=== PATIENT | female | born 1935 | race Caucasian/White ===

== ENCOUNTER 2023-12-19 14:29 | Inpatient (IN) | payer MEDICARE, OTHER, SELFPAY ==
[2023-12-19] VITALS (11 sets, daily range): BP systolic 126–191; BP diastolic 52–98; BMI 38.0
[2023-12-19 12:09] LABS: % Basophils 0.2 % (0-2); % Eosinophils 1.6 % (0-6); % Immature Granulocytes 0.9 % (0-0.5); % Lymphocytes 4.3 % (20.5-51.1); % Monocytes 9.1 % (1.7-9.3); % Neutrophils 83.9 % (42.2-75.2); Absolute Eosinophils 0.2 10^3/uL (0-0.7); Absolute Immature Granulocytes 0.1 10^3/uL (0-0.05); Absolute Lymphocytes 0.7 10^3/uL (1.2-3.4); Absolute Monocytes 1.4 10^3/uL (0.1-0.6); Absolute Neutrophils 12.6 10^3/uL (1.4-6.5); Hematocrit 36.9 % (37.0-47.0); Hemoglobin 10.9 g/dL (12.0-16.0); Mean Corp Hgb Conc. 29.5 g/dL (33.0-37.0); Mean Corpuscular Hgb 27.3 pg (27.0-31.0); Mean Corpuscular Volume 92.3 fL (81.0-99.0); Mean Platelet Volume 9.5 fL (7.4-10.4); Nucleated Red Blood Cells % 0 %; Platelet Count 166 10^3/uL (130-400); Red Cell Dist. Width 15.1 % (11.5-14.5)
[2023-12-19 12:24] LABS: ALT (SGPT) 10 U/L (0-35); AST (SGOT) 15 U/L (14-36); Albumin 3.1 g/dl (3.5-5.0); Alkaline Phosphatase 96 U/L (38-126); Blood Urea Nitrogen 20 mg/dl (7-17); Calcium 9.3 mg/dl (8.4-10.2); Carbon Dioxide 34 mmol/L (22-30); Chloride 102 mmol/L (98-107); Glucose 121 mg/dl (70-99); Potassium 4.1 mmol/L (3.5-5.1); Sodium 136 mmol/L (135-145); Total Bilirubin 0.5 mg/dl (0.2-1.3); Total Protein 5.9 g/dl (6.3-8.2); eGFR 36.41
[2023-12-19] MEDS: ANCEF 10 IV (12:48)
--- NOTE | 2023-12-19 13:16 | CON.ORTHO ---
Consultation
-
Date/Time Consultation Requested: December 30/1317
Date/Time Consultation Performed: December 30/1245
Requesting Provider: QUINTON Byers
Performing Provider: Boni Hanson
Reason for Consultation: Right open ankle fracture
Consultation - Orthopedics
History
Dictation#[id number]
Asked to see this very pleasant 88-year-old white female, in the presence of her son, Sheng, with a PMH of COPD, NIDDM, hyperlipids, 2L O2 chronically, venous stasis, who unfortunately tripped and fell this morning around 0645. She was unable to
get to her feet and ambulate therefore SNF at [facility] transported here to ER where plain radiographs confirmed essentially nondisplaced bimalleolar right ankle fracture. There is an open wound medially. She does not report any previous
injuries or issues with the right foot or ankle. We have been requested in consultation for the consideration of surgical intervention. she has received 2 g of IV Ancef
Allergies / Home Medications
Allergy/AdvReac Type Severity Reaction Status Date / Time
amlodipine besylate Allergy COUGH Verified 06/21/22 12:32
[From [facility]]
influenza virus vaccine, Allergy GOT VERY Verified 06/21/22 12:33
specific ILL (pt
[influenza virus denies)
vacc,specific]
morphine Allergy Nausea Verified 06/21/22 12:32
Penicillins Allergy Unknown Verified 06/21/22 12:32
pioglitazone HCl [From Actos] Allergy COUGH Verified 06/21/22 12:32
quinapril HCl [From Accupril] Allergy COUGH Verified 06/21/22 12:32
�Medication �Instructions �Recorded
ezetimibe 10 mg tablet 10 mg PO QPM 10/19/14
acetaminophen 500 mg tablet 500 mg PO Q6HPRN PRN mild pain 12/19/23
(Tylenol Extra Strength)
aspirin 81 mg tablet,delayed 81 mg PO DAILY 12/19/23
release
carboxymethylcellulose sodium 1 % 1 drp BOTH EYES TIDPRN PRN dryness 12/19/23
eye drops
carvedilol 25 mg tablet (Coreg) 25 mg PO BID 12/19/23
cholecalciferol (vitamin D3) 125 125 mcg PO DAILY 12/19/23
mcg (5,000 unit) tablet (Vitamin
D3)
cyclobenzaprine 5 mg tablet 5 mg PO DAILY 12/19/23
d-mannose 500 mg capsule 1,000 mg PO BID 12/19/23
fluticasone fur. 100 mcg-umeclid 1 inh inhalation R DAILY 12/19/23
62.5 mcg-vilant 25 mcg
inhalat.powder (Trelegy Ellipta)
fluticasone propionate 50 1 spray intranasal BID 12/19/23
mcg/actuation nasal
spray,suspension
furosemide 20 mg tablet 20 mg PO DAILY 12/19/23
gabapentin 100 mg capsule 100 mg PO BID 12/19/23
gabapentin 100 mg capsule 200 mg PO HS 12/19/23
ipratropium 0.5 mg-albuterol 3 mg 3 ml inhalation R Q6HPRN PRN sob 12/19/23
(2.5 mg base)/3 mL nebulization
soln
lidocaine HCl 4 % topical cream 1 applic topical TIDPRN PRN b/l 12/19/23
(Aspercreme (lidocaine HCl)) feet, b/l ankles
loperamide 2 mg capsule 2 mg PO Q6HPRN PRN diarrhea 12/19/23
loratadine 10 mg tablet (Claritin) 10 mg PO DAILY 12/19/23
lorazepam 0.5 mg tablet 0.5 mg PO DAILYPRN PRN anxiety 12/19/23
losartan 100 mg tablet 100 mg PO DAILY 12/19/23
magnesium hydroxide 400 mg/5 mL 30 ml PO [id number] PRN at bedtime on 12/19/23
oral suspension 3rd day if no bm
melatonin 5 mg tablet 10 mg PO HS 12/19/23
ondansetron HCl 8 mg tablet 8 mg PO Q8HPRN PRN nausea 12/19/23
oxycodone 5 mg tablet 5 mg PO [id number] PRN 12/19/23
moderate/severe pain
polyethylene glycol 3350 17 gram 17 g PO DAILYPRN PRN cosntipation 12/19/23
oral powder packet (Miralax)
sennosides 8.6 mg tablet (senna) 1 tab PO HS 12/19/23
sodium chloride 0.65 % nasal spray 1 spray intranasal Q4HPRN PRN 12/19/23
aerosol dryness
trazodone 50 mg tablet 25 mg PO HS 12/19/23
Vital Signs / Lab Results
Temp Pulse Resp BP Pulse Ox
98.7 F 87 16 145/52 91
12/19/23 09:06 12/19/23 13:00 12/19/23 13:00 12/19/23 11:46 12/19/23 12:54
12/19/23 11:59
12/19/23 11:59
Assessment / Plan
PE: ED7. Bedrest. AAOx3. stasis changes noted in both lower extremities. Scabbed over abrasion pretibial region middle third. There is an open laceration medially on the ankle. No bony structures visible. Expected edema is noted. Wound is
dressed. She is currently not splinted. 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
Xrays: minimally displaced bimalleolar ankle fracture. mortise is maintained. open wound medially
Impression: RAFAEL
Plan: I discussed at length with both the patient and her son, Sheng. her last meal was before 0700 this morning. we will have the hospitalist see her to determine if she is optimal for the OR. At the very least an I&D of the right ankle is
necessary. Dr. Hanson, our foot and ankle specialist, will determine if hardware is necessary or if we will try I&D with postop splinting and close outpatient follow-up to assess for healing. She has tentatively been posted to the OR schedule
for [address] Hanson's direction. RBAs of nonoperative and operative management were discussed. Briefly discussed the postop course as well. Plan will likely be returning to SNF at [facility] with outpatient follow-up. we
will appreciate the assistance of case management. She is NPO. T&S has been requested. BS 121, but will request an A1c. surgical and blood consents have been signed. Operative site has been marked as the right ankle. Again, the tentative plan
for surgery is this afternoon if cleared medically. Will follow. Appreciate the courtesy of the consult
--- NOTE | 2023-12-19 13:19 | ED.MUSCINJ ---
HPI-Injury
General
Chief Complaint: Fall
Source: patient
Exam Limitations: none
Time Seen by Provider: 12/19/23 09:47
Travel History
Have you had any contact with someone who has COVID-19?: No
Do you have any symptoms of coronavirus? Fever > 100 degrees, chills, cough, shortness of breath, sore throat, loss of taste or smell, muscle aches, or headache?: No
History of Present Illness-Injury
Initial Injury comments:
88-year-old female history of COPD [id number] diabetes presents from [facility] with complaints of right ankle pain after slip and fall. She also complains of left lower leg pain. She did not hit her head. There is
reports of low oxygen readings at the facility. She denies chest pain or shortness of breath. No other complaints at this time
Past History
Past History
ED Past Medical History: COPD, HTN, Hypercholesterolemia and NIDDM
ED Past Surgical History: Bowel resection, Gynecological and Orthopedic
Social History
Tobacco: Former smoker
Alcohol: Occasional
Drug: None
Personal:
Living: with family
Employment: Retired
Family History
Family History: Other (Pending)
Phy Exam
Physical Exam
Physical Exam:
General: Well-appearing female no acute respiratory distress
HEENT: Normocephalic atraumatic
Heart: Regular rate no murmurs
Lungs: Clear without obvious wheeze
Abdomen soft nontender nondistended no guarding rebound
Extremities: No cyanosis pitting edema noted bilateral lower extremities
Skin: Approximate 4 and half centimeter laceration of the medial aspect of the right ankle
Musculoskeletal exam: The right ankle is tender to the touch laterally and medially. No significant deformity left leg is tender posteriorly over the calf and over the big toe.
Neurologic: Alert and oriented facial asymmetry
Injury Course
Orders/Labs/Results
Orders:
Orders
12/19/23 09:55
CR Foot - Left Min 3 Views Urgent
Comment:
Reason For Exam: fall
CR Foot - Right Min 3 Views Urgent
Comment:
Reason For Exam: fall
CR Leg Tibia/fibula Left 2 Vw Urgent
Comment:
Reason For Exam: fall
CR Leg Tibia/fibula Right 2 Vw Urgent
Comment:
Reason For Exam: fall
12/19/23 10:59
CR Ankle - Right Min 3 Views * Urgent
Comment:
Reason For Exam: pain
12/19/23 11:05
CR Chest - 2 Views Urgent
Comment:
Reason For Exam: cough, hypoxia
12/19/23 11:06
Electrocardiogram (*1) Urgent
Reason for Study: Shortness of Breath
CT Head W/o Iv Contrast Urgent
Comment:
Reason For Exam: fall
EKG- Treatment ONCE
12/19/23 11:59
Complete Blood Count/With Diff Urgent
Comprehensive Metabolic Panel Urgent
Glycohemoglobin (HgbA1c) Urgent
12/19/23 12:24
CeFAZolin 2 GRAM [Ancef] 2 grams in 10 ml IV NOW
12/19/23 12:57
Type+Screen Urgent
12/19/23 13:03
Add On- LAB Urgent
Tests Added?: hgb A1C
12/19/23 13:17
ORTHOPEDIC CONSULT Urgent
Consulting Provider: Osbaldo Hanson
Was physician already notified: Yes
Abnormal Lab Results
12/19/23
11:59
WBC 15.0 H 10^3/uL
(4.8-10.8)
RBC 4.00 L 10^6/uL
(4.20-5.40)
Hgb 10.9 L g/dL
(12.0-16.0)
Hct 36.9 L %
(37.0-47.0)
MCHC 29.5 L g/dL
(33.0-37.0)
RDW 15.1 H %
(11.5-14.5)
Abs Immat Gran (auto) 0.1 H 10^3/uL
(0-0.05)
Absolute Neuts (auto) 12.6 H 10^3/uL
(1.4-6.5)
Absolute Lymphs (auto) 0.7 L 10^3/uL
(1.2-3.4)
Absolute Monos (auto) 1.4 H 10^3/uL
(0.1-0.6)
Immature Gran % 0.9 H %
(0-0.5)
Neutrophils % 83.9 H %
(42.2-75.2)
Lymphocytes % 4.3 L %
(20.5-51.1)
Carbon Dioxide 34 H mmol/L
(22-30)
BUN 20 H mg/dl
(7-17)
Creatinine 1.4 H mg/dL
(0.6-1.0)
Glucose 121 H mg/dl
(70-99)
Total Protein 5.9 L g/dl
(6.3-8.2)
Albumin 3.1 L g/dl
(3.5-5.0)
12/19/23 11:59
12/19/23 11:59
MDM/Problems Addressed
Differential Diagnosis Includes:
Fall with right ankle pain. Consider fracture versus dislocation. There is a laceration. Consider possibility of open fracture.
This was a mechanical fall on wet floor. Son now on room said she has been confused lately. CT of the head was ordered on top of x-rays of the lower extremities
I have personally visualized all imaging studies including CT of head x-rays of the lower leg and spine specifically the right ankle. There is a bimalleolar fracture of the right ankle that is minimally displaced. Laceration on the medial aspect
of the right ankle is overlying the fracture site of the medial malleolus. Suspect open fracture. Discussed findings with orthopedics who has seen the patient. They plan on taking the patient to the OR today. Ancef 2 g ordered. Hospitalist made
aware of admission
*Critical Care Note
Total Time (30-74mins, 75-104mins- exclusive of procedures): Not Applicable
ED Attending Note
-
Portions of this chart may have been created with voice recognition software.� Occasional wrong word or��sound alike� substitutions may have occurred due to the inherent limitations of voice recognition software.
Discharge Plan
Departure
Patient Disposition: Admit
Date of Disposition: 12/19/23
Time of Disposition: 13:22
Presentation/result/management discussed w/ accepting MD/DO: Hospitalist
Discharge Problem:
Open bimalleolar fracture of right ankle
Prescriptions:
No Action
ezetimibe 10 MG tablet
10 mg PO QPM
carvedilol [Coreg] 25 mg Tablet
25 mg PO BID
ipratropium-albuterol [DuoNeb] 0.5 mg-3 mg(2.5 mg base)/3 mL Solution For Nebulization
3 ml INHALATION R Q6HPRN PRN (Reason: sob)
loperamide 2 mg Capsule
2 mg PO Q6HPRN PRN (Reason: diarrhea)
trazodone 50 mg Tablet
25 mg PO HS
polyethylene glycol 3350 [Miralax] 17 gram Powder In Packet
17 g PO DAILYPRN PRN (Reason: cosntipation)
ondansetron HCl [Zofran] 8 mg Tablet
8 mg PO Q8HPRN PRN (Reason: nausea)
aspirin 81 mg Tablet,Delayed Release (Dr/Ec)
81 mg PO DAILY
acetaminophen [Tylenol Extra Strength] 500 mg Tablet
500 mg PO Q6HPRN PRN (Reason: mild pain)
lorazepam 0.5 mg Tablet
0.5 mg PO DAILYPRN PRN (Reason: anxiety)
gabapentin 100 mg Capsule
200 mg PO HS
losartan 100 mg Tablet
100 mg PO DAILY
fluticasone propionate [Flonase] 50 mcg/actuation [place],Suspension
1 spray INTRANASAL BID
loratadine [Claritin] 10 mg Tablet
10 mg PO DAILY
cyclobenzaprine 5 mg Tablet
5 mg PO DAILY
[place] Nasal Mist 0.65 % Aerosol,[place]
1 spray INTRANASAL Q4HPRN PRN (Reason: dryness)
melatonin 5 mg Tablet
10 mg PO HS
cholecalciferol (vitamin D3) [Vitamin D3] 125 mcg (5,000 unit) Tablet
125 mcg PO DAILY
lidocaine HCl [Aspercreme (lidocaine HCl)] 4 % Cream
1 applic TOPICAL TIDPRN PRN (Reason: b/l feet, b/l ankles)
Trelegy Ellipta 100-62.5-25 mcg Blister With Device
1 inh INHALATION R DAILY
carboxymethylcellulose sodium 1 % Drops
1 drp BOTH EYES TIDPRN PRN (Reason: dryness)
d-mannose 500 mg Capsule
1,000 mg PO BID
sennosides [senna] 1 TABLET tablet
1 tab PO HS
magnesium hydroxide 30 ML suspension
30 ml PO [id number] PRN (Reason: at bedtime on 3rd day if no bm )
furosemide 20 MG tablet
20 mg PO DAILY
oxycodone 5 MG tablet
5 mg PO [id number] PRN (Reason: moderate/severe pain)
gabapentin 100 mg Capsule
100 mg PO BID
Referrals:
Devan Hammer MD [Family Provider] -
Interventions
Interventions:
*Risk Screen - Suicide Last Done: 12/19/23 12:13
*Neglect/Abuse Screening Last Done: 12/19/23 12:13
ED- Fall Risk Assessment Last Done: 12/19/23 12:13
*ED COVID-19 Vaccine History Last Done: 12/19/23 12:13
ED-Musculoskeletal Assessment Last Done: 12/19/23 12:17
ED-Skin Assessment Last Done: 12/19/23 12:13
Discharge Date and Time
Print Language: NAURUAN
--- NOTE | 2023-12-19 13:30 | HPS.HSE ---
Family Physician
-
Family Physician: Devan Hammer
Chief Complaint
-
fall
History of Present Illness
88-year-old with past medical history for TIA, COPD, obesity, type 2 diabetes, hypertension, hyperlipidemia, chronic respiratory failure O2 dependent presented to us with presented to us status post fall at [facility]. Patient slipped and fell
in the bathroom. Patient denied hitting head on the floor. Since then, she is complaining of bilateral ankle pain. Patient cannot move her right ankle. Patient denied any headache, dizziness, syncopal episode. Patient has runny nose, nasal
congestion and cough for past few days. She is taking Robitussin as needed for cough. Patient denied any fever, chills. Patient stated chronic short of breath. Patient denied chest pain. Patient denied abdominal pain, nausea, vomiting,
diarrhea. Patient denied dysuria hematuria.
Ankle x-ray with impression of Minimally displaced, acute fractures through the distal RIGHT fibula and medial malleolus.
Patient evaluated by orthopedics in the ER. Possibly going for surgical intervention today.
Medical History
Past Medical History
Past Medical History: Reports Other
Additional Past Medical History:
TIA, COPD, obesity, type 2 diabetes, hypertension, hyperlipidemia, chronic respiratory failure O2 dependent
Past Surgical History: Reports Other
Additional Past Surgical History:
Colon polyp resection
Left breast surgery for breast cancer
Partial hip replacement
Cataract surgery
Shoulder repair
Total abdominal hysterectomy
Social History
Tobacco: Former Smoker
Alcohol: None
Drug: None
Personal: Single
Living: Assisted Living
Family History
Family History: Not pertinent
Allergies / Home Medications
Allergies reflects when Allergies were last updated in [employer].
Home Medications with original date entered in [employer]
Allergy/Medication List:
Allergies
Allergy/AdvReac Type Severity Reaction Status Date / Time
amlodipine besylate Allergy COUGH Verified 06/21/22 12:32
[From [facility]]
influenza virus vaccine, Allergy GOT VERY Verified 06/21/22 12:33
specific ILL (pt
[influenza virus denies)
vacc,specific]
morphine Allergy Nausea Verified 06/21/22 12:32
Penicillins Allergy Unknown Verified 06/21/22 12:32
pioglitazone HCl [From Actos] Allergy COUGH Verified 06/21/22 12:32
quinapril HCl [From Accupril] Allergy COUGH Verified 06/21/22 12:32
Home Medications
ezetimibe 10 mg tablet 10 mg PO QPM 10/19/14
acetaminophen 500 mg tablet (Tylenol Extra Strength) 500 mg PO Q6HPRN PRN mild pain 12/19/23
aspirin 81 mg tablet,delayed release 81 mg PO DAILY 12/19/23
carboxymethylcellulose sodium 1 % eye drops 1 drp BOTH EYES TIDPRN PRN dryness 12/19/23
carvedilol 25 mg tablet (Coreg) 25 mg PO BID 12/19/23
cholecalciferol (vitamin D3) 125 mcg (5,000 unit) tablet (Vitamin D3) 125 mcg PO DAILY 12/19/23
cyclobenzaprine 5 mg tablet 5 mg PO DAILY 12/19/23
d-mannose 500 mg capsule 1,000 mg PO BID 12/19/23
fluticasone fur. 100 mcg-umeclid 62.5 mcg-vilant 25 mcg inhalat.powder (Trelegy Ellipta) 1 inh inhalation R DAILY 12/19/23
fluticasone propionate 50 mcg/actuation nasal spray,suspension 1 spray intranasal BID 12/19/23
furosemide 20 mg tablet 20 mg PO DAILY 12/19/23
gabapentin 100 mg capsule 100 mg PO BID 12/19/23
gabapentin 100 mg capsule 200 mg PO HS 12/19/23
ipratropium 0.5 mg-albuterol 3 mg (2.5 mg base)/3 mL nebulization soln 3 ml inhalation R Q6HPRN PRN sob 12/19/23
lidocaine HCl 4 % topical cream (Aspercreme (lidocaine HCl)) 1 applic topical TIDPRN PRN b/l feet, b/l ankles 12/19/23
loperamide 2 mg capsule 2 mg PO Q6HPRN PRN diarrhea 12/19/23
loratadine 10 mg tablet (Claritin) 10 mg PO DAILY 12/19/23
lorazepam 0.5 mg tablet 0.5 mg PO DAILYPRN PRN anxiety 12/19/23
losartan 100 mg tablet 100 mg PO DAILY 12/19/23
magnesium hydroxide 400 mg/5 mL oral suspension 30 ml PO [id number] PRN at bedtime on 3rd day if no bm 12/19/23
melatonin 5 mg tablet 10 mg PO HS 12/19/23
ondansetron HCl 8 mg tablet 8 mg PO Q8HPRN PRN nausea 12/19/23
oxycodone 5 mg tablet 5 mg PO [id number] PRN moderate/severe pain 12/19/23
polyethylene glycol 3350 17 gram oral powder packet (Miralax) 17 g PO DAILYPRN PRN cosntipation 12/19/23
sennosides 8.6 mg tablet (senna) 1 tab PO HS 12/19/23
sodium chloride 0.65 % nasal spray aerosol 1 spray intranasal Q4HPRN PRN dryness 12/19/23
trazodone 50 mg tablet 25 mg PO HS 12/19/23
Review of Systems
-
Constitutional: Reports No Symptoms
EENT: Reports No Symptoms
Respiratory: Reports No Symptoms
Cardiac: Reports No Symptoms
Abdomen/GI: Reports No Symptoms
: Reports No Symptoms
Musculoskeletal: Reports Other (Right ankle pain)
Skin: Reports No Symptoms
Neurological: Reports No Symptoms
Endocrine: Reports No Symptoms
Hematologic/Lymphatic: Reports No Symptoms
Psych: Reports No Symptoms
Physical Exam
Vital Signs
Vital Signs
Temp Pulse Resp BP Pulse Ox
98.7 F 87 16 145/52 91
12/19/23 09:06 12/19/23 13:00 12/19/23 13:00 12/19/23 11:46 12/19/23 12:54
Physical Exam
General: Well Developed, Well Nourished and No Apparent Distress
HEENT: NormoCephalic, Moist mucous membranes and Atraumatic
Respiratory: Clear
Cardiac: S1/S2 and Regular Rhythm; No Murmur or Rub
GI: Soft, Non Tender, Non Distended and Normal Bowel Sounds; No Organomegaly
Rectal: Deferred by Provider
Musculoskeletal: No Clubbing, No Cyanosis and No Edema
Skin: No Rash
Neuro: AO x 3 and Nonfocal/grossly intact
Psych: Calm
Laboratory Results
-
12/19/23 11:59
12/19/23 11:59
Laboratory Results
Total Bilirubin 0.5 mg/dl (0.2-1.3) 12/19/23 11:59
AST 15 U/L (14-36) 12/19/23 11:59
ALT 10 U/L (0-35) 12/19/23 11:59
Alkaline Phosphatase 96 U/L (38-126) 12/19/23 11:59
Data Reviewed
-
Diagnostic Radiology: Report Reviewed by me
Lab Data: Labs Reviewed by me
Impression/Plan
-
# Open right ankle fracture status post fall
-Ankle,foot, type fib x-ray with impression of Minimally displaced, acute fractures through the distal RIGHT fibula and medial malleolus.
-Head CT with no acute intracranial normality, Mild paranasal sinus disease within the right maxillary sinus and ethmoid air cells.
-Ortho will take 2 OR today
-IV ancef in ER
-orthopedic consult
-Physical therapy and Occupational Therapy consulted after surgery
# Leukocytosis likely stress reaction
-WBC 15.0
-Afebrile
-Continue to monitor
-Chest x-ray with no acute disease
-obtain UA
# Runny nose, nasal congestion/cough likely viral
-Will obtain influenza, COVID
-Continue to monitor
# Anemia of chronic disease
-Hemoglobin 10.9
-No active bleeding
-Continue to monitor
# Chronic kidney disease stage IIIb
-Creatinine 1.4
-Continue to monitor
# Chronic respiratory failure/history of COPD
-O2 dependent at home
-Patient uses 2 L of oxygen at home
-Patient not in acute exacerbation
-Nebulizers from home will be continued
# Essential hypertension
-Coreg continued with hold parameters
-Furosemide continued
-Losartan continued
# Hyperlipidemia
-Zetia continued
# Anxiety
-Lorazepam continued
# Chronic generalized pain
-oxy held, as patient will be on iv pain meds after surgery
# DVT prophylaxis
-SCD
# CODE STATUS
-Full code
[2023-12-19 14:46] LABS: Glycohemoglobin (HgbA1c) 6.4 % (4.0-5.6)
[2023-12-19 15:10] LABS: COVID-19 Antigen Negative (Negative)
--- NOTE | 2023-12-19 15:19 | W.PN.UPDATE ---
Update Note
Progress Note Update
This note serves in conjunction with note dated with Francisco Javier Garcia on 12/18
I saw and examined the patient.
The COMPUTER FORENSICS TECHNICIAN or PA's note was reviewed and I agree with the note.
Comment:
88-year-old with past medical history for TIA, COPD, obesity, type 2 diabetes, hypertension, hyperlipidemia, chronic respiratory failure O2 dependent, now presents status post fall. Patient has been recently having URI symptoms without any other
further associated symptoms. Patient had fell, no head strike. Complaining of bilateral ankle pain, and unable to move her right ankle. Patient members fall, no evidence of syncope. Hypertensive, respirate 17, pulse 85, 91% on room air. White
count 15.0, creatinine 1.4�has been stable. SARS-CoV-2, flu negative. No urinary symptoms. CT head unremarkable for acute pathology. X-ray with no obvious acute pathology. Noted to have minimally displaced, acute fracture throughout the distal
right fibula and medial malleolus. Ortho on board and plan to go to the OR today. Plan�continue home medications, pain regimen. Monitor white count, most likely reactive.
[2023-12-19 15:50] LABS: Glucose - Point of Care 131 mg/dl (70-99)
[2023-12-19 19:15] LABS: Glucose - Point of Care 196 mg/dl (70-99)
[2023-12-19] MEDS: NOVOLOG vial 100 UNITS SC (20:08)
[2023-12-19] MEDS: DILAUDID 0.25 MG IV (20:14)
[2023-12-19] MEDS: SYMBICORT 80/4.5 MCG INHALER INH (21:24)
--- NOTE | 2023-12-19 21:28 | PTCARENOTE ---
Received patient from PACU via bed approx 21:00. Pt AAOX3. Call marie within reach. Plan of care ongoing. Son at bedside.
[2023-12-19] MEDS: DESYREL 25 MG PO (21:34)
[2023-12-19] MEDS: COREG 25 MG PO (21:34)
[2023-12-19] MEDS: MELATONIN 10 MG PO (21:35)
[2023-12-19] MEDS: NEURONTIN 200 MG PO (21:35)
[2023-12-19] MEDS: ZETIA 10 MG PO (21:35)
[2023-12-19] MEDS: SENOKOT 8.59999999999999964 MG PO (21:35)
[2023-12-19] MEDS: TYLENOL 650 MG PO (21:42)
[2023-12-20] VITALS (10 sets, daily range): BP systolic 124–179; BP diastolic 53–82; PULSE 66–68; O2SAT 91–94
[2023-12-20 00:07] LABS: Glucose - Point of Care 211 mg/dl (70-99)
[2023-12-20] MEDS: ANCEF 5 IV ×2 (00:15→08:58)
[2023-12-20 03:59] LABS: Urine Albumin 1+ (Neg - Trace); Urine Bilirubin Negative (Negative); Urine Character Very Cloudy (Clear); Urine Color Yellow; Urine Glucose Negative (Negative); Urine Ketone 1+ (Negative); Urine Leukocyte 2+ (Negative); Urine Nitrite Positive (Negative); Urine Occult Blood 2+ (Negative); Urine Urobilinogen Negative (Neg - 1+)
[2023-12-20 04:23] LABS: Hematocrit 36.7 % (37.0-47.0); Hemoglobin 10.8 g/dL (12.0-16.0); Mean Corp Hgb Conc. 29.4 g/dL (33.0-37.0); Mean Corpuscular Volume 91.8 fL (81.0-99.0); Mean Platelet Volume 9.8 fL (7.4-10.4); Platelet Count 156 10^3/uL (130-400); Red Cell Dist. Width 14.7 % (11.5-14.5); White Blood Cell Count 16.5 10^3/uL (4.8-10.8)
[2023-12-20 04:27] LABS: Urine Bacteria Many (Negative); Urine White Cell >100 /HPF (0-5)
[2023-12-20 04:45] LABS: Blood Urea Nitrogen 23 mg/dl (7-17); Calcium 9.7 mg/dl (8.4-10.2); Carbon Dioxide 33 mmol/L (22-30); Chloride 99 mmol/L (98-107); Estimated Creatinine Clearance 36 ml/min; Glucose 164 mg/dl (70-99); Potassium 4.8 mmol/L (3.5-5.1); Sodium 138 mmol/L (135-145)
[2023-12-20 06:04] LABS: Glucose - Point of Care 175 mg/dl (70-99)
--- NOTE | 2023-12-20 07:26 | W.PN.ORTHO ---
Today's Communication / Plan
-
POD #1 s/p ORIF right trimalleolar fracture and I&D
-NWB RLE.
-PT/OT as able.
-IV antibiotics per open fracture protocol.
-Aspirin 325 mg po daily for dvt prophylaxis.
-Pain control.
-Will plan to change dressing prior to discharge to assess skin.
-Appreciate case management efforts in d/c planning.
-Will have her f/u in office in 1 week for skin check and plan to remove sutures 3-4 weeks post op.
-Will continue to follow.
Assessment
.
Distal Motor Intact: Yes
Dressing:
Clean, dry and intact.
Assessment:
POD #1 s/p ORIF right trimalleolar fracture and I&D
-NWB RLE.
-PT/OT as able.
-IV antibiotics per open fracture protocol.
-Aspirin 325 mg po daily for dvt prophylaxis.
-Pain control.
-Will plan to change dressing prior to discharge to assess skin.
-Appreciate case management efforts in d/c planning.
-Will have her f/u in office in 1 week for skin check and plan to remove sutures 3-4 weeks post op.
-Will continue to follow.
Plan
.
DVT Prophylaxis: Aspirin
Activity:
Out of bed.
PT/OT
Discharge Plan: SNF
Subjective
.
.:
Patient resting comfortably, somnolent on exam. Able to wake her to answer questions, but she remains groggy. States some soreness in her ankle.
Vital Signs and Labs
.
Vital Signs and Labs:
Lab Results
12/20/23 04:08
12/20/23 04:08
Temp Pulse Resp BP Pulse Ox
98.1 F 74 16 145/63 95
12/20/23 03:10 12/20/23 03:10 12/20/23 03:10 12/20/23 03:10 12/20/23 03:10
Physical Exam
-
Right leg: Splint on RLE c/d/i. No evidence of significant swelling. Able to wiggle toes. Good distal sensation to light touch.
[2023-12-20] MEDS: SYMBICORT 80/4.5 MCG INHALER 2 PUFF INH ×2 (07:46→21:08)
[2023-12-20] MEDS: SPIRIVA RESPIMAT 2.5 MCG 2 PUFF INH (07:46)
[2023-12-20] MEDS: COZAAR 100 MG PO (08:54)
[2023-12-20] MEDS: COREG 25 MG PO ×2 (08:57→19:34)
[2023-12-20] MEDS: FLEXERIL 5 MG PO (08:57)
[2023-12-20] MEDS: NEURONTIN 100 MG PO ×2 (08:58→17:20)
[2023-12-20] MEDS: LASIX 20 MG PO (08:58)
[2023-12-20] MEDS: ASPIR LOW (ENTERIC COATED) 81 MG PO (08:58)
[2023-12-20] MEDS: CLARITIN 10 MG PO (08:58)
[2023-12-20] MEDS: TYLENOL 650 MG PO ×2 (09:04→20:39)
[2023-12-20 11:53] LABS: Glucose - Point of Care 123 mg/dl (70-99)
--- NOTE | 2023-12-20 13:16 | W.PN.HOSP.TC ---
Today's Communication/Plan
-
switch to ceftriaxone
F/u urine cultures
pain control
pt/ot
ASA 325mg
dresing changes
Assessment / Plan
Assessment / Plan
Physical Exam
General: Well Developed, Well Nourished and No Apparent Distress
HEENT: NormoCephalic, Moist mucous membranes and Atraumatic
Respiratory: Clear
Cardiac: S1/S2 and Regular Rhythm; No Murmur or Rub
GI: Soft, Non Tender, Non Distended and Normal Bowel Sounds; No Organomegaly
Rectal: Deferred by Provider
Musculoskeletal: No Clubbing, No Cyanosis and No Edema
Skin: No Rash
Neuro: AO x 3 and Nonfocal/grossly intact
Psych: Calm
# Open right ankle fracture status post fall
-POD #1 s/p ORIF right trimalleolar fracture and I&D
-Aspirin 325 mg po daily for dvt prophylaxis.
-Pain Control
-Dressing change as per Ortho
-PT/OT
-F/u Ortho in 1 week for skin check and plan to remove sutures in 3 to 4 weeks.
# Leukocytosis likely stress reaction
-UA is positive although most likely stress reaction
� Continue to monitor
#UTI
May have been contributing factor and fall
� Treat, switch to ceftriaxone
-Follow-up cultures
# Runny nose, nasal congestion/cough likely viral
-Covid, Flu Neg
-Continue to monitor
# Anemia of chronic disease
-Hemoglobin 10.9
-No active bleeding
-Continue to monitor
# Chronic kidney disease stage IIIb
-Creatinine 1.4
-Continue to monitor
# Chronic respiratory failure/history of COPD
-O2 dependent at home
-Patient uses 2 L of oxygen at home
-Patient not in acute exacerbation
-Nebulizers from home will be continued
# Essential hypertension
-Coreg continued with hold parameters
-Furosemide continued
-Losartan continued
# Hyperlipidemia
-Zetia continued
# Anxiety
-Lorazepam continued
# Chronic generalized pain
-oxy held, as patient will be on iv pain meds after surgery
# DVT prophylaxis
-SCD
# CODE STATUS
-Full code
Anticipated Discharge: 24 - 48 hours
Subjective/Interval History
-
Date of Service: December 20, 2023
Tolerated procedure well; UA noted to be positive
Objective Data
-
Labs:
Laboratory Results
12/20/23
04:08
WBC 16.5 H
Hgb 10.8 L
Hct 36.7 L
Plt Count 156
Sodium 138
Potassium 4.8
Chloride 99
Carbon Dioxide 33 H
BUN 23 H
Creatinine 1.3 H
Glucose 164 H
Calcium 9.7
Vital Signs:
Vital Signs
Temp Pulse Resp BP Pulse Ox
98.0 F 67 18 150/56 94
12/20/23 11:55 12/20/23 11:55 12/20/23 11:55 12/20/23 11:55 12/20/23 11:55
I&O
12/19/23 12/20/23 12/21/23
06:59 06:59 06:59
Intake Total 100 / 100
Output Total 425 / 425
Balance -325 / -325
Review of Systems
-
History Source: Patient
All other systems: Not reviewed unless documented
Data Reviewed
-
Diagnostic Radiology: Image personally visualized and interpreted and Report Reviewed by me
CT Scan: Image personally visualized and interpreted and Report Reviewed by me
Labs: Labs Reviewed by me
[2023-12-20] MEDS: STERILE WATER FOR INJECTION 10 ML IV (13:49)
[2023-12-20] MEDS: ROCEPHIN 1000 MG IV (13:49)
--- NOTE | 2023-12-20 14:08 | CM ---
CM spoke with nursing/[facility]
Pt is a [place] resident- approx 4-5 years there and [place] bedhold
Pt is independent with ambulations with use a WW
She self propels a WC for longer distances
Staff provide personal care assistance
Pt is Ax O 4x and wears 2L O2 continuously
PCP- Devan Hammer
Rx- Pharmascript
Pt is POD#1 ORIF R ankle
Pt is NWB R.LE
Return SNF referral sent via [facility]
Discharge Disposition- return [facility]
[2023-12-20] MEDS: ZETIA 10 MG PO (17:20)
[2023-12-20 17:45] LABS: Glucose - Point of Care 182 mg/dl (70-99)
[2023-12-20] MEDS: NEURONTIN 200 MG PO (21:39)
[2023-12-20] MEDS: MELATONIN 10 MG PO (21:39)
[2023-12-20] MEDS: SENOKOT 8.59999999999999964 MG PO (21:40)
[2023-12-20] MEDS: DESYREL 25 MG PO (21:40)
[2023-12-20 23:11] LABS: Glucose - Point of Care 171 mg/dl (70-99)
[2023-12-21 05:41] LABS: Hematocrit 31.8 % (37.0-47.0); Hemoglobin 9.4 g/dL (12.0-16.0); Mean Corp Hgb Conc. 29.6 g/dL (33.0-37.0); Mean Corpuscular Hgb 27.2 pg (27.0-31.0); Mean Corpuscular Volume 92.2 fL (81.0-99.0); Mean Platelet Volume 10.2 fL (7.4-10.4); Platelet Count 166 10^3/uL (130-400); Red Blood Cell Count 3.45 10^6/uL (4.20-5.40); Red Cell Dist. Width 15.1 % (11.5-14.5)
[2023-12-21 06:06] LABS: Blood Urea Nitrogen 32 mg/dl (7-17); Calcium 9.5 mg/dl (8.4-10.2); Carbon Dioxide 34 mmol/L (22-30); Chloride 103 mmol/L (98-107); Estimated Creatinine Clearance 36 ml/min; Glucose 120 mg/dl (70-99); Potassium 4.4 mmol/L (3.5-5.1); Sodium 137 mmol/L (135-145)
[2023-12-21 07:00] VITALS: BP 148/62
[2023-12-21 07:43] LABS: Glucose - Point of Care 120 mg/dl (70-99)
[2023-12-21] MEDS: SYMBICORT 80/4.5 MCG INHALER 2 PUFF INH (07:47)
[2023-12-21] MEDS: SPIRIVA RESPIMAT 2.5 MCG 2 PUFF INH (07:47)
[2023-12-21] MEDS: FLEXERIL 5 MG PO (08:05)
[2023-12-21] MEDS: CLARITIN 10 MG PO (08:05)
[2023-12-21] MEDS: ASPIR LOW (ENTERIC COATED) 81 MG PO (08:06)
[2023-12-21] MEDS: LASIX 20 MG PO (08:06)
[2023-12-21] MEDS: NEURONTIN 100 MG PO ×2 (08:06→17:07)
[2023-12-21] MEDS: COZAAR 100 MG PO (08:07)
[2023-12-21] MEDS: COREG PO (08:07)
--- NOTE | 2023-12-21 08:09 | W.PN.ORTHO ---
Today's Communication / Plan
-
POD #2 s/p ORIF right trimalleolar fracture and I&D
-NWB RLE.
-PT/OT as able.
-Currently on IV antibiotics for UTI.
-Aspirin 325 mg po daily for dvt prophylaxis.
-Pain control.
-Will plan to change dressing prior to discharge to assess skin. Will determine need for oral antibiotics following this.
-Appreciate case management efforts in d/c planning. Plan to d/c back to [facility] when medically stable.
-Will have her f/u in office in 1 week for skin check and plan to remove sutures 3-4 weeks post op.
-Will continue to follow.
Assessment
.
Distal Motor Intact: Yes
Dressing:
Clean, dry and intact.
Assessment:
POD #2 s/p ORIF right trimalleolar fracture and I&D
-NWB RLE.
-PT/OT as able.
-Currently on IV antibiotics for UTI.
-Aspirin 325 mg po daily for dvt prophylaxis.
-Pain control.
-Will plan to change dressing prior to discharge to assess skin. Will determine need for oral antibiotics following this.
-Appreciate case management efforts in d/c planning. Plan to d/c back to [facility] when medically stable.
-Will have her f/u in office in 1 week for skin check and plan to remove sutures 3-4 weeks post op.
-Will continue to follow.
Plan
.
Surgery / Date: 12/19/2023 - right ankle I&D and ORIF
DVT Prophylaxis: Aspirin
Activity:
Out of bed.
PT/OT
Discharge Plan: SNF
Subjective
.
.:
Patient resting comfortably. More coherent this morning when answering questions. More pain and swelling today than yesterday.
Vital Signs and Labs
.
Vital Signs and Labs:
Lab Results
12/21/23 04:30
12/21/23 04:30
Temp Pulse Resp BP Pulse Ox
98.0 F 59 16 148/62 96
12/21/23 07:00 12/21/23 08:07 12/21/23 07:50 12/21/23 08:07 12/21/23 07:50
Physical Exam
-
Right lower extremity: splint c/d/i. Mild diffuse swelling of toes and proximal to splint. Able to wiggle toes without difficulty. Sensation intact to light touch.
--- NOTE | 2023-12-21 09:30 | PTCARENOTE ---
Patient refused to get OOB this AM. Patient educated on importance of getting OOB and shifting weight to prevent worsening of pressure ulcer on buttocks. Patient verbalized understanding and stated 'I do not want to get OOB'. RN will continue to
reinforce importance. Q2 hour turns.
--- NOTE | 2023-12-21 11:36 | W.PN.HOSP.TC ---
Addendum entered and electronically signed by Ziyad Soto MD 12/21/23 15:45:
[id number]
Addendum entered and electronically signed by Ziyad Soto MD 12/21/23 14:30:
Dressing change�no requirement/need from orthopedic standpoint for antibiotics
Follow-up with Dr. Hanson in office in 1 week
Aspirin 325 mg daily, can resume 81 mg daily once 325 mg is completed
cbc in 3-5 days
f/u pcp in 1 week
Original Note:
Today's Communication/Plan
-
dressing changes
Stop abx
DC ready, CM aware
Assessment / Plan
Assessment / Plan
Physical Exam
General: Well Developed, Well Nourished and No Apparent Distress
HEENT: NormoCephalic, Moist mucous membranes and Atraumatic
Respiratory: Clear
Cardiac: S1/S2 and Regular Rhythm; No Murmur or Rub
GI: Soft, Non Tender, Non Distended and Normal Bowel Sounds; No Organomegaly
Rectal: Deferred by Provider
Musculoskeletal: No Clubbing, No Cyanosis and No Edema
Skin: No Rash
Neuro: AO x 3 and Nonfocal/grossly intact
Psych: Calm
# Open right ankle fracture status post fall
-POD #2 s/p ORIF right trimalleolar fracture and I&D
-Aspirin 325 mg po daily for dvt prophylaxis.
-Pain Control
-Dressing change as per Ortho; will decide on oral abx following this
-PT/OT
-F/u Ortho in 1 week for skin check and plan to remove sutures in 3 to 4 weeks.
# Leukocytosis likely stress reaction
� Continue to monitor
#Asymptomatic bacteruria
-cultures negative
-stop abx
# Runny nose, nasal congestion/cough likely viral
-Covid, Flu Neg
-Continue to monitor
# Anemia of chronic disease
-Hemoglobin 10.9
-No active bleeding
-Continue to monitor
# Chronic kidney disease stage IIIb
-Creatinine 1.4
-Continue to monitor
# Chronic respiratory failure/history of COPD
-O2 dependent at home
-Patient uses 2 L of oxygen at home
-Patient not in acute exacerbation
-Nebulizers from home will be continued
# Essential hypertension
-Coreg continued with hold parameters
-Furosemide continued
-Losartan continued
# Hyperlipidemia
-Zetia continued
# Anxiety
-Lorazepam continued
# Chronic generalized pain
-oxy held, as patient will be on iv pain meds after surgery
# DVT prophylaxis
-SCD
# CODE STATUS
-Full code
DC ready, CM aware
Anticipated Discharge: Within 24 hours
Subjective/Interval History
-
Date of Service: December 21, 2023
Much more alert, awake today
Objective Data
-
Labs:
Laboratory Results
12/21/23
04:30
WBC 11.0 H
Hgb 9.4 L
Hct 31.8 L
Plt Count 166
Sodium 137
Potassium 4.4
Chloride 103
Carbon Dioxide 34 H
BUN 32 H
Creatinine 1.3 H
Glucose 120 H
Calcium 9.5
Vital Signs:
Vital Signs
Temp Pulse Resp BP Pulse Ox
98.0 F 59 16 148/62 96
12/21/23 07:00 12/21/23 08:07 12/21/23 07:50 12/21/23 08:07 12/21/23 07:50
I&O
12/20/23 12/21/23 12/22/23
06:59 06:59 06:59
Intake Total 100 / 100 560 / 560
Output Total 425 / 425 350 / 350
Balance -325 / -325 210 / 210
Review of Systems
-
History Source: Patient
All other systems: Not reviewed unless documented
Data Reviewed
-
Diagnostic Radiology: Image personally visualized and interpreted and Report Reviewed by me
CT Scan: Image personally visualized and interpreted and Report Reviewed by me
Labs: Labs Reviewed by me
--- NOTE | 2023-12-21 12:23 | CM ---
Addendum entered by Kym Goodwin 12/21/23 12:52:
BLS arranged for 1600 pickup/[place]
Bedside meeting with pt and son to provide update
Original Note:
CM reviewed pt with Dr Soto- ready for
Call with nursing sammy/Helen at [facility]
Pt accepted back for readmission today
Clinicals faxed per her request to [phone]
Bedside meeting with pt
She is in agreement with plan
IMM verbally reviewed- copy reader provided
Medical necessity and transport form on chart
apartment rental clerk to arrange for transport
Discharge Disposition- return to [facility] via ambulance
Phone- [phone] nursing sammy/Helen Fax- [phone]
[2023-12-21 12:40] LABS: Glucose - Point of Care 128 mg/dl (70-99)
[2023-12-21] MEDS: ASPIRIN 325 MG PO (12:42)
[2023-12-21] MEDS: STERILE WATER FOR INJECTION IV (13:00)
--- NOTE | 2023-12-21 14:14 | W.PN.UPDATE ---
Update Note
Progress Note Update
Patient being discharged back to [facility] today.
Post op dressing removed.
Incisions c/d/i. Medial ankle wound without surrounding erythema or clinical concerns for infection.
Clean, dry dressing placed. Posterior short leg splint applied and wrapped with sydnie wraps.
Recommend f/u in 1 week for skin check to r/o infection.
Do not think oral antibiotics are necessary at discharge.
[2023-12-21] MEDS: TYLENOL 650 MG PO (14:21)
--- NOTE | 2023-12-21 14:32 | W.DS.TRANS ---
DC Summary - County Supervisor
-
Discharge Instructions:
Discharge Diagnosis/Procedures Open right ankle fracture status post fall
Diet Low Cholesterol,Low Fat
Blood Work cbc in 3-5 days to monitor Hgb
Instructions:
Stand-Alone Forms:
Changes to Home Medications: Yes
Discharge Medications:
DC Medications w/original date entered in [facility]
ezetimibe 10 mg tablet 10 mg PO QPM High Cholesterol 10/19/14
acetaminophen 500 mg tablet (Tylenol Extra Strength) 500 mg PO Q6HPRN PRN mild pain 12/19/23
aspirin 81 mg tablet,delayed release 81 mg PO DAILY Blood Clot Prevention/Tx 12/19/23
carboxymethylcellulose sodium 1 % eye drops 1 drp BOTH EYES TIDPRN PRN dryness 12/19/23
carvedilol 25 mg tablet (Coreg) 25 mg PO BID Blood Pressure 12/19/23
cholecalciferol (vitamin D3) 125 mcg (5,000 unit) tablet (Vitamin D3) 125 mcg PO DAILY Supplement 12/19/23
cyclobenzaprine 5 mg tablet 5 mg PO DAILY Muscle Spasms 12/19/23
d-mannose 500 mg capsule 1,000 mg PO BID Supplement 12/19/23
fluticasone fur. 100 mcg-umeclid 62.5 mcg-vilant 25 mcg inhalat.powder (Trelegy Ellipta) 1 inh inhalation R DAILY Lung/Breathing Issues 12/19/23
fluticasone propionate 50 mcg/actuation nasal spray,suspension 1 spray intranasal BID Allergies 12/19/23
furosemide 20 mg tablet 20 mg PO DAILY Fluid Retention/Swelling 12/19/23
gabapentin 100 mg capsule 100 mg PO BID nerve pain 12/19/23
gabapentin 100 mg capsule 200 mg PO HS nerve pain 12/19/23
ipratropium 0.5 mg-albuterol 3 mg (2.5 mg base)/3 mL nebulization soln 3 ml inhalation R Q6HPRN PRN sob 12/19/23
lidocaine HCl 4 % topical cream (Aspercreme (lidocaine HCl)) 1 applic topical TIDPRN PRN b/l feet, b/l ankles 12/19/23
loperamide 2 mg capsule 2 mg PO Q6HPRN PRN diarrhea 12/19/23
loratadine 10 mg tablet (Claritin) 10 mg PO DAILY Allergies 12/19/23
lorazepam 0.5 mg tablet 0.5 mg PO DAILYPRN PRN anxiety 12/19/23
losartan 100 mg tablet 100 mg PO DAILY Blood Pressure 12/19/23
magnesium hydroxide 400 mg/5 mL oral suspension 30 ml PO [id number] PRN at bedtime on 3rd day if no bm 12/19/23
melatonin 5 mg tablet 10 mg PO HS Sleep 12/19/23
ondansetron HCl 8 mg tablet 8 mg PO Q8HPRN PRN nausea 12/19/23
oxycodone 5 mg tablet 5 mg PO [id number] PRN moderate/severe pain 12/19/23
polyethylene glycol 3350 17 gram oral powder packet (Miralax) 17 g PO DAILYPRN PRN cosntipation 12/19/23
sennosides 8.6 mg tablet (senna) 1 tab PO HS Constipation 12/19/23
sodium chloride 0.65 % nasal spray aerosol 1 spray intranasal Q4HPRN PRN dryness 12/19/23
trazodone 50 mg tablet 25 mg PO HS Sleep 12/19/23
aspirin 325 mg tablet 325 mg PO DAILY #0 tabs 12/21/23
sennosides 8.6 mg-docusate sodium 50 mg tablet (Stool Softener-Stimulant Laxative) 1 tab PO BIDPRN PRN constipation #0 tabs 12/21/23
Home Medication Changes
aspirin 325 mg tablet 325 mg PO DAILY #0 tabs 12/21/23
sennosides 8.6 mg-docusate sodium 50 mg tablet (Stool Softener-Stimulant Laxative) 1 tab PO BIDPRN PRN constipation #0 tabs 12/21/23
Pending Results: No
[2023-12-21 15:00] VITALS: BP 145/53
[2023-12-21] MEDS: ZETIA 10 MG PO (17:07)
[2023-12-21 17:42] LABS: Glucose - Point of Care 132 mg/dl (70-99)
[2023-12-21 18:11] VITALS: BP 157/63
--- NOTE | 2023-12-21 19:30 | PTCARENOTE ---
At 19:30 [facility] arrived for patient miner pick & report given to Fatuma; patient left by stretcher on 02; Terrence RN had completed discharge documentation, VS and removed IV sites, along with telephone report to Dana at [facility] prior to
discharge; Crusher Setter Jackie called Dana at [facility] to inform her of patient miner pick at this time.
== END 2023-12-21 19:33 | DRG 493 ==
LOC: 2 SOUTH 14:29
PROVIDERS: Physician Assistant; Registered Nurse; ADMITTING PHYSICIAN Internal Medicine; CONSULT PHYSICIAN Student in an Organized Health Care Education/Training Program; EMERGENCY PHYSICIAN Emergency Medicine; FAMILY PHYSICIAN Internal Medicine
PROC: 0QSJ04Z Reposition Right Fibula with Internal Fixation Device, Open Approach (ICD-10-PCS; 2023-12-19)
PROC: 0QSG04Z Reposition Right Tibia with Internal Fixation Device, Open Approach (ICD-10-PCS; 2023-12-19)
DX: S82.84 Bimalleolar fracture of lower leg (principal); J96.11 Chronic respiratory failure with hypoxia; Z79.82 Long term (current) use of aspirin; Z87.891 Personal history of nicotine dependence; D63.8 Anemia in other chronic diseases classified elsewhere; N18.32 Chronic kidney disease, stage 3b; E11.22 Type 2 diabetes mellitus with diabetic chronic kidney disease; I12.9 Hypertensive chronic kidney disease with stage 1 through stage 4 chronic kidney disease, or unspecified chronic kidney disease; F41.9 Anxiety disorder, unspecified; E78.00 Pure hypercholesterolemia, unspecified; G89.29 Other chronic pain; J06.9 Acute upper respiratory infection, unspecified; J44.9 Chronic obstructive pulmonary disease, unspecified; W01.0XXA Fall on same level from slipping, tripping and stumbling without subsequent striking against object, initial encounter; Y92.009 Unspecified place in unspecified non-institutional (private) residence as the place of occurrence of the external cause; Z11.52 Encounter for screening for COVID-19
CPT/HCPCS: 70450; 71046; 73590; 73610; 73630; 76000; 80048; 80053; 81003; 81015; 82962; 83036; 85025; 85027; 86850; 86900; 86901; 87070; 87086; 87502; 87811; 93005; 94640; 96374; 97162; 97166; 97530; 99285; 99406; C1713

== ENCOUNTER 2024-01-08 19:59 | Inpatient (IN) | payer MEDICARE, OTHER, SELFPAY ==
[2024-01-08] VITALS (23 sets, daily range): BP systolic 136–197; BP diastolic 53–151; BMI 37.1
[2024-01-08 13:12] LABS: Glucose - Point of Care 166 mg/dl (70-99)
[2024-01-08 13:47] LABS: % Basophils 0.5 % (0-2); % Eosinophils 3.1 % (0-6); % Immature Granulocytes 0.5 % (0-0.5); % Lymphocytes 9.3 % (20.5-51.1); % Monocytes 8.6 % (1.7-9.3); Absolute Basophils 0.1 10^3/uL (0-0.2); Absolute Eosinophils 0.3 10^3/uL (0-0.7); Absolute Immature Granulocytes 0.1 10^3/uL (0-0.05); Absolute Lymphocytes 0.9 10^3/uL (1.2-3.4); Absolute Monocytes 0.8 10^3/uL (0.1-0.6); Absolute Neutrophils 7.6 10^3/uL (1.4-6.5); Hematocrit 39.5 % (37.0-47.0); Hemoglobin 12.2 g/dL (12.0-16.0); Mean Corp Hgb Conc. 30.9 g/dL (33.0-37.0); Mean Corpuscular Hgb 27.6 pg (27.0-31.0); Mean Corpuscular Volume 89.4 fL (81.0-99.0); Nucleated Red Blood Cells % 0.2 %; Platelet Count 213 10^3/uL (130-400); Red Blood Cell Count 4.42 10^6/uL (4.20-5.40); Red Cell Dist. Width 14.9 % (11.5-14.5); White Blood Cell Count 9.7 10^3/uL (4.8-10.8)
[2024-01-08 13:48] LABS: ALT (SGPT) < 10 U/L (0-35); AST (SGOT) 18 U/L (14-36); Albumin 3.5 g/dl (3.5-5.0); Alkaline Phosphatase 138 U/L (38-126); Blood Urea Nitrogen 30 mg/dl (7-17); Calcium 10.2 mg/dl (8.4-10.2); Carbon Dioxide 38 mmol/L (22-30); Chloride 98 mmol/L (98-107); Glucose 134 mg/dl (70-99); Potassium 4.4 mmol/L (3.5-5.1); Sodium 135 mmol/L (135-145); Total Bilirubin 0.6 mg/dl (0.2-1.3); Total Protein 6.5 g/dl (6.3-8.2)
--- NOTE | 2024-01-08 14:39 | ED.GENMED ---
History of Present Illness
General
Chief Complaint: Change in Mental Status
Source: patient, records and family
Time Seen by Provider: 01/08/24 14:01
Travel History
Have you had any contact with someone who has COVID-19?: No
Do you have any symptoms of coronavirus? Fever > 100 degrees, chills, cough, shortness of breath, sore throat, loss of taste or smell, muscle aches, or headache?: No
History of Present Illness
History of Present Illness:
88-year-old female presents emergency department with reported bradycardia and hypotension as noted by correction staff earlier today. She is also noted to have a 'change in mental status'. Son is at bedside and he states that in general since
her lower extremity surgery about 3 weeks ago she has been having waxing and waning episodes of what seems like slurred speech and change in mental status/confusion, but not persistent. Patient notes that she feels 'tired' and that recently she was
constipated and now she is having frequent bowel movements. She is unclear if they are black in color or with blood. She states that as she passes the stool she has a small amount of pain but otherwise no pain. She denies abdominal pain, chest
pain, back pain, nausea, vomiting, fever, chills, headache, dizziness, urinary symptoms. It is noted that patient takes medications that may contribute to bradycardia/hypotension.
Past History
Past History
ED Past Medical History: COPD, HTN, Hypercholesterolemia and NIDDM
ED Past Surgical History: Bowel resection, Gynecological and Orthopedic
Social History
Tobacco: Former smoker
Alcohol: Occasional
Drug: None
Personal:
Living: with family
Employment: Retired
Family History
Family History: Other (Pending)
Phy Exam
Physical Exam
Physical Exam:
GENERAL: Awake but drowsy , in no apparent distress
EYE: pupils equal and reactive
NECK: Supple, no significant adenopathy.
ENT: o/p clr, mm dry
CARDIAC: Regular rate and rhythm .
LUNGS: Clear breath sounds bilaterally, no acute respiratory distress, no wheezes/rales/rhonchi
ABDOMEN: Soft, without focal tenderness, no r/g
NEUROLOGICAL: Awake and oriented, no focal neuro deficits, sensory intact, [id number] normal
SKIN: Warm and dry, skin intact.
MUSCULOSKELETAL: No edema, well perfused. Right lower extremity in splint and [place]per
PSYCH: Normal and appropriate interaction.
Course
Orders/Labs/Results
Orders:
Orders
01/08/24 13:14
Electrocardiogram (*1) Urgent
Reason for Study: Bradycardia / Tachycardia
EKG- Treatment ONCE
01/08/24 13:25
CMP [Comprehensive Metabolic Panel] Urgent
Complete Blood Count/With Diff Urgent
01/08/24 14:37
CT Head W/o Iv Contrast Urgent
Comment:
Reason For Exam: ms change
01/08/24 Dinner
Regular
At Your Request: Full Participation
01/08/24 15:45
Urinalysis Reflex To Culture Urgent
Date Specimen was Collected: 01/08/24
Time Specimen was Collected: 15:44
Urine Microscopic Reflex Cult Urgent
Urine Culture Urgent
THERESE Source: U
Specimen Description:
Date Specimen was Collected: 01/08/24
Time Specimen was Collected: 15:44
01/08/24 16:02
Electrocardiogram (*1) Urgent
Reason for Study: Bradycardia / Tachycardia
01/08/24 16:03
EKG- Treatment ONCE
01/08/24 18:23
Code Status As Directed
Resuscitation Status: Full Code
VTE Contraindication Routine
VTE Mechanical Device Contraindication: Medical Contraindication
Pharmocologic Contraindication: Medical Contraindication
Comment: pt on asa vt proph
Bisacodyl [Dulcolax] 10 mg RECTAL [id number] PRN
CefTRIAXone [Rocephin] 1,000 mg IV NOW STA
Docusate W/Senna [Senokot-S] 1 tablet PO BIDPRN PRN
Polyethylene Glycol Powder [Miralax] 17 grams PO DAILYPRN PRN
Intake/ Output As Directed
Frequency: Per unit guidelines
Neurological Checks As Directed
Frequency: q4h
Precautions As Directed
Type of Precautions: Other
Comment: fall
Ot Eval And Treat Routine
Pt Eval And Treat Routine
Treatment: non weight bear 6 weeks due to recent orif ankle
Activity Level: Bedrest
01/08/24 18:24
Activity As Directed
Activity Level: Bedrest
Comment: non weight bear 6 weeks right leg post surgery
Vital Signs As Directed
Frequency: Per unit guidelines
01/08/24 18:29
CARDIOLOGY CONSULT Routine
Consulting Provider: Josh White
Was physician already notified: Yes
Reason for consult: Asymptomatic bradycardia
Acetaminophen [Tylenol] 500 mg PO Q6HPRN PRN
Ipratropium/Albuterol Sulfate [Duoneb] 3 ml INH R Q6HPRN PRN
Magnesium Hydroxide [Milk of Magnesia] 30 ml PO HSPRN PRN
01/08/24 18:30
0.9% Sodium Chloride 1000 ml [Nss] 1,000 ml IV 80 mls/hr
01/08/24 18:34
HydrALAZINE [Apresoline] 25 mg PO BIDPRN PRN
01/08/24 18:39
Sterile Water [Sterile Water For Injection] 10 ml IV NOW STA
01/08/24 19:24
Admit/Transfer Patient As Directed
Co-Sign Provider:
Level of Care: Inpatient admission
Assign to:: Telemetry
Physician / Group: michael zaragoza
Diagnosis: bradycardia , change in mental status uti
Reason for Telemetry: Arrhythmia
Date to Stop Telemetry: 01/11/24
Time to Stop Telemetry: 11:00
Reason for Hospitalization: bradycardia , change in mental status uti
Expected length of stay greater than two midnights?: Yes
ELOS- Estimated Length of Stay in days: 3
I certify the patient meets the requirements for IP care: Yes
01/08/24 20:06
Ondansetron HCl [Zofran] 8 mg PO Q8HPRN PRN
01/08/24 20:07
Carboxymethylcellulose [Refresh Celluvisc Gel] 1 drops BOTH EYES TIDPRN PRN
01/08/24 20:15
Budesonide/Formoterol 80/4.5 [Symbicort 80/4.5 Mcg Inhaler] 2 puff INH R BID
01/08/24 20:33
Sodium Chloride [Sledge, Saline Mist] See Dose Instructions NASAL Q4HPRN PRN
01/08/24 21:32
Admit Patient As Directed
Co-Sign Provider:
Level of Care: Inpatient admission
Assign to:: Telemetry
Physician / Group: michael zaragoza
Diagnosis: asymptomatic bradycardia, increased confusion uti
Reason for Telemetry: Arrhythmia
Date to Stop Telemetry: 01/11/24
Time to Stop Telemetry: 11:00
Reason for Hospitalization: bradycaria
Expected length of stay greater than two midnights?: Yes
ELOS- Estimated Length of Stay in days: 3
I certify the patient meets the requirements for IP care: Yes
01/08/24 22:00
Gabapentin [Neurontin] 200 mg PO HS
01/09/24 07:10
Basic Metabolic Panel IN AM
Cardiovascular Evaluation IN AM
Complete Blood Count/With Diff IN AM
01/09/24 08:00
Aspirin 325 mg PO DAILY
Cholecalciferol (Vitamin D3) [VITAMIN D3 (cholecalciferol)] 125 mcg PO DAILY
Gabapentin [Neurontin] 100 mg PO BID AT 0800,1700
Loratadine [Claritin] 10 mg PO DAILY
Losartan [Cozaar] 100 mg PO DAILY
01/09/24 18:00
Ezetimibe [Zetia] 10 mg PO QPM
01/09/24 20:00
CefTRIAXone [Rocephin] 1,000 mg IV Q24H
01/10/24 05:34
Basic Metabolic Panel IN AM
Complete Blood Count/With Diff IN AM
01/11/24 05:54
Basic Metabolic Panel IN AM
Complete Blood Count/With Diff IN AM
01/11/24 11:00
DC Protocol for Telemetry ONCE
Abnormal Lab Results
01/08/24 01/08/24 01/08/24
13:11 13:25 15:45
MCHC 30.9 L g/dL
(33.0-37.0)
RDW 14.9 H %
(11.5-14.5)
Abs Immat Gran (auto) 0.1 H 10^3/uL
(0-0.05)
Absolute Neuts (auto) 7.6 H 10^3/uL
(1.4-6.5)
Absolute Lymphs (auto) 0.9 L 10^3/uL
(1.2-3.4)
Absolute Monos (auto) 0.8 H 10^3/uL
(0.1-0.6)
Neutrophils % 78.0 H %
(42.2-75.2)
Lymphocytes % 9.3 L %
(20.5-51.1)
Carbon Dioxide 38 H mmol/L
(22-30)
BUN 30 H mg/dl
(7-17)
Creatinine 1.3 H mg/dL
(0.6-1.0)
Glucose 134 H mg/dl
(70-99)
Alkaline Phosphatase 138 H U/L
(38-126)
Leukocyte Esterase Rfl 2+ A
(Negative)
Urine WBC (Reflex) 16-20 A /HPF
(0-5)
Urine Bacteria (Reflex) Many A
(Negative)
Urine Yeast Many A
(Negative)
POC Glucose 166 H mg/dl
(70-99)
01/08/24 13:25
01/08/24 13:25
Vital Signs
Initial and Last Documented VS:
Initial Vital Signs
Temp Pulse Resp BP Pulse Ox
98.5 F 48 20 159/74 88
01/08/24 13:05 01/08/24 13:05 01/08/24 13:05 01/08/24 13:05 01/08/24 13:05
Last Documented Vital Signs
Temp Pulse Resp BP Pulse Ox
98.5 F 50 18 134/62 95
01/12/24 11:00 01/12/24 11:00 01/12/24 11:00 01/12/24 11:00 01/12/24 11:00
*Critical Care Note
Total Time (30-74mins, 75-104mins- exclusive of procedures): Not Applicable
Update Note
Update Note:
Patient presents to the Emergency Department with __reported bradycardia and hypotension
Number and Complexity of Problems Addressed at the Encounter
� Chronic conditions affecting care:
� Acute Exacerbation and/or Progression of Chronic Illness:
� Differential Diagnosis includes: But not limited to heart block, medication effect, etc.
Amount and/or Complexity of Data to be Reviewed and Analyzed
� I performed an independent evaluation of and my interpretation is:
EKG: Sinus bradycardia, no acute ischemia
CT:head ct read by me nad
Xrays:
Laboratory Studies: Generally unremarkable
Other:
� Review of other/old records reveals: 12/22/2023 patient treated for an open by mall fracture of right ankle
� Clinical information was obtained by an independent historian: Son who is bedside
� Prescriptions/Medications Considered but not given:
� Further testing considered but not performed:
Risk of Complications and/or Morbidity or Mortality of Patient Management
� Social determinants of health affecting care:
� Discussion with other providers (PCP, Hospitalists, Consultants, etc):
� Escalation of care including admission/observation vs risk of discharge considered: Fall reportedly was mechanical recently leading up to her ankle fracture. Patient denies episodes of dizziness, lightheadedness, etc. 4:46
PM patient remains drowsy here with episodes of bradycardia as low as the 30s. Head CT pending. Recommend overnight observation, discontinue beta-arsen.
Urine eqiuvocal, hold abx and await cx results.
ED Attending Note
-
Portions of this chart may have been created with voice recognition software.� Occasional wrong word or��sound alike� substitutions may have occurred due to the inherent limitations of voice recognition software.
Discharge Plan
Departure
Patient Disposition: Admit
Date of Disposition: 01/08/24
Time of Disposition: 16:47
Admit to: Telemetry
Presentation/result/management discussed w/ accepting MD/DO: Hospitalist
Condition: Fair
Discharge Problem:
Bradycardia
Interventions
Interventions:
*Risk Screen - Suicide Last Done: 01/08/24 13:13
*General Assessment Last Done: 01/08/24 13:13
*Neglect/Abuse Screening Last Done: 01/08/24 13:13
ED- Fall Risk Assessment Last Done: 01/08/24 13:21
*ED COVID-19 Vaccine History Last Done: 01/08/24 13:15
*Nursing Disposition Last Done: 01/08/24 21:37
ED- Pulmonary Assessment Last Done: 01/08/24 13:21
ED-Psychological Assessment Last Done: 01/08/24 21:37
ED- Neurological Assessment Last Done: 01/08/24 13:21
ED- Cardiac Assessment Last Done: 01/08/24 13:21
ED Swallowing Screen Last Done: 01/08/24 14:56
Discharge Date and Time
Discharge Date/Time: 01/08/24 21:44
[2024-01-08 15:51] LABS: Urine Albumin Negative (Neg - Trace); Urine Bilirubin Negative (Negative); Urine Character Slightly Cloudy (Clear); Urine Color Yellow; Urine Glucose Negative (Negative); Urine Ketone Negative (Negative); Urine Leukocyte 2+ (Negative); Urine Nitrite Negative (Negative); Urine Occult Blood Negative (Negative); Urine Urobilinogen Negative (Neg - 1+)
[2024-01-08 16:01] LABS: Urine Bacteria Many (Negative); Urine Red Blood Cell 0-2 /HPF (0-2); Urine White Cell 16-20 /HPF (0-5)
[2024-01-08 16:02] LABS: Urine Yeast Many (Negative)
--- NOTE | 2024-01-08 17:41 | HPS.HSE ---
Family Physician
-
Family Physician: Devan Hammer
Chief Complaint
-
Reported hypotension, bradycardia, change in mental status, frequent bowel movements
History of Present Illness
88-year-old female who was noted to be hypotensive and bradycardic by [facility] at [facility] earlier today with change in mental status. No hypotension was appreciated on ER visit. Her son was at bedside in the ER stating since her
trimalleolar fracture 3 weeks ago she has been having increased episodes episodes of slurred speech/change in mental status with confusion .he states he started noticing short-term memory impairment in November where she forgets things has occasional
slurred words forgets how to use a phone or fork and has difficulty getting dressed. She normally is in a wheelchair due to frequent falls. She reports feeling tired with recent constipation but now states is going her son states she did get milk
of magnesia on Friday 2 days ago. She is oriented to name, son, [facility] medical history. The patient denies fever, chills, headache, abdominal pain, nausea, vomiting, chest pain, palpitations, shortness of breath, cough. She is past medical
history of UTI, E. 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
She had a recent admission December 18 - December 20 for ORIF right ankle secondary to trimalleolar fracture by Dr. Hanson and was placed on aspirin 325 mg daily mg DVT prophylaxis. She is nonweightbearing for additional 6 weeks per her son Pili at
bedside.
Medical History
Past Medical History
Past Medical History: Reports Other
Additional Past Medical History:
TIA 2014 no residual effects
COPD chronic 2 L dependent
Chronic ambulatory dysfunction with frequent falls usually is in wheelchair
obesity
type 2 diabetes
hypertension,
hyperlipidemia
Memory impairment since November 2023 short-term per son
Seasonal allergies
Anemia
Anxiety
Insomnia
Past Surgical History: Reports Other
Additional Past Surgical History:
Status post right ankle ORIF 12/19/2019 for trimalleolar fracture
Colon polyp resection
Left breast surgery for breast cancer
Partial hip replacement
Cataract surgery
Shoulder repair
Total abdominal hysterectomy
Social History
Tobacco: Former Smoker
Alcohol: None
Drug: None
Personal: Single
Living: Assisted Living ([facility])
Employment: Retired
Family History
Family History: Not pertinent
Allergies / Home Medications
Allergies reflects when Allergies were last updated in [employer].
Home Medications with original date entered in [employer]
Allergy/Medication List:
Allergies
Allergy/AdvReac Type Severity Reaction Status Date / Time
amlodipine besylate Allergy COUGH Verified 01/08/24 13:05
[From Norvasc]
influenza virus vaccine, Allergy GOT VERY Verified 01/08/24 13:05
specific ILL (pt
[influenza virus denies)
vacc,specific]
morphine Allergy Nausea Verified 01/08/24 13:05
Penicillins Allergy Unknown Verified 01/08/24 13:05
pioglitazone HCl [From Actos] Allergy COUGH Verified 01/08/24 13:05
quinapril HCl [From Accupril] Allergy COUGH Verified 01/08/24 13:05
Home Medications
ezetimibe 10 mg tablet 10 mg PO QPM High Cholesterol 10/19/14
acetaminophen 500 mg tablet (Tylenol Extra Strength) 500 mg PO Q6HPRN PRN mild pain 12/19/23
aspirin 81 mg tablet,delayed release 81 mg PO DAILY Blood Clot Prevention/Tx 12/19/23
carboxymethylcellulose sodium 1 % eye drops 1 drp BOTH EYES TIDPRN PRN dryness 12/19/23
carvedilol 25 mg tablet (Coreg) 25 mg PO BID Blood Pressure 12/19/23
cholecalciferol (vitamin D3) 125 mcg (5,000 unit) tablet (Vitamin D3) 125 mcg PO DAILY Supplement 12/19/23
cyclobenzaprine 5 mg tablet 5 mg PO DAILY Muscle Spasms 12/19/23
d-mannose 500 mg capsule 1,000 mg PO BID Supplement 12/19/23
fluticasone fur. 100 mcg-umeclid 62.5 mcg-vilant 25 mcg inhalat.powder (Trelegy Ellipta) 1 inh inhalation R DAILY Lung/Breathing Issues 12/19/23
fluticasone propionate 50 mcg/actuation nasal spray,suspension 1 spray intranasal BID Allergies 12/19/23
furosemide 20 mg tablet 20 mg PO DAILY Fluid Retention/Swelling 12/19/23
gabapentin 100 mg capsule 100 mg PO BID nerve pain 12/19/23
gabapentin 100 mg capsule 200 mg PO HS nerve pain 12/19/23
ipratropium 0.5 mg-albuterol 3 mg (2.5 mg base)/3 mL nebulization soln 3 ml inhalation R Q6HPRN PRN sob 12/19/23
lidocaine HCl 4 % topical cream (Aspercreme (lidocaine HCl)) 1 applic topical TIDPRN PRN b/l feet, b/l ankles 12/19/23
loperamide 2 mg capsule 2 mg PO Q6HPRN PRN diarrhea 12/19/23
loratadine 10 mg tablet (Claritin) 10 mg PO DAILY Allergies 12/19/23
lorazepam 0.5 mg tablet 0.5 mg PO DAILYPRN PRN anxiety 12/19/23
losartan 100 mg tablet 100 mg PO DAILY Blood Pressure 12/19/23
magnesium hydroxide 400 mg/5 mL oral suspension 30 ml PO HSPRN PRN if no bm in 3 days 12/19/23
melatonin 5 mg tablet 10 mg PO HS Sleep 12/19/23
ondansetron HCl 8 mg tablet 8 mg PO Q8HPRN PRN nausea 12/19/23
oxycodone 5 mg tablet 5 mg PO [id number] PRN moderate/severe pain 12/19/23
polyethylene glycol 3350 17 gram oral powder packet (Miralax) 17 g PO DAILYPRN PRN cosntipation 12/19/23
sennosides 8.6 mg tablet (senna) 1 tab PO HS Constipation 12/19/23
sodium chloride 0.65 % nasal spray aerosol 1 spray intranasal Q4HPRN PRN dryness 12/19/23
trazodone 50 mg tablet 25 mg PO HS Sleep 12/19/23
aspirin 325 mg tablet 325 mg PO DAILY #0 tabs 12/21/23
sennosides 8.6 mg tablet (senna) 8.6 mg PO [id number] PRN constipation 01/08/24
Review of Systems
-
History Source: Patient and Family (son pili )
A 12 point ROS was completed and negative except as noted: Yes
Constitutional: Reports Fatigue; Denies Fever or Chills
EENT: Denies Sore Throat or Runny Nose
Respiratory: Denies Cough or Trouble Breathing
Cardiac: Denies Chest Pain, Palpitations or Syncope
Abdomen/GI: Denies Abdominal Pain, Nausea, Vomiting, Diarrhea, Constipated, Bloody Stools or Black Stools
: Denies Dysuria, Frequency, Flank Pain, Incontinence or Difficulty Voiding
Musculoskeletal: Reports Other (Posterior OCL cast in place right leg, distal toe sensation intact toes pink and warm positive cap refill); Denies Joint Pain
Skin: Denies Itching or Rash
Neurological: Reports Weakness (Generalized); Denies Dizzy or Headache
Endocrine: Reports No Symptoms
Hematologic/Lymphatic: Reports No Symptoms
Psych: Reports Calm
Physical Exam
Vital Signs
Vital Signs
Temp Pulse Resp BP Pulse Ox
98.5 F 51 13 179/76 94
01/08/24 13:05 01/08/24 15:45 01/08/24 15:45 01/08/24 15:45 01/08/24 15:45
Physical Exam
General: Comfortable, Conversant and Other (Lethargic); No Pain or Fever
HEENT: NormoCephalic, Anicteric, PERRLA, [place] Conjunctivae, No Ptosis and Other (Dry oral mucosa)
Respiratory: Clear; No Wheezes, Rales or Rhonchi
Cardiac: S1/S2 and Bradycardia (Sinus bradycardia heart rate 40 to 50 bpm); No Murmur, Rub, Gallop or Peripheral Edema
GI: Soft, Non Tender, Non Distended, Normal Bowel Sounds and No Hepatosplenomegaly
Rectal: Deferred by Provider
Genito-urinary: Deferred by me
Musculoskeletal: No Clubbing, No Cyanosis, Edema, Left Upper Extremity (Chronic lymphedema from prior mastectomy), Edema, Left Lower Extremity (Scant with dry scaly skin) and Edema, Right Lower Extremity (Posterior OCL cast in place right leg,
distal toe sensation intact toes pink and warm positive cap refill); No Edema, Right Upper Extremity
Skin: Warm and Dry; No Rash
Neuro: Awake, Alert, Oriented (To name, son, some of history), No Sensory Deficits and Other (Patient currently nonweightbearing right leg 6 weeks); No Slurred Speech, Facial Droop or Tremors
Psych: Calm
Laboratory Results
-
01/08/24 13:25
01/08/24 13:25
Laboratory Results
Total Bilirubin 0.6 mg/dl (0.2-1.3) 01/08/24 13:25
AST 18 U/L (14-36) 01/08/24 13:25
ALT < 10 U/L (0-35) 01/08/24 13:25
Alkaline Phosphatase 138 U/L (38-126) H 01/08/24 13:25
Data Reviewed
-
CT Scan: Report Reviewed by me
Lab Data: Labs Reviewed by me
Impression/Plan
-
Impression/plan:
Admit to telemetry
# Asymptomatic bradycardia
HR 40�56
-Hold Coreg 25 mg p.o. twice daily
-Consult CBC cardio
EKG: Sinus bradycardia with PACs/bigeminy heart rate 41 bpm, QTc 4 9 MS
2D echo 01/08/2023: EF 60-65%, no wall abnormalities.
# Increased chronic memory impairment likely secondary to possible anesthesia recent surgery versus possible UTI given history of prolapsed bladder
#Status post anesthesia for right ORIF ankle 12/20/2023
# Hx Prolapsed bladder/Hx E. coli UTI 2017 pansensitive, Klebsiella UTI 2015 -resistant ampicillin only
-Per son has had short-term memory problems starting in November having slurred speech occasionally forgets how to use phone or forks or get dressed he feels it slightly worse since surgery
-Afebrile, normal WBC
-Pyuria on UA, we will follow urine culture
- iv Rocephin
-Iv NSS 80m cc/hr
#Hx TIA 2014-no residual deficits per son
Continue oral aspirin and Zetia
CT head: No acute intracranial normality. Minor chronic microvascular white matter ischemic disease. Mild to moderate atrophy
#Hypotension/essential HTN
BP 179/76
-Hold Coreg 25 mg twice daily due to bradycardia
-Hold furosemide
-Continue losartan
# Chronic respiratory failure/history of COPD chronic 2 L dependent-no acute exacerbation
-Patient uses 2 L of oxygen at home
-Continue inhalers, Trelegy Ellipta
#Recent constipation�now resolved
#Bowel resection 2008 secondary diverticulitis
Monitor for any diarrhea
If diarrhea present check stool studies and C. difficile given recent antibiotics preop 3 weeks ago
#CKD 3B
Creat 1.3 appears baseline
-Follow BMP
# S/P ORIF right ankle trimalleolar fracture by Dr. Hanson 12/20/2023
-Patient with right leg posterior OCL in place to wear for 6 weeks
-Patient is nonweightbearing on right leg for additional 6 weeks
-Continue PT/OT
-Continue aspirin 325 mg daily
-Hold Flexeril
# Anemia of chronic disease
-Hemoglobin 12.2
-No active bleeding
#GERD
-No PPI listed
# Hyperlipidemia
-Zetia continued
# Anxiety
-Hold lorazepam as needed
# Chronic generalized pain
-Continue gabapentin 100 mg twice daily and 20 mg at bedtime, hold oxycodone every 12 hours as needed due to confusion
#Insomnia
Hold trazodone 25 mg at bedtime, melatonin 10 mg at bedtime
#Seasonal allergies
Continue Claritin 10 mg daily
#Chronic ambulatory dysfunction
Typically uses wheelchair most of the time per son
-Continue PT OT
Obesity due to excess calorie consumption/immobility
Weight loss recommended
Other PMH:
macular degeneration,
Left breast cancer with chronic left arm lymphedema 2/2 left breast lumpectomy-no IVs left arm
# DVT prophylaxis
-SCD
Full code per patient with son Pili at bedside
--- NOTE | 2024-01-08 18:02 | W.PN.UPDATE ---
Update Note
Progress Note Update
I saw and examined the patient.
The SHEET TESTER or PA's note was reviewed and I agree with the note.
Comment: 88-year-old female presents with a chief complaints of change in mental status, frequent bowel movements, reported hypotension, bradycardia.
179/76, 51, 13, 98.5 �F, 94%
No acute distress, awake and alert
Dry mucous membranes
Bradycardic, regular rhythm, normal S1-S2
Clear to auscultation bilaterally
Positive bowel sounds, soft, nontender, nondistended.
Cranial nerves II to XII are intact
WBC 9.7, Hb 12.2, plt 213
Cr [address] head: No acute intracranial abnormality noted. Minor chronic microvascular white matter ischemic disease. Mild to moderate atrophy.
ECG (read by me): SB @ 41, 1st deg HB with AR 204ms, no acute ST/TW changes
U/A: 16-20 WBC, 2+ LE, nitrite NEG
Sinus bradycardia:
-hold Coreg
-no Mobitz II or 3rd deg HB
-monitor on tele
-currently perfusing/adequate BP
Acute toxic metabolic encephalopathy:
-Approximately 3 weeks prior to admission the patient had open reduction internal fixation of a trimalleolar fracture. She had anesthesia at that time and may have some toxic metabolic encephalopathy due to that. It is possible she has a urinary
tract infection although I think this is less likely considering she has no urinary symptoms, fever, or leukocytosis. She also has had cognitive decline over the last couple months as per the son. Bradycardia may also be contributing to the acute
component of encephalopathy although, again, I feel this is less likely considering her blood pressure is high.
-Gentle hydration
-Hold Coreg as above
-Rocephin pending urine culture
-Check MRI of the brain to assess if patient has prior strokes
[2024-01-08] MEDS: ROCEPHIN IV (19:15)
[2024-01-08] MEDS: STERILE WATER FOR INJECTION IV (19:15)
[2024-01-08] MEDS: ROCEPHIN 1000 MG IV (19:23)
[2024-01-08] MEDS: STERILE WATER FOR INJECTION 10 ML IV (19:23)
[2024-01-08] MEDS: SYMBICORT 80/4.5 MCG INHALER INH (21:46)
[2024-01-08] MEDS: NEURONTIN 200 MG PO (22:15)
[2024-01-08] MEDS: NSS 1000 IV (22:15)
[2024-01-08] MEDS: TYLENOL 500 MG PO (22:20)
--- NOTE | 2024-01-08 22:30 | PTCARENOTE ---
Received pt from ED via stretcher. Pulled over onto bed. Pt is bedrest. Soft cast intact. AAOx3, hard of hearing, slightly forgetful, VSS, no complaints of pain. Oriented to floor, call marie within reach.
[2024-01-09 03:48] VITALS: BP 142/68
[2024-01-09 07:37] LABS: % Basophils 0.5 % (0-2); % Immature Granulocytes 0.5 % (0-0.5); % Lymphocytes 15.7 % (20.5-51.1); % Monocytes 11.4 % (1.7-9.3); % Neutrophils 66.9 % (42.2-75.2); Absolute Eosinophils 0.4 10^3/uL (0-0.7); Absolute Lymphocytes 1.3 10^3/uL (1.2-3.4); Absolute Monocytes 0.9 10^3/uL (0.1-0.6); Absolute Neutrophils 5.4 10^3/uL (1.4-6.5); Hematocrit 37.4 % (37.0-47.0); Hemoglobin 11.2 g/dL (12.0-16.0); Mean Corp Hgb Conc. 29.9 g/dL (33.0-37.0); Mean Corpuscular Hgb 27.1 pg (27.0-31.0); Mean Corpuscular Volume 90.6 fL (81.0-99.0); Mean Platelet Volume 9.8 fL (7.4-10.4); Nucleated Red Blood Cells % 0 %; Platelet Count 177 10^3/uL (130-400); Red Blood Cell Count 4.13 10^6/uL (4.20-5.40); Red Cell Dist. Width 15.2 % (11.5-14.5); White Blood Cell Count 8.1 10^3/uL (4.8-10.8)
[2024-01-09 07:39] VITALS: BP 165/65
[2024-01-09] MEDS: SPIRIVA RESPIMAT 2.5 MCG 2 PUFF INH (08:01)
[2024-01-09] MEDS: SYMBICORT 80/4.5 MCG INHALER 2 PUFF INH ×2 (08:01→20:38)
[2024-01-09 08:04] LABS: Blood Urea Nitrogen 29 mg/dl (7-17); Calcium 10.3 mg/dl (8.4-10.2); Carbon Dioxide 32 mmol/L (22-30); Chloride 102 mmol/L (98-107); Estimated Creatinine Clearance 36 ml/min; Glucose 114 mg/dl (70-99); HDL Cholesterol 44 mg/dl; LDL Cholesterol, Calculated 138 mg/dl; Potassium 4.1 mmol/L (3.5-5.1); Sodium 138 mmol/L (135-145); Total Cholesterol 212 mg/dl (50-199); Triglyceride 150 mg/dl (10-149); Very Low Density Lipoprotein 30 mg/dl (0-30); eGFR 43.81
--- NOTE | 2024-01-09 08:51 | PTOTSP ---
Received order for PT from the ED and reviewed chart. Pt is on bedrest at this time, and non-weightbearing due to recent ankle fx, and [facility]. She has no skilled PT needs.
Nursing staff can use La lift for safest transfers when off bedrest. PT will sign off.
--- NOTE | 2024-01-09 08:51 | PTOTSP ---
orders received, chart reviewed. orders are bedrest, pt is w/c bound and NWB of RLE due to ORIF of ankle. no acute OT needs identified at this time, will sign off.
--- NOTE | 2024-01-09 08:57 | CON.CAR ---
Addendum entered and electronically signed by KRISTOPHER Vincent 01/16/24 16:07:
Chronic HFpEF.
Addendum entered and electronically signed by Thad Hinds MD 01/09/24 10:39:
Patient seen and examined in collaboration with [employer]; agree with below.
-Extensive medical history as outlined below; Cardiology consulted for sinus bradycardia with heart rates to the 40s.
-The patient appears to have asymptomatic bradycardia; nonetheless, will decrease dose of Coreg from 25 mg twice daily to 6.25 mg twice daily--Cardiology can reevaluate as outpatient.
-Will place the patient back on nifedipine, at a dose of 60 mg daily, for management of hypertension.
-Continue Lasix 20 mg as needed at home.
-No further cardiac recommendations at this time; will arrange patient to follow-up with Cardiology as an outpatient.
Original Note:
Consultation
Consultation Request
Date/Time Consultation Requested: 01/08/24 6:30p
Date/Time Consultation Performed: 01/09/24 8:45a
Requesting Provider: KRISTOPHER Morris
Performing Provider: KRISTOPHER Vincent for Dr. Hinds
Reason for Consultation: bradycardia
Medical History
-
Chief Complaint: change in mental status
History of Present Illness:
Mrs. Chandra is an 88 yo female with HTN, HFpEF, HLD, NIDDM, CKD3, TIA, COPD/asthma, breast cancer and first degree AVB, who presents to the ER with change in mental status at [facility] noted by staff. She is noted to have bradycardia on EKG
with rate 45 bpm with hypertension in the ER. Head CT is negative for acute abnormality. She is admitted to the hospitalist service and we are consulted for bradycardia. She is on Coreg 25mg BID and it is on hold now. She is s/p ORIF right
trimalleolar fracture 12/19/23 and is non weight bearing for 6 weeks. She denies any cardiac complaints. She admits to constipation for the last 3 days, only mildly improved with stool softeners at [facility].
Past Medical History
Past Medical History: Other (as above)
Past Surgical History: Gynecological (hysterectomy), Orthopedic (s/p ORIF right trimalleolar fracture 12/19/23, right hip) and Other (cataract)
Social History
Tobacco: Former Smoker
Alcohol: None
Personal:
Living: Longterm ([facility])
Family History
Family History: Reviewed & Not Pertinent
Allergies / Home Medications
Allergy/AdvReac Type Severity Reaction Status Date / Time
amlodipine besylate Allergy COUGH Verified 01/08/24 13:05
[From Norvasc]
influenza virus vaccine, Allergy GOT VERY Verified 01/08/24 13:05
specific ILL (pt
[influenza virus denies)
vacc,specific]
morphine Allergy Nausea Verified 01/08/24 13:05
Penicillins Allergy Unknown Verified 01/08/24 13:05
pioglitazone HCl [From Actos] Allergy COUGH Verified 01/08/24 13:05
quinapril HCl [From Accupril] Allergy COUGH Verified 01/08/24 13:05
�Medication �Instructions �Recorded �Confirmed �Type
ezetimibe 10 mg tablet 10 mg PO QPM High Cholesterol 10/19/14 01/08/24 History
acetaminophen 500 mg tablet 500 mg PO Q6HPRN PRN mild pain 12/19/23 01/08/24 History
(Tylenol Extra Strength)
aspirin 81 mg tablet,delayed 81 mg PO DAILY Blood Clot 12/19/23 01/08/24 History
release Prevention/Tx
carboxymethylcellulose sodium 1 % 1 drp BOTH EYES TIDPRN PRN dryness 12/19/23 01/08/24 History
eye drops
carvedilol 25 mg tablet (Coreg) 25 mg PO BID Blood Pressure 12/19/23 01/08/24 History
cholecalciferol (vitamin D3) 125 125 mcg PO DAILY Supplement 12/19/23 01/08/24 History
mcg (5,000 unit) tablet (Vitamin
D3)
cyclobenzaprine 5 mg tablet 5 mg PO DAILY Muscle Spasms 12/19/23 01/08/24 History
d-mannose 500 mg capsule 1,000 mg PO BID Supplement 12/19/23 01/08/24 History
fluticasone fur. 100 mcg-umeclid 1 inh inhalation R DAILY 12/19/23 01/08/24 History
62.5 mcg-vilant 25 mcg Lung/Breathing Issues
inhalat.powder (Trelegy Ellipta)
fluticasone propionate 50 1 spray intranasal BID Allergies 12/19/23 01/08/24 History
mcg/actuation nasal
spray,suspension
furosemide 20 mg tablet 20 mg PO DAILY Fluid 12/19/23 01/08/24 History
Retention/Swelling
gabapentin 100 mg capsule 100 mg PO BID nerve pain 12/19/23 01/08/24 History
gabapentin 100 mg capsule 200 mg PO HS nerve pain 12/19/23 01/08/24 History
ipratropium 0.5 mg-albuterol 3 mg 3 ml inhalation R Q6HPRN PRN sob 12/19/23 01/08/24 History
(2.5 mg base)/3 mL nebulization
soln
lidocaine HCl 4 % topical cream 1 applic topical TIDPRN PRN b/l 12/19/23 01/08/24 History
(Aspercreme (lidocaine HCl)) feet, b/l ankles
loperamide 2 mg capsule 2 mg PO Q6HPRN PRN diarrhea 12/19/23 01/08/24 History
loratadine 10 mg tablet (Claritin) 10 mg PO DAILY Allergies 12/19/23 01/08/24 History
lorazepam 0.5 mg tablet 0.5 mg PO DAILYPRN PRN anxiety 12/19/23 01/08/24 History
losartan 100 mg tablet 100 mg PO DAILY Blood Pressure 12/19/23 01/08/24 History
magnesium hydroxide 400 mg/5 mL 30 ml PO HSPRN PRN if no bm in 3 12/19/23 01/08/24 History
oral suspension days
melatonin 5 mg tablet 10 mg PO HS Sleep 12/19/23 01/08/24 History
ondansetron HCl 8 mg tablet 8 mg PO Q8HPRN PRN nausea 12/19/23 01/08/24 History
oxycodone 5 mg tablet 5 mg PO [id number] PRN 12/19/23 01/08/24 History
moderate/severe pain
polyethylene glycol 3350 17 gram 17 g PO DAILYPRN PRN cosntipation 12/19/23 01/08/24 History
oral powder packet (Miralax)
sennosides 8.6 mg tablet (senna) 1 tab PO HS Constipation 12/19/23 01/08/24 History
sodium chloride 0.65 % nasal spray 1 spray intranasal Q4HPRN PRN 12/19/23 01/08/24 History
aerosol dryness
trazodone 50 mg tablet 25 mg PO HS Sleep 12/19/23 01/08/24 History
aspirin 325 mg tablet 325 mg PO DAILY #0 tabs 12/21/23 01/08/24 Rx
sennosides 8.6 mg tablet (senna) 8.6 mg PO [id number] PRN constipation 01/08/24 01/08/24 History
Review of Systems
-
History Source: Patient
All other systems: Negative unless noted
Physical Exam
Vital Signs
Temp Pulse Resp BP Pulse Ox
98.1 F 56 16 165/65 96
01/09/24 07:39 01/09/24 08:07 01/09/24 08:07 01/09/24 07:39 01/09/24 08:07
Lab Results
01/09/24 07:10
01/09/24 07:10
Physical Exam
General: Well Developed (obese), Well Nourished and No Apparent Distress
HEENT: Normocephalic, Anicteric and Moist Mucous Membranes
Respiratory: Clear and Non Labored Respirations
Cardiac: S1/S2 and Regular Rhythm
Breast: Deferred by me
GI: Soft, Non Tender and Normal Bowel Sounds
Rectal: Deferred by Provider
Genito-urinary: Clear Urine
Musculoskeletal: No Clubbing, No Cyanosis, No Edema and Other (right ankle splint/sydnie wrap intact)
Skin: Warm and Dry
Impression / Plan
-
Bradycardia - acute, asymptomatic.
- EKG SB 45 bpm.
- Coreg held, will resume at 6.25mg BID and monitor.
- rates on tele in the 60s now.
HTN - elevated.
- Coreg held initially, now resume at 6.25mg BID.
- will add Nifedipine 60mg daily (according to our outpatient notes 09/2023 she was on Nifedipine 90mg daily).
- continue losartan.
- monitor.
HLD - stable on Zetia, Lipitor.
- continue.
Change in mental status - per hospitalist.
COPD - chronic 2L NC.
- stable on inhalers.
s/p ORIF right trimalleolar fracture - 12/19/23.
- non weight bearing for 6 weeks per ortho.
Data Reviewed
-
EKG: Tracing Personally Visualized and interpreted (SB 41 bpm, first degree AVB)
CT Scan: Report Reviewed by me (head: No acute intracranial abnormality noted.)
Medical Tests (Nuc Med, Echo etc): Report Reviewed by me (echo 01/08/23: EF 60-65%, no RWMA, normal RV, mild cLVH, mild MR)
Labs: Labs Reviewed by me
Old Records: Reviewed
[2024-01-09] MEDS: CLARITIN 10 MG PO (09:26)
[2024-01-09] MEDS: ASPIRIN 325 MG PO (09:26)
[2024-01-09] MEDS: VITAMIN D3 (cholecalciferol) 125 MCG PO (09:26)
[2024-01-09] MEDS: COZAAR 100 MG PO (09:27)
[2024-01-09] MEDS: NEURONTIN 100 MG PO ×2 (09:27→17:31)
[2024-01-09] MEDS: TYLENOL 500 MG PO ×2 (09:43→21:51)
[2024-01-09] MEDS: NSS 1000 IV ×2 (09:47→21:46)
--- NOTE | 2024-01-09 10:02 | W.PN.HOSP.TC ---
Today's Communication/Plan
-
see bold
Assessment / Plan
Assessment / Plan
Gen: NAD, AAOx3.
Eyes: EOMI, PERRLA, no scleral icterus.
Neck: supple.
CV: susan, reg rhythm, +S1/S2, no m/r/g.
Resp: CTAB anteriorly, no rales, wheezes, or rhonchi.
Abd: +BS, soft, NT, ND
Skin: LLE with trace edema and chronic venous stasis dermatitis. C/D/I dressing RLE
Neuro: CN 2-12 intact, non-focal.
Psych: Normal mood and affect.
CT head: No acute intracranial abnormality noted. Minor chronic microvascular white matter ischemic disease. Mild to moderate atrophy.
ECG (read by me): SB @ 41, 1st deg HB with NH 204ms, no acute ST/TW changes
U/A: 16-20 WBC, 2+ LE, nitrite NEG
Sinus bradycardia:
-Coreg was initially held, now restarted at a lower dose of 6.25 mg PO BID
-no Mobitz II or 3rd deg HB
-monitor on tele
-currently perfusing/adequate BP
-c/s cardiology
Acute toxic metabolic encephalopathy:
-Approximately 3 weeks prior to admission the patient had open reduction internal fixation of a trimalleolar fracture. She had anesthesia at that time and may have some toxic metabolic encephalopathy due to that. It is possible she has a urinary
tract infection although I think this is less likely considering she has no urinary symptoms, fever, or leukocytosis. She also has had cognitive decline over the last couple months as per the son. Bradycardia may also be contributing to the acute
component of encephalopathy although, again, I feel this is less likely considering her blood pressure is high. Patient was also was on narcotics, trazodone, and benzodiazepines at home which certainly could have contributed to acute toxic
metabolic encephalopathy. These are on hold.
-cont gentle hydration
-Coreg was initially held, now restarted at a lower dose of 6.25 mg PO BID
-Rocephin pending urine culture
-Check MRI of the brain to assess if patient has prior strokes
-c/s cardiology for bradycardia
Other problems:
h/o TIA
Essential HTN: cont Losartan/Procardia XL
Chronic hypoxemic respiratory failure due to COPD: on 2L NC O2 at baseline, not in acute exacerbation, cont Trelegy Ellipta (equivalent)
CKD3b
s/p ORIF right ankle trimalleolar fracture by Dr. Hanson 12/20/2023: NWB RLE x 6 weeks, cont ASA
Anemia of chronic disease
GERD: start PPI
Obesity due to excess calories: Encourage weight loss, affects all aspects of care
HLD: Cont Zetia
Chronic generalized pain: Narcotics on hold as above. Continue Neurontin.
Chronic ambulatory dysfunction: PT/OT
Seasonal allergies: Continue Claritin
Insomnia: Holding trazodone, continue melatonin
FULL/Lovenox
Anticipated Discharge: 24 - 48 hours
Subjective/Interval History
-
Date of Service: January 09, 2024
Denies CP/SOB.
Objective Data
-
Labs:
Laboratory Results
01/09/24
07:10
WBC 8.1
Hgb 11.2 L
Hct 37.4
Plt Count 177
Sodium 138
Potassium 4.1
Chloride 102
Carbon Dioxide 32 H
BUN 29 H
Creatinine 1.2 H
Glucose 114 H
Calcium 10.3 H
Vital Signs:
Vital Signs
Temp Pulse Resp BP Pulse Ox
98.1 F 56 16 165/65 96
01/09/24 07:39 01/09/24 09:27 01/09/24 08:07 01/09/24 09:27 01/09/24 08:07
I&O
05/11/0101/09/24 01/10/24
06:59 06:59 06:59
Intake Total 0 / 0
Output Total 425 / 425
Balance -425 / -425
[2024-01-09] MEDS: PROTONIX 40 MG PO (10:33)
[2024-01-09] MEDS: PROCARDIA XL (EXTENDED RELEASE) 60 MG PO (10:33)
[2024-01-09 10:45] VITALS: BP 146/50
[2024-01-09] MEDS: COREG PO ×2 (10:47→20:54)
--- NOTE | 2024-01-09 10:55 | WOUNDNOTE ---
WO RN note: Patient admitted with encephalopathy.Patient with admission from 12/18-12/20 for ORIF right ankle. Patient follows with Dr. Hanson.
See H&P for complete history.
PMH: TIA 2014 no residual effects, HTN, COPD chronic 2 L dependent,wheelchair bound, type2 diabetes, short term memory impairment, anxiety, insomnia, breast ca, hysterectomy
Wound Location and type/assessment: Patient admitted with: Stage 2 open areas of sacral/coccyx, MASD and fungal appearing skin on buttocks. Skin surrounding wounds is blanchable and appears to be chronically discolored. Patient currently has anand
for moisture management. She has recently been having multiple loose, incontinent stools after [facility]OM at [place]. Patient reports she just got an air bed at [place] as she has been bedbound since most recent surgery. She said she gets OOB at [facility] with [facility]. Left
heel intact.
Appetite: States good.
Pressure redistribution devices in place: Static air overlay placed, heels off-loaded with pillows under calves.
Plan: Antifungal powder to fungal appearing skin, barrier ointment or silicone foam to stage 2 on sacrum, frequent repositioning and continence care. Will confirm orders with hospitalist and update nurse. Updated care plan and will follow as
needed.
Note to case management of equipment requested for discharge:
--- NOTE | 2024-01-09 13:49 | PTCARENOTE ---
Patient adamantly refusing to go to MRI. Son is at bedside and is in agreement that she needs the test, but he cannot convince her to go. made aware.
[2024-01-09 15:08] VITALS: BP 127/61
[2024-01-09 15:16] VITALS: BMI 37.1
[2024-01-09] MEDS: LOVENOX 40 MG SC (17:31)
[2024-01-09] MEDS: ZETIA 10 MG PO (17:32)
--- NOTE | 2024-01-09 17:43 | CM ---
met with patient and son pili garg bedside.patient lives at [facility],she ambulates with walker,but spending more time in [place] due to recent right ankle fx sp orif and is nwb on right.she neeeds A bathing.she has pcp from [facility] and facility
supplies meds.patient has never [place] a vn or been to ip rehab in past.patient is on 2 liters nc o2 cotinuously at facility.
patient with a hx of susan,uti is adm with susan/cms.she is on 3 liters nc o2,place on coreg,for mri brain.plan is dc back to [facility] when stable for discharge.
[2024-01-09 19:24] VITALS: BP 149/56
[2024-01-09] MEDS: ROCEPHIN 1000 MG IV (21:26)
[2024-01-09] MEDS: STERILE WATER FOR INJECTION 10 ML IV (21:26)
[2024-01-09] MEDS: NEURONTIN 200 MG PO (21:52)
[2024-01-09 23:44] VITALS: BP 143/55
[2024-01-10 03:25] VITALS: BP 138/55
[2024-01-10 06:27] LABS: % Basophils 0.5 % (0-2); % Immature Granulocytes 0.3 % (0-0.5); % Lymphocytes 15.7 % (20.5-51.1); % Monocytes 10.5 % (1.7-9.3); Absolute Eosinophils 0.5 10^3/uL (0-0.7); Absolute Monocytes 0.7 10^3/uL (0.1-0.6); Absolute Neutrophils 4.3 10^3/uL (1.4-6.5); Hematocrit 34.8 % (37.0-47.0); Hemoglobin 10.4 g/dL (12.0-16.0); Mean Corp Hgb Conc. 29.9 g/dL (33.0-37.0); Mean Corpuscular Hgb 27.3 pg (27.0-31.0); Mean Corpuscular Volume 91.3 fL (81.0-99.0); Mean Platelet Volume 10.3 fL (7.4-10.4); Nucleated Red Blood Cells % 0 %; Platelet Count 175 10^3/uL (130-400); Red Blood Cell Count 3.81 10^6/uL (4.20-5.40); Red Cell Dist. Width 15.4 % (11.5-14.5); White Blood Cell Count 6.6 10^3/uL (4.8-10.8)
[2024-01-10 06:52] LABS: Blood Urea Nitrogen 27 mg/dl (7-17); Calcium 9.4 mg/dl (8.4-10.2); Carbon Dioxide 33 mmol/L (22-30); Chloride 106 mmol/L (98-107); Estimated Creatinine Clearance 36 ml/min; Glucose 122 mg/dl (70-99); Potassium 4.1 mmol/L (3.5-5.1); Sodium 138 mmol/L (135-145); eGFR 43.81
[2024-01-10 07:25] VITALS: BP 157/65
[2024-01-10 07:44] LABS: Glucose - Point of Care 140 mg/dl (70-99)
[2024-01-10] MEDS: SYMBICORT 80/4.5 MCG INHALER 2 PUFF INH (07:59)
[2024-01-10] MEDS: SPIRIVA RESPIMAT 2.5 MCG 2 PUFF INH (07:59)
[2024-01-10] MEDS: CLARITIN 10 MG PO (10:09)
[2024-01-10] MEDS: ASPIRIN 325 MG PO (10:09)
[2024-01-10] MEDS: COREG PO ×2 (10:09→22:23)
[2024-01-10] MEDS: PROTONIX 40 MG PO (10:10)
[2024-01-10] MEDS: NEURONTIN 100 MG PO ×2 (10:10→17:22)
[2024-01-10] MEDS: PROCARDIA XL (EXTENDED RELEASE) 60 MG PO (10:10)
[2024-01-10] MEDS: COZAAR 100 MG PO (10:10)
[2024-01-10] MEDS: VITAMIN D3 (cholecalciferol) 125 MCG PO (10:10)
[2024-01-10] MEDS: NSS 1000 IV (10:13)
[2024-01-10 11:38] VITALS: BP 149/61
[2024-01-10 11:44] LABS: Glucose - Point of Care 134 mg/dl (70-99)
--- NOTE | 2024-01-10 17:11 | W.PN.HOSP.TC ---
Today's Communication/Plan
-
Stop IVF
Bowel regimen
PT
NWB right leg
Possible discharge back soon
Assessment / Plan
Assessment / Plan
88-year-old female who had a trimalleolar fracture 3 weeks ago had surgery. She was sent in for confusion. Patient states that she might of been confused when she came in but does not want an MRI as she is claustrophobic and she feels back to
normal. She stated that she was constipated and got milk of magnesia but needed something else had a bowel movement
CT head: No acute intracranial abnormality noted. Minor chronic microvascular white matter ischemic disease. Mild to moderate atrophy.
ECG (read by me): SB @ 41, 1st deg HB with NE 204ms, no acute ST/TW changes
U/A: 16-20 WBC, 2+ LE, nitrite NEG
#Sinus bradycardia:
-Coreg 25 twice daily was initially held, now restarted at a lower dose of 6.25 mg PO BID
-no Mobitz II or 3rd deg HB
-monitor on tele
-No further recommendations from cardiology
#Acute toxic metabolic encephalopathy:
-Approximately 3 weeks prior to admission the patient had open reduction internal fixation of a trimalleolar fracture. She had anesthesia at that time and may have some toxic metabolic encephalopathy due to that. It is possible she has a urinary
tract infection although I think this is less likely considering she has no urinary symptoms, fever, or leukocytosis. She also has had cognitive decline over the last couple months as per the son. Bradycardia may also be contributing to the acute
component of encephalopathy although, again, I feel this is less likely considering her blood pressure is high. Patient was also was on narcotics, trazodone, and benzodiazepines at home which certainly could have contributed to acute toxic
metabolic encephalopathy. These are on hold.
-Patient states that she is back to baseline
-Coreg was initially held, now restarted at a lower dose of 6.25 mg PO BID
-Rocephin pending urine culture
-Check MRI of the brain which she is refusing
-Head CT-no acute changes mild to moderate atrophy
#h/o TIA-ASA
#Essential HTN: cont Losartan/Procardia XL
#Chronic hypoxemic respiratory failure due to COPD: on 2L NC O2 at baseline, not in acute exacerbation, cont Trelegy Ellipta (equivalent)
#CKD3b
#s/p ORIF right ankle trimalleolar fracture by Dr. Hanson 12/20/2023: NWB RLE x 6 weeks, cont ASA
#Anemia of chronic disease
#GERD: start PPI
#Obesity due to excess calories: Encourage weight loss, affects all aspects of care
#HLD: Cont Zetia
#Chronic generalized pain: Narcotics on hold as above. Continue Neurontin.
#Chronic ambulatory dysfunction: PT/OT, NWB right leg
#Seasonal allergies: Continue Claritin
# History of lumpectomy for left breast cancer with the left arm lymphedema
#Ex-smoker
#Insomnia: Holding trazodone, continue melatonin
#FULL
#DVT Prophylaxis-Lovenox
D/W RN
Anticipated Discharge: Within 24 hours
Subjective/Interval History
-
Date of Service: January 10, 2024
Objective Data
-
Labs:
Laboratory Results
01/10/24
05:34
WBC 6.6
Hgb 10.4 L
Hct 34.8 L
Plt Count 175
Sodium 138
Potassium 4.1
Chloride 106
Carbon Dioxide 33 H
BUN 27 H
Creatinine 1.2 H
Glucose 122 H
Calcium 9.4
Vital Signs:
Vital Signs
Temp Pulse Resp BP Pulse Ox
98.2 F 54 18 149/61 93
01/10/24 11:38 01/10/24 11:38 01/10/24 11:38 01/10/24 11:38 01/10/24 11:38
I&O
01/09/24 01/10/24 01/11/24
06:59 06:59 06:59
Intake Total 0 / 0 480 / 480
Output Total 425 / 425 750 / 750
Balance -425 / -425 -270 / -270
[2024-01-10] MEDS: ZETIA 10 MG PO (17:22)
[2024-01-10] MEDS: LOVENOX 40 MG SC (17:22)
[2024-01-10 19:30] VITALS: BP 152/61
[2024-01-10] MEDS: SYMBICORT 80/4.5 MCG INHALER INH (20:38)
[2024-01-10] MEDS: SENOKOT 17.1999999999999993 MG PO (20:55)
[2024-01-10] MEDS: ROCEPHIN 1000 MG IV (20:55)
[2024-01-10] MEDS: STERILE WATER FOR INJECTION 10 ML IV (20:55)
[2024-01-10] MEDS: NEURONTIN 200 MG PO (22:24)
[2024-01-10] MEDS: TYLENOL 500 MG PO (22:25)
[2024-01-10 23:50] VITALS: BP 143/57
--- NOTE | 2024-01-11 02:35 | PTCARENOTE ---
2200: Pts HR greater than 55 beats per minute since change of shift- attempted to administer coreg, pt refused. Plan of care reviewed with pt, pt stating she is 'too nervous to take the coreg'. Pt educated, continues to refuse- HR 50-70s
throughout night.
[2024-01-11 03:48] VITALS: BP 150/54
[2024-01-11] MEDS: SYMBICORT 80/4.5 MCG INHALER 2 PUFF INH ×2 (06:47→20:32)
[2024-01-11 06:48] LABS: % Basophils 0.8 % (0-2); % Eosinophils 8.8 % (0-6); % Immature Granulocytes 0.5 % (0-0.5); % Lymphocytes 18.8 % (20.5-51.1); % Neutrophils 59.1 % (42.2-75.2); Absolute Basophils 0.1 10^3/uL (0-0.2); Absolute Eosinophils 0.5 10^3/uL (0-0.7); Absolute Lymphocytes 1.2 10^3/uL (1.2-3.4); Absolute Monocytes 0.7 10^3/uL (0.1-0.6); Absolute Neutrophils 3.6 10^3/uL (1.4-6.5); Hemoglobin 9.9 g/dL (12.0-16.0); Mean Corp Hgb Conc. 30.9 g/dL (33.0-37.0); Mean Corpuscular Hgb 27.6 pg (27.0-31.0); Mean Corpuscular Volume 89.1 fL (81.0-99.0); Nucleated Red Blood Cells % 0 %; Platelet Count 170 10^3/uL (130-400); Red Blood Cell Count 3.59 10^6/uL (4.20-5.40); Red Cell Dist. Width 15.2 % (11.5-14.5); White Blood Cell Count 6.2 10^3/uL (4.8-10.8)
[2024-01-11] MEDS: SPIRIVA RESPIMAT 2.5 MCG 2 PUFF INH (06:53)
[2024-01-11 07:00] VITALS: BP 183/67
[2024-01-11 07:54] LABS: Blood Urea Nitrogen 21 mg/dl (7-17); Calcium 9.7 mg/dl (8.4-10.2); Carbon Dioxide 28 mmol/L (22-30); Chloride 108 mmol/L (98-107); Estimated Creatinine Clearance 43 ml/min; Glucose 102 mg/dl (70-99); Potassium 4.1 mmol/L (3.5-5.1); Sodium 139 mmol/L (135-145); eGFR 54.53
[2024-01-11 08:10] LABS: Iron 44 ug/dl (37-170)
[2024-01-11 08:20] LABS: Percent Saturation 20 % (20-50); Total Iron Binding Capacity 220 ug/dl (265-497)
[2024-01-11] MEDS: ASPIRIN 325 MG PO (08:40)
[2024-01-11] MEDS: CLARITIN 10 MG PO (08:40)
[2024-01-11] MEDS: COREG 6.25 MG PO ×2 (08:40→19:59)
[2024-01-11] MEDS: COZAAR 100 MG PO (08:41)
[2024-01-11] MEDS: PROCARDIA XL (EXTENDED RELEASE) 60 MG PO (08:42)
[2024-01-11] MEDS: MIRALAX 17 GRAMS PO (08:42)
[2024-01-11] MEDS: NEURONTIN 100 MG PO ×2 (08:42→18:09)
[2024-01-11] MEDS: PROTONIX 40 MG PO (08:42)
[2024-01-11] MEDS: VITAMIN D3 (cholecalciferol) 125 MCG PO (08:42)
[2024-01-11] MEDS: SENOKOT 17.1999999999999993 MG PO ×2 (08:42→19:59)
[2024-01-11 08:56] LABS: Ferritin 49.7 ng/ml (11.1-264.0)
[2024-01-11 09:10] LABS: Vitamin B12 355 pg/ml (239-931)
[2024-01-11 11:00] VITALS: BP 154/63
[2024-01-11] MEDS: CITROMA 300 ML PO (12:34)
--- NOTE | 2024-01-11 14:26 | W.PN.HOSP.TC ---
Today's Communication/Plan
-
Note
If no luck with balance she may need an enema.
Hopefully can be discharged back tomorrow after bowel movement
Assessment / Plan
Assessment / Plan
88-year-old female who had a trimalleolar fracture 3 weeks ago had surgery. She was sent in for confusion. Patient states that she might of been confused when she came in but does not want an MRI as she is claustrophobic and she feels back to
normal. She stated that she was constipated and got milk of magnesia but needed something else had a bowel movement
CT head: No acute intracranial abnormality noted. Minor chronic microvascular white matter ischemic disease. Mild to moderate atrophy.
ECG (read by me): SB @ 41, 1st deg HB with IN 204ms, no acute ST/TW changes
U/A: 16-20 WBC, 2+ LE, nitrite NEG
CVS: S1-S2 normal
Chest: CTA B/L
Abdomen: Soft, NT / Bowel sounds present
Extremities: Right leg on a cast
#Sinus bradycardia:
-Coreg 25 twice daily was initially held, now restarted at a lower dose of 6.25 mg PO BID
-no Mobitz II or 3rd deg HB
-monitor on tele
-No further recommendations from cardiology
#Acute toxic metabolic encephalopathy:
-Approximately 3 weeks prior to admission the patient had open reduction internal fixation of a trimalleolar fracture. She had anesthesia at that time and may have some toxic metabolic encephalopathy due to that. It is possible she has a urinary
tract infection although I think this is less likely considering she has no urinary symptoms, fever, or leukocytosis. She also has had cognitive decline over the last couple months as per the son. Bradycardia may also be contributing to the acute
component of encephalopathy although, again, I feel this is less likely considering her blood pressure is high. Patient was also was on narcotics, trazodone, and benzodiazepines at home which certainly could have contributed to acute toxic
metabolic encephalopathy. These are on hold.
-Patient states that she is back to baseline
-Coreg was initially held, now restarted at a lower dose of 6.25 mg PO BID
-Rocephin can be stopped
-MRI of the brain -which she is refusing
-Head CT-no acute changes mild to moderate atrophy
#Constipation- Mag citrate, Dulcolax
If no BM needs enema
#h/o TIA-ASA
#Essential HTN: cont Losartan/Procardia XL
#Chronic hypoxemic respiratory failure due to COPD: on 2L NC O2 at baseline, not in acute exacerbation, cont Trelegy Ellipta (equivalent)
#CKD3b
#s/p ORIF right ankle trimalleolar fracture by Dr. Hanson 12/20/2023: NWB RLE x 6 weeks, cont ASA
#Anemia of chronic disease
#GERD: start PPI
#Obesity due to excess calories: Encourage weight loss, affects all aspects of care
#HLD: Cont Zetia
#Chronic generalized pain: Narcotics on hold as above. Continue Neurontin.
#Chronic ambulatory dysfunction: PT/OT, NWB right leg
#Seasonal allergies: Continue Claritin
# History of lumpectomy for left breast cancer with the left arm lymphedema
#Ex-smoker
#Insomnia: Holding trazodone, continue melatonin
#FULL
#DVT Prophylaxis-Lovenox
D/W RN
Spoke to patient's son and updated
Anticipated Discharge: Within 24 hours
Subjective/Interval History
-
Date of Service: January 11, 2024
Objective Data
-
Labs:
Laboratory Results
01/11/24
05:54
WBC 6.2
Hgb 9.9 L
Hct 32.0 L
Plt Count 170
Sodium 139
Potassium 4.1
Chloride 108 H
Carbon Dioxide 28
BUN 21 H
Creatinine 1.0
Glucose 102 H
Calcium 9.7
Vital Signs:
Vital Signs
Temp Pulse Resp BP Pulse Ox
98.5 F 59 18 154/63 96
01/11/24 11:00 01/11/24 11:00 01/11/24 11:00 01/11/24 11:00 01/11/24 11:00
I&O
01/10/24 01/11/24 01/12/24
06:59 06:59 06:59
Intake Total 480 / 480 1450 / 1450
Output Total 750 / 750 1100 / 1100
Balance -270 / -270 350 / 350
[2024-01-11] MEDS: DULCOLAX 10 MG RECTAL (14:57)
[2024-01-11] MEDS: PEPCID 20 MG PO (14:57)
[2024-01-11] MEDS: MAALOX 30 ML PO ×2 (14:57→23:15)
[2024-01-11 15:00] VITALS: BP 165/66
[2024-01-11] MEDS: ZETIA 10 MG PO (18:09)
[2024-01-11] MEDS: ZOFRAN 8 MG PO (18:09)
[2024-01-11] MEDS: LOVENOX 40 MG SC (18:10)
[2024-01-11 19:24] VITALS: BP 160/69
[2024-01-11] MEDS: NEURONTIN 200 MG PO (20:00)
[2024-01-11] MEDS: TYLENOL 500 MG PO (20:12)
[2024-01-11 23:44] VITALS: BP 162/72
[2024-01-12 03:55] VITALS: BP 149/68
[2024-01-12 07:00] VITALS: BP 168/63
[2024-01-12] MEDS: SPIRIVA RESPIMAT 2.5 MCG 2 PUFF INH (07:56)
[2024-01-12] MEDS: SYMBICORT 80/4.5 MCG INHALER 2 PUFF INH (07:56)
[2024-01-12] MEDS: MIRALAX PO (08:40)
[2024-01-12] MEDS: ASPIRIN 325 MG PO (08:40)
[2024-01-12] MEDS: PROCARDIA XL (EXTENDED RELEASE) 60 MG PO (08:40)
[2024-01-12] MEDS: PROTONIX 40 MG PO (08:40)
[2024-01-12] MEDS: SENOKOT PO (08:40)
[2024-01-12] MEDS: COREG 6.25 MG PO (08:41)
[2024-01-12] MEDS: VITAMIN D3 (cholecalciferol) 125 MCG PO (08:41)
[2024-01-12] MEDS: CLARITIN 10 MG PO (08:41)
[2024-01-12] MEDS: COZAAR PO (08:41)
[2024-01-12] MEDS: NEURONTIN 100 MG PO ×2 (08:42→17:16)
--- NOTE | 2024-01-12 09:59 | PTCARENOTE ---
Patient with three episodes of diarrhea. Incontinent. Held Miralax and sennakot. Perineal care provided and calazime cream/decenex powder applied.
[2024-01-12 11:00] VITALS: BP 134/62
--- NOTE | 2024-01-12 12:44 | W.PN.HOSP.TC ---
Addendum entered and electronically signed by Roberta Fisher MD 01/13/24 12:18:
stage 2 PI sacrum
Addendum entered and electronically signed by Roberta Fisher MD 01/12/24 13:37:
labs stable
Awake and alert
ordering lunch
Will discharge
total discharge time 36 min
Original Note:
Today's Communication/Plan
-
H and H
BMP
Assessment / Plan
Assessment / Plan
88-year-old female who had a trimalleolar fracture 3 weeks ago had surgery. She was sent in for confusion. Patient states that she might of been confused when she came in but does not want an MRI as she is claustrophobic and she feels back to
normal. She stated that she was constipated and got milk of magnesia but needed something else had a bowel movement
CT head: No acute intracranial abnormality noted. Minor chronic microvascular white matter ischemic disease. Mild to moderate atrophy.
ECG (read by me): SB @ 41, 1st deg HB with SC 204ms, no acute ST/TW changes
U/A: 16-20 WBC, 2+ LE, nitrite NEG
CVS: S1-S2 normal
Chest: CTA B/L
Abdomen: Soft, NT / Bowel sounds present
Extremities: Right leg on a cast
sleepy , arousable , denies complaints
Apparently had 4 loose Bms overnight and 3 today
#Sinus bradycardia:
-Coreg 25 twice daily was initially held, now restarted at a lower dose of 6.25 mg PO BID
-no Mobitz II or 3rd deg HB
-monitor on tele
-No further recommendations from cardiology
#Acute toxic metabolic encephalopathy:
-Approximately 3 weeks prior to admission the patient had open reduction internal fixation of a trimalleolar fracture. She had anesthesia at that time and may have some toxic metabolic encephalopathy due to that. It is possible she has a urinary
tract infection although I think this is less likely considering she has no urinary symptoms, fever, or leukocytosis. She also has had cognitive decline over the last couple months as per the son. Bradycardia may also be contributing to the acute
component of encephalopathy although, again, I feel this is less likely considering her blood pressure is high. Patient was also was on narcotics, trazodone, and benzodiazepines at home which certainly could have contributed to acute toxic
metabolic encephalopathy. These are on hold.
-Patient states that she is back to baseline
-Coreg was initially held, now restarted at a lower dose of 6.25 mg PO BID
-Rocephin can be stopped
-MRI of the brain -which she is refusing
-Head CT-no acute changes mild to moderate atrophy
#Constipation- Resolved
#h/o TIA-ASA
#Essential HTN: cont Losartan/Procardia XL
#Chronic hypoxemic respiratory failure due to COPD: on 2L NC O2 at baseline, not in acute exacerbation, cont Trelegy Ellipta (equivalent)
#CKD3b
#s/p ORIF right ankle trimalleolar fracture by Dr. Hanson 12/20/2023: NWB RLE x 6 weeks, cont ASA
#Anemia of chronic disease
#GERD: start PPI
#Obesity due to excess calories: Encourage weight loss, affects all aspects of care
#HLD: Cont Zetia
#Chronic generalized pain: Narcotics on hold as above. Continue Neurontin.
#Chronic ambulatory dysfunction: PT/OT, NWB right leg
#Seasonal allergies: Continue Claritin
# History of lumpectomy for left breast cancer with the left arm lymphedema
#Ex-smoker
#Insomnia: Holding trazodone, continue melatonin
#FULL
#DVT Prophylaxis-Lovenox
D/W RN at bed side
D?W Case management
01/11/24-Spoke to patient's son and updated
Anticipated Discharge: Today
Subjective/Interval History
-
Date of Service: January 12, 2024
Objective Data
-
Vital Signs:
Vital Signs
Temp Pulse Resp BP Pulse Ox
98.5 F 50 18 134/62 95
01/12/24 11:00 01/12/24 11:00 01/12/24 11:00 01/12/24 11:00 01/12/24 11:00
I&O
01/11/24 01/12/24 01/13/24
06:59 06:59 06:59
Intake Total 1450 / 1450 1080 / 1080
Output Total 1100 / 1100 1100 / 1100
Balance 350 / 350 -20 / -20
--- NOTE | 2024-01-12 12:51 | CM ---
Addendum entered by Windy Hernandez 01/12/24 13:17:
Patient son Sheng called and CM reviewed IMM, form to be emailed to [email or web address].
Addendum entered by Windy Hernandez 01/12/24 13:00:
VM left for patient son to review discharge and IMM
Original Note:
Patient from [facility]. CM called to sophie Paredes from [facility] and patient is from LTC in SNF and can return to SNF today pending physician assessment. Patient does not need updated PT/OT assessment. Please call report to [phone]/fax
[phone]. CM will call to patient family to confirm plan and IMM. CM will continue to follow for discharge planning needs.
Plan; return to SNF
[2024-01-12 13:05] LABS: Hemoglobin 11.1 g/dL (12.0-16.0)
[2024-01-12 13:18] LABS: Blood Urea Nitrogen 20 mg/dl (7-17); Carbon Dioxide 32 mmol/L (22-30); Chloride 104 mmol/L (98-107); Estimated Creatinine Clearance 39 ml/min; Glucose 134 mg/dl (70-99); Sodium 138 mmol/L (135-145); eGFR 48.63
--- NOTE | 2024-01-12 13:50 | PTCARENOTE ---
Report called to RN at [facility]. Ambulance transport scheduled for 183 this evening.
--- NOTE | 2024-01-12 13:57 | W.DS.TRANS ---
Addendum entered and electronically signed by Roberta Fisher MD 01/12/24 15:04:
Dictation- [id number]
Original Note:
DC Summary - Traffic Monitor Specialist
-
Discharge Instructions:
Discharge Diagnosis/Procedures Sinus bradycardia, acute metabolic
encephalopathy secondary to medicines
constipation, history of TIA, hypertension, COPD
, right ankle trimalleolar fracture surgery on 4
, anemia of chronic disease, GERD,
obesity, hyperlipidemia, chronic ambulatory
dysfunction, seasonal allergies, history of
breast cancer
Diet As tolerated
Activity Do not bear weight R leg
Driving Restrictions No driving
Blood Work cbc,bmp 1 week
Other Services PT,OT
Instructions:
Stand-Alone Forms:
Changes to Home Medications: Yes
Discharge Medications:
DC Medications w/original date entered in [employer]
ezetimibe 10 mg tablet 10 mg PO QPM High Cholesterol 10/19/14
acetaminophen 500 mg tablet (Tylenol Extra Strength) 500 mg PO Q6HPRN PRN mild pain 12/19/23
carboxymethylcellulose sodium 1 % eye drops 1 drp BOTH EYES TIDPRN PRN dryness 12/19/23
cholecalciferol (vitamin D3) 125 mcg (5,000 unit) tablet (Vitamin D3) 125 mcg PO DAILY Supplement 12/19/23
cyclobenzaprine 5 mg tablet 5 mg PO DAILY Muscle Spasms 12/19/23
d-mannose 500 mg capsule 1,000 mg PO BID Supplement 12/19/23
fluticasone fur. 100 mcg-umeclid 62.5 mcg-vilant 25 mcg inhalat.powder (Trelegy Ellipta) 1 inh inhalation R DAILY Lung/Breathing Issues 12/19/23
fluticasone propionate 50 mcg/actuation nasal spray,suspension 1 spray intranasal BID Allergies 12/19/23
furosemide 20 mg tablet 20 mg PO DAILY Fluid Retention/Swelling 12/19/23
gabapentin 100 mg capsule 100 mg PO BID nerve pain 12/19/23
gabapentin 100 mg capsule 200 mg PO HS nerve pain 12/19/23
ipratropium 0.5 mg-albuterol 3 mg (2.5 mg base)/3 mL nebulization soln 3 ml inhalation R Q6HPRN PRN sob 12/19/23
loratadine 10 mg tablet (Claritin) 10 mg PO DAILY Allergies 12/19/23
losartan 100 mg tablet 100 mg PO DAILY Blood Pressure 12/19/23
magnesium hydroxide 400 mg/5 mL oral suspension 30 ml PO HSPRN PRN if no bm in 3 days 12/19/23
melatonin 5 mg tablet 10 mg PO HS Sleep 12/19/23
ondansetron HCl 8 mg tablet 8 mg PO Q8HPRN PRN nausea 12/19/23
sennosides 8.6 mg tablet (senna) 1 tab PO HS Constipation 12/19/23
sodium chloride 0.65 % nasal spray aerosol 1 spray intranasal Q4HPRN PRN dryness 12/19/23
aspirin 325 mg tablet 325 mg PO DAILY Blood clot prevention/tx #0 tabs 01/12/24
carvedilol 6.25 mg tablet 6.25 mg PO BID Heart disease/condition #0 tabs 01/12/24
lidocaine HCl 4 % topical cream (Aspercreme (lidocaine HCl)) 1 applic topical TIDPRN PRN foot #0 grams 01/12/24
nifedipine 60 mg tablet,extended release 60 mg PO DAILY Blood pressure #0 tabs 01/12/24
pantoprazole 40 mg tablet,delayed release 40 mg PO DAILY Gastrointestinal issue #0 tabs 01/12/24
polyethylene glycol 3350 17 gram oral powder packet (Miralax) 17 g PO DAILY Constipation #0 ea 01/12/24
Home Medication Changes
MiraLAX and Senokot changed to daily
Protonix is new
Nifedipine is new
Coreg dose changed to 6.25 twice daily
Stop oxycodone, Imodium, Ativan, trazodone
Pending Results: No
[2024-01-12 15:00] VITALS: BP 146/78
[2024-01-12] MEDS: LOVENOX 40 MG SC (17:16)
[2024-01-12] MEDS: ZETIA 10 MG PO (17:16)
--- NOTE | 2024-01-12 18:16 | PTCARENOTE ---
Patient with chronic diarrhea all day today. Incontinent. aware. IV access removed. Tele removed. Ambulance arrival time closer to 1900 this evening. David Cruz aware.
[2024-01-12 19:00] VITALS: BP 146/81
--- NOTE | 2024-01-13 11:29 | PN.CDI ---
CDI
- -
CDI:
Physician Documentation Request
Admit Date: 01/08/24 19:59
Dear Cardiology,
01/08 Cardiology Consult: '88 yo female with HTN, HFpEF'
Please provide further specificity regarding the most likely acuity of CHF you are evaluating, treating or monitoring.
Chronic
Other
Use of terms such as suspected, likely, concern for, or probable (associated with a specific diagnosis that is being evaluated, monitored, or treated as if it exists) are acceptable and can be coded in the inpatient setting, when documented at the
time of discharge.
Thank you,
Kia Zhou RN, BSN
CDI Specialist
Available via [employer] text
Please use your independent medical judgment in providing your response.
--- NOTE | 2024-01-13 11:32 | PN.CDI ---
CDI
- -
CDI:
Physician Documentation Request
Admit Date: 01/08/24 19:59
Dear Doctor Phillip,
Patient admitted with bradycardia.
01/08 Wound Care Note: 'Stage 2 open areas of sacral/coccyx, MASD and fungal appearing skin on buttocks.'
Physician documentation of the type and location of wounds is required for compliant documentation. Based on the above clinical findings and your assessment, please provide the following in your progress note:
1. Location of the ulcer/wound, including laterality.
2. Type (etiology) of ulcer/wound:
- Diabetic ulcer
- Arterial (ischemic) ulcer
- Traumatic wound
- Venous stasis ulcer
- Pressure (decubitus) ulcer
- Non-healing surgical wound
- Other
- Unable to determine
3. For a non-pressure ulcer, please indicate the depth/severity:
- Limited to the breakdown of skin
- With fat layer exposed
- With necrosis of muscle
- With necrosis of bone
- Other
- Unable to determine
4. If a pressure ulcer, please also include the stage* of the ulcer:
- Stage 1 - Skin intact, non-blanchable redness
- Stage 2 - Partial thickness loss of dermis, includes intact or open blister
- Stage 3 - Full thickness tissue not including bone, tendon or muscle
- Stage 4 - Full thickness tissue loss, including exposed bone, tendon or muscle
- Unstageable - Full thickness loss in which the base of the ulcer is covered by slough (yellow, johnson, crouch, green or brown) and/or eschar (johnson, brown or black) in the wound bed.
- Unable to determine
Use of terms such as suspected, likely, concern for, or probable (associated with a specific diagnosis that is being evaluated, monitored, or treated as if it exists) are acceptable and can be coded in the inpatient setting, when documented at the
time of discharge.
Thank you,
Kia Zhou RN, BSN
CDI Specialist
Available via [employer] text
Please use your independent medical judgment in providing your response.
*Source: National Pressure Ulcer Advisory Panel (NPUAP)
== END 2024-01-12 19:56 | DRG 308 ==
LOC: 4 EAST ACU 19:59
PROVIDERS: Clinical Nurse Specialist Family Health; ADMITTING PHYSICIAN Internal Medicine; ATTENDING PHYSICIAN Hospitalist; EMERGENCY PHYSICIAN Emergency Medicine; FAMILY PHYSICIAN Internal Medicine; OTHER PHYSICIAN Internal Medicine
DX: R00.1 Bradycardia, unspecified (principal); G92.8 Other toxic encephalopathy; I13.0 Hypertensive heart and chronic kidney disease with heart failure and stage 1 through stage 4 chronic kidney disease, or unspecified chronic kidney disease; N39.0 Urinary tract infection, site not specified; I50.32 Chronic diastolic (congestive) heart failure; Z87.891 Personal history of nicotine dependence; I95.9 Hypotension, unspecified; N18.30 Chronic kidney disease, stage 3 unspecified; N18.32 Chronic kidney disease, stage 3b; D63.8 Anemia in other chronic diseases classified elsewhere; K21.9 Gastro-esophageal reflux disease without esophagitis; E78.00 Pure hypercholesterolemia, unspecified; F41.9 Anxiety disorder, unspecified; G47.00 Insomnia, unspecified; E66.9 Obesity, unspecified; T50.905A Adverse effect of unspecified drugs, medicaments and biological substances, initial encounter; K59.00 Constipation, unspecified; Z86.73 Personal history of transient ischemic attack (TIA), and cerebral infarction without residual deficits; L89.152 Pressure ulcer of sacral region, stage 2
CPT/HCPCS: 70450; 74018; 80048; 80053; 80061; 81003; 81015; 82607; 82728; 82962; 83540; 83550; 85014; 85018; 85025; 87070; 87086; 93005; 94640; 96374; 99285

== ENCOUNTER 2024-07-04 10:08 | Inpatient (IN) | payer MEDICARE, OTHER, SELFPAY ==
[2024-07-04] VITALS (13 sets, daily range): BP systolic 109–157; BP diastolic 53–90; BMI 39.0
[2024-07-04 05:46] LABS: % Basophils 0.3 % (0-2); % Eosinophils 2.9 % (0-6); % Immature Granulocytes 0.6 % (0-0.5); % Lymphocytes 10.1 % (20.5-51.1); % Monocytes 9.7 % (1.7-9.3); % Neutrophils 76.4 % (42.2-75.2); Absolute Eosinophils 0.3 10^3/uL (0-0.7); Absolute Immature Granulocytes 0.1 10^3/uL (0-0.05); Absolute Neutrophils 7.6 10^3/uL (1.4-6.5); Hematocrit 38.8 % (37.0-47.0); Hemoglobin 11.9 g/dL (12.0-16.0); Mean Corp Hgb Conc. 30.7 g/dL (33.0-37.0); Mean Corpuscular Hgb 27.8 pg (27.0-31.0); Mean Corpuscular Volume 90.7 fL (81.0-99.0); Mean Platelet Volume 9.9 fL (7.4-10.4); Nucleated Red Blood Cells % 0 %; Platelet Count 191 10^3/uL (130-400); Red Blood Cell Count 4.28 10^6/uL (4.20-5.40); Red Cell Dist. Width 15.3 % (11.5-14.5)
[2024-07-04 05:58] LABS: Urine Albumin Trace (Neg - Trace); Urine Bilirubin Negative (Negative); Urine Character Slightly Cloudy (Clear); Urine Color Yellow; Urine Glucose Negative (Negative); Urine Ketone Negative (Negative); Urine Leukocyte 2+ (Negative); Urine Nitrite Positive (Negative); Urine Occult Blood 1+ (Negative); Urine Specific Gravity 1.015 (<1.030); Urine Urobilinogen Negative (Neg - 1+)
--- NOTE | 2024-07-04 06:11 | ED.GENMED ---
History of Present Illness
General
Chief Complaint: Breathing Problem
Source: patient
Exam Limitations: none
Time Seen by Provider: 07/04/24 06:02
Nursing documentation reviewed up to this point in time: agreed with
History of Present Illness
History of Present Illness:
89-year-old female presents emergency room with due to low pulse ox at the senior living. She was placed on nonrebreather and her pulse ox came up to 100%. Prior to leaving for the hospital. It was negative. Per senior living she had some
expressive aphasia. None in ED.
Past History
Past History
ED Past Medical History: COPD, HTN, Hypercholesterolemia and NIDDM
ED Past Surgical History: Bowel resection, Gynecological and Orthopedic
Social History
Tobacco: Former smoker
Alcohol: Occasional
Drug: None
Personal:
Living: with family
Employment: Retired
Family History
Family History: Other (Pending)
Review of Systems
Review of Systems
Allergies reviewed?: Yes
All Other Systems: Not applicable
Constitutional: Reports fever
EENT: Reports no symptoms
Respiratory: Reports cough and trouble breathing
Cardiac: Reports no symptoms
ABD/GI: Reports no symptoms
: Reports no symptoms
Musculoskeletal: Reports no symptoms
Skin: Reports no symptoms
Neurological: Reports weakness
Endocrine: Reports no symptoms
Hematologic/Lymphatic: Reports no symptoms
Psychiatric: Reports no symptoms
Phy Exam
Physical Exam
Physical Exam:
Physical Exam
General: Fever 100.6, on mid flow oxygen
Neck: supple. no meningeal signs. normal posterior pharynx
Heart: s1/s2 regular rate and rhythm, no murmur. equal radial
pulses.
HEENT: Pupils equal round reactive to light, EOMI
Lungs: Moderate respiratory distress. Faint wheezing bilaterally
Abdomen: normal bowel sounds. not tender. no CVAT
Neuro: alert and oriented. no focal neurological deficits cranial nerves II through XII intact
Skin: no rash
Psychiatric: well kept. interactive and cooperative
Extremities: no edema. no calf tenderness. negative homans. good distal pulses healing wound right ankle
Scores
Heart Failure Risk
Heart Failure Risk Score: Not Applicable
Sepsis
Sepsis Screening
Sepsis Assessment: Sepsis Ruled Out
Sepsis Screen
Sepsis Screen: Sepsis Ruled Out
Date: 07/04/24
Time: 14:31
Course
Orders/Labs/Results
Orders:
Orders
07/04/24 05:26
Electrocardiogram (*1) Urgent
Reason for Study: Other
Other Reason for Exam: Possible Sepsis
EKG- Treatment ONCE
IV Insert/Care/Rem.- Treatment PRN
Straight cath- Treatment ONCE
CR Chest - 2 Views Urgent
Comment:
Reason For Exam: suspected infection
O2 Therapy [RESP] Urgent
Titrate/Wean O2 to maintain O2 sat greater than (%): 93
Special Instructions: TO MAINTAIN CONTINUOUS O2 SATS > OR = 93%
Pulse Ox/cont/shift [RESP] Urgent
Quantity: 1
Special Instructions: CONTINUOUS
07/04/24 05:33
Complete Blood Count/With Diff Urgent
Comprehensive Metabolic Panel Urgent
Lactic Acid Q4H
Comment: ON ICE, CANCEL 2ND ORDER IF FIRST LACTIC ACID LEVEL <2
NT-proBNP Urgent
Comment: ADD PM
07/04/24 05:34
Urinalysis Reflex To Culture Urgent
Date Specimen was Collected: 07/04/24
Time Specimen was Collected: 05:26
Urine Microscopic Reflex Cult Urgent
Urine Culture Urgent
THERESE Source: U
Specimen Description:
Date Specimen was Collected: 07/04/24
Time Specimen was Collected: 05:26
07/04/24 Breakfast
Cholesterol Lowering
At Your Request: Full Participation
Cholesterol Lowering: Sodium, 2 Gram
07/04/24 06:35
Cefepime HCl [Maxipime] 2,000 mg IV NOW STA
07/04/24 06:36
Ipratropium/Albuterol Sulfate [Duoneb] 3 ml INH R NOW STA
07/04/24 06:46
Blood Culture Q30M
THERESE Source: Blood/Venous
Specimen Description:
07/04/24 08:53
Add On- LAB Urgent
Tests Added?: pro bnp
07/04/24 08:55
Admit/Transfer Patient As Directed
Co-Sign Provider:
Level of Care: Inpatient admission
Assign to:: IMU- Intermediate Care
Physician / Group: [facility]/medicine
Diagnosis: acute hypoxic resp failure, sepsis
Reason for Hospitalization: acute hypoxic resp failure, sepsis
Expected length of stay greater than two midnights?: Yes
ELOS- Estimated Length of Stay in days: 3
I certify the patient meets the requirements for IP care: Yes
PRN Pain Medication Management As Directed
May give lesser potent ordered pain med per pt: Yes
preference::
Protocol:: Medication orders for pain may be administered in a
manner that supports deferring to patient preference
when the pt is:
- Requesting an ordered lesser potent pain medication.
Least to most potent pain medications are defined
as: acetaminophen < NSAID < tramadol < opioids
(morphine, oxycodone, hydromorphone).
- Requesting a lesser dose of the same medication IF
ORDERED.
- Requesting a less intrusive route of administration
if both routes are prescribed by the provider (PO <
IV).
Legs, Bilateral US [US Periph Venous LOWER Ext Charli] Urgent
Comment:
Reason For Exam: fever, pe
07/04/24 08:57
Lactated Ringers [Lr] 1,000 ml IV BOLUS
07/04/24 09:05
Code Status As Directed
Resuscitation Status: Full Code
07/04/24 09:15
CT Head W/o Iv Contrast Routine
Comment:
Reason For Exam: aphasia
07/04/24 11:41
Blood Culture Q30M
THERESE Source: Blood/Venous
Specimen Description:
07/04/24 11:56
Acetaminophen [Tylenol] 650 mg PO Q4HPRN PRN
Bisacodyl [Dulcolax] 10 mg RECTAL [id number] PRN
Docusate W/Senna [Senokot-S] 1 tablet PO BIDPRN PRN
Ipratropium/Albuterol Sulfate [Duoneb] 3 ml INH R Q4HPRN PRN
Magnesium Hydroxide [Milk of Magnesia] 30 ml PO HSPRN PRN
Polyethylene Glycol Powder [Miralax] 17 grams PO DAILYPRN PRN
07/04/24 11:56
CT Chest W/o Iv Contrast Routine
Comment:
Reason For Exam: hypoxia - fever, recent aspiration
Respiratory Culture/Gram Stain Routine
THERESE Source: Sputum
Specimen Description:
Activity As Directed
Activity Level: As Tolerated
Intake/ Output As Directed
Frequency: Per unit guidelines
Vital Signs As Directed
Frequency: Per unit guidelines
Copd Education [RESP] Routine
O2 Therapy [RESP] Routine
High Flow Nasal Cannula FIO2%: 40
Titrate/Wean O2 to maintain O2 sat greater than (%): 90
Special Instructions: adjust, if necessary, to avoid hyperoxia in CO2 retainers.
Use High Flow O2 if necessary
Ot Eval And Treat Routine
Pt Eval And Treat Routine
Activity Level: As Tolerated
DX Deep Vein Thrombosis Video Routine
07/04/24 12:00
Ipratropium/Albuterol Sulfate [Duoneb] 3 ml INH R QID
MethylPREDNISolone PF [Solu-Medrol Pf] 40 mg IV Q6H
07/04/24 12:42
COVID-19 Antigen Routine
Source: Nasal Swab
Influenza A+B Rapid Molecular Routine
THERESE Source: Nasal Swab
Specimen Description:
Vancomycin MRSA PCR Screen Routine
THERESE Source: Nose
Specimen Description:
07/04/24 12:57
Troponin I Q6H
Blood Culture Routine
THERESE Source: Blood/Venous
Specimen Description:
07/04/24 16:00
Gabapentin [Neurontin] 100 mg PO BID@0800,1600
Heparin 5,000 units SC Q8
07/04/24 17:56
Troponin I Q6H
07/04/24 22:00
Gabapentin [Neurontin] 200 mg PO HS
Melatonin 10 mg PO HS
Sennosides [Senokot] 8.6 mg PO HS
07/04/24 23:56
Troponin I Q6H
07/05/24 06:00
Basic Metabolic Panel IN AM
Complete Blood Count/With Diff IN AM
07/05/24 08:00
Aspirin 325 mg PO DAILY
Pantoprazole [Protonix] 40 mg PO DAILY
Polyethylene Glycol Powder [Miralax] 17 grams PO DAILY
Abnormal Lab Results
07/04/24 07/04/24
05:33 05:34
Hgb 11.9 L g/dL
(12.0-16.0)
MCHC 30.7 L g/dL
(33.0-37.0)
RDW 15.3 H %
(11.5-14.5)
Abs Immat Gran (auto) 0.1 H 10^3/uL
(0-0.05)
Absolute Neuts (auto) 7.6 H 10^3/uL
(1.4-6.5)
Absolute Lymphs (auto) 1.0 L 10^3/uL
(1.2-3.4)
Absolute Monos (auto) 1.0 H 10^3/uL
(0.1-0.6)
Immature Gran % 0.6 H %
(0-0.5)
Neutrophils % 76.4 H %
(42.2-75.2)
Lymphocytes % 10.1 L %
(20.5-51.1)
Monocytes % 9.7 H %
(1.7-9.3)
Carbon Dioxide 34 H mmol/L
(22-30)
BUN 29 H mg/dl
(7-17)
Creatinine 1.6 H mg/dL
(0.6-1.0)
Glucose 128 H mg/dl
(70-99)
Ur Occult Blood Reflex 1+ A
(Negative)
Urine Nitrite (Reflex) Positive A
(Negative)
Leukocyte Esterase Rfl 2+ A
(Negative)
Urine RBC 3-6 A /HPF
(0-2)
Urine WBC (Reflex) >100 A /HPF
(0-5)
Urine Bacteria (Reflex) Many A
(Negative)
07/04/24 05:33
07/04/24 05:33
Vital Signs
Initial and Last Documented VS:
Initial Vital Signs
Temp Pulse Resp BP Pulse Ox
100.6 F H 82 26 120/60 88
07/04/24 04:36 07/04/24 04:36 07/04/24 04:36 07/04/24 04:36 07/04/24 04:36
Last Documented Vital Signs
Temp Pulse Resp BP Pulse Ox
98.1 F 84 17 157/59 91
07/04/24 12:30 07/04/24 14:00 07/04/24 14:00 07/04/24 12:16 07/04/24 14:00
MDM/Problems Addressed
Differential Diagnosis Includes:
UTI, pneumonia
MDM/Problems Addressed:
89-year-old female with COPD exacerbation and UTI. Admit to hospitalist.
Chronic conditions affecting care: COPD and Kidney disease
Acute Exacerbation and/or Progression of Chronic Illness: COPD and Kidney disease
*Radiology
Radiology exam reviewed: radiology read reviewed (CT head no acute findings chest x-ray no acute finding)
*Pulse Oximetry
Patient hypoxic: yes
*EKG
Interpreted by ED Provider?: Yes
EKG Intrepretation Date: 07/04/24
EKG Intrepretation Time: 07:16
Interpretation: abnormal
Comparison EKG: changes noted
Heart Rate: 72
Rate: normal
Rhythm: sinus
[place]: normal axis
Interval: normal interval and first degree heart block
QRS Pattern: normal QRS
Ischemia: no ischemia
*Certified Fire Investigator Interpretation
Rate: normal
Interpretation: normal
Heart Rate: 70
Rhythm: sinus
*Critical Care Note
Total Time (30-74mins, 75-104mins- exclusive of procedures): Not Applicable
Data Reviewed
Further Testing Considered But Not Given:
CT chest not indicated
Patient Management
Social determinants of health affecting care: Living situation
Discussion with other providers: Hospitalist
Escalation/DeEscalation of care consider admission/obs:
Admit indicated
ED Attending Note
-
Portions of this chart may have been created with voice recognition software.� Occasional wrong word or��sound alike� substitutions may have occurred due to the inherent limitations of voice recognition software.
Discharge Plan
Departure
Patient Disposition: Admit
Date of Disposition: 07/04/24
Time of Disposition: 06:38
Admit to: IMU
Presentation/result/management discussed w/ accepting MD/DO: Hospitalist
Patient with high blood pressure during this ER visit?: No
Condition: Fair
Discharge Problem:
Acute UTI, Acute exacerbation of chronic obstructive pulmonary disease, Acute respiratory insufficiency
Interventions
Interventions:
*Risk Screen - Suicide Last Done: 07/04/24 04:36
*Neglect/Abuse Screening Last Done: 07/04/24 04:36
[2024-07-04 06:12] LABS: Urine White Cell >100 /HPF (0-5)
[2024-07-04 06:12] LABS: ALT (SGPT) 12 U/L (0-35); AST (SGOT) 18 U/L (14-36); Albumin 3.5 g/dl (3.5-5.0); Alkaline Phosphatase 82 U/L (38-126); Blood Urea Nitrogen 29 mg/dl (7-17); Calcium 9.8 mg/dl (8.4-10.2); Carbon Dioxide 34 mmol/L (22-30); Chloride 99 mmol/L (98-107); Estimated Creatinine Clearance 28 ml/min; Glucose 128 mg/dl (70-99); Sodium 140 mmol/L (135-145); Total Bilirubin 0.4 mg/dl (0.2-1.3); Total Protein 6.3 g/dl (6.3-8.2); eGFR 30.83
[2024-07-04 06:13] LABS: Urine Bacteria Many (Negative)
[2024-07-04 06:16] LABS: Lactic Acid 0.8 mmol/L (0.7-2.0)
[2024-07-04] MEDS: DUONEB 3 ML INH ×4 (07:42→19:35)
[2024-07-04] MEDS: MAXIPIME 2000 MG IV (07:43)
[2024-07-04 10:13] LABS: NT-proBNP 1110 pg/ml
--- NOTE | 2024-07-04 13:00 | PTCARENOTE ---
Received patient to room 3341 from ED. Patient is aaox3. She arrived on 6L, needing to increase to 7L. Pt's spo2 ~92%. Pt with coarse/crackles in bases. Pt's son at bedside and updated. Pt had no complaints at time of admission. Assessment, care and
VS as charted.
[2024-07-04] MEDS: LR 1000 IV ×2 (13:18→15:13)
[2024-07-04] MEDS: SOLU-MEDROL PF 40 MG IV (13:19)
[2024-07-04 13:31] LABS: COVID-19 Antigen Negative (Negative)
[2024-07-04 13:32] LABS: Troponin I 0.017 ng/ml
[2024-07-04] MEDS: ZOSYN 50 IV ×2 (14:31→20:05)
--- NOTE | 2024-07-04 14:36 | HPS.HSE ---
Family Physician
-
Family Physician: PHYSICIAN PRIVATE
Chief Complaint
-
Aphasia, altered mental status, hypoxia
History of Present Illness
89-year-old with history of COPD on 3 L chronically, history of previous CVAs now presents for hypoxia, altered mental status. As per ED note, patient had some expressive aphasia although patient stated that she was told she did not make sense.
Otherwise patient was noted to be alert and oriented x 3, with no focal motor or sensory deficits. Of note as per , had episode of vomiting 2 days prior. Notable to have temperature of 100.7. Pulse 84, RR 26, low 70s on 3 L. Patient
responded well to 6 L, 89%. Labs remarkable for serum creatinine 1.6, (1.1 in January), UA positive, proBNP 1110. SARS-CoV-2 negative, pending MRSA PCR, flu. X-ray with no acute cardiopulmonary process. CT head with no acute intracranial
abnormalities. No wheezing on auscultation upon my examination although received DuoNebs by then.
Medical History
Past Medical History
Past Medical History: Reports Other
Additional Past Medical History:
TIA 2014 no residual effects
COPD chronic 2 L dependent
Chronic ambulatory dysfunction with frequent falls usually is in wheelchair
obesity
type 2 diabetes
hypertension,
hyperlipidemia
Memory impairment since November 2023 short-term per son
Seasonal allergies
Anemia
Anxiety
Insomnia
Past Surgical History: Reports Other
Additional Past Surgical History:
Status post right ankle ORIF 12/19/2019 for trimalleolar fracture
Colon polyp resection
Left breast surgery for breast cancer
Partial hip replacement
Cataract surgery
Shoulder repair
Total abdominal hysterectomy
Social History
Tobacco: Former Smoker
Alcohol: None
Drug: None
Personal:
Living: Assisted Living ([facility])
Employment: Retired
Family History
Family History: Not pertinent
Allergies / Home Medications
Allergies reflects when Allergies were last updated in [facility].
Home Medications with original date entered in [facility]
Allergy/Medication List:
Allergies
Allergy/AdvReac Type Severity Reaction Status Date / Time
amlodipine besylate Allergy COUGH Verified 07/04/24 04:43
[From Norvas]
influenza virus vaccine, Allergy GOT VERY Verified 07/04/24 04:43
specific ILL (pt
[influenza virus denies)
vacc,specific]
morphine Allergy Nausea Verified 07/04/24 04:43
Penicillins Allergy Unknown Verified 07/04/24 04:43
pioglitazone HCl [From Actos] Allergy COUGH Verified 07/04/24 04:43
quinapril HCl [From Accupril] Allergy COUGH Verified 07/04/24 04:43
Home Medications
ezetimibe 10 mg tablet 10 mg PO QPM High Cholesterol 10/19/14
acetaminophen 500 mg tablet (Tylenol Extra Strength) 500 mg PO Q6HPRN PRN mild pain 12/19/23
carboxymethylcellulose sodium 1 % eye drops 1 drp BOTH EYES TIDPRN PRN dryness 12/19/23
cholecalciferol (vitamin D3) 125 mcg (5,000 unit) tablet (Vitamin D3) 125 mcg PO DAILY Supplement 12/19/23
cyclobenzaprine 5 mg tablet 5 mg PO DAILY Muscle Spasms 12/19/23
d-mannose 500 mg capsule 1,000 mg PO BID Supplement 12/19/23
fluticasone fur. 100 mcg-umeclid 62.5 mcg-vilant 25 mcg inhalat.powder (Trelegy Ellipta) 1 inh inhalation R DAILY Lung/Breathing Issues 12/19/23
fluticasone propionate 50 mcg/actuation nasal spray,suspension 1 spray intranasal BID Allergies 12/19/23
furosemide 20 mg tablet 20 mg PO DAILY Fluid Retention/Swelling 12/19/23
gabapentin 100 mg capsule 100 mg PO BID nerve pain 12/19/23
gabapentin 100 mg capsule 200 mg PO HS nerve pain 12/19/23
ipratropium 0.5 mg-albuterol 3 mg (2.5 mg base)/3 mL nebulization soln 3 ml inhalation R Q6HPRN PRN sob 12/19/23
loratadine 10 mg tablet (Claritin) 10 mg PO DAILY Allergies 12/19/23
losartan 100 mg tablet 100 mg PO DAILY Blood Pressure 12/19/23
magnesium hydroxide 400 mg/5 mL oral suspension 30 ml PO HSPRN PRN if no bm in 3 days 12/19/23
melatonin 5 mg tablet 10 mg PO HS Sleep 12/19/23
ondansetron HCl 8 mg tablet 8 mg PO Q8HPRN PRN nausea 12/19/23
sennosides 8.6 mg tablet (senna) 1 tab PO HS Constipation 12/19/23
sodium chloride 0.65 % nasal spray aerosol 1 spray intranasal Q4HPRN PRN dryness 12/19/23
aspirin 325 mg tablet 325 mg PO DAILY Blood clot prevention/tx #0 tabs 01/12/24
carvedilol 6.25 mg tablet 6.25 mg PO BID Heart disease/condition #0 tabs 01/12/24
lidocaine HCl 4 % topical cream (Aspercreme (lidocaine HCl)) 1 applic topical TIDPRN PRN foot #0 grams 01/12/24
nifedipine 60 mg tablet,extended release 60 mg PO DAILY Blood pressure #0 tabs 01/12/24
pantoprazole 40 mg tablet,delayed release 40 mg PO DAILY Gastrointestinal issue #0 tabs 01/12/24
polyethylene glycol 3350 17 gram oral powder packet (Miralax) 17 g PO DAILY Constipation #0 ea 01/12/24
Review of Systems
-
History Source: Patient
A 12 point ROS was completed and negative except as noted: Yes
Physical Exam
Vital Signs
Vital Signs
Temp Pulse Resp BP Pulse Ox
98.1 F 84 17 157/59 91
07/04/24 12:30 07/04/24 14:00 07/04/24 14:00 07/04/24 12:16 07/04/24 14:00
Physical Exam
General: Well Developed and Well Nourished
HEENT: NormoCephalic
Respiratory: Clear
Cardiac: S1/S2 and Regular Rhythm
GI: Soft and Non Tender
Skin: Warm
Neuro: Awake, Alert, Oriented and AO x 3
Hematologic/Lymphatic: No Lymphadenopathy
Laboratory Results
-
07/04/24 05:33
07/04/24 05:33
Laboratory Results
Lactic Acid Cancelled 07/04/24 09:30
Total Bilirubin 0.4 mg/dl (0.2-1.3) 07/04/24 05:33
AST 18 U/L (14-36) 07/04/24 05:33
ALT 12 U/L (0-35) 07/04/24 05:33
Alkaline Phosphatase 82 U/L (38-126) 07/04/24 05:33
Troponin I 0.017 ng/ml 07/04/24 12:57
Data Reviewed
-
Diagnostic Radiology: Image Personally Visualized and interpreted and Report Reviewed by me
CT Scan: Image Personally Visualized and interpreted and Report Reviewed by me
Lab Data: Labs Reviewed by me
Impression/Plan
-
IMPRESSION:
89-year-old with history of COPD on 3 L chronically, history of previous CVAs now presents for hypoxia, altered mental status.
PLAN:
#Acute on chronic hypoxic respiratory failure, chronically on 2-3 L
� Does not appear to be in COPD exacerbation
� X-ray grossly unremarkable for acute cardiopulmonary process
� In setting of recent vomiting, possible aspiration�follow-up CT chest
� Low extremity Dopplers
� Continue empiric antibiotics
� DuoNebs as needed
� Can hold on steroids at this time
� DVT prophylaxis
� proBNP 1000, follow-up echo�appears euvolemic at this time
#Sepsis
#Complicated UTI
� Continue Zosyn
� Follow-up cultures
� Maintain MAP greater than 65
#Acute metabolic encephalopathy
� Secondary sepsis
� Resolved
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
� LR bolus today
� Continue to monitor with resuscitation
#h/o TIA-ASA (recorded as 325 - requested med rec) possibly can go back to 81mg daily
#Essential HTN: holding Losartan/Procardia XL
#Chronic hypoxemic respiratory failure due to COPD: on 2L NC O2 at baseline, not in acute exacerbation, cont Trelegy Ellipta (equivalent) with duonebs
#s/p ORIF right ankle trimalleolar fracture by Dr. Hanson 12/20/2023
#Anemia of chronic disease
#GERD: PPI
#Obesity due to excess calories: Encourage weight loss, affects all aspects of care
#HLD: Cont Zetia
#Chronic generalized pain: cont pain regimens from outpt
#Chronic ambulatory dysfunction: PT/OT
#Seasonal allergies: Continue Claritin
# History of lumpectomy for left breast cancer with the left arm lymphedema
#Ex-smoker
#Insomnia: Hold trazodone, continue melatonin
#FULL
#DVT Prophylaxis-HSQ
[2024-07-04] MEDS: NEURONTIN 100 MG PO (15:11)
[2024-07-04] MEDS: HEPARIN 5000 UNITS SC (15:11)
--- NOTE | 2024-07-04 17:53 | W.PN.UPDATE ---
Update Note
Progress Note Update
Received call from primary attending. Patient lower extremity Doppler positive for multiple DVTs. Discussed with primary attending patient not on any DOAC and no prior bleeding complications. Patient here with sepsis. CT head was negative for
acute bleeding. After discussion with primary attending patient will be started on heparin infusion. Aspirin 325 mg was decreased to 81 mg daily.
[2024-07-04 18:53] LABS: APTT 31.6 Sec (23.4-35.0)
[2024-07-04] MEDS: ADVAIR HFA 230/21 MCG INHALER 2 PUFF INH (19:35)
[2024-07-04] MEDS: MELATONIN 10 MG PO (21:09)
[2024-07-04] MEDS: SENOKOT 8.6 MG PO (21:09)
[2024-07-04] MEDS: NEURONTIN 200 MG PO (21:09)
[2024-07-04] MEDS: TYLENOL 650 MG PO (21:16)
[2024-07-05] VITALS (14 sets, daily range): BP systolic 117–166; BP diastolic 51–126; PULSE 85; O2SAT 96–97
[2024-07-05 00:21] LABS: Troponin I < 0.012 ng/ml
[2024-07-05] MEDS: HEPARIN 25000 UNITS/250 ML IV ×2 (01:27→22:37)
[2024-07-05] MEDS: ZOSYN 50 IV ×4 (02:30→20:21)
[2024-07-05] MEDS: LR 1000 IV (05:31)
[2024-07-05 06:40] LABS: APTT > 200.0 Sec (23.4-35.0); Blood Urea Nitrogen 28 mg/dl (7-17); Calcium 9.5 mg/dl (8.4-10.2); Carbon Dioxide 32 mmol/L (22-30); Chloride 99 mmol/L (98-107); Estimated Creatinine Clearance 35 ml/min; Glucose 113 mg/dl (70-99); Potassium 4.9 mmol/L (3.5-5.1); Sodium 137 mmol/L (135-145); eGFR 39.55
[2024-07-05 06:41] LABS: % Basophils 0.1 % (0-2); % Immature Granulocytes 1.2 % (0-0.5); % Monocytes 11.3 % (1.7-9.3); % Neutrophils 80.4 % (42.2-75.2); Absolute Immature Granulocytes 0.1 10^3/uL (0-0.05); Absolute Lymphocytes 0.5 10^3/uL (1.2-3.4); Absolute Monocytes 0.8 10^3/uL (0.1-0.6); Hematocrit 29.9 % (37.0-47.0); Hemoglobin 9.2 g/dL (12.0-16.0); Mean Corp Hgb Conc. 30.8 g/dL (33.0-37.0); Mean Corpuscular Hgb 28.9 pg (27.0-31.0); Mean Platelet Volume 9.9 fL (7.4-10.4); Nucleated Red Blood Cells % 0 %; Platelet Count 126 10^3/uL (130-400); Red Blood Cell Count 3.18 10^6/uL (4.20-5.40); Red Cell Dist. Width 14.3 % (11.5-14.5); White Blood Cell Count 7.5 10^3/uL (4.8-10.8)
[2024-07-05] MEDS: DUONEB 3 ML INH ×4 (07:31→20:03)
[2024-07-05] MEDS: ADVAIR HFA 230/21 MCG INHALER 2 PUFF INH ×2 (07:31→20:02)
[2024-07-05] MEDS: PROTONIX 40 MG PO (09:30)
[2024-07-05] MEDS: MIRALAX PO (09:31)
[2024-07-05] MEDS: NEURONTIN 100 MG PO ×2 (09:31→17:30)
[2024-07-05] MEDS: LOW STRENGTH ASPIRIN 81 MG PO (09:59)
--- NOTE | 2024-07-05 14:14 | CM ---
Patient from [facility] with Dx Acute on chronic hypoxic respiratory failure, sepsis, UTI, AUTUMN, LE Doppler positive for multiple DVTs. O2 [address] Chest today. Receiving IVF, Heparing gtt, IV Abx. PT recommends HH. OT recommends
skilled rehab.
Spoke with [facility];
the patient resides there in LTC and is on an MA bed hold.
She is A/Ox3, assisted with ADLs and was able to ambulate 30' w RW & CGA.
The patient mostly utilizes a w/c for mobility.
PT was recently discontinued.
The patient did not have O2 at .
Pharmacy confirmed as [facility].
The ph for report [phone], fax [phone]
Met with patient who agrees to returning to [facility] at d/c.
Plan watch for home O2 needs.
Plan return to [facility] when medically ready.
[2024-07-05 16:03] LABS: APTT > 200 Sec (23.4-35.0)
--- NOTE | 2024-07-05 16:32 | PTCARENOTE ---
Patient AAOx3. Was out of bed earlier with PT. Patient [place] with significant vision impairment. On 6L midflow, sats 94%. NSR on monitor. Heparin currently held per protocol. Patient with no complaints. VSS. Continuing to closely monitor.
--- NOTE | 2024-07-05 16:43 | W.PN.HOSP.TC ---
Today's Communication/Plan
-
see plan above
Assessment / Plan
Assessment / Plan
IMPRESSION:
89-year-old with history of COPD on 3 L chronically, history of previous CVAs now presents for hypoxia, altered mental status.
PLAN:
#Acute on chronic hypoxic respiratory failure, chronically on 2-3 L
� Does not appear to be in COPD exacerbation
� X-ray grossly unremarkable for acute cardiopulmonary process
� In setting of recent vomiting, possible aspiration�follow-up non contrast CT chest shows Mild bibasilar airspace consolidation, left greater than right, suggestive of pneumonia, aspiration pneumonitis, or subsegmental atelectasis. Mild
centrilobular emphysema.
� Continue empiric antibiotics
� DuoNebs as needed
� hold on steroids at this time
- proBNP 1000, follow-up echo�appears euvolemic at this time. Echo shows normal EF with mild to moderate mitral stenosis and LVH.
-With the discovery of left leg DVT cannot rule out PE but she is asymptomatic without chest pain or shortness of breath. She is going to be on anticoagulation anyways. There is no evidence of right ventricular strain on echocardiogram. As it
would not change the management plus she is Chronic kidney disease I would hold on CT chest with contrast.
# Left leg DVT-suspect secondary to recent right ankle fracture repair and decreased mobility. Continue with IV heparin and will consider switching to Eliquis tomorrow if no further complications.
#Sepsis
#Complicated UTI
� Continue Zosyn
� Follow-up cultures
� Maintain MAP greater than 65
#Acute metabolic encephalopathy
� Secondary sepsis
� Resolved
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
� Improved
� Hold further fluids
#h/o TIA-ASA
#Essential HTN: holding Losartan; restart Procardia XL
#Chronic hypoxemic respiratory failure due to COPD: on 2L NC O2 at baseline, not in acute exacerbation, cont Trelegy Ellipta (equivalent) with duonebs
#s/p ORIF right ankle trimalleolar fracture by Dr. Hanson 12/20/2023
#Anemia of chronic disease
#GERD: PPI
#Obesity due to excess calories: Encourage weight loss, affects all aspects of care
#HLD: Cont Zetia
#Chronic generalized pain: cont pain regimens from outpt
#Chronic ambulatory dysfunction: PT/OT
#Seasonal allergies: Continue Claritin
# History of lumpectomy for left breast cancer with the left arm lymphedema
#Ex-smoker
#Insomnia: Hold trazodone, continue melatonin
#FULL
#DVT Prophylaxis-HSQ
Anticipated Discharge: 24 - 48 hours
Subjective/Interval History
-
Date of Service: July 05, 2024
Denies SOB or CP.
No cough.
Says she was sent in from the facility because of low oxygen noted in the night. She is normally on 3 L. She does not feel short of breath.
Since the right ankle fracture repair she has been less mobile. She just started on physical therapy but got terminated by insurance company. She needs help and ambulating and it transfers.
Objective Data
-
Labs:
Laboratory Results
07/05/24 07/05/24 07/05/24
06:03 12:45 15:19
WBC 7.5
Hgb 9.2 L D
Hct 29.9 L
Plt Count 126 L D
APTT > 200.0 H* Cancelled > 200 H*
Sodium 137
Potassium 4.9
Chloride 99
Carbon Dioxide 32 H
BUN 28 H
Creatinine 1.3 H
Glucose 113 H
Calcium 9.5
Vital Signs:
Vital Signs
Temp Pulse Resp BP Pulse Ox
98.0 F 87 13 129/115 95
07/05/24 11:05 07/05/24 16:00 07/05/24 16:00 07/05/24 12:00 07/05/24 15:26
I&O
07/04/24 07/05/24 07/06/24
06:59 06:59 06:59
Intake Total 3860 / 3860 240 / 240
Output Total 350 / 350
Balance 3510 / 3510 240 / 240
Physical Exam
-
General: Comfortable
HEENT: Moist Mucous Membranes
Respiratory: Clear to Auscultation and Non Labored Respirations; Negative Wheezes or Accessory Resp Muscle Use
Cardiac: Regular Rhythm and S1/S2
GI: Soft
Musculoskeletal: Edema, Right Lower Extrem and Edema, Left Lower Extrem
Neuro: AO x 3
Psych: Calm; Negative Confused
Data Reviewed
-
CT Scan: Report Reviewed by me (ct chest)
Labs: Labs Reviewed by me
[2024-07-05] MEDS: MELATONIN 10 MG PO (22:38)
[2024-07-05] MEDS: NEURONTIN 200 MG PO (22:39)
[2024-07-05] MEDS: SENOKOT 8.6 MG PO (22:39)
[2024-07-05] MEDS: TYLENOL 650 MG PO (22:44)
[2024-07-06] VITALS (8 sets, daily range): BP systolic 106–159; BP diastolic 51–99; BMI 37.9
[2024-07-06 00:32] LABS: APTT 106.4 Sec (23.4-35.0)
[2024-07-06] MEDS: ZOSYN 50 IV ×2 (02:22→07:55)
--- NOTE | 2024-07-06 02:44 | PTCARENOTE ---
Pt received from previous shift in bed. AAOx3, [place], impaired vision, forgetful to details. Telemetry = SR. Full physical assessment documented (refer to worklist). #20 RW w/heparin gtt @ 1100 units, ongoing PTT assessments (refer to worklist).
Assisted w/HS hygiene. Purewick external catheter changed and maintained. Encouraged turns, pillow placed. Call marie within reach. Plan of care ongoing
--- NOTE | 2024-07-06 04:19 | PTCARENOTE ---
Pt constantly desating while asleep, at low as mid 70s. Mouth breathing, periods of witnessed apnea. Attempts to place surgical mask over face, pt removes. Sats immediately improve uon wakening.
[2024-07-06 06:26] LABS: Hemoglobin 10.3 g/dL (12.0-16.0); Mean Corp Hgb Conc. 30.3 g/dL (33.0-37.0); Mean Corpuscular Hgb 27.5 pg (27.0-31.0); Mean Corpuscular Volume 90.9 fL (81.0-99.0); Mean Platelet Volume 9.9 fL (7.4-10.4); Platelet Count 161 10^3/uL (130-400); Red Blood Cell Count 3.74 10^6/uL (4.20-5.40); Red Cell Dist. Width 14.7 % (11.5-14.5)
[2024-07-06 06:36] LABS: APTT 159.8 Sec (23.4-35.0)
[2024-07-06 07:05] LABS: Blood Urea Nitrogen 28 mg/dl (7-17); Calcium 9.7 mg/dl (8.4-10.2); Carbon Dioxide 33 mmol/L (22-30); Chloride 101 mmol/L (98-107); Estimated Creatinine Clearance 34 ml/min; Glucose 93 mg/dl (70-99); Potassium 4.9 mmol/L (3.5-5.1); Sodium 141 mmol/L (135-145); eGFR 39.55
[2024-07-06] MEDS: LOW STRENGTH ASPIRIN 81 MG PO (07:55)
[2024-07-06] MEDS: PROTONIX 40 MG PO (07:56)
[2024-07-06] MEDS: NEURONTIN 100 MG PO ×2 (07:56→17:09)
[2024-07-06] MEDS: MIRALAX 17 GRAMS PO (07:56)
[2024-07-06] MEDS: DUONEB 3 ML INH ×3 (07:58→15:18)
[2024-07-06] MEDS: ADVAIR HFA 230/21 MCG INHALER 2 PUFF INH (07:58)
[2024-07-06] MEDS: ELIQUIS 5 MG PO (10:10)
--- NOTE | 2024-07-06 10:19 | W.PN.HOSP.TC ---
Today's Communication/Plan
-
DC planning
Assessment / Plan
Assessment / Plan
IMPRESSION:
89-year-old with history of COPD on 3 L chronically, history of previous CVAs now presents for hypoxia, altered mental status.
PLAN:
#Acute on chronic hypoxic respiratory failure, chronically on 2-3 L
- improved this morning she is on 4 L
� Does not appear to be in COPD exacerbation
� X-ray grossly unremarkable for acute cardiopulmonary process
� In setting of recent vomiting, possible aspiration�follow-up non contrast CT chest shows Mild bibasilar airspace consolidation, left greater than right, suggestive of pneumonia, aspiration pneumonitis, or subsegmental atelectasis. Mild
centrilobular emphysema.
� Continue empiric antibiotics-switch to oral Augmentin-as tolerated Zosyn without any issues. I doubt she has any true penicillin allergies
� DuoNebs as needed
� hold on steroids at this time
- proBNP 1000, follow-up echo�appears euvolemic at this time. Echo shows normal EF with mild to moderate mitral stenosis and LVH.
-With the discovery of left leg DVT cannot rule out PE but she is asymptomatic without chest pain or shortness of breath. She is going to be on anticoagulation anyways. There is no evidence of right ventricular strain on echocardiogram. As it
would not change the management plus she is Chronic kidney disease I would hold on CT chest with contrast.
# Left leg DVT-suspect secondary to recent right ankle fracture repair and decreased mobility. switch to oral Eliquis today. Would at least consider 3 months of anticoagulation and longer if patient remains with decreased mobility.
#Sepsis - afeb now and resolved sepsis parameters. suspect sec to pulmonary pathology.
#Suspected UTI on adx but pt without dysuria or frequency . UCX mixed kary. With these data point doubt UTI
#Acute metabolic encephalopathy
� Secondary sepsis
� Resolved
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
� Improved
#h/o TIA-ASA
#Essential HTN: BP under goal. restart Procardia XL; with AUTUMN on CKD i would hold ARB for now and if needed restart it later and follow renal function closely
#Chronic hypoxemic respiratory failure due to COPD: on 2L NC O2 at baseline, not in acute exacerbation, cont Trelegy Ellipta (equivalent) with duonebs
#s/p ORIF right ankle trimalleolar fracture by Dr. Hanson 12/20/2023
#Anemia of chronic disease
#GERD: PPI
#Obesity due to excess calories: Encourage weight loss, affects all aspects of care
#HLD: Cont Zetia
#Chronic generalized pain: cont pain regimens from outpt
#Chronic ambulatory dysfunction: PT/OT
#Seasonal allergies: Continue Claritin
# History of lumpectomy for left breast cancer with the left arm lymphedema
#Ex-smoker
#Insomnia: Hold trazodone, continue melatonin
#FULL
#DVT Prophylaxis-HSQ
Wean O2 to 3 l and if able dc back to SNF
PT eval noted
Total time of dc 32 min
DW RN
Anticipated Discharge: Today
Subjective/Interval History
-
Date of Service: July 06, 2024
Feeling better. Denies any chest pain or shortness of breath.
Denies cough.
She thinks she vomited possibly a small amount prior coming into the hospital . she is not sure if she aspirated
Objective Data
-
Labs:
Laboratory Results
07/06/24 07/06/24 07/06/24
00:06 06:04 14:00
WBC 8.0
Hgb 10.3 L
Hct 34.0 L
Plt Count 161 D
APTT 106.4 H 159.8 H* Pending
Sodium 141
Potassium 4.9
Chloride 101
Carbon Dioxide 33 H
BUN 28 H
Creatinine 1.3 H
Glucose 93
Calcium 9.7
Vital Signs:
Vital Signs
Temp Pulse Resp BP Pulse Ox
97.9 F 77 13 127/64 94
07/06/24 07:39 07/06/24 09:00 07/06/24 09:00 07/06/24 08:00 07/06/24 09:59
I&O
07/05/24 07/06/24 07/07/24
06:59 06:59 06:59
Intake Total 3860 / 3860 580 / 580
Output Total 350 / 350 400 / 400
Balance 3510 / 3510 180 / 180
Review of Systems
-
Constitutional: Denies Fever or Chills
EENT: Denies Sore Throat
Abdomen/GI: Denies Abdominal Pain, Nausea or Vomiting
Genitourinary: Denies Dysuria or Frequency
Neuro: Denies Dizzy
Physical Exam
-
General: No Apparent Distress
HEENT: Moist Mucous Membranes
Respiratory: Clear to Auscultation
Cardiac: Regular Rhythm and S1/S2
GI: Soft, Nontender, Nondistended and Normal Bowel Sounds
Musculoskeletal: Negative No Edema ( bilateral trace edema)
Neuro: AO x 3
Psych: Calm; Negative Confused or Agitated
Data Reviewed
-
Labs: Labs Reviewed by me
[2024-07-06] MEDS: LASIX 20 MG PO (11:52)
[2024-07-06] MEDS: COREG 6.25 MG PO (11:52)
[2024-07-06] MEDS: AUGMENTIN 500 MG/125 MG 1 TABLET PO (12:00)
--- NOTE | 2024-07-06 15:52 | W.DCSUMMARY ---
Discharge Summary
Discharge Data
Date of Admission: 07/04/24
Date of Discharge: 07/06/24
-
Pending Results: No
Hospital Course
Primary diagnosis:
Acute on chronic hypoxic respiratory failure
Chronic hypoxic respiratory failure normally on 2 to 3 L
Left leg deep vein thrombosis
Possible aspiration pneumonia
Sepsis
Acute kidney on chronic kidney disease stage IIIb
Secondary diagnosis:
History of transient ischemic
Essential hypertension
Chronic obstructive pulmonary disease
Anemia of chronic disease
Hyperlipidemia
Chronic generalized pain syndrome
ambulatory dysfunction
Recent right ankle fracture repair
Hospital course:
Patient currently at a local rehab facility chronically on 3 L of oxygen for COPD presented with hypoxia and altered mental status.
She was requiring more than her baseline. She had a chest x-ray which did not show any acute cardiopulmonary disease. She was not in acute COPD flare on presentation. There was apparently history of aspiration. Chest CT showed mild bibasilar
airspace consolidation left greater than right concerning for pneumonia, aspiration pneumonitis or subsegmental atelectasis. Due to sepsis parameters the concern was this was probably pneumonia she was put on Zosyn and switch to oral Augmentin.
Her oxygenation improved and she was stable at her baseline 3 L. The BNP was thousand , follow-up echo showed normal EF with mild to moderate mitral stenosis and LVH. She appeared euvolemic.
Doubt this was a PE without any symptoms. There is new discovery of left leg DVT.
Ultrasound of the left leg for swelling showed left leg proximal DVT. She is lately less mobile after right ankle fracture repair which might be contributing. Was put on initially heparin and transition to Eliquis. I would at least continue with
3 months of anticoagulation and if she is active back on her feet fine but otherwise prolonged anticoagulation duration.
She had elevation of creatinine to 1.6 with a baseline recently being 1-1.3 recently. Unclear if it related to infection. Creatinine did improve to 1.3 at the time of discharge.
Once she was medically stable she was discharged back to her rehab.
Discharge Plan
-
Patient Disposition: Long-Term/SNF
Discharge Diagnosis/Procedures: Acute on chronic hypoxic respiratory failure; possible pneumonia; COPD without flare; new left lower leg DVT; recent right ankle fracture repair with decreased mobility
Diet: Regular
Activity: As tolerated
Driving Restrictions: No driving
Bathing Restrictions: None
Blood Work: BMP and CBC in one week
Other Services: PT and OT
Referrals:
PRIVATE,PHYSICIAN [Family Provider] - in less than 1 week
Prescriptions:
New
aspirin 81 mg Tablet,Chewable
81 mg PO DAILY Qty: 1 0RF
amoxicillin-pot clavulanate 500-125 mg Tablet
1 tab PO Q12H Qty: 8 0RF
Eliquis 5 mg Tablet
5 mg PO BID Qty: 1 0RF
Rx Instructions:
for atleast 3 months ;longer if remains with decreased mobility
Continued
ezetimibe 10 MG tablet
10 mg PO QPM
ipratropium-albuterol 0.5 mg-3 mg(2.5 mg base)/3 mL Solution For Nebulization
3 ml INHALATION R Q6HPRN PRN (Reason: sob)
acetaminophen [Tylenol Extra Strength] 500 mg Tablet
500 mg PO Q6HPRN PRN (Reason: mild pain)
gabapentin 100 mg Capsule
200 mg PO HS
losartan 100 mg Tablet
100 mg PO DAILY
fluticasone propionate 50 mcg/actuation [place],Suspension
1 spray INTRANASAL BID
loratadine [Claritin] 10 mg Tablet
10 mg PO DAILY
cyclobenzaprine 5 mg Tablet
5 mg PO DAILY
sodium chloride 0.65 % Aerosol,[place]
1 spray INTRANASAL Q4HPRN PRN (Reason: dryness)
melatonin 5 mg Tablet
10 mg PO HS
cholecalciferol (vitamin D3) [Vitamin D3] 125 mcg (5,000 unit) Tablet
125 mcg PO DAILY
Trelekamila Ellipta 100-62.5-25 mcg Blister With Device
1 inh INHALATION R DAILY
d-mannose 500 mg Capsule
1,000 mg PO BID
sennosides [senna] 1 TABLET tablet
1 tab PO HS
magnesium hydroxide 30 ML suspension
30 ml PO HSPRN PRN (Reason: if no bm in 3 days)
furosemide 20 MG tablet
20 mg PO DAILY
gabapentin 100 mg Capsule
100 mg PO BID
carvedilol 6.25 mg Tablet
6.25 mg PO BID Qty: 0 0RF
pantoprazole 40 mg Tablet,Delayed Release (Dr/Ec)
40 mg PO DAILY Qty: 0 0RF
polyethylene glycol 3350 17 gram Powder In Packet
17 g PO DAILYPRN PRN (Reason: constipation)
lorazepam 0.5 mg Tablet
0.5 mg PO DAILYPRN PRN (Reason: anxiety)
carboxymethylcellulose sodium 0.5 % Drops
1 drp BOTH EYES Q8HPRN PRN (Reason: eye dryness)
nifedipine 90 mg Tablet Extended Release 24hr
90 mg PO DAILY
lidocaine HCl [Aspercreme (lidocaine HCl)] 4 % Cream
1 applic TOPICAL Q8HPRN PRN (Reason: B/L feet B/L ankles)
Discontinued
ondansetron HCl 8 mg Tablet
8 mg PO Q8HPRN PRN (Reason: nausea)
aspirin 325 mg Tablet
325 mg PO DAILY Qty: 0 0RF
Discharge Orders:
Discharge Patient (As Directed); Ordered 07/06/24
Ordered By: Fritz Dale
Discharge Date and Time
Print Language: HUNGARIAN
--- NOTE | 2024-07-06 16:19 | CM ---
Patient from [facility] with Dx Acute on chronic hypoxic respiratory failure, sepsis, UTI, AUTUMN, LE Doppler positive for multiple DVTs. O2 4L. PT recommends HH. OT recommends skilled rehab.
Spoke with Lena, [facility]; they are able to accept the patient back today. Confirmed that patient has home O2 in place. The ph for report [phone], fax [phone].
Spoke with patient who was preparing for d/c. IMM reviewed- the patient says she feels ready for d/c today. Offered to contact her son Mike and she declined saying she will call him.
Plan return to [facility] today by ambulance.
== END 2024-07-06 18:56 | DRG 871 ==
LOC: IMU 10:08
PROVIDERS: Emergency Medicine; Hospitalist; ADMITTING PHYSICIAN Internal Medicine; ATTENDING PHYSICIAN Internal Medicine; EMERGENCY PHYSICIAN Emergency Medicine
DX: A41.9 Sepsis, unspecified organism (principal); G93.41 Metabolic encephalopathy; J69.0 Pneumonitis due to inhalation of food and vomit; J96.21 Acute and chronic respiratory failure with hypoxia; J18.9 Pneumonia, unspecified organism; J44.1 Chronic obstructive pulmonary disease with (acute) exacerbation; N39.0 Urinary tract infection, site not specified; I82.412 Acute embolism and thrombosis of left femoral vein; N17.9 Acute kidney failure, unspecified; J44.0 Chronic obstructive pulmonary disease with (acute) lower respiratory infection; D63.8 Anemia in other chronic diseases classified elsewhere; E11.22 Type 2 diabetes mellitus with diabetic chronic kidney disease; I12.9 Hypertensive chronic kidney disease with stage 1 through stage 4 chronic kidney disease, or unspecified chronic kidney disease; N18.32 Chronic kidney disease, stage 3b; E66.9 Obesity, unspecified; I05.0 Rheumatic mitral stenosis; Z99.81 Dependence on supplemental oxygen; E78.00 Pure hypercholesterolemia, unspecified; F41.9 Anxiety disorder, unspecified; G47.00 Insomnia, unspecified; G89.4 Chronic pain syndrome; I44.0 Atrioventricular block, first degree; K59.00 Constipation, unspecified; R29.6 Repeated falls; Z91.81 History of falling; Z79.82 Long term (current) use of aspirin; Z79.899 Other long term (current) drug therapy; Z85.3 Personal history of malignant neoplasm of breast; Z86.73 Personal history of transient ischemic attack (TIA), and cerebral infarction without residual deficits; Z87.81 Personal history of (healed) traumatic fracture; Z86.0100 Personal history of colon polyps, unspecified; Z87.891 Personal history of nicotine dependence; Z90.710 Acquired absence of both cervix and uterus; Z96.649 Presence of unspecified artificial hip joint; Z88.5 Allergy status to narcotic agent; Z88.0 Allergy status to penicillin; Z88.8 Allergy status to other drugs, medicaments and biological substances
CPT/HCPCS: 51701; 70450; 71046; 71250; 80048; 80053; 81003; 81015; 83605; 83880; 84484; 85025; 85027; 85730; 87040; 87086; 87502; 87641; 87811; 93005; 93306; 93970; 94640; 96374; 97162; 97167; 99285; Q9950

== ENCOUNTER 2024-09-17 18:43 | Inpatient (IN) | payer MEDICARE, OTHER, SELFPAY ==
[2024-09-16] VITALS (15 sets, daily range): BP systolic 105–158; BP diastolic 46–109; BMI 38.2
--- NOTE | 2024-09-16 11:05 | ED.GENMED ---
History of Present Illness
General
Chief Complaint: Urinary Symptoms
Source: patient
Exam Limitations: altered mental status
Time Seen by Provider: 09/16/24 10:53
History of Present Illness
History of Present Illness:
89yoF with a history of CHF, COPD on 2L NC, prior CVA, hypertension, hyperlipidemia, type 2 diabetes, and CKD presenting via EMS for evaluation of generalized weakness. Patient arrives from [facility]. Patient reports feeling generally unwell
with sore arms. She has no other complaints at this time and is unsure why she is in the hospital. I called the nursing facility to obtain additional information. Per group home staff, patient has been having malaise, decreased appetite, and
has been sleeping more over the past several days. No reported fevers. Her oxygen saturation was in the low 80s today which is unusual for her. The hypoxia is why the nursing facility called the ambulance today. EMS reported UTI symptoms
although group home staff member denies this. Patient denies any chest pain or shortness of breath
Past History
Past History
ED Past Medical History: COPD, HTN, Hypercholesterolemia and NIDDM
ED Past Surgical History: Bowel resection, Gynecological and Orthopedic
Social History
Tobacco: Former smoker
Alcohol: Occasional
Drug: None
Personal:
Living: with family
Employment: Retired
Family History
Family History: Other (Pending)
Phy Exam
General Physical Exam
General Presentation: well appearing and no apparent distress
General age: appears stated age
General Skin: warm and dry
General Habitus: elderly
General Mental: alert
ENT Exam
ENT Exam: normocephalic
Cardiovascular Exam
Cardiovascular Exam: regular rate/rhythm
Pulmonary Exam
Pulmonary Exam: no respiratory distress, no crackles, no rhonchi, no wheezing and decreased breath sounds
Gastrointestinal Exam
Gastrointestinal Exam: non tender, soft and non distended
Neurological Exam
Neurological Exam: alert and other (Oriented to person and place. Able to state year but not able to state month. )
Skin Exam
Skin Exam: normal color and warm/dry
Psychiatric Exam
Psychiatric Exam: normal mood/affect
Course
Orders/Labs/Results
Orders:
Orders
09/16/24 10:51
Electrocardiogram (*1) Urgent
Reason for Study: Other
Other Reason for Exam: Possible Sepsis
09/16/24 10:52
EKG- Treatment ONCE
09/16/24 10:53
Complete Blood Count/With Diff Urgent
Comprehensive Metabolic Panel Urgent
09/16/24 11:05
Straight cath- Treatment ONCE
09/16/24 11:10
CT Head W/o Iv Contrast Urgent
Comment:
Reason For Exam: AMS
CR Chest - 2 Views Urgent
Comment:
Reason For Exam: SOB
09/16/24 11:22
COVID-19 Antigen Urgent
Source: Nasal Swab
Troponin I Urgent
Influenza A+B Rapid Molecular Urgent
THERESE Source: Nasal Swab
Specimen Description:
09/16/24 11:47
Urinalysis Reflex To Culture Urgent
Date Specimen was Collected: 09/16/24
Time Specimen was Collected: 11:40
Urine Microscopic Reflex Cult Urgent
Respiratory Syncytial Virus Urgent
THERESE Source: Nasal Swab
Specimen Description:
Date Specimen was Collected: 09/16/24
Time Specimen was Collected: 11:40
Urine Culture Urgent
THERESE Source: U
Specimen Description:
Date Specimen was Collected: 09/16/24
Time Specimen was Collected: 11:40
09/16/24 13:05
CefTRIAXone [Rocephin] 2,000 mg IV NOW STA
09/16/24 13:29
Sterile Water [Sterile Water For Injection] 20 ml .ROUTE .STK-MED
09/16/24 13:47
Admit/Transfer Patient As Directed
Co-Sign Provider:
Level of Care: Observation services
Assign to:: Telemetry
Physician / Group: shawanda
Diagnosis: acute bronchitis/uti
Reason for Telemetry: Arrhythmia
Date to Stop Telemetry: 09/19/24
Time to Stop Telemetry: 11:00
Code Status As Directed
Resuscitation Status: Full Code
PRN Pain Medication Management As Directed
May give lesser potent ordered pain med per pt: Yes
preference::
Protocol:: Medication orders for pain may be administered in a
manner that supports deferring to patient preference
when the pt is:
- Requesting an ordered lesser potent pain medication.
Least to most potent pain medications are defined
as: acetaminophen < NSAID < tramadol < opioids
(morphine, oxycodone, hydromorphone).
- Requesting a lesser dose of the same medication IF
ORDERED.
- Requesting a less intrusive route of administration
if both routes are prescribed by the provider (PO <
IV).
09/16/24 Dinner
Cholesterol Lowering
At Your Request: Limited, Marine Service Operator Required
Cholesterol Lowering: Sodium, 2 Gram
09/19/24 11:00
DC Protocol for Telemetry ONCE
Abnormal Lab Results
09/16/24 09/16/24 09/16/24
10:53 11:22 11:47
RBC 3.75 L 10^6/uL
(4.20-5.40)
Hgb 9.5 L g/dL
(12.0-16.0)
Hct 32.9 L %
(37.0-47.0)
MCH 25.3 L pg
(27.0-31.0)
MCHC 28.9 L g/dL
(33.0-37.0)
RDW 14.9 H %
(11.5-14.5)
Abs Immat Gran (auto) 0.1 H 10^3/uL
(0-0.05)
Absolute Neuts (auto) 6.7 H 10^3/uL
(1.4-6.5)
Absolute Lymphs (auto) 0.8 L 10^3/uL
(1.2-3.4)
Absolute Monos (auto) 1.6 H 10^3/uL
(0.1-0.6)
Immature Gran % 0.8 H %
(0-0.5)
Lymphocytes % 8.8 L %
(20.5-51.1)
Monocytes % 17.0 H %
(1.7-9.3)
Chloride 97 L mmol/L
(98-107)
Carbon Dioxide 34 H mmol/L
(22-30)
BUN 26 H mg/dl
(7-17)
Creatinine 1.4 H mg/dL
(0.6-1.0)
Glucose 114 H mg/dl
(70-99)
Troponin I 0.092 H* ng/ml
Total Protein 6.1 L g/dl
(6.3-8.2)
Albumin 3.2 L g/dl
(3.5-5.0)
Ur Occult Blood Reflex 3+ A
(Negative)
Urine Nitrite (Reflex) Positive A
(Negative)
Leukocyte Esterase Rfl 2+ A
(Negative)
Urine RBC 21-25 A /HPF
(0-2)
Urine WBC (Reflex) >100 A /HPF
(0-5)
Urine Bacteria (Reflex) Many A
(Negative)
Urine Albumin (Reflex) 1+ A
(Neg - Trace)
09/16/24 10:53
09/16/24 10:53
Vital Signs
Initial and Last Documented VS:
Initial Vital Signs
Temp Pulse Resp Pulse Ox
97.8 F 78 16 99
09/16/24 10:46 09/16/24 10:46 09/16/24 10:46 09/16/24 10:46
Last Documented Vital Signs
Temp Pulse Resp BP Pulse Ox
98 F 84 20 138/63 93
09/16/24 12:00 09/16/24 15:01 09/16/24 15:01 09/16/24 15:01 09/16/24 15:01
MDM/Problems Addressed
Differential Diagnosis Includes:
89yoF here with generalized weakness, malaise, and decreased PO intake/activity x several days. Reportedly hypoxic to the low 80s at her group home this morning. Chronically on 2 L nasal cannula. Oxygen saturation 99% on arrival. She appears
fatigued but is nontoxic. Breath sounds are mildly decreased without wheezing or rales. Differential diagnosis includes but is not limited to: Viral illness, bronchitis, pneumonia, COPD exacerbation, ACS, UTI
Initial ED plan: Check cardiac labs, COVID/flu/RSV swab, UA, EKG, CXR, and CT head.
*EKG
Interpreted by ED Provider?: Yes
EKG Intrepretation Date: 09/16/24
Heart Rate: 80
Rate: normal
Rhythm: sinus
[place]: normal axis
Interval: first degree heart block
QRS Pattern: normal QRS
Ischemia: no ischemia
*Critical Care Note
Total Time (30-74mins, 75-104mins- exclusive of procedures): Not Applicable
Update Note
Update Note:
Troponin 0.092. No ischemic changes on EKG. Viral testing is negative and chest x-ray is clear. UA is nitrite positive with >100 WBCs consistent with a UTI. IV Rocephin ordered and patient admitted for further management.
ED Attending Note
-
Portions of this chart may have been created with voice recognition software.� Occasional wrong word or��sound alike� substitutions may have occurred due to the inherent limitations of voice recognition software.
Discharge Plan
Departure
Patient Disposition: Admit
Date of Disposition: 09/16/24
Time of Disposition: 13:09
Presentation/result/management discussed w/ accepting MD/DO: Hospitalist
Discharge Problem:
Generalized weakness, Elevated troponin, Urinary tract infection
Interventions
Interventions:
*Risk Screen - Suicide Last Done: 09/16/24 10:46
*General Assessment Last Done: 09/16/24 10:46
*Neglect/Abuse Screening Last Done: 09/16/24 10:46
ED- Fall Risk Assessment Last Done: 09/16/24 10:46
*ED COVID-19 Vaccine History Last Done: 09/16/24 13:17
ED-Female Genitourinary Assessment Last Done: 09/16/24 13:15
[2024-09-16 11:10] LABS: % Basophils 0.4 % (0-2); % Eosinophils 1.5 % (0-6); % Immature Granulocytes 0.8 % (0-0.5); % Lymphocytes 8.8 % (20.5-51.1); % Neutrophils 71.5 % (42.2-75.2); Absolute Eosinophils 0.1 10^3/uL (0-0.7); Absolute Immature Granulocytes 0.1 10^3/uL (0-0.05); Absolute Lymphocytes 0.8 10^3/uL (1.2-3.4); Absolute Monocytes 1.6 10^3/uL (0.1-0.6); Absolute Neutrophils 6.7 10^3/uL (1.4-6.5); Hematocrit 32.9 % (37.0-47.0); Hemoglobin 9.5 g/dL (12.0-16.0); Mean Corp Hgb Conc. 28.9 g/dL (33.0-37.0); Mean Corpuscular Hgb 25.3 pg (27.0-31.0); Mean Corpuscular Volume 87.7 fL (81.0-99.0); Mean Platelet Volume 9.2 fL (7.4-10.4); Nucleated Red Blood Cells % 0 %; Platelet Count 207 10^3/uL (130-400); Red Blood Cell Count 3.75 10^6/uL (4.20-5.40); Red Cell Dist. Width 14.9 % (11.5-14.5); White Blood Cell Count 9.3 10^3/uL (4.8-10.8)
[2024-09-16 11:23] LABS: ALT (SGPT) < 10 U/L (0-35); AST (SGOT) 17 U/L (14-36); Albumin 3.2 g/dl (3.5-5.0); Alkaline Phosphatase 77 U/L (38-126); Blood Urea Nitrogen 26 mg/dl (7-17); Calcium 9.3 mg/dl (8.4-10.2); Carbon Dioxide 34 mmol/L (22-30); Chloride 97 mmol/L (98-107); Estimated Creatinine Clearance 32 ml/min; Glucose 114 mg/dl (70-99); Potassium 4.7 mmol/L (3.5-5.1); Sodium 136 mmol/L (135-145); Total Bilirubin 0.4 mg/dl (0.2-1.3); Total Protein 6.1 g/dl (6.3-8.2); eGFR 36.19
[2024-09-16 12:03] LABS: COVID-19 Antigen Negative (Negative)
[2024-09-16 12:24] LABS: Troponin I 0.092 ng/ml
[2024-09-16 12:28] LABS: Anisocytosis 1+; Normal RBC Morphology No
[2024-09-16 12:29] LABS: Hypochromasia 2+; Macrocytosis Slight; Ovalocytes Slight; Polychromasia Slight
[2024-09-16 12:51] LABS: Urine Albumin 1+ (Neg - Trace); Urine Bilirubin Negative (Negative); Urine Character Very Cloudy (Clear); Urine Color Yellow; Urine Glucose Negative (Negative); Urine Ketone Negative (Negative); Urine Leukocyte 2+ (Negative); Urine Nitrite Positive (Negative); Urine Occult Blood 3+ (Negative); Urine Specific Gravity 1.015 (<1.030); Urine Urobilinogen Negative (Neg - 1+)
[2024-09-16 13:49] LABS: Urine Squamous Cell 0-2 /LPF (Few)
[2024-09-16 13:50] LABS: Urine Amorphous Seen; Urine Bacteria Many (Negative); Urine Red Blood Cell 21-25 /HPF (0-2); Urine White Cell >100 /HPF (0-5)
--- NOTE | 2024-09-16 13:52 | HPS.HSE ---
Family Physician
-
Family Physician: NOT KNOW UNKNOWN - PT DOES
Chief Complaint
-
hypoxia
History of Present Illness
89-year-old female past medical history of CHF, COPD on 2 L, CVA, hypertension, hyperlipidemia, type 2 diabetes, CKD presenting for generalized weakness. As per detention patient was having malaise, decreased appetite and sleeping more over the
past several days. No fever. Oxygen saturation was in the low 80s today which prompted EMS call. EMS reported UTI symptoms although detention staff denies this. Patient denies any chest pain shortness of breath.
No upper respiratory symptoms such as cough, sore throat, sick contacts. No chest pain. No lower extremity edema or weight gain.
He does not smoke or drink alcohol.
Medical History
Past Medical History
Past Medical History: Reports Other (CHF, COPD on 2 L, CVA, hypertension, hyperlipidemia, type 2 diabetes, CKD )
Past Surgical History: Reports None
Social History
Tobacco: Non-smoker
Alcohol: None
Drug: None
Family History
Family History: Not pertinent
Allergies / Home Medications
Allergies reflects when Allergies were last updated in [employer].
Home Medications with original date entered in [employer]
Allergy/Medication List:
Allergies
Allergy/AdvReac Type Severity Reaction Status Date / Time
amlodipine besylate Allergy COUGH Verified 09/16/24 10:45
[From [facility]]
influenza virus vaccine, Allergy GOT VERY Verified 09/16/24 10:45
specific ILL (pt
[influenza virus denies)
vacc,specific]
morphine Allergy Nausea Verified 09/16/24 10:45
Penicillins Allergy Unknown Verified 09/16/24 10:45
pioglitazone HCl [From Actos] Allergy COUGH Verified 09/16/24 10:45
quinapril HCl [From Accupril] Allergy COUGH Verified 09/16/24 10:45
Home Medications
ezetimibe 10 mg tablet 10 mg PO QPM High Cholesterol 10/19/14
acetaminophen 500 mg tablet (Tylenol Extra Strength) 500 mg PO Q6HPRN PRN mild pain 12/19/23
cholecalciferol (vitamin D3) 125 mcg (5,000 unit) tablet (Vitamin D3) 125 mcg PO DAILY Supplement 12/19/23
cyclobenzaprine 5 mg tablet 5 mg PO DAILY Muscle Spasms 12/19/23
d-mannose 500 mg capsule 1,000 mg PO BID Supplement 12/19/23
fluticasone fur. 100 mcg-umeclid 62.5 mcg-vilant 25 mcg inhalat.powder (Trelegy Ellipta) 1 inh inhalation R DAILY Lung/Breathing Issues 12/19/23
fluticasone propionate 50 mcg/actuation nasal spray,suspension 1 spray intranasal BID Allergies 12/19/23
furosemide 20 mg tablet 20 mg PO DAILY Fluid Retention/Swelling 12/19/23
gabapentin 100 mg capsule 100 mg PO BID nerve pain 12/19/23
gabapentin 100 mg capsule 200 mg PO HS nerve pain 12/19/23
ipratropium 0.5 mg-albuterol 3 mg (2.5 mg base)/3 mL nebulization soln 3 ml inhalation R Q6HPRN PRN sob 12/19/23
loratadine 10 mg tablet (Claritin) 10 mg PO DAILY Allergies 12/19/23
losartan 100 mg tablet 100 mg PO DAILY Blood Pressure 12/19/23
magnesium hydroxide 400 mg/5 mL oral suspension 30 ml PO HSPRN PRN if no bm in 3 days 12/19/23
melatonin 5 mg tablet 10 mg PO HS Sleep 12/19/23
sennosides 8.6 mg tablet (senna) 1 tab PO HS Constipation 12/19/23
sodium chloride 0.65 % nasal spray aerosol 1 spray intranasal Q4HPRN PRN dryness 12/19/23
carvedilol 6.25 mg tablet 6.25 mg PO BID Heart disease/condition #0 tabs 01/12/24
pantoprazole 40 mg tablet,delayed release 40 mg PO DAILY Gastrointestinal issue #0 tabs 01/12/24
carboxymethylcellulose sodium 0.5 % eye drops 1 drp BOTH EYES Q8HPRN PRN eye dryness 07/04/24
lidocaine HCl 4 % topical cream (Aspercreme (lidocaine HCl)) 1 applic topical Q8HPRN PRN B/L feet B/L ankles 07/04/24
lorazepam 0.5 mg tablet 0.5 mg PO DAILYPRN PRN anxiety 07/04/24
nifedipine 90 mg tablet,extended release 24 hr 90 mg PO DAILY 07/04/24
polyethylene glycol 3350 17 gram oral powder packet 17 g PO DAILYPRN PRN constipation 07/04/24
apixaban 5 mg tablet (Eliquis) 5 mg PO BID #1 tab 07/06/24
aspirin 81 mg chewable tablet 81 mg PO DAILY #1 tab 07/06/24
Review of Systems
-
History Source: Patient
A 12 point ROS was completed and negative except as noted: Yes
Constitutional: Reports No Symptoms
EENT: Reports No Symptoms
Respiratory: Reports See HPI
Cardiac: Reports No Symptoms
Abdomen/GI: Reports No Symptoms
: Reports No Symptoms
Musculoskeletal: Reports No Symptoms
Skin: Reports No Symptoms
Neurological: Reports No Symptoms
Endocrine: Reports No Symptoms
Hematologic/Lymphatic: Reports No Symptoms
Psych: Reports No Symptoms
Physical Exam
Vital Signs
Vital Signs
Temp Pulse Resp BP Pulse Ox
98 F 82 18 140/62 92
09/16/24 12:00 09/16/24 13:00 09/16/24 13:00 09/16/24 13:00 09/16/24 13:15
Physical Exam
General: Well Developed, Well Nourished and No Apparent Distress
HEENT: NormoCephalic, Moist mucous membranes and Atraumatic
Respiratory: Clear
Cardiac: S1/S2 and Regular Rhythm; No Murmur or Rub
GI: Soft, Non Tender, Non Distended and Normal Bowel Sounds; No Organomegaly
Rectal: Deferred by Provider
Musculoskeletal: No Clubbing, No Cyanosis and No Edema
Skin: No Rash
Neuro: Nonfocal/grossly intact
Laboratory Results
-
09/16/24 10:53
09/16/24 10:53
Laboratory Results
Total Bilirubin 0.4 mg/dl (0.2-1.3) 09/16/24 10:53
AST 17 U/L (14-36) 09/16/24 10:53
ALT < 10 U/L (0-35) 09/16/24 10:53
Alkaline Phosphatase 77 U/L (38-126) 09/16/24 10:53
Troponin I 0.092 ng/ml H* 09/16/24 11:22
Data Reviewed
-
Lab Data: Labs Reviewed by me
Old Records: Reviewed
Impression/Plan
-
IMPRESSION:
PLAN:
# Hypoxemic respiratory insufficiency likely due to acute bronchitis
-Diminished air entry bilaterally without any noticeable wheezing or rhonchi on examination
-Patient currently saturating 91% on 2 L home oxygen
-Not volume overloaded on examination
-Chest x-ray shows no acute process
-CT head shows no acute abnormality
-DuoNebs every 6 hours
-Consider dexamethasone
# Nonischemic myocardial injury
-EKG shows sinus rhythm with first-degree AV block
-Troponin of 0.092
-Trend troponins
# Metabolic encephalopathy secondary to urinary tract infection
-UA positive
-Check urine
-Ceftriaxone
History of bilateral lower extremity DVT
-Discovered in June
-Continue Eliquis
Chronic heart failure
-Continue Coreg
-Continue Lasix
COPD on 2-3L baseline
History of CVA
-Continue aspirin
Essential hypertension
-Continue losartan, nifedipine
Hyperlipidemia
-Continue Zetia
Type 2 diabetes
CKD3b
-Renal function at baseline
Anemia of chronic disease
GERD
-Continue Protonix
Obesity
Hyperlipidemia
Chronic ambulatory dysfunction
Left breast cancer status post lumpectomy
Insomnia
Neuropathy
-Continue gabapentin
Anxiety
-Continue Ativan
Full code
DVT prophylaxis�Eliquis
Cardiac diet
[2024-09-16] MEDS: ROCEPHIN 2000 MG IV (14:17)
[2024-09-16] MEDS: TYLENOL 500 MG PO (18:40)
[2024-09-16] MEDS: NEURONTIN 100 MG PO (18:41)
[2024-09-16] MEDS: ZETIA 10 MG PO (18:41)
[2024-09-16] MEDS: COREG 6.25 MG PO (20:21)
[2024-09-16] MEDS: ELIQUIS 5 MG PO (20:21)
[2024-09-16 20:46] LABS: Troponin I 0.084 ng/ml
[2024-09-16] MEDS: ZOFRAN 4 MG IV (21:38)
[2024-09-16] MEDS: MELATONIN 10 MG PO (22:13)
[2024-09-16] MEDS: NEURONTIN 200 MG PO (22:13)
[2024-09-16] MEDS: SENOKOT 8.6 MG PO (22:13)
[2024-09-17] VITALS (10 sets, daily range): BP systolic 118–154; BP diastolic 52–96; PULSE 74; O2SAT 95
[2024-09-17 04:58] LABS: % Basophils 0.4 % (0-2); % Eosinophils 3.3 % (0-6); % Immature Granulocytes 0.5 % (0-0.5); % Lymphocytes 10.4 % (20.5-51.1); % Neutrophils 68.4 % (42.2-75.2); Absolute Eosinophils 0.3 10^3/uL (0-0.7); Absolute Lymphocytes 0.8 10^3/uL (1.2-3.4); Absolute Monocytes 1.3 10^3/uL (0.1-0.6); Absolute Neutrophils 5.1 10^3/uL (1.4-6.5); Hematocrit 29.8 % (37.0-47.0); Hemoglobin 8.9 g/dL (12.0-16.0); Mean Corp Hgb Conc. 29.9 g/dL (33.0-37.0); Mean Corpuscular Hgb 26.3 pg (27.0-31.0); Mean Corpuscular Volume 88.2 fL (81.0-99.0); Mean Platelet Volume 9.7 fL (7.4-10.4); Nucleated Red Blood Cells % 0 %; Platelet Count 192 10^3/uL (130-400); Red Blood Cell Count 3.38 10^6/uL (4.20-5.40); White Blood Cell Count 7.5 10^3/uL (4.8-10.8)
[2024-09-17 05:00] LABS: ALT (SGPT) < 10 U/L (0-35); AST (SGOT) 16 U/L (14-36); Alkaline Phosphatase 70 U/L (38-126); Blood Urea Nitrogen 30 mg/dl (7-17); Calcium 9.3 mg/dl (8.4-10.2); Carbon Dioxide 35 mmol/L (22-30); Chloride 99 mmol/L (98-107); Estimated Creatinine Clearance 32 ml/min; Glucose 94 mg/dl (70-99); Potassium 4.5 mmol/L (3.5-5.1); Sodium 136 mmol/L (135-145); Total Bilirubin 0.3 mg/dl (0.2-1.3); Total Protein 5.6 g/dl (6.3-8.2); eGFR 36.19
[2024-09-17 05:04] LABS: Troponin I 0.069 ng/ml
[2024-09-17] MEDS: PROCARDIA XL (EXTENDED RELEASE) 90 MG PO (07:28)
[2024-09-17] MEDS: NEURONTIN 100 MG PO ×2 (07:28→16:18)
[2024-09-17] MEDS: CLARITIN 10 MG PO (07:28)
[2024-09-17] MEDS: PROTONIX 40 MG PO (07:29)
[2024-09-17] MEDS: FLEXERIL 5 MG PO (07:29)
[2024-09-17] MEDS: VITAMIN D3 (cholecalciferol) 125 MCG PO (07:29)
[2024-09-17] MEDS: COREG 6.25 MG PO ×2 (07:30→20:46)
[2024-09-17] MEDS: COZAAR 100 MG PO (07:30)
[2024-09-17] MEDS: ELIQUIS 5 MG PO ×2 (07:30→20:46)
[2024-09-17] MEDS: LOW STRENGTH ASPIRIN 81 MG PO (07:30)
[2024-09-17] MEDS: LASIX 20 MG PO (07:30)
[2024-09-17 11:13] LABS: Troponin I 0.058 ng/ml
[2024-09-17] MEDS: ROCEPHIN 1000 MG IV (13:45)
[2024-09-17] MEDS: STERILE WATER FOR INJECTION 10 ML IV (13:46)
--- NOTE | 2024-09-17 15:22 | CM ---
Addendum entered by Deepthi Fairchild 09/17/24 15:39:
Pt currently admitted as OBS. KITCHEN form reviewed, pt given copy, copy placed in chart
Original Note:
Pt seen bedside. Initial assessment completed. Admitted for generalized weakness.
Pt reports she is a LTC resident at [facility]. Pt uses a walker to ambulate, uses O2 at facility (2L). Pt states she's been on O2 for about a year.
Pt stated she was at [facility] in the past. Pt stated when she owned her home, prior to admitting to [facility], she did receive home PT through [facility]. Pt states she just started working w/ PT every day at facility.
Address, point of contact and insurance verified.
PCP: Dr. Mcwilliams
Pharmacy: [facility]
Need PT/OT evaluation. TT hospitalist for orders.
Plan: Return to LTC facility. Will await PT/OT evaluation for recommendations
[2024-09-17] MEDS: ZETIA 10 MG PO (16:18)
--- NOTE | 2024-09-17 18:32 | W.PN.HOSP.TC ---
Today's Communication/Plan
-
continue current Rx
consider addition of steroids
Assessment / Plan
Assessment / Plan
# Hypoxemic respiratory insufficiency likely due to acute bronchitis
-Diminished air entry bilaterally without any noticeable wheezing or rhonchi on examination
-Patient currently saturating 91% on 2 L home oxygen
-Not volume overloaded on examination
-Chest x-ray shows no acute process
-CT head shows no acute abnormality
-DuoNebs every 6 hours
-Consider dexamethasone
# Nonischemic myocardial injury
-EKG shows sinus rhythm with first-degree AV block
-Troponin of 0.092
-Trend troponins
# Metabolic encephalopathy secondary to urinary tract infection
-UA positive
E.Coli
-Ceftriaxone
History of bilateral lower extremity DVT
-Discovered in June
-Continue Eliquis
Chronic heart failure
-Continue Coreg
-Continue Lasix
COPD on 2-3L baseline
History of CVA
-Continue aspirin
Essential hypertension
-Continue losartan, nifedipine
Hyperlipidemia
-Continue Zetia
Type 2 diabetes
CKD3b
-Renal function at baseline
Anemia of chronic disease
GERD
-Continue Protonix
Obesity
Hyperlipidemia
Chronic ambulatory dysfunction
Left breast cancer status post lumpectomy
Insomnia
Neuropathy
-Continue gabapentin
Anxiety
-Continue Ativan
Full code
DVT prophylaxis�Eliquis
Cardiac diet
contacted by Dr. Curiel with recommendation to change to full admit
Anticipated Discharge: > 48 hours
Subjective/Interval History
-
Date of Service: September 17, 2024
Was admitted with significant respiratory distress
Objective Data
-
Vital Signs:
Vital Signs
Temp Pulse Resp BP Pulse Ox
97.7 F 73 18 120/95 93
09/17/24 15:00 09/17/24 15:00 09/17/24 15:00 09/17/24 15:00 09/17/24 15:00
I&O
09/16/24 09/17/24 09/18/24
06:59 06:59 06:59
Intake Total 150 / 150 600 / 600
Balance 150 / 150 600 / 600
Review of Systems
-
History Source: Patient and Coordinated Provider
EENT: Reports No Symptoms Reported
Respiratory: Reports Trouble Breathing and Wheezing
Cardiac: Reports No Symptoms; Denies Chest Pain
Abdomen/GI: Reports No Symptoms
Genitourinary: Reports No Symptoms
Physical Exam
-
General: Well Developed, Well Nourished, Appears Chronically Ill and Obese
HEENT: Normocephalic and Atraumatic
Respiratory: Decreased Breath Sounds (poor air movement)
Cardiac: Regular Rhythm and S1/S2
GI: Soft, Nontender and Nondistended
Musculoskeletal: No Clubbing, No Cyanosis and No Edema
Neuro: Awake and Alert
[2024-09-17] MEDS: MELATONIN 10 MG PO (20:53)
[2024-09-17] MEDS: SENOKOT 8.6 MG PO (20:53)
[2024-09-17] MEDS: NEURONTIN 200 MG PO (20:55)
[2024-09-18] VITALS (7 sets, daily range): BP systolic 100–150; BP diastolic 45–59; PULSE 81; O2SAT 87; BMI 35.6
[2024-09-18 07:29] LABS: % Basophils 0.6 % (0-2); % Eosinophils 4.6 % (0-6); % Immature Granulocytes 0.5 % (0-0.5); % Lymphocytes 12.7 % (20.5-51.1); % Monocytes 17.8 % (1.7-9.3); % Neutrophils 63.8 % (42.2-75.2); Absolute Eosinophils 0.3 10^3/uL (0-0.7); Absolute Lymphocytes 0.8 10^3/uL (1.2-3.4); Absolute Monocytes 1.2 10^3/uL (0.1-0.6); Absolute Neutrophils 4.2 10^3/uL (1.4-6.5); Hematocrit 28.7 % (37.0-47.0); Hemoglobin 8.5 g/dL (12.0-16.0); Mean Corp Hgb Conc. 29.6 g/dL (33.0-37.0); Mean Corpuscular Hgb 25.4 pg (27.0-31.0); Mean Corpuscular Volume 85.9 fL (81.0-99.0); Nucleated Red Blood Cells % 0 %; Platelet Count 169 10^3/uL (130-400); Red Blood Cell Count 3.34 10^6/uL (4.20-5.40); Red Cell Dist. Width 15.3 % (11.5-14.5); White Blood Cell Count 6.5 10^3/uL (4.8-10.8)
[2024-09-18 08:01] LABS: Blood Urea Nitrogen 41 mg/dl (7-17); Calcium 9.7 mg/dl (8.4-10.2); Carbon Dioxide 29 mmol/L (22-30); Chloride 99 mmol/L (98-107); Estimated Creatinine Clearance 24 ml/min; Glucose 90 mg/dl (70-99); Potassium 4.4 mmol/L (3.5-5.1); Sodium 136 mmol/L (135-145); eGFR 26.77
--- NOTE | 2024-09-18 09:25 | PTCARENOTE ---
pt aox3, states that her only complaint this morning is that she is sleepy! denies pain, sob, n/v. resting, call marie in reach
[2024-09-18] MEDS: CLARITIN 10 MG PO (09:55)
[2024-09-18] MEDS: FLEXERIL 5 MG PO (09:55)
[2024-09-18] MEDS: LASIX 20 MG PO (09:55)
[2024-09-18] MEDS: PROTONIX 40 MG PO (09:55)
[2024-09-18] MEDS: COZAAR 100 MG PO (09:56)
[2024-09-18] MEDS: VITAMIN D3 (cholecalciferol) 125 MCG PO (09:56)
[2024-09-18] MEDS: COREG 6.25 MG PO ×2 (09:56→19:58)
[2024-09-18] MEDS: ELIQUIS 5 MG PO ×2 (09:56→19:58)
[2024-09-18] MEDS: PROCARDIA XL (EXTENDED RELEASE) 90 MG PO (09:56)
[2024-09-18] MEDS: NEURONTIN 100 MG PO ×2 (09:57→16:55)
[2024-09-18] MEDS: LOW STRENGTH ASPIRIN 81 MG PO (09:57)
--- NOTE | 2024-09-18 10:03 | PTCARENOTE ---
ptaox3, oob to chair, states that she is tired this am. denies sob, n/v, chest pain. eating breakfast,calll marie in reach
--- NOTE | 2024-09-18 12:37 | PTCARENOTE ---
pt oob to chair, ordered lunch, no complaints offered
[2024-09-18] MEDS: STERILE WATER FOR INJECTION 10 ML IV (14:48)
[2024-09-18] MEDS: ROCEPHIN 1000 MG IV (14:48)
--- NOTE | 2024-09-18 15:05 | W.PN.HOSP.TC ---
Today's Communication/Plan
-
Pt appears to be responding to Tx
Assessment / Plan
Assessment / Plan
# Hypoxemic respiratory insufficiency likely due to acute bronchitis
-Diminished air entry bilaterally without any noticeable wheezing or rhonchi on examination
-Patient currently saturating 92% on 2 L home oxygen
-Not volume overloaded on examination
-Chest x-ray shows no acute process
-CT head shows no acute abnormality
-DuoNebs every 6 hours
-Consider dexamethasone
# Nonischemic myocardial injury
-EKG shows sinus rhythm with first-degree AV block
-Troponin of 0.092
-Trend troponins
# Metabolic encephalopathy secondary to urinary tract infection
-UA positive
E.Coli
-Ceftriaxone
History of bilateral lower extremity DVT
-Discovered in June
-Continue Eliquis
Chronic heart failure
-Continue Coreg
-Continue Lasix
COPD on 2-3L baseline
History of CVA
-Continue aspirin
Essential hypertension
-Continue losartan, nifedipine
Hyperlipidemia
-Continue Zetia
Type 2 diabetes
CKD3b
-Renal function at baseline
Anemia of chronic disease
GERD
-Continue Protonix
Obesity
Hyperlipidemia
Chronic ambulatory dysfunction
Left breast cancer status post lumpectomy
Insomnia
Neuropathy
-Continue gabapentin
Anxiety
-Continue Ativan
Full code
DVT prophylaxis�Eliquis
Cardiac diet
contacted by Dr. Curiel with recommendation to change to full admit
Anticipated Discharge: 24 - 48 hours
Subjective/Interval History
-
Date of Service: September 18, 2024
Breathing better
Objective Data
-
Labs:
Laboratory Results
09/18/24
06:13
WBC 6.5
Hgb 8.5 L
Hct 28.7 L
Plt Count 169
Sodium 136
Potassium 4.4
Chloride 99
Carbon Dioxide 29
BUN 41 H
Creatinine 1.8 H
Glucose 90
Calcium 9.7
Vital Signs:
Vital Signs
Temp Pulse Resp BP Pulse Ox
98.1 F 80 18 118/45 92
09/18/24 11:31 09/18/24 11:31 09/18/24 11:31 09/18/24 11:31 09/18/24 11:31
I&O
09/17/24 09/18/24 09/19/24
06:59 06:59 06:59
Intake Total 150 / 150 840 / 840
Balance 150 / 150 840 / 840
Review of Systems
-
History Source: Patient and Coordinated Provider
EENT: Reports No Symptoms Reported
Respiratory: Reports Trouble Breathing and Wheezing
Cardiac: Reports No Symptoms; Denies Chest Pain
Abdomen/GI: Reports No Symptoms
Genitourinary: Reports No Symptoms
Physical Exam
-
General: Well Developed, Well Nourished, Appears Chronically Ill and Obese
HEENT: Normocephalic and Atraumatic
Respiratory: Decreased Breath Sounds (improved air movement)
Cardiac: Regular Rhythm and S1/S2
GI: Soft, Nontender and Nondistended
Musculoskeletal: No Clubbing, No Cyanosis and No Edema
Neuro: Awake and Alert
[2024-09-18] MEDS: ZETIA 10 MG PO (16:55)
[2024-09-18] MEDS: TYLENOL 500 MG PO (19:59)
[2024-09-18] MEDS: SENOKOT 8.6 MG PO (22:19)
[2024-09-18] MEDS: MELATONIN 10 MG PO (22:19)
[2024-09-18] MEDS: NEURONTIN 200 MG PO (22:19)
[2024-09-19 03:31] VITALS: BP 112/47
[2024-09-19 06:00] VITALS: BMI 35.9
[2024-09-19 06:39] VITALS: BP 129/61
[2024-09-19 07:22] LABS: % Basophils 0.3 % (0-2); % Eosinophils 5.2 % (0-6); % Immature Granulocytes 0.7 % (0-0.5); % Lymphocytes 12.7 % (20.5-51.1); % Monocytes 14.3 % (1.7-9.3); % Neutrophils 66.8 % (42.2-75.2); Absolute Eosinophils 0.3 10^3/uL (0-0.7); Absolute Lymphocytes 0.8 10^3/uL (1.2-3.4); Absolute Monocytes 0.9 10^3/uL (0.1-0.6); Absolute Neutrophils 4.1 10^3/uL (1.4-6.5); Hematocrit 27.8 % (37.0-47.0); Hemoglobin 8.3 g/dL (12.0-16.0); Mean Corp Hgb Conc. 29.9 g/dL (33.0-37.0); Mean Corpuscular Hgb 26.5 pg (27.0-31.0); Mean Corpuscular Volume 88.8 fL (81.0-99.0); Mean Platelet Volume 10.3 fL (7.4-10.4); Nucleated Red Blood Cells % 0 %; Platelet Count 205 10^3/uL (130-400); Red Blood Cell Count 3.13 10^6/uL (4.20-5.40); Red Cell Dist. Width 15.5 % (11.5-14.5); White Blood Cell Count 6.1 10^3/uL (4.8-10.8)
[2024-09-19 07:55] LABS: Blood Urea Nitrogen 50 mg/dl (7-17); Calcium 10.1 mg/dl (8.4-10.2); Carbon Dioxide 30 mmol/L (22-30); Chloride 98 mmol/L (98-107); Estimated Creatinine Clearance 18 ml/min; Glucose 119 mg/dl (70-99); Potassium 4.5 mmol/L (3.5-5.1); Sodium 136 mmol/L (135-145); eGFR 18.95
[2024-09-19] MEDS: PROCARDIA XL (EXTENDED RELEASE) 90 MG PO (09:28)
[2024-09-19] MEDS: FLEXERIL 5 MG PO (09:28)
[2024-09-19] MEDS: NEURONTIN 100 MG PO ×2 (09:29→16:20)
[2024-09-19] MEDS: PROTONIX 40 MG PO (09:29)
[2024-09-19] MEDS: CLARITIN 10 MG PO (09:29)
[2024-09-19] MEDS: LOW STRENGTH ASPIRIN 81 MG PO (09:30)
[2024-09-19] MEDS: COREG 6.25 MG PO ×2 (09:30→19:42)
[2024-09-19] MEDS: ELIQUIS 5 MG PO ×2 (09:30→19:41)
[2024-09-19] MEDS: VITAMIN D3 (cholecalciferol) 125 MCG PO (09:30)
[2024-09-19] MEDS: COZAAR 100 MG PO (09:31)
[2024-09-19 11:08] VITALS: BP 98/49
[2024-09-19] MEDS: LASIX PO (12:13)
--- NOTE | 2024-09-19 12:39 | W.PN.HOSP.TC ---
Today's Communication/Plan
-
stop Lasix, add IVF with rising BUN/Creat
continue other BP meds
Stop Rocephin, change to Meropenem
potential ID consult
Assessment / Plan
Assessment / Plan
# Hypoxemic respiratory insufficiency likely due to acute bronchitis
-Diminished air entry bilaterally without any noticeable wheezing or rhonchi on examination, improved
-Patient currently saturating 92% on 2 L home oxygen
-Not volume overloaded on examination
-Chest x-ray shows no acute process
-CT head shows no acute abnormality
-DuoNebs every 6 hours
-sill probably not need dexamethasone
# Nonischemic myocardial injury
-EKG shows sinus rhythm with first-degree AV block
-Troponin of 0.092-->0.084-->0.069-->0.058
# Metabolic encephalopathy secondary to urinary tract infection
-UA positive, though pt denies symptoms
E.Coli ESBL
-Ceftriaxone resistant. Pt is listed allergic to PCN, but allergy manifestations not known. Will start Meropenem (renal adjusted). Will place ID consult for tomorrow, as pt has no symptoms, will defer as to length of time needs treatment
History of bilateral lower extremity DVT
-Discovered in June
-Continue Eliquis
Prerenal Azotemia
will stop Lasix, add IVF. Follow BP, labs. For now, will stop Losartan. Re-evaluate based on how both labs and BP progress
Chronic heart failure
-Continue Coreg
-Continue Lasix
COPD on 2-3L baseline
History of CVA
-Continue aspirin
Essential hypertension
-Continue losartan, nifedipine
Hyperlipidemia
-Continue Zetia
Type 2 diabetes
CKD3b
-Renal function at baseline
Anemia of chronic disease
GERD
-Continue Protonix
Obesity
Hyperlipidemia
Chronic ambulatory dysfunction
Left breast cancer status post lumpectomy
Insomnia
Neuropathy
-Continue gabapentin
Anxiety
-Continue Ativan
Full code
DVT prophylaxis�Eliquis
Cardiac diet
complex visit
Anticipated Discharge: 24 - 48 hours
Subjective/Interval History
-
Date of Service: September 19, 2024
Generally feeling better
Objective Data
-
Labs:
Laboratory Results
09/19/24
06:00
WBC 6.1
Hgb 8.3 L
Hct 27.8 L
Plt Count 205 D
Sodium 136
Potassium 4.5
Chloride 98
Carbon Dioxide 30
BUN 50 H
Creatinine 2.4 H
Glucose 119 H
Calcium 10.1
Vital Signs:
Vital Signs
Temp Pulse Resp BP Pulse Ox
98.7 F 64 20 98/49 93
09/19/24 11:08 09/19/24 11:08 09/19/24 11:08 09/19/24 11:08 09/19/24 11:08
I&O
09/18/24 09/19/24 09/20/24
06:59 06:59 06:59
Intake Total 840 / 840 720 / 720
Balance 840 / 840 720 / 720
Review of Systems
-
History Source: Patient and Coordinated Provider
EENT: Reports No Symptoms Reported
Respiratory: Reports Trouble Breathing and Wheezing
Cardiac: Reports No Symptoms; Denies Chest Pain
Abdomen/GI: Reports No Symptoms
Genitourinary: Reports No Symptoms; Denies Dysuria (pt denies)
Physical Exam
-
General: Well Developed, Well Nourished, Appears Chronically Ill and Obese
HEENT: Normocephalic and Atraumatic
Respiratory: Negative Decreased Breath Sounds (improved air movement, resolved)
Cardiac: Regular Rhythm and S1/S2
GI: Soft, Nontender and Nondistended
Musculoskeletal: No Clubbing, No Cyanosis and No Edema
Neuro: Awake and Alert
[2024-09-19] MEDS: STERILE WATER FOR INJECTION IV (13:13)
[2024-09-19] MEDS: INVANZ 55 MG IV (13:13)
[2024-09-19] MEDS: NSS 1000 IV (13:13)
[2024-09-19 15:06] VITALS: BP 104/63
[2024-09-19] MEDS: ZETIA 10 MG PO (17:29)
[2024-09-19 19:55] VITALS: BP 152/64
[2024-09-19] MEDS: MELATONIN 10 MG PO (21:19)
[2024-09-19] MEDS: NEURONTIN 200 MG PO (21:20)
[2024-09-19] MEDS: SENOKOT 8.6 MG PO (21:20)
[2024-09-19 23:08] VITALS: BP 131/60
[2024-09-19] MEDS: TYLENOL 500 MG PO (23:44)
[2024-09-20] MEDS: NSS 1000 IV ×2 (02:10→14:42)
[2024-09-20 03:23] VITALS: BP 140/69
[2024-09-20 07:20] VITALS: BP 140/60
[2024-09-20 07:51] LABS: % Basophils 0.4 % (0-2); % Eosinophils 5.2 % (0-6); % Immature Granulocytes 0.7 % (0-0.5); % Lymphocytes 13.1 % (20.5-51.1); % Monocytes 12.6 % (1.7-9.3); Absolute Eosinophils 0.4 10^3/uL (0-0.7); Absolute Immature Granulocytes 0.1 10^3/uL (0-0.05); Absolute Lymphocytes 0.9 10^3/uL (1.2-3.4); Absolute Monocytes 0.9 10^3/uL (0.1-0.6); Absolute Neutrophils 4.9 10^3/uL (1.4-6.5); Hematocrit 28.8 % (37.0-47.0); Hemoglobin 8.2 g/dL (12.0-16.0); Mean Corp Hgb Conc. 28.5 g/dL (33.0-37.0); Mean Corpuscular Hgb 25.7 pg (27.0-31.0); Mean Corpuscular Volume 90.3 fL (81.0-99.0); Mean Platelet Volume 9.7 fL (7.4-10.4); Nucleated Red Blood Cells % 0 %; Platelet Count 204 10^3/uL (130-400); Red Blood Cell Count 3.19 10^6/uL (4.20-5.40); Red Cell Dist. Width 15.4 % (11.5-14.5); White Blood Cell Count 7.2 10^3/uL (4.8-10.8)
[2024-09-20 08:20] LABS: Blood Urea Nitrogen 41 mg/dl (7-17); Calcium 9.9 mg/dl (8.4-10.2); Carbon Dioxide 32 mmol/L (22-30); Chloride 101 mmol/L (98-107); Estimated Creatinine Clearance 24 ml/min; Glucose 102 mg/dl (70-99); Potassium 4.4 mmol/L (3.5-5.1); Sodium 138 mmol/L (135-145); eGFR 26.77
[2024-09-20] MEDS: LOW STRENGTH ASPIRIN 81 MG PO (08:43)
[2024-09-20] MEDS: VITAMIN D3 (cholecalciferol) 125 MCG PO (08:43)
[2024-09-20] MEDS: NEURONTIN 100 MG PO ×2 (08:43→17:04)
[2024-09-20] MEDS: CLARITIN 10 MG PO (08:43)
[2024-09-20] MEDS: PROTONIX 40 MG PO (08:43)
[2024-09-20] MEDS: COREG 6.25 MG PO (08:43)
[2024-09-20] MEDS: ELIQUIS 5 MG PO (08:43)
[2024-09-20] MEDS: FLEXERIL 5 MG PO (08:43)
[2024-09-20] MEDS: PROCARDIA XL (EXTENDED RELEASE) 90 MG PO (08:43)
[2024-09-20 11:07] VITALS: BP 148/51
--- NOTE | 2024-09-20 12:40 | CM ---
Chart reviewed. Cont on 2L O2- this is her baseline
ID consulted.
PT/OT recommending skilled rehab at this time. Referral sent to [facility], pt is a resident there.
Plan: Return to [facility]
--- NOTE | 2024-09-20 13:40 | CON.ID ---
Consultation
-
Date/Time Consultation Requested: 09/19/24 17:54
Date/Time Consultation Performed: 09/20/24 13:41
Requesting Provider: Dr Yarbrough
Performing Provider: Dr Singer
Reason for Consultation: ESBL Ecoli UTI
Chief Complaint / Past History
Chief Complaint
hypoxia
History of Present Illness
Ms Chandra is an 89 year old female with history of CHF, COPD on 2L CVA, CKD who presented here 09/16 for weakness, malaise, anorexia. No fevers. Found to be hypoxemic at home with O2 saturating in the 80s and EMS called. EMS reported 'UTI
symptoms' though conflicting report from long-term staff and I do not see a copy of the EMS report available here. Today patient denies fevers, suprapubic tenderness, dysuria, urgency, frequency
Since arrival here she has been afebrile, bp stable, wbc initially 9.3 today 7.2, hgb 8.2, plt 204, no L shift, cr baseline 1.3, on arrival 1.4 and today 1.8, LFTs wnl, ua >100 wbc/hpf, urine culture 100K ESBL E coli, CT head w/o contrast: no acute
abnormality, CXR: no infiltrates, flu and rsv culture sent and negative, patient on day 2 of ertapenem. ID is consulted for assistance with management.
Past History
Additional Past Medical History:
COPD, HTN, Hypercholesterolemia and NIDDM
Additional Past Surgical History:
Bowel resection, Gynecological and Orthopedic
Allergy History:
amlodipine besylate [From Norvasc] Allergy (Verified 09/16/24 10:45)
COUGH
influenza virus vaccine, specific [influenza virus vacc,specific] Allergy (Verified 09/16/24 10:45)
GOT VERY ILL (pt denies)
morphine Allergy (Verified 09/16/24 10:45)
Nausea
Penicillins Allergy (Verified 09/16/24 10:45)
Unknown
pioglitazone HCl [From Actos] Allergy (Verified 09/16/24 10:45)
COUGH
quinapril HCl [From Accupril] Allergy (Verified 09/16/24 10:45)
COUGH
Medications Reviewed: Yes
Social History
Tobacco: Non-Smoker
Alcohol: None
Living: Assisted Living
Family History
Family History: Not Pertinent
Review of Systems
Review of Systems
General: Negative Fever or Chills
All systems: All other systems were reviewed and were negative
Vital Signs
Temp Pulse Resp BP Pulse Ox
98.1 F 59 18 148/51 90
09/20/24 11:07 09/20/24 11:07 09/20/24 11:07 09/20/24 11:07 09/20/24 11:07
Physical Exam
Physical Exam
Constitutional: No Acute Distress, Chronically Ill and Obese
Cardiovascular: Regular Rate and S1/S2; Negative Murmur or Rub
Pulmonary: Clear and Symmetric; Negative Wheezes, Rales or Rhonchi
Gastrointestinal: Soft, Non Tender, Non Distended and Normal Bowel Sounds
Genito-Urinary: Negative Suprapubic Tenderness
Skin: Warm and Dry; Negative Rash or Jaundice
Lab / Diagnostic Study Results
09/20/24 07:13
09/20/24 07:13
Abs Immat Gran (auto) 0.1 10^3/uL (0-0.05) H 09/20/24 07:13
Absolute Neuts (auto) 4.9 10^3/uL (1.4-6.5) 09/20/24 07:13
Absolute Lymphs (auto) 0.9 10^3/uL (1.2-3.4) L 09/20/24 07:13
Absolute Monos (auto) 0.9 10^3/uL (0.1-0.6) H 09/20/24 07:13
Absolute Basos (auto) 0.0 10^3/uL (0-0.2) 09/20/24 07:13
Immature Gran % 0.7 % (0-0.5) H 09/20/24 07:13
Neutrophils % 68.0 % (42.2-75.2) 09/20/24 07:13
Lymphocytes % 13.1 % (20.5-51.1) L 09/20/24 07:13
Monocytes % 12.6 % (1.7-9.3) H 09/20/24 07:13
Eosinophils % 5.2 % (0-6) 09/20/24 07:13
Basophils % 0.4 % (0-2) 09/20/24 07:13
Ur Squamous Epith Cells 0-2 /LPF (Few) 09/16/24 11:47
Urine Culture Final 09/19/24-1030
CC: Greater than 100,000 CFU/ML Escherichia coli - ESBL*
Isolation Precautions Required
Resistance due to extended spectrum beta lactamase.
Deacreased activity may occur with penicillins,
penicillin/inhibitor combinations, cephalosporins, and
monobactams.
Called to [id number] on 09/19/24 at 1028 by TOLLRE
Organism 1 Escherichia coli - ESBL
1. Escherichia coli - ESBL
M.I.C. RX
--------- ---
Amoxicillin/Potas. Clavulanate >16/8 R
Ampicillin >16 R
Ampicillin/Sulbactam >16/8 R
Aztreonam >16 R
Cefazolin >16 R
Cefepime >16 R
Ceftazidime 16 R
Ceftriaxone >2 R
Ertapenem <=0.5 S
Ciprofloxacin >2 R
Gentamicin >8 R
Meropenem <=1 S
Nitrofurantoin-Urine Only <=32 S
Piperacillin/Tazobactam <=8 S
Tetracycline >8 R
Tobramycin >8 R
Trimethoprim/Sulfamethoxazole <=2/38 S
Microbiology Results
Micro:
09/16/24 11:47 Urine Culture - Final
Urine Escherichia coli - ESBL
09/16/24 18:22 MRSA Screen - Final
Nose No Methicillin Resistant Staphylococcus aureus isolated.
09/16/24 11:47 Respiratory Syncytial Virus Culture - Final
Nasal Swab Negative for Respiratory Syncytial Virus.
A false negative result may be obtained with a specimen
collected early in the acute phase. If symptoms persist, a
new specimen should be tested.
09/16/24 11:22 Influenza Types A & B ([facility]) - Final
Nasal Swab Negative for Influenza A & B, NAAT
Negative results must be combined with clinical observations
and patient history.
Nucleic Acid Amplification test (NAAT)performed on the
[employer] NOW platform.
Assessment / Plan
ESBL E coli UTI
Unknown penicillin allergy
COPD on 2L
- conflicting reports of symtptoms and patient not a reliable historian
- complete course with a one time dose of fosfomycin
- stable for dc from ID perspective after fosfomycin administered
Care Review
Plan reviewed with: Physician (Dr Fisher - [email or web address])
[2024-09-20] MEDS: MONUROL 3 GM PO (14:43)
[2024-09-20] MEDS: STERILE WATER FOR INJECTION IV (15:16)
[2024-09-20 15:28] VITALS: BP 143/51
--- NOTE | 2024-09-20 15:33 | W.PN.HOSP.TC ---
Addendum entered and electronically signed by Roberta Fisher MD 09/20/24 17:53:
Repeat hemoglobin better
Will discharge the patient
CBC BMP in 1 week as outpatient
More than 30 minutes spent in discharge including
Final examination of the patient
Summarizing hospital stay
Instructions for continuing care to all relevant caregivers
Preparation of discharge records, prescriptions, and referral forms
Total time spent (in minutes): more than 35 min
Original Note:
Today's Communication/Plan
-
Continue as needed nebulizer treatments
Restart losartan and Lasix in the next 24 to 48 hours
We can stop IV fluids after this bag is finished.
Assessment / Plan
Assessment / Plan
89-year-old presented with hypoxia to the ER. Oxygen saturation was in 80s in the ER.
CVS: S1-S2 normal
Chest: CTA B/L
Abdomen: Soft, NT , Bowel sounds present
Extremities: No edema
# Acute hypoxic respiratory insufficiency secondary to acute bronchitis
Chronic respiratory failure on 2 L of oxygen at home
Chest x-ray no acute process
Currently on 2 L of oxygen which is her home requirements at home
Continue nebs
# Elevated troponin-nonischemic myocardial injury secondary to hypoxic
# Acute metabolic encephalopathy secondary to illness- resolved. Patient back to baseline.
# UTI-E. coli ESBL positive. Meropenem started. ID eval appreciated. One dose of Monurol.
# AUTUMN on-chronic kidney disease stage III-creatinine improving. Restart Lasix and losartan in the next 24 to 48 hours
# History of bilateral lower extremity DVT-found in June 2024-continue Eliquis
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 Also on trilogy Ellipta
# History of CVA-continue aspirin
# Hypertension-continue nifedipine, Coreg. Losartan in the next 24 to 48 hours
# Hyperlipidemia-continue Zetia
# Diabetes with neuropathy-continue gabapentin. Accu-Cheks and sliding scale coverage
# Anemia of chronic disease
# GERD-continue Protonix
# Obesity with a BMI of 35
# Chronic ambulatory dysfunction
# Coronary arterial calcification
# 3 cm left thyroid nodule- OP Follow up
# History of stroke/TIA-2014
# History of breast cancer status postlumpectomy 2012 with the left arm lymphedema
# Anxiety-continue as needed Ativan
# Diverticulosis
# Ex-smoker
# DVT prophylaxis-Eliquis
# Full code
Discussed with case management
Discussed with infectious disease
Discussed with patient's son and updated regarding patient's current condition, follow-up needs for anemia, chronic kidney disease, thyroid nodule
Anticipated Discharge: Within 24 hours
Subjective/Interval History
-
Date of Service: September 20, 2024
Objective Data
-
Labs:
Laboratory Results
09/20/24
07:13
WBC 7.2
Hgb 8.2 L
Hct 28.8 L
Plt Count 204
Sodium 138
Potassium 4.4
Chloride 101
Carbon Dioxide 32 H
BUN 41 H
Creatinine 1.8 H
Glucose 102 H
Calcium 9.9
Vital Signs:
Vital Signs
Temp Pulse Resp BP Pulse Ox
97.6 F 59 20 143/51 96
09/20/24 15:28 09/20/24 15:28 09/20/24 15:28 09/20/24 15:28 09/20/24 15:28
I&O
09/19/24 09/20/24 09/21/24
06:59 06:59 06:59
Intake Total 720 / 720 600 / 600 1200 / 1200
Balance 720 / 720 600 / 600 1200 / 1200
[2024-09-20 16:18] LABS: Iron 36 ug/dl (37-170)
[2024-09-20 16:29] LABS: Percent Saturation 12 % (20-50); Total Iron Binding Capacity 288 ug/dl (265-497)
[2024-09-20 16:54] LABS: Ferritin 20.6 ng/ml (11.1-264.0)
[2024-09-20] MEDS: ZETIA 10 MG PO (17:04)
[2024-09-20 17:09] LABS: Vitamin B12 321 pg/ml (239-931)
[2024-09-20 17:20] LABS: Hematocrit 32.1 % (37.0-47.0); Hemoglobin 9.2 g/dL (12.0-16.0)
--- NOTE | 2024-09-20 17:52 | W.DS.TRANS ---
Addendum entered and electronically signed by Roberta Fisher MD 09/20/24 17:55:
Dictation- [id number]
Original Note:
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
-
Discharge Instructions:
Discharge Diagnosis/Procedures Acute hypoxic respiratory insufficiency
secondary to acute bronchitis
TME
ESBL E. coli UTI
Acute kidney injury
CKD stage III
Bilateral lower extremity DVT
COPD
History of CVA
Hypertension
Hyperlipidemia
Diabetes with neuropathy
Anemia
GERD
Coronary artery calcification
3 cm left thyroid nodule
History of stroke
History of breast cancer
Anxiety
Diet Diabetic, Carb Controlled
Activity As tolerated,With assistance
Driving Restrictions No driving
Blood Work CBC, BMP-1 week
Other Services PT,OT
Specialty Instructions Weigh Daily
Instructions:
Stand-Alone Forms:
Changes to Home Medications: Yes
Discharge Medications:
DC Medications w/original date entered in [employer]
ezetimibe 10 mg tablet 10 mg PO QPM High Cholesterol 10/19/14
acetaminophen 500 mg tablet (Tylenol Extra Strength) 500 mg PO Q6HPRN PRN mild pain 12/19/23
cholecalciferol (vitamin D3) 125 mcg (5,000 unit) tablet (Vitamin D3) 125 mcg PO DAILY Supplement 12/19/23
cyclobenzaprine 5 mg tablet 5 mg PO DAILY Muscle Spasms 12/19/23
d-mannose 500 mg capsule 1,000 mg PO BID Supplement 12/19/23
fluticasone fur. 100 mcg-umeclid 62.5 mcg-vilant 25 mcg inhalat.powder (Trelegy Ellipta) 1 inh inhalation R DAILY Lung/Breathing Issues 12/19/23
fluticasone propionate 50 mcg/actuation nasal spray,suspension 1 spray intranasal BID Allergies 12/19/23
furosemide 20 mg tablet 20 mg PO DAILY Fluid Retention/Swelling 12/19/23
gabapentin 100 mg capsule 100 mg PO BID nerve pain 12/19/23
gabapentin 100 mg capsule 200 mg PO HS nerve pain 12/19/23
ipratropium 0.5 mg-albuterol 3 mg (2.5 mg base)/3 mL nebulization soln 3 ml inhalation R Q6HPRN PRN sob 12/19/23
loratadine 10 mg tablet (Claritin) 10 mg PO DAILY Allergies 12/19/23
losartan 100 mg tablet 100 mg PO DAILY Blood Pressure 12/19/23
magnesium hydroxide 400 mg/5 mL oral suspension 30 ml PO HSPRN PRN if no bm in 3 days 12/19/23
melatonin 5 mg tablet 10 mg PO HS Sleep 12/19/23
sennosides 8.6 mg tablet (senna) 1 tab PO HS Constipation 12/19/23
sodium chloride 0.65 % nasal spray aerosol 1 spray intranasal Q4HPRN PRN dryness 12/19/23
carvedilol 6.25 mg tablet 6.25 mg PO BID Heart disease/condition #0 tabs 01/12/24
pantoprazole 40 mg tablet,delayed release 40 mg PO DAILY Gastrointestinal issue #0 tabs 01/12/24
carboxymethylcellulose sodium 0.5 % eye drops 1 drp BOTH EYES Q8HPRN PRN eye dryness 07/04/24
lidocaine HCl 4 % topical cream (Aspercreme (lidocaine HCl)) 1 applic topical Q8HPRN PRN B/L feet B/L ankles 07/04/24
nifedipine 90 mg tablet,extended release 24 hr 90 mg PO DAILY Blood Pressure 07/04/24
polyethylene glycol 3350 17 gram oral powder packet 17 g PO DAILYPRN PRN constipation 07/04/24
apixaban 5 mg tablet (Eliquis) 5 mg PO BID Blood clot prevention/tx #1 tab 09/20/24
aspirin 81 mg chewable tablet 81 mg PO DAILY Blood clot prevention/tx #1 tab 09/20/24
cyanocobalamin (vitamin B-12) 1,000 mcg capsule 1,000 mcg PO DAILY low normal B12 #30 caps 09/20/24
docusate sodium 100 mg capsule (Colace) 100 mg PO DAILY Constipation #30 caps 09/20/24
ferrous sulfate 325 mg (65 mg iron) tablet 325 mg PO DAILY anemia #30 tabs 09/20/24
lorazepam 0.5 mg tablet 0.5 mg PO DAILYPRN PRN anxiety #2 tabs 09/20/24
Home Medication Changes
new
cyanocobalamin (vitamin B-12) 1,000 mcg capsule 1,000 mcg PO DAILY low normal B12 #30 caps 09/20/24
docusate sodium 100 mg capsule (Colace) 100 mg PO DAILY Constipation #30 caps 09/20/24
ferrous sulfate 325 mg (65 mg iron) tablet 325 mg PO DAILY anemia #30 tabs 09/20/24
Pending Results: No
== END 2024-09-20 19:07 | disposition home health service (06) | DRG 202 ==
LOC: 4 WEST ACU 18:43
PROVIDERS: Internal Medicine; Physician Assistant; ADMITTING PHYSICIAN Hospitalist; ATTENDING PHYSICIAN Hospitalist; CONSULT PHYSICIAN Student in an Organized Health Care Education/Training Program; EMERGENCY PHYSICIAN Emergency Medicine
DX: J40 Bronchitis, not specified as acute or chronic (principal); G92.8 Other toxic encephalopathy; J96.01 Acute respiratory failure with hypoxia; J44.0 Chronic obstructive pulmonary disease with (acute) lower respiratory infection; I5A Non-ischemic myocardial injury (non-traumatic); N39.0 Urinary tract infection, site not specified; I13.0 Hypertensive heart and chronic kidney disease with heart failure and stage 1 through stage 4 chronic kidney disease, or unspecified chronic kidney disease; N17.9 Acute kidney failure, unspecified; Z87.891 Personal history of nicotine dependence; Z99.81 Dependence on supplemental oxygen; J20.9 Acute bronchitis, unspecified; Z79.01 Long term (current) use of anticoagulants; I50.9 Heart failure, unspecified; N18.32 Chronic kidney disease, stage 3b; K21.9 Gastro-esophageal reflux disease without esophagitis; E66.9 Obesity, unspecified; F41.9 Anxiety disorder, unspecified; R06.89 Other abnormalities of breathing; E78.00 Pure hypercholesterolemia, unspecified; J44.9 Chronic obstructive pulmonary disease, unspecified; Z11.52 Encounter for screening for COVID-19
CPT/HCPCS: 51701; 70450; 71046; 80048; 80053; 81003; 81015; 82607; 82728; 83540; 83550; 84484; 85014; 85018; 85025; 87070; 87077; 87086; 87186; 87502; 87807; 87811; 93005; 97162; 97166; 99285; J1335

== ENCOUNTER 2024-10-25 20:17 | Inpatient (IN) | payer MEDICARE, OTHER, SELFPAY ==
[2024-10-25] VITALS (7 sets, daily range): BP systolic 120–169; BP diastolic 54–76; BMI 37.7
[2024-10-25 15:11] LABS: % Basophils 0.3 % (0-2); % Eosinophils 0.6 % (0-6); % Immature Granulocytes 0.5 % (0-0.5); % Lymphocytes 2.8 % (20.5-51.1); % Monocytes 3.5 % (1.7-9.3); % Neutrophils 92.3 % (42.2-75.2); Absolute Basophils 0.1 10^3/uL (0-0.2); Absolute Eosinophils 0.1 10^3/uL (0-0.7); Absolute Immature Granulocytes 0.1 10^3/uL (0-0.05); Absolute Lymphocytes 0.5 10^3/uL (1.2-3.4); Absolute Monocytes 0.6 10^3/uL (0.1-0.6); Absolute Neutrophils 16.3 10^3/uL (1.4-6.5); Hematocrit 35.5 % (37.0-47.0); Hemoglobin 10.4 g/dL (12.0-16.0); Mean Corp Hgb Conc. 29.3 g/dL (33.0-37.0); Mean Corpuscular Hgb 26.4 pg (27.0-31.0); Mean Corpuscular Volume 90.1 fL (81.0-99.0); Mean Platelet Volume 9.7 fL (7.4-10.4); Nucleated Red Blood Cells % 0 %; Platelet Count 199 10^3/uL (130-400); Red Blood Cell Count 3.94 10^6/uL (4.20-5.40); Red Cell Dist. Width 17.4 % (11.5-14.5); White Blood Cell Count 17.7 10^3/uL (4.8-10.8)
[2024-10-25 15:27] LABS: COVID-19 Antigen Negative (Negative)
--- NOTE | 2024-10-25 15:36 | ED.GENMED ---
History of Present Illness
<KRISTOPHER Peters - Last Filed: 10/25/24 19:16>
General
Chief Complaint: Breathing Problem
Exam Limitations: none
Time Seen by Provider: 10/25/24 15:12
Nursing documentation reviewed up to this point in time: agreed with
History of Present Illness
History of Present Illness:
Patient is a 89-year-old female with a history of chronic kidney disease stage III bilateral DVT COPD CVA hypertension hyperlipidemia diabetes anemia recent acute hypoxic respite insufficiency due to acute bronchitis presents to the ER for
evaluation. Patient was recently admitted September 16 and discharged September 20 for hypoxia UTI, toxic metabolic encephalopathy due to the UTI and bronchitis patient presents awake alert correction she reports patient was unresponsive and 70% on 2 L
Patient is on chronic 2 L nasal cannula. She presents awake alert she does report she feels tired and she seems to be very sleepy on exam intermittently dozing. She is not sure why she is here. She does report she had chills last night. She
denies any shortness of breath she has no complaints..
Past History
<KRISTOPHER Peters - Last Filed: 10/25/24 19:16>
Past History
ED Past Medical History: COPD, HTN, Hypercholesterolemia and NIDDM
ED Past Surgical History: Bowel resection, Gynecological and Orthopedic
Social History
Tobacco: Former smoker
Alcohol: Occasional
Drug: None
Personal:
Living: with family
Employment: Retired
Family History
Family History: Other (Pending)
Review of Systems
<KRISTOPHER Peters - Last Filed: 10/25/24 19:16>
Review of Systems
Allergies reviewed?: Yes
Other source history: correction
All Other Systems: ROS reviewed and negative except as documented in HPI and ROS
Constitutional: Reports other (Sleepy decreased responsiveness as per correction; patient complains of feeling sleepy and tired)
EENT: Reports no symptoms
Respiratory: Reports no symptoms; Denies trouble breathing
Cardiac: Reports no symptoms
ABD/GI: Reports no symptoms
: Reports no symptoms
Musculoskeletal: Reports no symptoms
Skin: Reports no symptoms
Neurological: Reports no symptoms
Psychiatric: Reports no symptoms
Phy Exam
<KRISTOPHER Peters - Last Filed: 10/25/24 19:16>
General Physical Exam
General Presentation: no apparent distress
General age: appears stated age
General Skin: warm and dry
General Habitus: elderly
General Mental: other (sleepy but able to answer questions )
General Hydration: appears well hydrated
Cardiovascular Exam
Cardiovascular Exam: regular rate/rhythm, no murmur and normal peripheral pulses
Pulmonary Exam
Pulmonary Exam: lungs clear, no respiratory distress and other (intermittently hypoxic )
Neurological Exam
Neurological Exam: alert and oriented x3
Musculoskeletal Exam
Musculoskeletal Exam: full ROM
Skin Exam
Skin Exam: normal color and warm/dry
Psychiatric Exam
Psychiatric Exam: normal mood/affect
Scores
<KRISTOPHER Peters - Last Filed: 10/25/24 19:16>
Heart Failure Risk
Heart Failure Risk Score: Not Applicable
Course
<KRISTOPHER Peters - Last Filed: 10/25/24 19:16>
Orders/Labs/Results
Orders:
Orders
10/25/24 14:51
Electrocardiogram (*1) Urgent
Reason for Study: Other
Other Reason for Exam: Respiratory Distress
EKG- Treatment ONCE
10/25/24 14:54
COVID-19 Antigen Urgent
Source: Nasal Swab
Complete Blood Count/With Diff Urgent
Comprehensive Metabolic Panel Urgent
Troponin I Urgent
Influenza A+B Rapid Molecular Urgent
THERESE Source: Nasal Swab
Specimen Description:
10/25/24 15:46
CT Head W/o Iv Contrast Urgent
Comment:
Reason For Exam: change in ms
10/25/24 15:47
Straight cath- Treatment ONCE
10/25/24 16:58
ABG [Arterial Blood Gas] Urgent
%Oxygen/Room Air: 2l
10/25/24 17:22
UA Reflex to Culture [Urinalysis Reflex To Culture] Urgent
Date Specimen was Collected: 10/25/24
Time Specimen was Collected: 16:00
Urine Microscopic Reflex Cult Urgent
Urine Culture Urgent
THERESE Source: U
Specimen Description:
Date Specimen was Collected: 10/25/24
Time Specimen was Collected: 16:00
10/25/24 17:41
Portable Chest Xray [CR Chest Portable - 1 View] Urgent
Comment:
Reason For Exam: hypoxia
Reason Study Needs to be Portable: Patient Unstable
10/25/24 18:05
Ammonia Urgent
10/25/24 18:10
Ertapenem [Invanz] 1,000 mg 0.9% Sodium Chloride [Nss] 50 ml IV NOW
10/25/24 18:42
0.9% Sodium Chloride 500 ml [Nss] 500 ml IV BOLUS
Abnormal Lab Results
10/25/24 10/25/24 10/25/24
14:54 16:58 17:22
WBC 17.7 H 10^3/uL
(4.8-10.8)
RBC 3.94 L 10^6/uL
(4.20-5.40)
Hgb 10.4 L g/dL
(12.0-16.0)
Hct 35.5 L %
(37.0-47.0)
MCH 26.4 L pg
(27.0-31.0)
MCHC 29.3 L g/dL
(33.0-37.0)
RDW 17.4 H %
(11.5-14.5)
Abs Immat Gran (auto) 0.1 H 10^3/uL
(0-0.05)
Absolute Neuts (auto) 16.3 H 10^3/uL
(1.4-6.5)
Absolute Lymphs (auto) 0.5 L 10^3/uL
(1.2-3.4)
Neutrophils % 92.3 H %
(42.2-75.2)
Lymphocytes % 2.8 L %
(20.5-51.1)
pCO2 57 H mmHg
(32-35)
pO2 73 L mmHg
(83-108)
HCO3 32.2 H mmol/L
(21-28)
Carbon Dioxide 33 H mmol/L
(22-30)
BUN 26 H mg/dl
(7-17)
Creatinine 1.4 H mg/dL
(0.6-1.0)
Glucose 135 H mg/dl
(70-99)
Ammonia
Ur Occult Blood Reflex 4+ A
(Negative)
Urine Nitrite (Reflex) Positive A
(Negative)
Leukocyte Esterase Rfl 3+ A
(Negative)
Urine RBC 30-40 A /HPF
(0-2)
Urine WBC (Reflex) 21-25 A /HPF
(0-5)
Urine Bacteria (Reflex) Many A
(Negative)
Urine Albumin (Reflex) 2+ A
(Neg - Trace)
10/25/24
18:05
WBC
RBC
Hgb
Hct
MCH
MCHC
RDW
Abs Immat Gran (auto)
Absolute Neuts (auto)
Absolute Lymphs (auto)
Neutrophils %
Lymphocytes %
pCO2
pO2
HCO3
Carbon Dioxide
BUN
Creatinine
Glucose
Ammonia < 9 L umol/L
(9-30)
Ur Occult Blood Reflex
Urine Nitrite (Reflex)
Leukocyte Esterase Rfl
Urine RBC
Urine WBC (Reflex)
Urine Bacteria (Reflex)
Urine Albumin (Reflex)
10/25/24 14:54
10/25/24 14:54
Vital Signs
Initial and Last Documented VS:
Initial Vital Signs
Temp Pulse Resp BP Pulse Ox
99.7 F 81 28 124/54 93
10/25/24 14:48 10/25/24 14:48 10/25/24 14:48 10/25/24 14:48 10/25/24 14:48
Last Documented Vital Signs
Temp Pulse Resp BP Pulse Ox
99.7 F 92 16 125/76 94
10/25/24 14:48 10/25/24 18:00 10/25/24 18:00 10/25/24 18:00 10/25/24 18:00
Wardrobe Manager consulted with Physician
Wardrobe Manager consulted with physician?: Yes
Name of Physician Consulted: DR Schmitt
<Sher Schmitt, DO - Last Filed: 10/25/24 17:54>
Orders/Labs/Results
Orders:
Orders
10/25/24 14:51
Electrocardiogram (*1) Urgent
Reason for Study: Other
Other Reason for Exam: Respiratory Distress
EKG- Treatment ONCE
10/25/24 14:54
COVID-19 Antigen Urgent
Source: Nasal Swab
Complete Blood Count/With Diff Urgent
Comprehensive Metabolic Panel Urgent
Troponin I Urgent
Influenza A+B Rapid Molecular Urgent
THERESE Source: Nasal Swab
Specimen Description:
10/25/24 15:46
CT Head W/o Iv Contrast Urgent
Comment:
Reason For Exam: change in ms
10/25/24 15:47
Straight cath- Treatment ONCE
10/25/24 16:58
ABG [Arterial Blood Gas] Urgent
%Oxygen/Room Air: 2l
10/25/24 17:22
UA Reflex to Culture [Urinalysis Reflex To Culture] Urgent
Date Specimen was Collected: 10/25/24
Time Specimen was Collected: 16:00
Urine Microscopic Reflex Cult Urgent
Urine Culture Urgent
THERESE Source: U
Specimen Description:
Date Specimen was Collected: 10/25/24
Time Specimen was Collected: 16:00
10/25/24 17:41
Portable Chest Xray [CR Chest Portable - 1 View] Urgent
Comment:
Reason For Exam: hypoxia
Reason Study Needs to be Portable: Patient Unstable
10/25/24 18:05
Ammonia Urgent
10/25/24 18:10
Ertapenem [Invanz] 1,000 mg 0.9% Sodium Chloride [Nss] 50 ml IV NOW
10/25/24 18:42
0.9% Sodium Chloride 500 ml [Nss] 500 ml IV BOLUS
Abnormal Lab Results
10/25/24 10/25/24 10/25/24
14:54 16:58 17:22
WBC 17.7 H 10^3/uL
(4.8-10.8)
RBC 3.94 L 10^6/uL
(4.20-5.40)
Hgb 10.4 L g/dL
(12.0-16.0)
Hct 35.5 L %
(37.0-47.0)
MCH 26.4 L pg
(27.0-31.0)
MCHC 29.3 L g/dL
(33.0-37.0)
RDW 17.4 H %
(11.5-14.5)
Abs Immat Gran (auto) 0.1 H 10^3/uL
(0-0.05)
Absolute Neuts (auto) 16.3 H 10^3/uL
(1.4-6.5)
Absolute Lymphs (auto) 0.5 L 10^3/uL
(1.2-3.4)
Neutrophils % 92.3 H %
(42.2-75.2)
Lymphocytes % 2.8 L %
(20.5-51.1)
pCO2 57 H mmHg
(32-35)
pO2 73 L mmHg
(83-108)
HCO3 32.2 H mmol/L
(21-28)
Carbon Dioxide 33 H mmol/L
(22-30)
BUN 26 H mg/dl
(7-17)
Creatinine 1.4 H mg/dL
(0.6-1.0)
Glucose 135 H mg/dl
(70-99)
Ammonia
Ur Occult Blood Reflex 4+ A
(Negative)
Urine Nitrite (Reflex) Positive A
(Negative)
Leukocyte Esterase Rfl 3+ A
(Negative)
Urine RBC 30-40 A /HPF
(0-2)
Urine WBC (Reflex) 21-25 A /HPF
(0-5)
Urine Bacteria (Reflex) Many A
(Negative)
Urine Albumin (Reflex) 2+ A
(Neg - Trace)
10/25/24
18:05
WBC
RBC
Hgb
Hct
MCH
MCHC
RDW
Abs Immat Gran (auto)
Absolute Neuts (auto)
Absolute Lymphs (auto)
Neutrophils %
Lymphocytes %
pCO2
pO2
HCO3
Carbon Dioxide
BUN
Creatinine
Glucose
Ammonia < 9 L umol/L
(9-30)
Ur Occult Blood Reflex
Urine Nitrite (Reflex)
Leukocyte Esterase Rfl
Urine RBC
Urine WBC (Reflex)
Urine Bacteria (Reflex)
Urine Albumin (Reflex)
10/25/24 14:54
10/25/24 14:54
Vital Signs
Initial and Last Documented VS:
Initial Vital Signs
Temp Pulse Resp BP Pulse Ox
99.7 F 81 28 124/54 93
10/25/24 14:48 10/25/24 14:48 10/25/24 14:48 10/25/24 14:48 10/25/24 14:48
Last Documented Vital Signs
Temp Pulse Resp BP Pulse Ox
99.7 F 92 16 125/76 94
10/25/24 14:48 10/25/24 18:00 10/25/24 18:00 10/25/24 18:00 10/25/24 18:00
<KRISTOPHER Peters - Last Filed: 10/25/24 19:16>
MDM/Problems Addressed
MDM/Problems Addressed:
As documented patient is a 89-year-old female who is O2 dependent presents for evaluation. Patient apparently had a pulse ox in the 70s from correction and was not responding. Patient presents very sleepy however she will awaken and answer
questions and follow commands. She does complain about being sleepy. Patient is normally on 2 to 3 L however on 6 L patient's O2 varies from in the 90s as high as 99% all the way down into the 70s when she falls asleep. ABG shows CO2 of 57 pO2 73
pH is normal.
Patient has no complaints except feeling tired. Patient was recently admitted in September for metabolic encephalopathy related to UTI also bronchitis.
Patient has no audible cough or wheezing her temp is 99.7. Her white count however is elevated 17,000. Urine does show infection. Prior micro reviewed shows ESBL E. coli limited antibiotics, Invanz ordered.
On exam patient has vague type of tremor normal LFTs ammonia less than 9.
Patient was ordered small bolus of fluids.
Pt eval by DR Schmitt will require admission.
<KRISTOPHER Peters - Last Filed: 10/25/24 19:16>
*Radiology
Radiology exam reviewed: radiology read reviewed
*Pulse Oximetry
Patient hypoxic: yes
*EKG
Interpreted by ED Provider?: Yes
Heart Rate: 83
Rate: normal
Rhythm: sinus
Ischemia: non-specific ST changes
*Critical Care Note
Total Time (30-74mins, 75-104mins- exclusive of procedures): Not Applicable
Data Reviewed
Review of Other/Old Records Reveals: Labs and Discharge Summary
Source: patient
<KRISTOPHER Peters - Last Filed: 10/25/24 19:16>
Patient Management
Discussion with other providers: Hospitalist
ED Attending Note
<KRISTOPHER Peters - Last Filed: 10/25/24 19:16>
-
Portions of this chart may have been created with voice recognition software.� Occasional wrong word or��sound alike� substitutions may have occurred due to the inherent limitations of voice recognition software.
<Sher Schmitt, DO - Last Filed: 10/25/24 17:54>
ED Attending Note
Patient seen and examined by attending physician: Yes
I performed the substantive portion of visit, reviewed & personally made and approve the management plan that is documented in note by myself or PEPE.: Yes
Discharge Plan
Departure
Patient Disposition: Admit
Date of Disposition: 10/25/24
Time of Disposition: 18:48
Admit to: Telemetry
Admit to doctor: hospitalist
Presentation/result/management discussed w/ accepting MD/DO: Hospitalist
Patient with high blood pressure during this ER visit?: No
Condition: Fair
Covid-19: Not Applicable
Discharge Problem:
Acute UTI, Hypoxia
Prescriptions:
No Action
ezetimibe 10 MG tablet
10 mg PO QPM
ipratropium-albuterol 0.5 mg-3 mg(2.5 mg base)/3 mL Solution For Nebulization
3 ml INHALATION R Q6HPRN PRN (Reason: sob)
acetaminophen [Tylenol Extra Strength] 500 mg Tablet
500 mg PO Q6HPRN PRN (Reason: mild pain)
gabapentin 100 mg Capsule
200 mg PO HS
losartan 100 mg Tablet
100 mg PO DAILY
fluticasone propionate 50 mcg/actuation Alexander,Suspension
1 spray INTRANASAL BID
loratadine [Claritin] 10 mg Tablet
10 mg PO DAILY
cyclobenzaprine 5 mg Tablet
5 mg PO DAILY
sodium chloride 0.65 % Aerosol,Alexander
1 spray INTRANASAL Q4HPRN PRN (Reason: dryness)
melatonin 5 mg Tablet
10 mg PO HS
cholecalciferol (vitamin D3) [Vitamin D3] 125 mcg (5,000 unit) Tablet
125 mcg PO DAILY
Trelegy Ellipta 100-62.5-25 mcg Blister With Device
1 inh INHALATION R DAILY
d-mannose 500 mg Capsule
1,000 mg PO BID
sennosides [senna] 1 TABLET tablet
1 tab PO HS
magnesium hydroxide 30 ML suspension
30 ml PO HSPRN PRN (Reason: if no bm in 3 days)
furosemide 20 MG tablet
20 mg PO DAILY
gabapentin 100 mg Capsule
100 mg PO BID
carvedilol 6.25 mg Tablet
6.25 mg PO BID Qty: 0 0RF
pantoprazole 40 mg Tablet,Delayed Release (Dr/Ec)
40 mg PO DAILY Qty: 0 0RF
polyethylene glycol 3350 17 gram Powder In Packet
17 g PO DAILYPRN PRN (Reason: constipation)
carboxymethylcellulose sodium 0.5 % Drops
1 drp BOTH EYES Q8HPRN PRN (Reason: eye dryness)
nifedipine 90 mg Tablet Extended Release 24hr
90 mg PO DAILY
lidocaine HCl [Aspercreme (lidocaine HCl)] 4 % Cream
1 applic TOPICAL Q8HPRN PRN (Reason: B/L feet B/L ankles)
lorazepam 0.5 mg Tablet
0.5 mg PO DAILYPRN PRN (Reason: anxiety) Qty: 2 0RF
aspirin 81 mg Tablet,Chewable
81 mg PO DAILY Qty: 1 0RF
Eliquis 5 mg Tablet
5 mg PO BID Qty: 1 0RF
Rx Instructions:
for atleast 3 months ;longer if remains with decreased mobility
docusate sodium [Colace] 100 mg capsule
100 mg PO DAILY Qty: 30 0RF
ferrous sulfate 325 mg (65 mg iron) tablet
325 mg PO DAILY Qty: 30 0RF
cyanocobalamin (vitamin B-12) 1,000 mcg capsule
1,000 mcg PO DAILY Qty: 30 0RF
Referrals:
Devan Hammer MD [Family Provider] -
Interventions
Interventions:
*Risk Screen - Suicide Last Done: 10/25/24 14:48
*General Assessment Last Done: 10/25/24 14:48
*Neglect/Abuse Screening Last Done: 10/25/24 14:48
ED- Cardiac Assessment Last Done: 10/25/24 15:05
ED- Pulmonary Assessment Last Done: 10/25/24 15:05
Discharge Date and Time
Print Language: CITIZEN [place]
[2024-10-25 15:37] LABS: Troponin I 0.013 ng/ml
[2024-10-25 15:39] LABS: ALT (SGPT) 11 U/L (0-35); AST (SGOT) 19 U/L (14-36); Albumin 3.6 g/dl (3.5-5.0); Alkaline Phosphatase 70 U/L (38-126); Blood Urea Nitrogen 26 mg/dl (7-17); Calcium 9.7 mg/dl (8.4-10.2); Carbon Dioxide 33 mmol/L (22-30); Chloride 99 mmol/L (98-107); Estimated Creatinine Clearance 32 ml/min; Glucose 135 mg/dl (70-99); Potassium 4.6 mmol/L (3.5-5.1); Sodium 136 mmol/L (135-145); Total Bilirubin 0.7 mg/dl (0.2-1.3); Total Protein 6.3 g/dl (6.3-8.2); eGFR 36.19
[2024-10-25 17:09] LABS: PCO2 57 mmHg (32-35); pH 7.36 (7.35-7.45)
[2024-10-25 17:10] LABS: B.E. 5.6 mmol/L; HCO3 32.2 mmol/L (21-28); O2 Saturation % 96.8 % (94-98); PO2 73 mmHg (83-108)
[2024-10-25 17:30] LABS: Urine Albumin 2+ (Neg - Trace); Urine Bilirubin Negative (Negative); Urine Character Cloudy (Clear); Urine Color Yellow; Urine Glucose Negative (Negative); Urine Ketone Negative (Negative); Urine Leukocyte 3+ (Negative); Urine Nitrite Positive (Negative); Urine Occult Blood 4+ (Negative); Urine Specific Gravity 1.015 (<1.030); Urine Urobilinogen Negative (Neg - 1+)
[2024-10-25 17:40] LABS: Urine Red Blood Cell 30-40 /HPF (0-2); Urine Squamous Cell 0-2 /LPF (Few)
[2024-10-25 17:41] LABS: Urine Bacteria Many (Negative); Urine White Cell 21-25 /HPF (0-5)
[2024-10-25 18:23] LABS: Ammonia < 9 umol/L (9-30)
--- NOTE | 2024-10-25 19:05 | HPS.HSE ---
Family Physician
-
Family Physician: Devan Hammer
Chief Complaint
-
Hypoxia
History of Present Illness
This is a 89-year-old female with past medical history significant fo COPD on 2 L of O2, hypertension, hyperlipidemia, CAD, CVA, bilateral lower extremity DVT on anticoagulation recently admitted with metabolic toxic encephalopathy attributed to
bronchitis and a urinary tract infection with ESBL E. coli now coming in from alf with episode of unresponsiveness and found to be hypoxic in the emergency department.
Patient has a was not able to give much history. She does not recall why she came to the emergency department and denies any specific symptoms. When asked about shortness of breath she states she does not feel any more short of breath than usual.
She stated that she saw her physician recently who diagnosed her with laryngitis. She does sound nasally congested. She denies sinus congestion with headache fevers or chills. She denies any nausea or vomiting. She denies postnasal drip although
she appears to be clearing her throat quite frequently. She denies having any chest pain. She denies any pleuritic chest pain. Patient denies abdominal pain. She denies any urinary symptoms including dysuria abdominal pain frequency or urgency.
She is at alf and has been getting on Eliquis as described. She denies any increased weight or lower extremity edema.
While in the emergency department she was very sleepy intermittently falling asleep has a desaturation when she falls asleep. She denies any history of sleep apnea. She had to be placed on 6 L to maintain a sat. When was patient was she was awake
she was satting 97% on 6 L.
She was afebrile with a temp of 99.7, blood pressure was 125/76 with a pulse of 92, respiratory rate was 16. ECG shows sinus rhythm 93 with 4 degree AV block unchanged from prior. Troponin was negative. Chest x-ray shows no acute infiltrate. No
pleural effusions or edema. She had a white count of 17,000 hemoglobin and platelets were unchanged from prior. Electrolytes BUN/creatinine with similar to prior. ABG shows a pH of 7.36/57/32/96.8%. UA was markedly positive with leukocyte
Estrace and nitrites pyuria and bacteriuria.
Medical History
Past Medical History
Past Medical History: Reports CAD, COPD (2 L O2), HTN, NIDDM and Other (Bilateral DVT)
Additional Past Medical History:
CKD
Past Surgical History: Reports Other
Social History
Tobacco: Former Smoker
Alcohol: None
Drug: None
Living: Group Home
Employment: Retired
Family History
Family History: Not pertinent
Allergies / Home Medications
Allergies reflects when Allergies were last updated in [address].
Home Medications with original date entered in [address]
Allergy/Medication List:
Allergies
Allergy/AdvReac Type Severity Reaction Status Date / Time
Penicillins Allergy Unknown Verified 10/25/24 14:48
amlodipine besylate AdvReac COUGH Verified 10/25/24 14:48
[From Norvasc]
morphine AdvReac Nausea Verified 10/25/24 14:48
pioglitazone HCl [From Actos] AdvReac COUGH Verified 10/25/24 14:48
quinapril HCl [From Accupril] AdvReac COUGH Verified 10/25/24 14:48
Home Medications
ezetimibe 10 mg tablet 10 mg PO QPM High Cholesterol 10/19/14
acetaminophen 500 mg tablet (Tylenol Extra Strength) 500 mg PO Q6HPRN PRN mild pain 12/19/23
cholecalciferol (vitamin D3) 125 mcg (5,000 unit) tablet (Vitamin D3) 125 mcg PO DAILY Supplement 12/19/23
cyclobenzaprine 5 mg tablet 5 mg PO DAILY Muscle Spasms 12/19/23
d-mannose 500 mg capsule 1,000 mg PO BID Supplement 12/19/23
fluticasone fur. 100 mcg-umeclid 62.5 mcg-vilant 25 mcg inhalat.powder (Trelegy Ellipta) 1 inh inhalation R DAILY Lung/Breathing Issues 12/19/23
fluticasone propionate 50 mcg/actuation nasal spray,suspension 1 spray intranasal BID Allergies 12/19/23
furosemide 20 mg tablet 20 mg PO DAILY Fluid Retention/Swelling 12/19/23
gabapentin 100 mg capsule 100 mg PO BID nerve pain 12/19/23
gabapentin 100 mg capsule 200 mg PO HS nerve pain 12/19/23
ipratropium 0.5 mg-albuterol 3 mg (2.5 mg base)/3 mL nebulization soln 3 ml inhalation R Q6HPRN PRN sob 12/19/23
loratadine 10 mg tablet (Claritin) 10 mg PO DAILY Allergies 12/19/23
losartan 100 mg tablet 100 mg PO DAILY Blood Pressure 12/19/23
magnesium hydroxide 400 mg/5 mL oral suspension 30 ml PO HSPRN PRN if no bm in 3 days 12/19/23
melatonin 5 mg tablet 10 mg PO HS Sleep 12/19/23
sennosides 8.6 mg tablet (senna) 1 tab PO HS Constipation 12/19/23
sodium chloride 0.65 % nasal spray aerosol 1 spray intranasal Q4HPRN PRN dryness 12/19/23
carvedilol 6.25 mg tablet 6.25 mg PO BID Heart disease/condition #0 tabs 01/12/24
pantoprazole 40 mg tablet,delayed release 40 mg PO DAILY Gastrointestinal issue #0 tabs 01/12/24
carboxymethylcellulose sodium 0.5 % eye drops 1 drp BOTH EYES Q8HPRN PRN eye dryness 07/04/24
lidocaine HCl 4 % topical cream (Aspercreme (lidocaine HCl)) 1 applic topical Q8HPRN PRN B/L feet B/L ankles 07/04/24
nifedipine 90 mg tablet,extended release 24 hr 90 mg PO DAILY Blood Pressure 07/04/24
polyethylene glycol 3350 17 gram oral powder packet 17 g PO DAILYPRN PRN constipation 07/04/24
apixaban 5 mg tablet (Eliquis) 5 mg PO BID Blood clot prevention/tx #1 tab 09/20/24
aspirin 81 mg chewable tablet 81 mg PO DAILY Blood clot prevention/tx #1 tab 09/20/24
cyanocobalamin (vitamin B-12) 1,000 mcg capsule 1,000 mcg PO DAILY low normal B12 #30 caps 09/20/24
docusate sodium 100 mg capsule (Colace) 100 mg PO DAILY Constipation #30 caps 09/20/24
ferrous sulfate 325 mg (65 mg iron) tablet 325 mg PO DAILY anemia #30 tabs 09/20/24
lorazepam 0.5 mg tablet 0.5 mg PO DAILYPRN PRN anxiety #2 tabs 09/20/24
Review of Systems
-
History Source: Patient and Group Home
Constitutional: Reports No Symptoms
EENT: Reports Runny Nose
Respiratory: Reports No Symptoms
Cardiac: Reports No Symptoms
Abdomen/GI: Reports No Symptoms
: Reports No Symptoms
Musculoskeletal: Reports No Symptoms
Skin: Reports No Symptoms
Neurological: Reports No Symptoms
Endocrine: Reports No Symptoms
Hematologic/Lymphatic: Reports No Symptoms
Psych: Reports No Symptoms
Physical Exam
Vital Signs
Vital Signs
Temp Pulse Resp BP Pulse Ox
99.7 F 92 16 125/76 94
10/25/24 14:48 10/25/24 18:00 10/25/24 18:00 10/25/24 18:00 10/25/24 18:00
Physical Exam
General: No Apparent Distress and Comfortable
HEENT: NormoCephalic, Anicteric, Moist mucous membranes, Atraumatic, Good Dentition, PERRLA, Nose Appears Normal, Neck Nontender and Oxygen
Respiratory: Clear and Decreased Breath Sounds
Cardiac: S1/S2 and Regular Rhythm
Breast: Deferred by me
GI: Soft, Non Tender, Non Distended and Normal Bowel Sounds
Rectal: Deferred by Provider
Genito-urinary: Deferred by me
Musculoskeletal: No Clubbing, No Cyanosis, Edema, Left Lower Extremity (Trace) and Edema, Right Lower Extremity (Trace)
Skin: Warm
Neuro: AO x 3 and Nonfocal/grossly intact
Hematologic/Lymphatic: No Lymphadenopathy
Psych: Calm
Laboratory Results
-
10/25/24 14:54
10/25/24 14:54
Laboratory Results
pH 7.36 (7.35-7.45) 10/25/24 16:58
pCO2 57 mmHg (32-35) H 10/25/24 16:58
pO2 73 mmHg (83-108) L 10/25/24 16:58
HCO3 32.2 mmol/L (21-28) H 10/25/24 16:58
Total Bilirubin 0.7 mg/dl (0.2-1.3) 10/25/24 14:54
AST 19 U/L (14-36) 10/25/24 14:54
ALT 11 U/L (0-35) 10/25/24 14:54
Alkaline Phosphatase 70 U/L (38-126) 10/25/24 14:54
Troponin I 0.013 ng/ml 10/25/24 14:54
Data Reviewed
-
Diagnostic Radiology: Report Reviewed by me
Medical Tests (Nuc Med, Echo, EKG etc): Image Personally Visualized and interpreted
Lab Data: Labs Reviewed by me
Old Records: Reviewed
Impression/Plan
-
IMPRESSION:
89-year-old multiple comorbidities who presented to the emergency department with episode of unresponsiveness at the emergency department. Patient is not aware of any alteration in mental or physical status. She remembers being spoken to but not
responding. She could not tell me why she did not respond. In the Emergency Department she was found to be hypoxic. Chest x-ray is unchanged from prior and shows no acute infiltrates. Viral panel was negative. She was requiring more oxygen than
her baseline and is currently on 6 L. ABG shows chronic respiratory acidosis with hypoxia. She had a leukocytosis to 17, UA was again markedly positive with nitrite leukocyte esterase and pyuria. Although she is asymptomatic given the alteration
in mental status there is concern for toxic metabolic encephalopathy secondary to urinary tract infection. Lung exam with clear without wheezes or crackles. She has been on anticoagulation with Eliquis.
PLAN:
1. Toxic metabolic encephalopathy - Cystitis on U/A. Prior uti with ESBL E.coli. Afebrile here and hemodynamically stable. When I spoke to her she was alert and oriented x 3 and in no acute distress. No focal deficits.
- admit to telemetry
- urine cultures sent
- continue ertapenem for now, was given monurol last admission, will get Id consultation
- given small bolus in ED
2. Hypoxia - Currently on 6 L, satting 97% when awake. Recent laryngitis and appears to have some nasal congestion. Denies sleep apnea. Denies sinus congestion, headache, fevers chills. No wheezing on exam. No cough. No fluid overload.
Flu/covid neg
- maintain sat > 93 and titrate o2 as tolerate
- saline nasal spray.
- check rsv
- nebs and continue home ics laba,
- on eliquis so unlikely pe, will get CT Pe if no improvement
3. HTN BP stable at this time
- continue coreg and nifedipine w/ hold parameters
4. DVT
- continue eliquis
5. DM II
- carb control diet, sliding scale insulin
Code status - Full Code
[2024-10-25] MEDS: INVANZ 60 MG IV (19:41)
[2024-10-25] MEDS: NSS 500 IV (19:42)
[2024-10-25] MEDS: DUONEB 3 ML INH (22:57)
[2024-10-25] MEDS: TYLENOL 650 MG PO (23:14)
[2024-10-25] MEDS: NEURONTIN 200 MG PO (23:29)
[2024-10-25] MEDS: COREG 6.25 MG PO (23:29)
[2024-10-25] MEDS: ELIQUIS 5 MG PO (23:29)
[2024-10-25] MEDS: SENOKOT 8.6 MG PO (23:30)
[2024-10-26] VITALS (9 sets, daily range): BP systolic 95–146; BP diastolic 40–69
[2024-10-26 00:23] LABS: Glucose - Point of Care 139 mg/dl (70-99)
--- NOTE | 2024-10-26 01:47 | PTCARENOTE ---
Received patient from ED via stretcher. Medsurg order; however, admitting MD reports admit telemetry- Verified w/ House WELDING MACHINE OPERATOR [employer] and patient transferred. Sinus Rhythm on monitor> T101 (Tylenol administered after bedside swallow eval-passed w/o issue) HR
107, RR 22, BP 149/76, pox 93% 7L mid-flow. Patient SOB-respiratory paged for treatment. Patient presents lethargic, however, she awakens to answer questions and follow commands. AAOx3, [place], vision impaired. PMH obtained from [facility] paperwork
and external reports. Plan of care discussed. Call marie within reach.
[2024-10-26] MEDS: NSS 500 IV (04:48)
--- NOTE | 2024-10-26 05:48 | PTCARENOTE ---
Addendum entered by Maria Luisa Wolff RN 10/26/24 06:07:
pox 95% 7L mid-flow
Original Note:
Vitals for this shift:
2302 T 101 (oral) HR 107 RR 22 BP 149/79 pox 93% 7L mid-flow
2303 Respiratory paged and administered Duoneb
2314 Tylenol administered
0308 T 98.5 (oral) HR 65 RR 18 BP 104/40 pox 92% 7L mid-flow
0312 [place] [employer] made aware of patient's BP and respiratory status
0328 Manual BP 96/40 HR 64
0439 [place] [employer] ordered 500ml Bolus, Bld cxs x2, Lactic and Procalc ordered.
0545 BP 111/43 HR 59 MAP 66. Pox 95% 11L mid-flow
Patient has been lethargic but awakens to answer questions and follow commands.
--- NOTE | 2024-10-26 05:49 | W.PN.UPDATE ---
Update Note
Progress Note Update
2300 pt febrile, oral temp 101, given Tylenol 650 mg PO x 1. Patient received Coreg 6.25 mg PO at 2330
3 am Vital signs rechecked, Oral temp 98.5. Pulsox 92% on 7L midflow. Pt hypotensive BP 96/40, map 59.
Ordered 500 ml bolus. BP improved 111/43, MAP 66.
Ordered labs: Lactic, procalcitonin, Blood cx x 2, due to fever. CXR completed on admission.
Currently on Ivanz 1 g IV Q24H for UTI, appreciate ID recommendations.
[2024-10-26 05:59] LABS: INR 1.79
[2024-10-26 06:00] LABS: PT 20.9 Sec (11.4-14.6)
[2024-10-26] MEDS: DUONEB 3 ML INH ×4 (06:02→19:51)
[2024-10-26 06:03] LABS: Blood Urea Nitrogen 26 mg/dl (7-17); Calcium 9.2 mg/dl (8.4-10.2); Carbon Dioxide 33 mmol/L (22-30); Chloride 99 mmol/L (98-107); Estimated Creatinine Clearance 23 ml/min; Glucose 128 mg/dl (70-99); Magnesium 1.9 mg/dl (1.6-2.3); Potassium 4.3 mmol/L (3.5-5.1); Sodium 135 mmol/L (135-145); eGFR 25.08
[2024-10-26 06:03] LABS: Lactic Acid 0.9 mmol/L (0.7-2.0)
[2024-10-26 06:10] LABS: Hematocrit 30.6 % (37.0-47.0); Hemoglobin 8.8 g/dL (12.0-16.0); Mean Corp Hgb Conc. 28.8 g/dL (33.0-37.0); Mean Corpuscular Hgb 26.6 pg (27.0-31.0); Mean Corpuscular Volume 92.4 fL (81.0-99.0); Platelet Count 174 10^3/uL (130-400); Red Blood Cell Count 3.31 10^6/uL (4.20-5.40); Red Cell Dist. Width 17.4 % (11.5-14.5)
[2024-10-26] MEDS: SYMBICORT 80/4.5 MCG INHALER 2 PUFF INH ×2 (06:21→19:51)
[2024-10-26] MEDS: LR 1000 IV (06:48)
[2024-10-26 07:00] LABS: Procalcitonin 19.14 ng/ml (0.0-0.25)
--- NOTE | 2024-10-26 07:24 | PTCARENOTE ---
Admitting MD ordered ID consult. Dr. Reilly (physician credit and collections representative) made aware of Procalcitonin 19.14. Blood cxs x2 pending.
[2024-10-26 08:48] LABS: Glucose - Point of Care 99 mg/dl (70-99)
[2024-10-26] MEDS: PROCARDIA XL (EXTENDED RELEASE) 90 MG PO (09:35)
[2024-10-26] MEDS: FLEXERIL 5 MG PO (09:36)
[2024-10-26] MEDS: COZAAR 100 MG PO (09:36)
[2024-10-26] MEDS: LASIX 20 MG PO (09:38)
[2024-10-26] MEDS: LOW STRENGTH ASPIRIN 81 MG PO (09:38)
[2024-10-26] MEDS: FEOSOL 325 MG PO (09:39)
[2024-10-26] MEDS: ELIQUIS 5 MG PO ×2 (09:39→20:03)
[2024-10-26] MEDS: COREG 6.25 MG PO ×2 (09:40→21:08)
[2024-10-26] MEDS: NEURONTIN 100 MG PO ×2 (09:40→16:21)
[2024-10-26] MEDS: COLACE 100 MG PO (09:41)
[2024-10-26] MEDS: PROTONIX 40 MG PO (09:41)
[2024-10-26] MEDS: CLARITIN 10 MG PO (09:41)
--- NOTE | 2024-10-26 10:19 | CON.ID ---
Consultation
-
Date/Time Consultation Requested: 10/25/24 22:38
Date/Time Consultation Performed: 10/26/24 10:19
Requesting Provider: Dr Plascencia
Performing Provider: Dr Singer
Reason for Consultation: cystitis with ESBL E.coli on last admission, started ertapenem
Chief Complaint / Past History
Chief Complaint
Hypoxia
History of Present Illness
Ms Chandra is an 89 year old female with history notable for COPD on 2LNC, recent DVT on eliquis who was admitted here 10/25 for unresponsiveness and hypoxemia. Recent diagnosis of larygnitis with her ENT by visual examination. Denies: fevers,
chills, sinus tenderness. +Congested sinuses. No nausea, vomiting, chest pain, abdominal ain, dysuria, abdominal pain, frequency or urgency. No malodorous urine or suprapubic tenderness. No new CVA tenderness.
In the ER she was febrile to 101.0 orally, bp stable, requiring 6-7 L to maintain saturations when sleeping, wbc 17.7 today 18, hgb 8.8, plt 174, L shift noted on arrival, cr baseline 1.8 today 1.9, lactic acid 0.9, na 135, normal LFTs, ammonia <9,
procal 19, ua 21-25 wbc/hpf and many bacteria, covid ag negative, 10/25 CXR: no active CP disease, CT head without contrast: diffuse atrophy, minimal sinusitis, blood cultures x2 in progress no growth to date, urine culture pending; 09/16 urine culture
100K ESBL e coli. Currently on ertapenem.
Past History
Additional Past Medical History:
CAD, COPD (2 L O2), HTN, NIDDM and Other (Bilateral DVT)
Additional Past Surgical History:
CKD
Allergy History:
Penicillins Allergy (Verified 10/25/24 14:48)
Unknown
amlodipine besylate [From [facility]] Adverse Reaction (Verified 10/25/24 14:48)
COUGH
morphine Adverse Reaction (Verified 10/25/24 14:48)
Nausea
pioglitazone HCl [From Actos] Adverse Reaction (Verified 10/25/24 14:48)
COUGH
quinapril HCl [From Accupril] Adverse Reaction (Verified 10/25/24 14:48)
COUGH
Medications Reviewed: Yes
Social History
Tobacco: Former Smoker
Alcohol: None
Drug: None
Family History
Family History: Not Pertinent
Review of Systems
Review of Systems
General: Negative Fever or Chills
All systems: All other systems were reviewed and were negative
Vital Signs
Temp Pulse Resp BP Pulse Ox
98.5 F 56 19 115/40 96
10/26/24 07:00 10/26/24 07:00 10/26/24 07:00 10/26/24 07:00 10/26/24 07:00
Physical Exam
Physical Exam
Constitutional: No Acute Distress and Obese
Cardiovascular: Regular Rate and S1/S2; Negative Murmur or Rub
Pulmonary: Clear, Symmetric and Non Labored; Negative Wheezes, Rales or Rhonchi
Gastrointestinal: Soft, Non Tender, Non Distended and Normal Bowel Sounds
Genito-Urinary: Negative Suprapubic Tenderness
Skin: Warm and Dry; Negative Rash or Jaundice
Lab / Diagnostic Study Results
10/26/24 05:28
10/26/24 05:27
Abs Immat Gran (auto) 0.1 10^3/uL (0-0.05) H 10/25/24 14:54
Absolute Neuts (auto) 16.3 10^3/uL (1.4-6.5) H 10/25/24 14:54
Absolute Lymphs (auto) 0.5 10^3/uL (1.2-3.4) L 10/25/24 14:54
Absolute Monos (auto) 0.6 10^3/uL (0.1-0.6) 10/25/24 14:54
Absolute Basos (auto) 0.1 10^3/uL (0-0.2) 10/25/24 14:54
Immature Gran % 0.5 % (0-0.5) 10/25/24 14:54
Neutrophils % 92.3 % (42.2-75.2) H 10/25/24 14:54
Lymphocytes % 2.8 % (20.5-51.1) L 10/25/24 14:54
Monocytes % 3.5 % (1.7-9.3) 10/25/24 14:54
Eosinophils % 0.6 % (0-6) 10/25/24 14:54
Basophils % 0.3 % (0-2) 10/25/24 14:54
PT 20.9 Sec (11.4-14.6) H 10/26/24 05:28
INR 1.79 10/26/24 05:28
Lactic Acid 0.9 mmol/L (0.7-2.0) 10/26/24 05:28
Procalcitonin 19.14 ng/ml (0.0-0.25) H* 10/26/24 05:28
Ur Squamous Epith Cells 0-2 /LPF (Few) 10/25/24 17:22
Microbiology Results
Micro:
10/26/24 06:19 Blood Culture - Pending
Blood/Venous
10/26/24 05:30 Blood Culture - Pending
Blood/Venous
10/25/24 17:22 Urine Culture - Pending
Urine
10/25/24 14:54 Influenza Types A & B ([place]) - Final
Nasal Swab Negative for Influenza A & B, NAAT
Negative results must be combined with clinical observations
and patient history.
Nucleic Acid Amplification test (NAAT)performed on the
[employer] platform.
Assessment / Plan
Fever - isolated
Hypoxemia
URI
CKD
Reported Allergy to Penicillin - unknown
Class II obesity
- procalcitonin not validated in setting of AUTUMN/CKD, not a useful test in this setting
- CXR - clear, URI by history and evaluation with her ENT with laryngitis seen on examination - most likely viral
- blood cultures x2 were sent - in progress
- UA with mild pyuria - however patient asymptomatic on questioning x2 and is a good historian
- stopped ertapenem
- follow clinically
--- NOTE | 2024-10-26 10:21 | CM ---
charge manager reviewed patient's chart and met with patient and patient reports that she resides at [facility], as a nursing home resident, patient uses a walker, w/c and is on 2 liters of oxygen at [facility], patient is currently
requiring 7 liters of oxygen. Referral sent through [employer] to [facility], plan will be to return to [facility] when stable.
Pharmacy: [facility]
PCP: Dr. Mcwilliams
Plan; Patient to return to [facility] nursing home resident.
Report [phone]
--- NOTE | 2024-10-26 12:14 | W.PN.HOSP.TC ---
Addendum entered and electronically signed by Adrianna Correa MD 10/26/24 19:01:
BNP up and patient with weight gain from last admission, will trial a dose of IV lasix to see if helps wean oxygen
Original Note:
Today's Communication/Plan
-
see plan
Assessment / Plan
Assessment / Plan
IMPRESSION:
89-year-old multiple comorbidities who presented to the emergency department with episode of unresponsiveness at the emergency department. Patient is not aware of any alteration in mental or physical status. She remembers being spoken to but not
responding. She could not tell me why she did not respond. In the Emergency Department she was found to be hypoxic. Chest x-ray is unchanged from prior and shows no acute infiltrates. Viral panel was negative. She was requiring more oxygen than
her baseline and is currently on 6 L. ABG shows chronic respiratory acidosis with hypoxia. She had a leukocytosis to 17, UA was again markedly positive with nitrite leukocyte esterase and pyuria. Although she is asymptomatic given the alteration
in mental status there is concern for toxic metabolic encephalopathy secondary to urinary tract infection. Lung exam with clear without wheezes or crackles. She has been on anticoagulation with Eliquis.
CXR
IMPRESSION:
No active cardiopulmonary disease.
HEAD CT
IMPRESSION:
No evidence of acute intracranial abnormality.
PLAN:
1. Toxic metabolic encephalopathy
Laryngitis
- Prior uti with ESBL E.coli. Afebrile here and hemodynamically stable.
- admit to telemetry
- urine cultures sent
-appreciate ID consult, observe off of antibiotics
2. Hypoxia - Currently on 6 L, satting 97% when awake.
- Flu/covid neg
- maintain sat > 93 and titrate o2 as tolerate
- saline nasal spray.
- nebs and continue home ics laba,
- on eliquis so unlikely pe, will get CT Pe if no improvement
- start mucinex, acapella
- discussed with RN trying to wean
-PT/OT
3. HTN BP stable at this time
- continue coreg and nifedipine w/ hold parameters
4. DVT
- continue eliquis
5. DM II
- carb control diet, sliding scale insulin
Code status - Full Code
Anticipated Discharge: 24 - 48 hours
Subjective/Interval History
-
Date of Service: October 26, 2024
states she is feeling well now, but is still on 6L
denies shortnes of breath
has mild amount of mucus
Objective Data
-
Labs:
Laboratory Results
10/26/24 10/26/24
05:27 05:28
WBC 18.0 H
Hgb 8.8 L
Hct 30.6 L
Plt Count 174
PT 20.9 H
INR 1.79
Sodium 135
Potassium 4.3
Chloride 99
Carbon Dioxide 33 H
BUN 26 H
Creatinine 1.9 H
Glucose 128 H
Calcium 9.2
Vital Signs:
Vital Signs
Temp Pulse Resp BP Pulse Ox
98.5 F 56 19 115/40 96
10/26/24 07:00 10/26/24 07:00 10/26/24 07:00 10/26/24 07:00 10/26/24 07:00
I&O
10/25/24 10/26/24 10/27/24
06:59 06:59 06:59
Intake Total 500 / 500 750 / 750
Balance 500 / 500 750 / 750
Review of Systems
-
History Source: Patient
All other systems: Reviewed and negative
Physical Exam
-
General: Well Developed, Well Nourished, Appears Chronically Ill and Obese
HEENT: Normocephalic and Atraumatic
Respiratory: Negative Wheezes or Decreased Breath Sounds (improved air movement, resolved)
Cardiac: Regular Rhythm and S1/S2
GI: Soft, Nontender and Nondistended
Musculoskeletal: No Clubbing, No Cyanosis and No Edema
Neuro: Awake, Alert and AO x 3
Psych: Calm
Data Reviewed
-
Diagnostic Radiology: Report Reviewed by me
Labs: Labs Reviewed by me
[2024-10-26] MEDS: MUCINEX 600 MG PO ×2 (14:52→20:03)
[2024-10-26 14:54] LABS: NT-proBNP 3430 pg/ml
[2024-10-26] MEDS: ZETIA 10 MG PO (16:24)
[2024-10-26] MEDS: LASIX 40 MG IV (20:01)
[2024-10-26] MEDS: TYLENOL 650 MG PO (20:12)
[2024-10-26] MEDS: NEURONTIN 200 MG PO (21:08)
[2024-10-26] MEDS: SENOKOT 8.6 MG PO (21:08)
--- NOTE | 2024-10-27 02:39 | DOWNTIME ---
There was a [employer] Downtime on 10/27/2024 from 0100 to 10/27/2023 at 0235 . Downtime documentation of patient's care, including medication administrations, has been reconciled in the electronic record per guidelines. Refer to the
patient's paper chart under the miscellaneous tab to see printed paper medication records and downtime forms.
[2024-10-27 03:30] VITALS: BP 124/66
[2024-10-27 03:51] VITALS: BMI 36.6
[2024-10-27 07:00] VITALS: BP 148/61
[2024-10-27] MEDS: SYMBICORT 80/4.5 MCG INHALER 2 PUFF INH ×2 (07:51→19:29)
[2024-10-27] MEDS: DUONEB 3 ML INH ×4 (07:51→19:29)
[2024-10-27 07:54] LABS: % Basophils 0.3 % (0-2); % Eosinophils 5.1 % (0-6); % Immature Granulocytes 0.6 % (0-0.5); % Lymphocytes 7.9 % (20.5-51.1); % Monocytes 16.2 % (1.7-9.3); % Neutrophils 69.9 % (42.2-75.2); Absolute Eosinophils 0.5 10^3/uL (0-0.7); Absolute Immature Granulocytes 0.1 10^3/uL (0-0.05); Absolute Lymphocytes 0.8 10^3/uL (1.2-3.4); Absolute Monocytes 1.5 10^3/uL (0.1-0.6); Absolute Neutrophils 6.6 10^3/uL (1.4-6.5); Hematocrit 30.5 % (37.0-47.0); Mean Corp Hgb Conc. 29.5 g/dL (33.0-37.0); Mean Corpuscular Hgb 26.5 pg (27.0-31.0); Mean Corpuscular Volume 89.7 fL (81.0-99.0); Mean Platelet Volume 10.4 fL (7.4-10.4); Nucleated Red Blood Cells % 0 %; Platelet Count 143 10^3/uL (130-400); Red Cell Dist. Width 17.2 % (11.5-14.5); White Blood Cell Count 9.5 10^3/uL (4.8-10.8)
[2024-10-27 08:32] LABS: Blood Urea Nitrogen 40 mg/dl (7-17); Calcium 9.5 mg/dl (8.4-10.2); Carbon Dioxide 30 mmol/L (22-30); Chloride 98 mmol/L (98-107); Estimated Creatinine Clearance 19 ml/min; Glucose 125 mg/dl (70-99); Magnesium 2.1 mg/dl (1.6-2.3); Potassium 4.1 mmol/L (3.5-5.1); Sodium 136 mmol/L (135-145); eGFR 19.94
[2024-10-27] MEDS: ELIQUIS 5 MG PO ×2 (08:49→20:25)
[2024-10-27] MEDS: CLARITIN 10 MG PO (08:49)
[2024-10-27] MEDS: FEOSOL 325 MG PO (08:50)
[2024-10-27] MEDS: PROCARDIA XL (EXTENDED RELEASE) 90 MG PO (08:50)
[2024-10-27] MEDS: PROTONIX 40 MG PO (08:50)
[2024-10-27] MEDS: LOW STRENGTH ASPIRIN 81 MG PO (08:50)
[2024-10-27] MEDS: MUCINEX 600 MG PO ×2 (08:50→20:25)
[2024-10-27] MEDS: NEURONTIN 100 MG PO ×2 (08:51→15:32)
[2024-10-27] MEDS: COREG 6.25 MG PO ×2 (08:51→20:25)
[2024-10-27] MEDS: COZAAR 100 MG PO (08:51)
[2024-10-27] MEDS: FLEXERIL 5 MG PO (08:51)
[2024-10-27] MEDS: COLACE 100 MG PO (08:51)
[2024-10-27] MEDS: LASIX 20 MG PO (08:52)
[2024-10-27 11:00] VITALS: BP 147/67
--- NOTE | 2024-10-27 11:10 | W.PN.HOSP.TC ---
Today's Communication/Plan
-
small bolsu IVF back
Pulmonary consult
Assessment / Plan
Assessment / Plan
IMPRESSION:
89-year-old multiple comorbidities who presented to the emergency department with episode of unresponsiveness at the emergency department. Patient is not aware of any alteration in mental or physical status. She remembers being spoken to but not
responding. She could not tell me why she did not respond. In the Emergency Department she was found to be hypoxic. Chest x-ray is unchanged from prior and shows no acute infiltrates. Viral panel was negative. She was requiring more oxygen than
her baseline and is currently on 6 L. ABG shows chronic respiratory acidosis with hypoxia. She had a leukocytosis to 17, UA was again markedly positive with nitrite leukocyte esterase and pyuria. Although she is asymptomatic given the alteration
in mental status there is concern for toxic metabolic encephalopathy secondary to urinary tract infection. Lung exam with clear without wheezes or crackles. She has been on anticoagulation with Eliquis.
CXR
IMPRESSION:
No active cardiopulmonary disease.
HEAD CT
IMPRESSION:
No evidence of acute intracranial abnormality.
PLAN:
Laryngitis
- appreciate ID consult, observe off of antibiotics - afebrile and leukocytosis resolved
TME in setting of hypoxia at NH
-O2 supplementation given, patient awake/alert but remains on 6-7L
Hypoxic Resp Failure
- unclear etiology. No wheezing on exam; trialed Lasix with resulting dehydration and O2 needs remain elevated; she is on Eliquis for DVT
- Flu/covid neg
- maintain sat > 93 and titrate o2 as tolerate
- saline nasal spray.
- nebs and continue home ics laba,
- start mucinex, acapella
- will consult Pulmonary
3. HTN BP stable at this time
- continue coreg and nifedipine w/ hold parameters
Acute on Chronic Kidney disease
-worsening renal function post Lasix
-will give 250cc slowly back
-monitor daily
4. DVT
- continue eliquis
5. DM II
-will order Regular diet, patient denies history of DM
Code status - Full Code
51 minutes spent on patient care
Anticipated Discharge: 24 - 48 hours
Subjective/Interval History
-
Date of Service: October 27, 2024
no new complaints
denies chest congestion or pain
no wheezing
Objective Data
-
Labs:
Laboratory Results
10/27/24
07:12
WBC 9.5
Hgb 9.0 L
Hct 30.5 L
Plt Count 143
Sodium 136
Potassium 4.1
Chloride 98
Carbon Dioxide 30
BUN 40 H
Creatinine 2.3 H
Glucose 125 H
Calcium 9.5
Vital Signs:
Vital Signs
Temp Pulse Resp BP Pulse Ox
97.9 F 87 18 148/61 95
10/27/24 07:00 10/27/24 07:53 10/27/24 07:53 10/27/24 07:00 10/27/24 07:53
I&O
10/26/24 10/27/24 10/28/24
06:59 06:59 06:59
Intake Total 500 / 500 1310 / 1310
Balance 500 / 500 1310 / 1310
Review of Systems
-
History Source: Patient
All other systems: Reviewed and negative
Physical Exam
-
General: Well Developed, Well Nourished and Obese
HEENT: Normocephalic and Atraumatic
Respiratory: Decreased Breath Sounds; Negative Wheezes
Cardiac: Regular Rhythm and S1/S2
GI: Soft, Nontender and Nondistended
Musculoskeletal: No Clubbing, No Cyanosis and No Edema
Neuro: Awake, Alert and AO x 3
Psych: Calm
Data Reviewed
-
Diagnostic Radiology: Report Reviewed by me
Labs: Labs Reviewed by me
--- NOTE | 2024-10-27 11:30 | CON.PUL ---
Consultation
Consultation Request
Date/Time Consultation Requested: 10/27/2024-11:30 AM
Date/Time Consultation Performed: 10/27/2019 5-11:45 AM
Requesting Provider: Hospitalist
Performing Provider: Dr. Fink
Reason for Consultation: Shortness of breath
Medical History
-
Chief Complaint: Shortness of breath
History of Present Illness:
89-year-old former smoking female with a history of COPD oxygen dependent, hypertension, hyperlipidemia, CAD, CVA, bilateral lower extremity DVT on anticoagulation recently admitted with metabolic encephalopathy attributed to bronchitis and UTI and
now returns from assisted hypoxemic found to have a pneumonia-pulmonary consulted for shortness of breath/hypoxemia and pneumonia 10/27/2024.. She states that she is chronically on oxygen 3-4 L. She currently denies any shortness of breath at
rest, chest congestion, productive cough, chest pain, pleurisy, abdominal pain, or increased lower extremity swelling
Past Medical History
Past Medical History: None (CAD. COPD-2 L oxygen. Hypertension. Hyperlipidemia. Diabetes. Bilateral DVT. Chronic kidney disease. CVA.)
Social History
Tobacco: Former Smoker
Alcohol: None
Drug: None
Living: Alf
Occupational Exposures: No known asbestos exposure
Environmental Exposures: No known tuberculosis exposure
Family History
Family History: Reviewed & Not Pertinent
Allergies / Home Medications
Allergies
Allergy/AdvReac Type Severity Reaction Status Date / Time
Penicillins Allergy Unknown Verified 10/25/24 14:48
amlodipine besylate AdvReac COUGH Verified 10/25/24 14:48
[From Norvasc]
morphine AdvReac Nausea Verified 10/25/24 14:48
pioglitazone HCl [From Actos] AdvReac COUGH Verified 10/25/24 14:48
quinapril HCl [From Accupril] AdvReac COUGH Verified 10/25/24 14:48
Home Medications
�Medication �Instructions �Recorded �Confirmed �Last Taken �Type
ezetimibe 10 mg tablet 10 mg PO DAILY High Cholesterol 10/19/14 10/25/24 05/11/19 History
acetaminophen 500 mg tablet 500 mg PO Q6HPRN PRN mild pain 12/19/23 10/25/24 Unknown History
(Tylenol Extra Strength)
cyclobenzaprine 5 mg tablet 5 mg PO DAILY Muscle Spasms 12/19/23 10/25/24 Unknown History
d-mannose 500 mg capsule 1,000 mg PO BID uti prevention 12/19/23 10/25/24 Unknown History
fluticasone fur. 100 mcg-umeclid 1 inh inhalation R DAILY 12/19/23 10/25/24 Unknown History
62.5 mcg-vilant 25 mcg Lung/Breathing Issues
inhalat.powder (Trelegy Ellipta)
fluticasone propionate 50 1 spray intranasal BID Allergies 12/19/23 10/25/24 Unknown History
mcg/actuation nasal
spray,suspension
furosemide 20 mg tablet 20 mg PO DAILY Fluid 12/19/23 10/25/24 Unknown History
Retention/Swelling
gabapentin 100 mg capsule 100 mg PO BID nerve pain 12/19/23 10/25/24 Unknown History
ipratropium 0.5 mg-albuterol 3 mg 3 ml inhalation R Q6HPRN PRN sob 12/19/23 10/25/24 Unknown History
(2.5 mg base)/3 mL nebulization
soln
loratadine 10 mg tablet (Claritin) 10 mg PO DAILY Allergies 12/19/23 10/25/24 Unknown History
losartan 100 mg tablet 100 mg PO DAILY Blood Pressure 12/19/23 10/25/24 Unknown History
carvedilol 6.25 mg tablet 6.25 mg PO BID Heart 01/12/24 10/25/24 Unknown Rx
disease/condition #0 tabs
pantoprazole 40 mg tablet,delayed 40 mg PO DAILY Gastrointestinal 01/12/24 10/25/24 Unknown Rx
release issue #0 tabs
carboxymethylcellulose sodium 0.5 1 drp BOTH EYES Q8HPRN PRN eye 07/04/24 10/25/24 Unknown History
% eye drops dryness
lidocaine HCl 4 % topical cream 1 applic topical Q8HPRN PRN B/L 07/04/24 10/25/24 Unknown History
(Aspercreme (lidocaine HCl)) feet B/L ankles
nifedipine 90 mg tablet,extended 90 mg PO DAILY HTN 07/04/24 10/25/24 Unknown History
release 24 hr
polyethylene glycol 3350 17 gram 17 g PO DAILYPRN PRN constipation 07/04/24 10/25/24 Unknown History
oral powder packet
apixaban 5 mg tablet (Eliquis) 5 mg PO BID Blood clot 09/20/24 10/25/24 Unknown Rx
prevention/tx #1 tab
aspirin 81 mg chewable tablet 81 mg PO DAILY Blood clot 09/20/24 10/25/24 Unknown Rx
prevention/tx #1 tab
cyanocobalamin (vitamin B-12) 1,000 mcg PO DAILY low normal B12 09/20/24 10/25/24 Unknown Rx
1,000 mcg capsule #30 caps
docusate sodium 100 mg capsule 100 mg PO DAILY Constipation #30 09/20/24 10/25/24 Unknown Rx
(Colace) caps
ferrous sulfate 325 mg (65 mg 325 mg PO DAILY anemia #30 tabs 09/20/24 10/25/24 Unknown Rx
iron) tablet
lorazepam 0.5 mg tablet 0.5 mg PO DAILYPRN PRN anxiety #2 09/20/24 10/25/24 Unknown Rx
tabs
cholecalciferol (vitamin D3) 125 125 mcg PO DAILY Supplement 10/25/24 10/25/24 Unknown History
mcg (5,000 unit) tablet (Vitamin
D3)
gabapentin 100 mg capsule 200 mg PO HS Neurological Condition 10/25/24 10/25/24 Unknown History
loperamide 2 mg capsule 2 mg PO Q6HPRN PRN diarrhea/loose 10/25/24 10/25/24 Unknown History
stool
magnesium hydroxide 400 mg/5 mL 30 ml PO HSPRN PRN constipation 10/25/24 10/25/24 Unknown History
oral suspension (Milk of Magnesia)
melatonin 10 mg tablet 10 mg PO HS insomnia 10/25/24 10/25/24 Unknown History
sennosides 8.6 mg tablet (senna) 8.6 mg PO HS Gastrointestinal Issue 10/25/24 10/25/24 Unknown History
sodium chloride 0.65 % nasal spray 1 spray intranasal Q4HPRN PRN 10/25/24 10/25/24 Unknown History
aerosol (Saline Nasal) dryness
Review of Systems
-
Unable to Obtain full review of systems at this time due to: Other (Per HPI)
Vitals / Labs / Diagnostic Testing
Vital Signs
Temp Pulse Resp BP Pulse Ox
97.9 F 87 18 148/61 95
10/27/24 07:00 10/27/24 07:53 10/27/24 07:53 10/27/24 07:00 10/27/24 07:53
Lab Data
10/27/24 07:12
10/27/24 07:12
Microbiology
10/25/24 17:22 Urine Urine Culture - Final
Escherichia coli - ESBL
10/26/24 06:19 Blood/Venous Blood Culture - Preliminary
No Growth in 24 hours- Final report to follow
10/26/24 05:30 Blood/Venous Blood Culture - Preliminary
No Growth in 24 hours- Final report to follow
10/25/24 14:54 Nasal Swab Influenza Types A & B ([place]) - Final
Negative for Influenza A & B, NAAT
Negative results must be combined with clinical observations
and patient history.
Nucleic Acid Amplification test (NAAT)performed on the
[employer] platform.
Diagnostic Testing:
Physical Exam
-
Exam:
Well-nourished and well-developed in no apparent distress
HEENT-atraumatic, normocephalic
Neck-supple, no JVD, no bruit
Heart-regular rate and rhythm-no murmurs, rubs or gallops
Chest with diminished breath sounds,, no crackles or rhonchi
Back without tenderness
Abdomen-soft, nontender, nondistended, no hepatosplenomegaly
Extremities-no cyanosis, clubbing, lower extremity edema
Integument-intact, no rashes, lesions or ecchymosis
Neurology-alert and oriented, nonfocal motor and sensory exam
Assessment
-
89-year-old former smoking female with a history of COPD oxygen dependent, hypertension, hyperlipidemia, CAD, CVA, bilateral lower extremity DVT on anticoagulation recently admitted with metabolic encephalopathy attributed to bronchitis and UTI and
now returns from assisted hypoxemic found to have a pneumonia-pulmonary consulted for shortness of breath/hypoxemia and pneumonia 10/27/2024.
Pneumonia-assisted patient
Leukocytosis
Elevated procalcitonin
Aambjk-tubgygjeuk-vtqwqbxeal 9.0
Chronic hypercapnia-ABG 10/25/2024--57/73/7.36
AUTUMN
Hyperglycemia
Conditions present prior to admission:
CAD.
COPD-3 L oxygen
Former [id number]-year.
Hypertension.
Hyperlipidemia.
Diabetes.
Bilateral DVT.
Chronic kidney disease.
CVA.
Plan
Respiratory decompensation likely related to pneumonia in a patient with COPD and aspiration risk
Supplemental oxygen as needed
Continue inhalers-Symbicort
Nebulizers continue as well-DuoNebs
Mucolytic's-on Mucinex 600 twice daily.
Aspiration precautions.
Incentive spirometry.
Mucus clearing devices if needed
Check cultures
Sputum culture-unable to produce
Influenza negative
Urine culture-E. coli-ESBL
Blood cultures negative
Empiric antibiotics-. Consider antibiotics in this patient with leukocytosis, pulmonary infiltrate, elevated pro calcitonin, however, will leave up to infectious disease.
If elected to observe off antibiotics then we will watch closely
Infectious disease to see patient-briefly discussed with them
Monitor hemoglobin
Transfuse if needed
Monitor renal function
If renal function is worsening consider nephrology evaluation
Monitor blood sugar
Insulin supplementation as needed
DVT prophylaxis-on Eliquis
GI prophylaxis-on pantoprazole
Nutrition
Early mobilization..
Last seen by Dr. Quinn 10/09/22 and subsequently never followed up
Reviewed with nursing, and primary team and briefly with infectious disease
Diagnostic data:
Chest x-ray 07/04/2024-NAD
Chest x-ray 10/25/2024-NAD
Chest x-ray 10/27/2024-elevation right hemidiaphragm, posterior right lung base pneumonia
CT chest 07/05/2024-mild bibasilar consolidations left greater than right, mild centrilobular emphysema, 3.5 cm ovoid lesion in the left breast unchanged from 2019, 3 cm left thyroid nodule unchanged
Spirometry 10/09/22-FEV1 1 L-59%, FVC 1.6 L-69%, ratio 63
Data Reviewed
-
EKG: Report reviewed by me
Radiology: Report reviewed by me
CT Scan: Report reviewed by me
Medical Tests (Nuc Med, Echo etc): Report reviewed by me
Labs: Labs reviewed by me
Total Time Spent with Patient (in minutes): 55
[2024-10-27] MEDS: NSS 250 IV (11:56)
--- NOTE | 2024-10-27 14:57 | CM ---
CM reviewed chart, patient asleep in bedside. Pulm consulted. CM will continue to follow for all discharge planning needs.
Plan; Patient to return to [facility].
Report [phone]
[2024-10-27 15:00] VITALS: BP 151/69
--- NOTE | 2024-10-27 15:28 | W.PN.ID1 ---
Date of Service
Date of Service: October 27, 2024
Today's Communication
- procalcitonin not validated in setting of AUTUMN/CKD, not a useful test in this setting as it does not distinguish viral and bacterial pneumonia
- wean O2 as tolerated
restarted ertapenem
asking to leave tomorrow
Assessment / Plan
Fever - isolated
Hypoxemia
URI
CKD
Reported Allergy to Penicillin - unknown
Class II obesity
Asymptomatic bacturia
- procalcitonin not validated in setting of AUTUMN/CKD, not a useful test in this setting as it does not distinguish viral and bacterial pneumonia.
- wean O2 as tolerated
- sputum culture - yet to produce one and denies any coughing both yesterday and today
- CXR - basilar infiltrate likely atelectasis less likely pneumonia
- blood cultures x2 were sent - in progress
- UA with mild pyuria - however patient asymptomatic on questioning x2 and is a good historian; asymptomatic bacturia
- can restart ertapenem day 2 of therapy
- note risks of c difficile, acquisition of additional MDROs etc
- follow clinically
Chief Complaint
-: Pneumonia
Subjective / Review of Systems
afebrile
bp stable
remains on 6L of O2 however saturating in the high 90s
continues to report no cough
denies being able to produce a sputum
Vital Signs / Physical Exam
Vital Signs
Vital Signs
Temp Pulse Resp BP Pulse Ox
98.2 F 90 18 147/67 97
10/27/24 11:00 10/27/24 11:30 10/27/24 11:30 10/27/24 11:00 10/27/24 11:30
Physical Exam
Constitutional: No Acute Distress and Chronically Ill
Cardiovascular: Regular Rate and S1/S2; Negative Murmur or Rub
Pulmonary: Clear and Symmetric; Negative Wheezes or Rales
Gastrointestinal: Soft, Non Tender, Non Distended and Normal Bowel Sounds
Skin: Warm and Dry; Negative Rash or Jaundice
Objective Data
Lab Data
Lab Results
10/27/24 07:12
10/27/24 07:12
PT 20.9 Sec (11.4-14.6) H 10/26/24 05:28
INR 1.79 10/26/24 05:28
Estimated Creat Clear 19 ml/min 10/27/24 07:12
Lactic Acid 0.9 mmol/L (0.7-2.0) 10/26/24 05:28
Total Bilirubin 0.7 mg/dl (0.2-1.3) 10/25/24 14:54
AST 19 U/L (14-36) 10/25/24 14:54
ALT 11 U/L (0-35) 10/25/24 14:54
Alkaline Phosphatase 70 U/L (38-126) 10/25/24 14:54
Most recent labs reviewed.
Micro Results:
10/25/24 17:22 Urine Culture - Final
Urine Escherichia coli - ESBL
10/26/24 06:19 Blood Culture - Preliminary
Blood/Venous No Growth in 24 hours- Final report to follow
10/26/24 05:30 Blood Culture - Preliminary
Blood/Venous No Growth in 24 hours- Final report to follow
10/25/24 14:54 Influenza Types A & B ([place]) - Final
Nasal Swab Negative for Influenza A & B, NAAT
Negative results must be combined with clinical observations
and patient history.
Nucleic Acid Amplification test (NAAT)performed on the
[employer] platform.
[2024-10-27] MEDS: ZETIA 10 MG PO (15:32)
[2024-10-27] MEDS: INVANZ 55 MG IV (17:28)
[2024-10-27 19:33] VITALS: BP 123/52
[2024-10-27] MEDS: NEURONTIN 200 MG PO (20:24)
[2024-10-27] MEDS: TYLENOL 650 MG PO (20:25)
[2024-10-27] MEDS: SENOKOT 8.6 MG PO (20:25)
[2024-10-27 23:20] VITALS: BP 121/52
[2024-10-28] VITALS (7 sets, daily range): BP systolic 115–166; BP diastolic 53–94; O2SAT 98; BMI 36.8
[2024-10-28] MEDS: SYMBICORT 80/4.5 MCG INHALER 2 PUFF INH ×2 (07:46→19:42)
[2024-10-28] MEDS: DUONEB 3 ML INH ×3 (07:46→19:42)
[2024-10-28 08:04] LABS: Hematocrit 30.1 % (37.0-47.0); Hemoglobin 8.7 g/dL (12.0-16.0); Mean Corp Hgb Conc. 28.9 g/dL (33.0-37.0); Mean Corpuscular Hgb 26.5 pg (27.0-31.0); Mean Corpuscular Volume 91.8 fL (81.0-99.0); Mean Platelet Volume 10.1 fL (7.4-10.4); Platelet Count 142 10^3/uL (130-400); Red Blood Cell Count 3.28 10^6/uL (4.20-5.40); White Blood Cell Count 5.6 10^3/uL (4.8-10.8)
[2024-10-28 08:26] LABS: Blood Urea Nitrogen 38 mg/dl (7-17); Calcium 9.1 mg/dl (8.4-10.2); Carbon Dioxide 32 mmol/L (22-30); Chloride 101 mmol/L (98-107); Estimated Creatinine Clearance 26 ml/min; Glucose 104 mg/dl (70-99); Magnesium 2.1 mg/dl (1.6-2.3); Potassium 4.4 mmol/L (3.5-5.1); Sodium 138 mmol/L (135-145); eGFR 28.67
[2024-10-28 08:34] LABS: Anisocytosis Slight; Hypochromasia 1+; Normal RBC Morphology No
[2024-10-28 08:35] LABS: % Basophils 0.5 % (0-2); % Eosinophils 5.2 % (0-6); % Immature Granulocytes 0.5 % (0-0.5); % Lymphocytes 10.7 % (20.5-51.1); % Monocytes 16.5 % (1.7-9.3); % Neutrophils 66.6 % (42.2-75.2); Absolute Eosinophils 0.3 10^3/uL (0-0.7); Absolute Lymphocytes 0.6 10^3/uL (1.2-3.4); Absolute Monocytes 0.9 10^3/uL (0.1-0.6); Absolute Neutrophils 3.8 10^3/uL (1.4-6.5); Nucleated Red Blood Cells % 0 %
[2024-10-28] MEDS: PROCARDIA XL (EXTENDED RELEASE) 90 MG PO (08:46)
[2024-10-28] MEDS: TYLENOL 650 MG PO ×2 (08:48→20:28)
[2024-10-28] MEDS: PROTONIX 40 MG PO (08:48)
[2024-10-28] MEDS: FLEXERIL 5 MG PO (08:48)
[2024-10-28] MEDS: COREG 6.25 MG PO ×2 (08:48→20:27)
[2024-10-28] MEDS: COZAAR 100 MG PO (08:49)
[2024-10-28] MEDS: CLARITIN 10 MG PO (08:50)
[2024-10-28] MEDS: ELIQUIS 5 MG PO ×2 (08:50→20:27)
[2024-10-28] MEDS: NEURONTIN 100 MG PO ×2 (08:50→16:29)
[2024-10-28] MEDS: COLACE 100 MG PO (08:50)
[2024-10-28] MEDS: LOW STRENGTH ASPIRIN 81 MG PO (08:50)
[2024-10-28] MEDS: FEOSOL 325 MG PO (08:50)
[2024-10-28] MEDS: MUCINEX 600 MG PO ×2 (08:51→20:27)
--- NOTE | 2024-10-28 09:13 | W.PN.PUL3 ---
Today's Communication / Plan
-
Continue Symbicort + DuoNebs QID
Wean down supplemental oxygen and keep SpO2 88-95%
Abx per ID
Up OOB as tolerated
Blood gas from 10/25/2024showed compensated hypercapnia --> check blood gas tomorrow AM to assure pH and pCO2 remain stable
Assessment
-
89-year-old former smoking female with a history of COPD oxygen dependent, hypertension, hyperlipidemia, CAD, CVA, bilateral lower extremity DVT on anticoagulation recently admitted with metabolic encephalopathy attributed to bronchitis and UTI and
now returns from long-term hypoxemic found to have a pneumonia-pulmonary consulted for shortness of breath/hypoxemia and pneumonia 10/27/2024.
Pneumonia-long-term patient
Leukocytosis
Elevated procalcitonin
Jhmiyd-qokjjcosqk-lfaygsbust 9.0
Chronic hypercapnia-ABG 10/25/2024--57/73/7.36
AUTUMN
Hyperglycemia
UTI with ESBL E. coli
Conditions present prior to admission:
CAD.
COPD-3 L oxygen
Former [id number]-year.
Hypertension.
Hyperlipidemia.
Diabetes.
Bilateral DVT.
Chronic kidney disease.
CVA.
Plan
Respiratory decompensation likely related to pneumonia in a patient with COPD and aspiration risk
Continue supplemental oxygen and wean down as tolerated while keeping SpO2 88-95%
Continue inhalers-Symbicort 80mcg with Duonebs QID
Nebulizers continue as well-DuoNebs
Mucolytics-on Mucinex 600 twice daily.
Aspiration precautions.
Incentive spirometry q1hr while awake
Mucous clearing devices if needed
Sputum culture-unable to produce
Influenza negative
Urine culture-E. coli-ESBL --> ID consulted, and pt currently on Invaz
Blood cultures negative
Monitor hemoglobin
Transfuse if needed to keep Hb>7
Trend renal function (baseline Cr 1-1.3)
If renal function is worsening consider nephrology evaluation
Monitor blood sugar with goal BG >100 and <180mg/dL
Insulin supplementation as needed
DVT prophylaxis-on Eliquis
GI prophylaxis-on pantoprazole
Nutrition
Early mobilization..
Last seen by Dr. Quinn 10/09/22 and subsequently never followed up
Reviewed with nursing, and primary team and briefly with infectious disease
Diagnostic data:
Chest x-ray 07/04/2024-NAD
Chest x-ray 10/25/2024-NAD
Chest x-ray 10/27/2024-elevation right hemidiaphragm, posterior right lung base pneumonia
CT chest 07/05/2024-mild bibasilar consolidations left greater than right, mild centrilobular emphysema, 3.5 cm ovoid lesion in the left breast unchanged from 2019, 3 cm left thyroid nodule unchanged
Spirometry 10/09/22-FEV1 1 L-59%, FVC 1.6 L-69%, ratio 63
Total time spent today was 37 minutes for this encounter. Time includes reviewing laboratory test/imaging results, reviewing pertinent medical records, obtaining and reviewing medical history, performing an appropriate exam, ordering medications,
tests and procedures. Time also includes documentation of this encounter, coordinating patient care and communicating with other healthcare professionals. Total time does not include separately billed tests performed on this date of service.
Subjective Data
-
Date of Service:
Date of Service: October 28, 2024
Chief Complaint: Pulmonary Follow Up
Subjective:
Patient seen and evaluated this morning. On 6 L/min midflow NC and sleeping in no acute distress. No cough or sputum production reported. Also no GIBBS, nausea, fevers or chills.
Review of Systems
General: Other (Negative unless mentioned above)
Objective Data
Data Reviewed
Vital Signs / I&O / Oxygen:
Vital Signs
Temp Pulse Resp BP Pulse Ox
97.2 F 88 20 133/53 95
10/28/24 07:28 10/28/24 07:49 10/28/24 07:49 10/28/24 07:28 10/28/24 07:49
Intake and Output
10/27/24 10/28/24 10/29/24
06:59 06:59 06:59
Intake Total 1310 / 1310 250 / 250
Balance 1310 / 1310 250 / 250
SaO2 95
Nasal Cannula flow liters per 7
minute
Physical Exam
General: Respiratory Distress (negative), Comfortable and Chills (negative)
HEENT: Normocephalic and Anicteric
Cardiovascular: S1-S2 and Peripheral Edema (negative)
Respiratory: Wheeze (negative), Crackles (negative), Rhonchi (negative), Stridor (negative) and Other (Diminished breath sounds bilaterally)
GI: Soft, Non Distended, Non Tender and Normal Bowel Sounds
Neurology: Awake, Alert and Tremors (negative)
Skin: Warm, Dry, Cyanosis (negative) and Jaundice (negative)
Labs/Micro/Reports
Lab Data
10/28/24 07:15
10/28/24 07:15
Microbiology
10/26/24 06:19 Blood/Venous Blood Culture - Preliminary
No Growth in 48 hours- Final report to follow
10/26/24 05:30 Blood/Venous Blood Culture - Preliminary
No Growth in 48 hours- Final report to follow
10/25/24 17:22 Urine Urine Culture - Final
Escherichia coli - ESBL
10/25/24 14:54 Nasal Swab Influenza Types A & B ([place]) - Final
Negative for Influenza A & B, NAAT
Negative results must be combined with clinical observations
and patient history.
Nucleic Acid Amplification test (NAAT)performed on the
[employer] platform.
--- NOTE | 2024-10-28 10:09 | W.PN.HOSP.TC ---
Today's Communication/Plan
-
IV Ertapenem
appreciate consultants
Patient told she'll need to reschedule opthalmology appointment
Assessment / Plan
Assessment / Plan
IMPRESSION:
89-year-old multiple comorbidities who presented to the emergency department with episode of unresponsiveness at the emergency department. Patient is not aware of any alteration in mental or physical status. She remembers being spoken to but not
responding. She could not tell me why she did not respond. In the Emergency Department she was found to be hypoxic. Chest x-ray is unchanged from prior and shows no acute infiltrates. Viral panel was negative. She was requiring more oxygen than
her baseline and is currently on 6 L. ABG shows chronic respiratory acidosis with hypoxia. She had a leukocytosis to 17, UA was again markedly positive with nitrite leukocyte esterase and pyuria. Although she is asymptomatic given the alteration
in mental status there is concern for toxic metabolic encephalopathy secondary to urinary tract infection. Lung exam with clear without wheezes or crackles. She has been on anticoagulation with Eliquis.
CXR
IMPRESSION:
No active cardiopulmonary disease.
HEAD CT
IMPRESSION:
No evidence of acute intracranial abnormality.
PLAN:
TME in setting of hypoxia at NH
-O2 supplementation given, patient awake/alert but remains on 6-7L
Hypoxic Resp Failure
Pneumonia seen on repeat CXR
- Flu/covid neg
- maintain sat > 93 and titrate o2 as tolerate
- saline nasal spray.
- nebs and continue home ics laba,
- start mucinex, acapella
-appreciate Pulmonary and ID consults, IV Ertapenem started to also cover ESBL UTI
ESBL UTI
-IV Ertapenem per ID
3. HTN BP stable at this time
- continue coreg and nifedipine w/ hold parameters
Acute on Chronic Kidney disease
-worsening renal function post Lasix
-improved post fluids
-hold lasix another day
4. DVT
- continue eliquis
5. DM II
-will order Regular diet, patient denies history of DM
Code status - Full Code
51 minutes spent on patient care
Anticipated Discharge: 24 - 48 hours
Subjective/Interval History
-
Date of Service: October 28, 2024
feeling fine, hoping to leave today but still on 7L
Objective Data
-
Labs:
Laboratory Results
10/28/24
07:15
WBC 5.6
Hgb 8.7 L
Hct 30.1 L
Plt Count 142
Sodium 138
Potassium 4.4
Chloride 101
Carbon Dioxide 32 H
BUN 38 H
Creatinine 1.7 H
Glucose 104 H
Calcium 9.1
Vital Signs:
Vital Signs
Temp Pulse Resp BP Pulse Ox
97.2 F 88 20 133/53 95
10/28/24 07:28 10/28/24 07:49 10/28/24 07:49 10/28/24 07:28 10/28/24 07:49
I&O
10/27/24 10/28/24 10/29/24
06:59 06:59 06:59
Intake Total 1310 / 1310 250 / 250
Balance 1310 / 1310 250 / 250
Review of Systems
-
History Source: Patient
All other systems: Reviewed and negative
Physical Exam
-
General: Well Developed, Well Nourished and Obese
HEENT: Normocephalic and Atraumatic
Respiratory: Decreased Breath Sounds; Negative Wheezes
Cardiac: Regular Rhythm and S1/S2
GI: Soft, Nontender and Nondistended
Musculoskeletal: No Clubbing, No Cyanosis and No Edema
Skin: Other (venous stasis discoloration)
Neuro: Awake, Alert and AO x 3
Psych: Calm
Data Reviewed
-
Diagnostic Radiology: Report Reviewed by me
Labs: Labs Reviewed by me
--- NOTE | 2024-10-28 10:16 | CM ---
CM reviewed chart, patient seen bedside, reports no concerns to CM at this time. Patient LTC resident at [facility], will return when stable. CM reviewed IMM verbally, provided with copy, placed in chart. CM will continue to follow for all
discharge planning needs.
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
Report [phone]
--- NOTE | 2024-10-28 10:56 | W.PN.ID1 ---
Date of Service
Date of Service: October 28, 2024
Today's Communication
- wean O2 as tolerated
- c/w ertapenem day 3 of therapy
- note risks of c difficile, acquisition of additional MDROs etc
- follow clinically
Assessment / Plan
Fever - isolated
Hypoxemia
URI
CKD
Reported Allergy to Penicillin - unknown
Class II obesity
Asymptomatic bacturia
- procalcitonin not validated in setting of AUTUMN/CKD, not a useful test in this setting as it does not distinguish viral and bacterial pneumonia.
- wean O2 as tolerated
- sputum culture - yet to produce one and denies any coughing both yesterday and today
- CXR - basilar infiltrate likely atelectasis less likely pneumonia
- blood cultures x2 were sent - in progress
- UA with mild pyuria - however patient asymptomatic on questioning x2 and is a good historian; asymptomatic bacturia
- c/w ertapenem day 3 of therapy
- note risks of c difficile, acquisition of additional MDROs etc
- follow clinically
Chief Complaint
-: Pneumonia
Subjective / Review of Systems
afebrile
bp stable
now on midflow at 7 L sating 95%
continues to report no cough or sputum production
Vital Signs / Physical Exam
Vital Signs
Vital Signs
Temp Pulse Resp BP Pulse Ox
97.2 F 88 20 133/53 95
10/28/24 07:28 10/28/24 07:49 10/28/24 07:49 10/28/24 07:28 10/28/24 07:49
Physical Exam
Constitutional: No Acute Distress and Chronically Ill
Cardiovascular: Regular Rate and S1/S2; Negative Murmur or Rub
Pulmonary: Clear and Symmetric; Negative Wheezes or Rales
Gastrointestinal: Soft, Non Tender, Non Distended and Normal Bowel Sounds
Skin: Warm and Dry; Negative Rash or Jaundice
Objective Data
Lab Data
Lab Results
10/28/24 07:15
10/28/24 07:15
PT 20.9 Sec (11.4-14.6) H 10/26/24 05:28
INR 1.79 10/26/24 05:28
Estimated Creat Clear 26 ml/min 10/28/24 07:15
Lactic Acid 0.9 mmol/L (0.7-2.0) 10/26/24 05:28
Total Bilirubin 0.7 mg/dl (0.2-1.3) 10/25/24 14:54
AST 19 U/L (14-36) 10/25/24 14:54
ALT 11 U/L (0-35) 10/25/24 14:54
Alkaline Phosphatase 70 U/L (38-126) 10/25/24 14:54
Most recent labs reviewed.
Micro Results:
10/26/24 06:19 Blood Culture - Preliminary
Blood/Venous No Growth in 48 hours- Final report to follow
10/26/24 05:30 Blood Culture - Preliminary
Blood/Venous No Growth in 48 hours- Final report to follow
10/25/24 17:22 Urine Culture - Final
Urine Escherichia coli - ESBL
10/25/24 14:54 Influenza Types A & B ([place]) - Final
Nasal Swab Negative for Influenza A & B, NAAT
Negative results must be combined with clinical observations
and patient history.
Nucleic Acid Amplification test (NAAT)performed on the
[employer] platform.
--- NOTE | 2024-10-28 13:16 | PN.CDI ---
CDI
- -
CDI:
Physician Documentation Request
Admit Date: 10/25/24 20:17
Dear Doctor Sunny,
Patient admitted with TME.
10/28 PN, 'ESBL UTI....IV Ertapenem per ID.'
On admission, WBC 17.7, and T max 101
Please clarify which of the following most accurately describes the status of the patient's infection:
Sepsis, POA
UTI only
Other
Sepsis
- Systemic manifestations of infection, with 2 or more SIRS criteria which include:
- Fever >100.4 degrees F or hypothermia < 96.8 degrees F
- Leukocytosis - WBC > 12,000 or leukopenia - WBC < 4,000 or > 10% bands
- Tachycardia > 90 beats per minute
- Tachypnea - RR > 20 breaths per minute or PaCO2 , 32mmHg
Source: Merck Manual 2013
- Indicate the known or suspected organism
- Indicate the known or suspected underlying infection, such as UTI
Localized Infection Only, Without Systemic Illness
- indicate the site/source, such as UTI
Other
Use of terms such as suspected, likely, concern for, or probable (associated with a specific diagnosis that is being evaluated, monitored, or treated as if it exists) are acceptable and can be coded in the inpatient setting, when documented at the
time of discharge.
Thank you,
Ginny POLO,RN,CCDS
CDI Specialist
Available via [place] text
Please use your independent medical judgment in providing your response.
--- NOTE | 2024-10-28 13:31 | PN.CDI ---
CDI
- -
CDI:
Physician Documentation Request
Admit Date: 10/25/24 20:17
Dear Doctor Sunny,
Patient admitted with TME.
10/27 Pulmonary PN, 'She states that she is chronically on oxygen 3-4 L.'
10/28 PN, '...is currently on 6 L...Hypoxic Resp Failure'
Based on the above documentation, please provide in your note the acuity/ acuities of the documented hypoxic respiratory failure:
Acute on chronic hypoxic respiratory failure
Acute hypoxic respiratory failure
Chronic hypoxic respiratory failure
Other
Use of terms such as suspected, likely, concern for, or probable (associated with a specific diagnosis that is being evaluated, monitored, or treated as if it exists) are acceptable and can be coded in the inpatient setting, when documented at the
time of discharge.
Thank you,
Ginny SMALLSN,RN,CCDS
CDI Specialist
Available via [place] text
Please use your independent medical judgment in providing your response.
--- NOTE | 2024-10-28 13:49 | PN.CDI ---
CDI
- -
CDI:
Physician Documentation Request
Admit Date: 10/25/24 20:17
Dear Doctor Sunny,
Patient admitted with TME.
10/27 PN, 'CXR IMPRESSION:No active cardiopulmonary disease.'
10/28 PN, 'Pneumonia seen on repeat CXR.'
After careful study, please clarify the following:
Pneumonia was present on admission
Pneumonia evolved during hospitalization
Other
Use of terms such as suspected, likely, concern for, or probable (associated with a specific diagnosis that is being evaluated, monitored, or treated as if it exists) are acceptable and can be coded in the inpatient setting, when documented at the
time of discharge.
Thank you,
Ginny POLO,RN,CCDS
CDI Specialist
Available via [place] text
Please use your independent medical judgment in providing your response.
[2024-10-28] MEDS: DUONEB INH (15:23)
[2024-10-28] MEDS: INVANZ 55 MG IV (16:28)
[2024-10-28] MEDS: ZETIA 10 MG PO (16:36)
[2024-10-28] MEDS: NEURONTIN 200 MG PO (20:28)
[2024-10-28] MEDS: SENOKOT 8.6 MG PO (20:29)
[2024-10-29 03:38] VITALS: BP 129/54
[2024-10-29 05:19] VITALS: BMI 36.3
[2024-10-29 06:00] VITALS: BMI 36.3
[2024-10-29 07:09] LABS: Venous Blood Gas B.E. 7.9 mmol/L (-4 to +4); Venous Blood Gas HCO3 35.1 mmol/L (22-27); Venous Blood Gas O2 Sat % 99.6 %; Venous Blood Gas pCO2 65 mmHg (35-48); Venous Blood Gas pH 7.34 (7.32-7.43); Venous Blood Gas pO2 134 mmHg (30-50)
[2024-10-29 07:20] LABS: Hematocrit 30.2 % (37.0-47.0); Hemoglobin 8.6 g/dL (12.0-16.0); Mean Corp Hgb Conc. 28.5 g/dL (33.0-37.0); Mean Corpuscular Hgb 26.2 pg (27.0-31.0); Mean Corpuscular Volume 92.1 fL (81.0-99.0); Mean Platelet Volume 9.6 fL (7.4-10.4); Platelet Count 168 10^3/uL (130-400); Red Blood Cell Count 3.28 10^6/uL (4.20-5.40); Red Cell Dist. Width 16.7 % (11.5-14.5)
[2024-10-29] MEDS: SYMBICORT 80/4.5 MCG INHALER 2 PUFF INH ×2 (07:43→20:48)
[2024-10-29] MEDS: DUONEB 3 ML INH ×4 (07:43→20:48)
[2024-10-29 07:50] VITALS: BP 146/69
[2024-10-29 08:26] LABS: Blood Urea Nitrogen 26 mg/dl (7-17); Calcium 9.3 mg/dl (8.4-10.2); Carbon Dioxide 33 mmol/L (22-30); Chloride 104 mmol/L (98-107); Estimated Creatinine Clearance 34 ml/min; Glucose 126 mg/dl (70-99); Potassium 4.4 mmol/L (3.5-5.1); Sodium 141 mmol/L (135-145); eGFR 39.55
--- NOTE | 2024-10-29 08:29 | W.PN.PUL3 ---
Today's Communication / Plan
-
Continue Symbicort + DuoNebs QID
Resume Trelegy upon discharge back to [facility]
Wean down supplemental oxygen and keep SpO2 88-95%
Abx per ID
Up OOB as tolerated
Blood gas from 10/25/2024 showed compensated hypercapnia --> blood gas today shows stable pH despite worsening pCO2
Advised to use BiPAP with sleep but she is too claustrophobic and not amenable to trying PAP even with different types of masks
This can be rediscussed in the office which we will arrange
No additional recommendations at this time. Pulmonary service will now sign off. Please reconsult if there are any additional questions/concerns, or if patient's respiratory status deteriorates.
Assessment
-
89-year-old former smoking female with a history of COPD oxygen dependent, hypertension, hyperlipidemia, CAD, CVA, bilateral lower extremity DVT on anticoagulation recently admitted with metabolic encephalopathy attributed to bronchitis and UTI and
now returns from care home hypoxemic found to have a pneumonia-pulmonary consulted for shortness of breath/hypoxemia and pneumonia 10/27/2024.
Pneumonia-care home patient
Leukocytosis - resolved
Elevated procalcitonin
Anemia - stable
Chronic hypercapnia-ABG 10/25/2024--57/73/7.36
AUTUMN - improving and back to baseline today
Hyperglycemia - normalized
UTI with ESBL E. coli
Conditions present prior to admission:
CAD.
COPD-3 L oxygen
Former [id number].
Hypertension.
Hyperlipidemia.
Diabetes.
Bilateral DVT.
Chronic kidney disease.
CVA.
Plan
Respiratory decompensation likely related to pneumonia in a patient with COPD and aspiration risk
- She has markedly improved and sounds clear today, and denies SOB or cough
Continue supplemental oxygen and wean down as tolerated while keeping SpO2 88-95%
Continue inhalers-Symbicort 80mcg with Duonebs QID
Resume Trelegy upon discharge
Mucolytics-on Mucinex 600mg twice daily.
Aspiration precautions.
Incentive spirometry q1hr while awake
Mucous clearing devices if needed
Sputum culture-unable to produce
Influenza negative
Urine culture-E. coli-ESBL --> ID consulted, and pt changed from Invaz to levaquin today
Blood cultures negative
Monitor hemoglobin
Transfuse if needed to keep Hb>7
Trend renal function (baseline Cr 1-1.3)
If renal function is worsening consider nephrology evaluation
Monitor blood sugar with goal BG >100 and <180mg/dL
Insulin supplementation as needed
DVT prophylaxis-on Eliquis
GI prophylaxis-on pantoprazole
Nutrition
Early mobilization..
Last seen by Dr. Quinn 10/09/22 and subsequently never followed up --> will arrange for follow up with us after discharge
Reviewed with nursing, and primary team and briefly with infectious disease
No additional recommendations at this time. Pulmonary service will now sign off. Thank you for allowing us to be involved in the care of this patient. Please reconsult if there are any additional questions/concerns, or if patient's respiratory
status deteriorates.
Diagnostic data:
Chest x-ray 07/04/2024-NAD
Chest x-ray 10/25/2024-NAD
Chest x-ray 10/27/2024-elevation right hemidiaphragm, posterior right lung base pneumonia
CT chest 07/05/2024-mild bibasilar consolidations left greater than right, mild centrilobular emphysema, 3.5 cm ovoid lesion in the left breast unchanged from 2019, 3 cm left thyroid nodule unchanged
Spirometry 10/09/22-FEV1 1 L-59%, FVC 1.6 L-69%, ratio 63
Total time spent today was 39 minutes for this encounter. Time includes reviewing laboratory test/imaging results, reviewing pertinent medical records, obtaining and reviewing medical history, performing an appropriate exam, ordering medications,
tests and procedures. Time also includes documentation of this encounter, coordinating patient care and communicating with other healthcare professionals. Total time does not include separately billed tests performed on this date of service.
Subjective Data
-
Date of Service:
Date of Service: October 29, 2024
Chief Complaint: Pulmonary Follow Up
Subjective:
Patient doing well this morning. Currently on 5 L/min nasal cannula. Has a mild cough but it is not bothersome. Blood gas this morning shows evidence of chronic hypercapnia. She is not amenable to starting BiPAP due to claustrophobia. Currently
denies shortness of breath or chest pain.
Review of Systems
General: Other (Negative unless mentioned above)
Objective Data
Data Reviewed
Vital Signs / I&O / Oxygen:
Vital Signs
Temp Pulse Resp BP Pulse Ox
97.3 F 70 18 129/54 97
10/29/24 03:38 10/29/24 07:45 10/29/24 07:45 10/29/24 03:38 10/29/24 07:45
Intake and Output
10/28/24 10/29/24 10/30/24
06:59 06:59 06:59
Intake Total 250 / 250 240 / 240
Balance 250 / 250 240 / 240
SaO2 97
Nasal Cannula flow liters per 6
minute
Physical Exam
General: Respiratory Distress (negative), Comfortable, Chills (negative) and Good Appetite
HEENT: Normocephalic and Anicteric
Cardiovascular: S1-S2 and Peripheral Edema (negative)
Respiratory: Clear, Wheeze (negative), Crackles (negative), Rhonchi (negative), Non-Labored Respirations, Stridor (negative) and Other (Diminished breath sounds bilaterally)
GI: Soft, Distended (Abdominal obesity), Non Tender and Normal Bowel Sounds
Neurology: AO x 3 and Tremors (negative)
Skin: Warm, Dry, Cyanosis (negative) and Jaundice (negative)
Labs/Micro/Reports
Lab Data
10/29/24 07:00
10/29/24 07:00
Microbiology
10/26/24 06:19 Blood/Venous Blood Culture - Preliminary
No Growth in 72 hours- Final report to follow
10/26/24 05:30 Blood/Venous Blood Culture - Preliminary
No Growth in 72 hours- Final report to follow
10/25/24 17:22 Urine Urine Culture - Final
Escherichia coli - ESBL
[2024-10-29] MEDS: COZAAR 100 MG PO (09:19)
[2024-10-29] MEDS: FLEXERIL 5 MG PO (09:20)
[2024-10-29] MEDS: FEOSOL 325 MG PO (09:20)
[2024-10-29] MEDS: ELIQUIS 5 MG PO ×2 (09:20→20:33)
[2024-10-29] MEDS: COREG 6.25 MG PO ×2 (09:20→20:33)
[2024-10-29] MEDS: PROCARDIA XL (EXTENDED RELEASE) 90 MG PO (09:20)
[2024-10-29] MEDS: LOW STRENGTH ASPIRIN 81 MG PO (09:20)
[2024-10-29] MEDS: COLACE 100 MG PO (09:21)
[2024-10-29] MEDS: NEURONTIN 100 MG PO ×2 (09:21→17:01)
[2024-10-29] MEDS: MUCINEX 600 MG PO ×2 (09:21→20:34)
[2024-10-29] MEDS: CLARITIN 10 MG PO (09:21)
[2024-10-29] MEDS: PROTONIX 40 MG PO (09:21)
--- NOTE | 2024-10-29 10:43 | W.PN.ID1 ---
Date of Service
Date of Service: October 29, 2024
Today's Communication
- would wean O2 as tolerated
- dose of levaquin today, will be at effective level for 48 hours at this dose - which will complete a 5 day course
- follow up with PCP
Assessment / Plan
Fever - isolated
Hypoxemia
URI
CKD
Reported Allergy to Penicillin - unknown
Class II obesity
Asymptomatic bacturia
- would wean O2 as tolerated
- dose of levaquin today, will be at effective level for 48 hours at this dose - which will complete a 5 day course
- follow up with PCP
Chief Complaint
-: Pneumonia
Subjective / Review of Systems
afebrile
bp stable
remains on 6L saturating 96%
Vital Signs / Physical Exam
Vital Signs
Vital Signs
Temp Pulse Resp BP Pulse Ox
98.0 F 87 20 146/69 96
10/29/24 07:50 10/29/24 09:20 10/29/24 07:50 10/29/24 09:20 10/29/24 07:50
Physical Exam
Constitutional: No Acute Distress
Cardiovascular: Regular Rate and S1/S2; Negative Murmur or Rub
Pulmonary: Clear and Symmetric; Negative Wheezes or Rales
Gastrointestinal: Soft, Non Tender, Non Distended and Normal Bowel Sounds
Skin: Warm and Dry; Negative Rash or Jaundice
Objective Data
Lab Data
Lab Results
10/29/24 07:00
10/29/24 07:00
PT 20.9 Sec (11.4-14.6) H 10/26/24 05:28
INR 1.79 10/26/24 05:28
Estimated Creat Clear 34 ml/min 10/29/24 07:00
Lactic Acid 0.9 mmol/L (0.7-2.0) 10/26/24 05:28
Total Bilirubin 0.7 mg/dl (0.2-1.3) 10/25/24 14:54
AST 19 U/L (14-36) 10/25/24 14:54
ALT 11 U/L (0-35) 10/25/24 14:54
Alkaline Phosphatase 70 U/L (38-126) 10/25/24 14:54
Most recent labs reviewed.
Micro Results:
10/26/24 06:19 Blood Culture - Preliminary
Blood/Venous No Growth in 72 hours- Final report to follow
10/26/24 05:30 Blood Culture - Preliminary
Blood/Venous No Growth in 72 hours- Final report to follow
10/25/24 17:22 Urine Culture - Final
Urine Escherichia coli - ESBL
10/25/24 14:54 Influenza Types A & B ([place]) - Final
Nasal Swab Negative for Influenza A & B, NAAT
Negative results must be combined with clinical observations
and patient history.
Nucleic Acid Amplification test (NAAT)performed on the
[employer] platform.
Care Review
Plan reviewed with: Physician (Dr Correa - henriettao)
--- NOTE | 2024-10-29 10:49 | W.PN.HOSP.TC ---
Addendum entered and electronically signed by Adrianna Correa MD 10/29/24 11:01:
sepsis POA 2/2 laryngitis with F/U CXR showing pneumonia, IV antibiotics as below
Pneumonia likely present on admission
Acute on chronic hypoxic respiratory failure
- wean O2 as able
Original Note:
Today's Communication/Plan
-
wean O2 as able
apprciate specialists
Assessment / Plan
Assessment / Plan
IMPRESSION:
89-year-old multiple comorbidities who presented to the emergency department with episode of unresponsiveness in setting of hypoxia with mentation improved on O2, repeat CXR with evidence of pneumonia.
CXR 10/25/24
IMPRESSION:
No active cardiopulmonary disease.
HEAD CT
IMPRESSION:
No evidence of acute intracranial abnormality.
CXR 10/27/24
IMPRESSION:
There is elevation of the right hemidiaphragm with hazy opacification at the posterior right lung base suggesting pneumonia
PLAN:
TME in setting of hypoxia at NH
-O2 supplementation given, patient awake/alert but remains on 6L
Hypoxic Resp Failure
Pneumonia seen on repeat CXR
- Flu/covid neg
- maintain sat > 93 and titrate o2 as tolerate
- saline nasal spray.
- nebs and continue home ics laba,
- start mucinex, acapella
-appreciate Pulmonary and ID consults, IV Ertapenem started to also cover ESBL UTI
ESBL UTI
-IV Ertapenem per ID
3. HTN BP stable at this time
- continue coreg and nifedipine w/ hold parameters
Acute on Chronic Kidney disease
-worsening renal function post Lasix
-improved post fluids
- resume lasix
4. DVT
- continue eliquis
5. DM II
-will order Regular diet, patient denies history of DM
Code status - Full Code
51 minutes spent on patient care
Anticipated Discharge: 24 - 48 hours
Subjective/Interval History
-
Date of Service: October 29, 2024
woke up fast, felt a little nauseated and lightheaded
Objective Data
-
Labs:
Laboratory Results
10/29/24
07:00
WBC 5.0
Hgb 8.6 L
Hct 30.2 L
Plt Count 168
Sodium 141
Potassium 4.4
Chloride 104
Carbon Dioxide 33 H
BUN 26 H
Creatinine 1.3 H
Glucose 126 H
Calcium 9.3
Vital Signs:
Vital Signs
Temp Pulse Resp BP Pulse Ox
98.0 F 87 20 146/69 96
10/29/24 07:50 10/29/24 09:20 10/29/24 07:50 10/29/24 09:20 10/29/24 07:50
I&O
10/28/24 10/29/24 10/30/24
06:59 06:59 06:59
Intake Total 250 / 250 240 / 240
Balance 250 / 250 240 / 240
Review of Systems
-
History Source: Patient
All other systems: Reviewed and negative
Physical Exam
-
General: Well Developed, Well Nourished and Obese
HEENT: Normocephalic and Atraumatic
Respiratory: Decreased Breath Sounds; Negative Wheezes
Cardiac: Regular Rhythm and S1/S2
GI: Soft, Nontender and Nondistended
Musculoskeletal: No Clubbing, No Cyanosis and No Edema
Skin: Other (venous stasis discoloration)
Neuro: Awake, Alert and AO x 3
Psych: Calm
Data Reviewed
-
Diagnostic Radiology: Report Reviewed by me
Labs: Labs Reviewed by me
[2024-10-29] MEDS: LEVAQUIN 750 MG PO (11:02)
[2024-10-29] MEDS: ZOFRAN 4 MG IV (11:03)
[2024-10-29 11:38] VITALS: BP 117/57
--- NOTE | 2024-10-29 14:20 | CM ---
CM reviewed chart, patient remains on 6L O2. Patient LTC resident at [facility], will return when stable. CM will continue to follow for all discharge planning needs.
Plan; Patient to return to [facility], retirement resident.
Report [phone]
[2024-10-29 15:48] VITALS: BP 121/54
[2024-10-29] MEDS: ZETIA 10 MG PO (17:00)
[2024-10-29 19:48] VITALS: BP 152/67
[2024-10-29] MEDS: NEURONTIN 200 MG PO (20:34)
[2024-10-29] MEDS: SENOKOT 8.6 MG PO (20:34)
[2024-10-29 23:52] VITALS: BP 148/64
[2024-10-30 03:28] VITALS: BP 143/64
[2024-10-30 07:05] VITALS: BP 145/65
[2024-10-30] MEDS: SYMBICORT 80/4.5 MCG INHALER 2 PUFF INH (07:10)
[2024-10-30 11:02] VITALS: BP 146/85
--- NOTE | 2024-10-30 11:37 | W.PN.HOSP.TC ---
Today's Communication/Plan
-
dispo planning back to [place]
Assessment / Plan
Assessment / Plan
IMPRESSION:
89-year-old multiple comorbidities who presented to the emergency department with episode of unresponsiveness in setting of hypoxia with mentation improved on O2, repeat CXR with evidence of pneumonia.
CXR 10/25/24
IMPRESSION:
No active cardiopulmonary disease.
HEAD CT
IMPRESSION:
No evidence of acute intracranial abnormality.
CXR 10/27/24
IMPRESSION:
There is elevation of the right hemidiaphragm with hazy opacification at the posterior right lung base suggesting pneumonia
PLAN:
TME in setting of hypoxia at [place]
-O2 supplementation given, patient awake/alert and now down to 3L
Hypoxic Resp Failure
Pneumonia seen on repeat CXR
- Flu/covid neg
- maintain sat > 93 and titrate o2 as tolerate
- saline nasal spray.
- nebs and continue home ics laba,
- start mucinex, acapella
-appreciate Pulmonary and ID consults, IV Ertapenem started to also cover ESBL UTI; s/p 1dose Levaquin now will have 5 days coverage
ESBL UTI
-s/p treatment
3. HTN BP stable at this time
- continue coreg and nifedipine w/ hold parameters
Acute on Chronic Kidney disease
-worsening renal function post Lasix
-improved post fluids
- resume lasix
4. DVT
- continue eliquis
5. DM II
-will order Regular diet, patient denies history of DM
Code status - Full Code
51 minutes spent on patient care
Anticipated Discharge: Within 24 hours
Subjective/Interval History
-
Date of Service: October 30, 2024
feeling well
hoping to go home today
Objective Data
-
Vital Signs:
Vital Signs
Temp Pulse Resp BP Pulse Ox
98.3 F 77 18 145/65 95
10/30/24 07:05 10/30/24 07:13 10/30/24 07:13 10/30/24 07:05 10/30/24 07:13
I&O
10/29/24 10/30/24 10/31/24
06:59 06:59 06:59
Intake Total 240 / 240 420 / 420 480 / 480
Balance 240 / 240 420 / 420 480 / 480
Review of Systems
-
History Source: Patient
All other systems: Reviewed and negative
Physical Exam
-
General: Well Developed, Well Nourished and Obese
HEENT: Normocephalic and Atraumatic
Respiratory: Decreased Breath Sounds; Negative Wheezes
Cardiac: Regular Rhythm and S1/S2
GI: Soft, Nontender and Nondistended
Musculoskeletal: No Clubbing, No Cyanosis and No Edema
Skin: Other (venous stasis discoloration)
Neuro: Awake, Alert and AO x 3
Psych: Calm
Data Reviewed
-
Diagnostic Radiology: Report Reviewed by me
Labs: Labs Reviewed by me
[2024-10-30] MEDS: CLARITIN 10 MG PO (11:53)
[2024-10-30] MEDS: FEOSOL 325 MG PO (11:53)
[2024-10-30] MEDS: LASIX 20 MG PO (11:53)
[2024-10-30] MEDS: PROTONIX 40 MG PO (11:53)
[2024-10-30] MEDS: MUCINEX 600 MG PO (11:53)
[2024-10-30] MEDS: LOW STRENGTH ASPIRIN 81 MG PO (11:54)
[2024-10-30] MEDS: COREG 6.25 MG PO (11:54)
[2024-10-30] MEDS: NEURONTIN 100 MG PO (11:54)
[2024-10-30] MEDS: ELIQUIS 5 MG PO (11:54)
[2024-10-30] MEDS: COLACE 100 MG PO (11:55)
--- NOTE | 2024-10-30 11:56 | CM ---
Addendum entered by Isaura Chandra 10/30/24 13:32:
Explained IMM benefit to patient; contact isolation maintained; form dated/timed @ 1330
Addendum entered by Isaura Chandra 10/30/24 12:17:
Ambulance picking belt operator scheduled for 1500; facility and son notified
Addendum entered by Isaura Chandra 10/30/24 12:09:
CM notified son via phone; he is agreeable with discharge plan
Original Note:
Per Attending, patient is stable for discharge; LTC facility notified; per home school liaison officer, patient can return today anytime
Plan: Discharge to [facility] today via ambulance
Report # [phone]
[2024-10-30] MEDS: COZAAR 100 MG PO (11:59)
[2024-10-30] MEDS: FLEXERIL 5 MG PO (11:59)
[2024-10-30] MEDS: PROCARDIA XL (EXTENDED RELEASE) 90 MG PO (12:00)
--- NOTE | 2024-10-30 12:03 | W.DS.TRANS ---
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
-
Discharge Instructions:
Discharge Diagnosis/Procedures pneumonia, acute on chronic hypoxic respiratory
failure
Diet Regular
Activity As tolerated
Driving Restrictions No driving
Bathing Restrictions None
Other Services PT,OT
Instructions:
Stand-Alone Forms:
Changes to Home Medications: Yes
Discharge Medications:
DC Medications w/original date entered in [employer]
ezetimibe 10 mg tablet 10 mg PO DAILY High Cholesterol 10/19/14
acetaminophen 500 mg tablet (Tylenol Extra Strength) 500 mg PO Q6HPRN PRN mild pain 12/19/23
cyclobenzaprine 5 mg tablet 5 mg PO DAILY Muscle Spasms 12/19/23
d-mannose 500 mg capsule 1,000 mg PO BID uti prevention 12/19/23
fluticasone fur. 100 mcg-umeclid 62.5 mcg-vilant 25 mcg inhalat.powder (Trelegy Ellipta) 1 inh inhalation R DAILY Lung/Breathing Issues 12/19/23
fluticasone propionate 50 mcg/actuation nasal spray,suspension 1 spray intranasal BID Allergies 12/19/23
furosemide 20 mg tablet 20 mg PO DAILY Fluid Retention/Swelling 12/19/23
gabapentin 100 mg capsule 100 mg PO BID nerve pain 12/19/23
ipratropium 0.5 mg-albuterol 3 mg (2.5 mg base)/3 mL nebulization soln 3 ml inhalation R Q6HPRN PRN sob 12/19/23
loratadine 10 mg tablet (Claritin) 10 mg PO DAILY Allergies 12/19/23
losartan 100 mg tablet 100 mg PO DAILY Blood Pressure 12/19/23
carvedilol 6.25 mg tablet 6.25 mg PO BID Heart disease/condition #0 tabs 01/12/24
pantoprazole 40 mg tablet,delayed release 40 mg PO DAILY Gastrointestinal issue #0 tabs 01/12/24
carboxymethylcellulose sodium 0.5 % eye drops 1 drp BOTH EYES Q8HPRN PRN eye dryness 07/04/24
lidocaine HCl 4 % topical cream (Aspercreme (lidocaine HCl)) 1 applic topical Q8HPRN PRN B/L feet B/L ankles 07/04/24
nifedipine 90 mg tablet,extended release 24 hr 90 mg PO DAILY HTN 07/04/24
polyethylene glycol 3350 17 gram oral powder packet 17 g PO DAILYPRN PRN constipation 07/04/24
apixaban 5 mg tablet (Eliquis) 5 mg PO BID Blood clot prevention/tx #1 tab 09/20/24
aspirin 81 mg chewable tablet 81 mg PO DAILY Blood clot prevention/tx #1 tab 09/20/24
cyanocobalamin (vitamin B-12) 1,000 mcg capsule 1,000 mcg PO DAILY low normal B12 #30 caps 09/20/24
docusate sodium 100 mg capsule (Colace) 100 mg PO DAILY Constipation #30 caps 09/20/24
ferrous sulfate 325 mg (65 mg iron) tablet 325 mg PO DAILY anemia #30 tabs 09/20/24
lorazepam 0.5 mg tablet 0.5 mg PO DAILYPRN PRN anxiety #2 tabs 09/20/24
cholecalciferol (vitamin D3) 125 mcg (5,000 unit) tablet (Vitamin D3) 125 mcg PO DAILY Supplement 10/25/24
gabapentin 100 mg capsule 200 mg PO HS Neurological Condition 10/25/24
loperamide 2 mg capsule 2 mg PO Q6HPRN PRN diarrhea/loose stool 10/25/24
magnesium hydroxide 400 mg/5 mL oral suspension (Milk of Magnesia) 30 ml PO HSPRN PRN constipation 10/25/24
melatonin 10 mg tablet 10 mg PO HS insomnia 10/25/24
sennosides 8.6 mg tablet (senna) 8.6 mg PO HS Gastrointestinal Issue 10/25/24
sodium chloride 0.65 % nasal spray aerosol (Saline Nasal) 1 spray intranasal Q4HPRN PRN dryness 10/25/24
guaifenesin 600 mg tablet, extended release 12 hr 600 mg PO Q12 #14 tabs 10/30/24
Home Medication Changes
addition of mucinex
Pending Results: No
[2024-10-30 12:24] VITALS: BP 122/57
--- NOTE | 2024-10-30 15:01 | W.DCSUMMARY ---
Discharge Summary
Discharge Data
Date of Admission: 10/25/24
Date of Discharge: 10/30/24
-
Pending Results: No
Hospital Course
Discharging Physician : Dr. Adrianna Correa
Disposition : [place]
Primary care physician : Dr. Devan Hammer
Principal Discharge diagnosis : Acute on chronic hypoxic respiratory failure in setting of pneumonia
Hospital Course :
Ms. Amy Chandra is a 89 yo woman with hx who presented to the emergency department with episode of unresponsiveness in setting of hypoxia. Mentation improved on O2. She was found to be febrile to 101, WBC 17.7. Initial CXR without evidence of
pneumonia but follow up showed posterior right lung base with pneumonia. ID consulted. Patient remained with 6L O2 needs and Pulmonary consulted as well. She received IV Ertapenem (to also cover UTI) then one dose Levaquin (dosed q 48 hours) which
will complete 5 day treatment for pneumonia. Oxygen weaned to home 3L prior to discharge. She is discharged back to SNF.
Time spent on discharge was 35 minutes.
Important imaging findings :
CXR 10/25/24
IMPRESSION:
No active cardiopulmonary disease.
HEAD CT
IMPRESSION:
No evidence of acute intracranial abnormality.
CXR 10/27/24
IMPRESSION:
There is elevation of the right hemidiaphragm with hazy opacification at the posterior right lung base suggesting pneumonia
Procedure findings :
Discharge Plan
-
Patient Disposition: Shelter/SNF
Discharge Diagnosis/Procedures: pneumonia, acute on chronic hypoxic respiratory failure
Condition: Good
Diet: Regular
Activity: As tolerated
Driving Restrictions: No driving
Bathing Restrictions: None
Other Services: PT and OT
Referrals:
Devan Hammer MD [Family Provider] - in less than 1 week
Abdiaziz Au MD [Active] - in two to four weeks (Needs appointment with Dr. Quinn or nurse practitioner-has not been seen since September 2022)
Additional Discharge Medication Instructions: addition of Mucinex
Prescriptions:
New
guaifenesin 600 mg Tablet Extended Release 12hr
600 mg PO Q12 Qty: 14 0RF
Continued
ezetimibe 10 MG tablet
10 mg PO DAILY
ipratropium-albuterol 0.5 mg-3 mg(2.5 mg base)/3 mL Solution For Nebulization
3 ml INHALATION R Q6HPRN PRN (Reason: sob)
acetaminophen [Tylenol Extra Strength] 500 mg Tablet
500 mg PO Q6HPRN PRN (Reason: mild pain)
losartan 100 mg Tablet
100 mg PO DAILY
fluticasone propionate 50 mcg/actuation [place],Suspension
1 spray INTRANASAL BID
loratadine [Claritin] 10 mg Tablet
10 mg PO DAILY
cyclobenzaprine 5 mg Tablet
5 mg PO DAILY
Trelegy Ellipta 100-62.5-25 mcg Blister With Device
1 inh INHALATION R DAILY
d-mannose 500 mg Capsule
1,000 mg PO BID
furosemide 20 MG tablet
20 mg PO DAILY
gabapentin 100 mg Capsule
100 mg PO BID
carvedilol 6.25 mg Tablet
6.25 mg PO BID Qty: 0 0RF
pantoprazole 40 mg Tablet,Delayed Release (Dr/Ec)
40 mg PO DAILY Qty: 0 0RF
polyethylene glycol 3350 17 gram Powder In Packet
17 g PO DAILYPRN PRN (Reason: constipation)
carboxymethylcellulose sodium 0.5 % Drops
1 drp BOTH EYES Q8HPRN PRN (Reason: eye dryness)
nifedipine 90 mg Tablet Extended Release 24hr
90 mg PO DAILY
lidocaine HCl [Aspercreme (lidocaine HCl)] 4 % Cream
1 applic TOPICAL Q8HPRN PRN (Reason: B/L feet B/L ankles)
lorazepam 0.5 mg Tablet
0.5 mg PO DAILYPRN PRN (Reason: anxiety) Qty: 2 0RF
aspirin 81 mg Tablet,Chewable
81 mg PO DAILY Qty: 1 0RF
Eliquis 5 mg Tablet
5 mg PO BID Qty: 1 0RF
Rx Instructions:
for atleast 3 months ;longer if remains with decreased mobility
docusate sodium [Colace] 100 mg capsule
100 mg PO DAILY Qty: 30 0RF
ferrous sulfate 325 mg (65 mg iron) tablet
325 mg PO DAILY Qty: 30 0RF
cyanocobalamin (vitamin B-12) 1,000 mcg capsule
1,000 mcg PO DAILY Qty: 30 0RF
loperamide 2 mg Capsule
2 mg PO Q6HPRN MDD 16mg PRN (Reason: diarrhea/loose stool)
sennosides [senna] 8.6 mg Tablet
8.6 mg PO HS
magnesium hydroxide [Milk of Magnesia] 400 mg/5 mL Suspension
30 ml PO HSPRN PRN (Reason: constipation)
Saline Nasal 0.65 % Aerosol,[place]
1 spray INTRANASAL Q4HPRN PRN (Reason: dryness)
cholecalciferol (vitamin D3) [Vitamin D3] 125 mcg (5,000 unit) Tablet
125 mcg PO DAILY
melatonin 10 mg Tablet
10 mg PO HS
gabapentin 100 mg Capsule
200 mg PO HS
Discharge Orders:
Discharge Patient (As Directed); Ordered 10/30/24
Ordered By: Adrianna Correa
Discharge Date and Time
Print Language: BELIZEAN
== END 2024-10-30 15:29 | DRG 871 ==
LOC: 4 WEST ACU 20:17
PROVIDERS: Internal Medicine Critical Care Medicine; Nurse Practitioner; Nurse Practitioner Family; ADMITTING PHYSICIAN Internal Medicine; ATTENDING PHYSICIAN Student in an Organized Health Care Education/Training Program; CONSULT PHYSICIAN Internal Medicine Critical Care Medicine; EMERGENCY PHYSICIAN Emergency Medicine; FAMILY PHYSICIAN Internal Medicine; OTHER PHYSICIAN Student in an Organized Health Care Education/Training Program
DX: A41.9 Sepsis, unspecified organism (principal); G92.8 Other toxic encephalopathy; J18.9 Pneumonia, unspecified organism; J96.22 Acute and chronic respiratory failure with hypercapnia; J96.21 Acute and chronic respiratory failure with hypoxia; N17.9 Acute kidney failure, unspecified; Z11.52 Encounter for screening for COVID-19; Z87.891 Personal history of nicotine dependence; N30.90 Cystitis, unspecified without hematuria; E11.65 Type 2 diabetes mellitus with hyperglycemia; E11.22 Type 2 diabetes mellitus with diabetic chronic kidney disease; N18.30 Chronic kidney disease, stage 3 unspecified
CPT/HCPCS: 70450; 71045; 71046; 71250; 80048; 80053; 81003; 81015; 82140; 82805; 82962; 83605; 83735; 83880; 84145; 84484; 85025; 85027; 85610; 87040; 87077; 87086; 87186; 87502; 87811; 93005; 94640; 97163; 97167; 97530; 99285; J1335

== ENCOUNTER 2025-06-29 22:27 | Inpatient (IN) | payer MEDICARE, OTHER, SELFPAY ==
[2025-06-29] VITALS (7 sets, daily range): BP systolic 134–164; BP diastolic 49–93; BMI 35.4
--- NOTE | 2025-06-29 19:13 | ED.GENMED ---
History of Present Illness
General
Chief Complaint: Breathing Problem
Source: patient
Exam Limitations: none
Time Seen by Provider: 06/29/25 19:12
Nursing documentation reviewed up to this point in time: agreed with
History of Present Illness
History of Present Illness:
Patient presents to ED from long-term secondary to increasing shortness of breath over the past 2 days, along with nonproductive cough over the past 1 week. In addition, patient reports continual urinary frequency with dysuria, despite taking
Macrobid for the past 4 days. Denies fever or chills. Denies nausea, vomiting, or diarrhea. Denies dizziness or weakness. Denies chest pain. Denies loss of appetite. Patient with history of COPD on 2 L of oxygen via nasal cannula, presents
hypoxic, with initial pulse ox 78% on room air.
Past History
Past History
ED Past Medical History: COPD, HTN, Hypercholesterolemia and NIDDM
ED Past Surgical History: Bowel resection, Gynecological and Orthopedic
Social History
Tobacco: Former smoker
Alcohol: Occasional
Drug: None
Personal:
Living: with family
Employment: Retired
Family History
Family History: Other (Pending)
Review of Systems
Review of Systems
Allergies reviewed?: Yes
All Other Systems: ROS reviewed and negative except as documented in HPI and ROS
Constitutional: Denies fever
Respiratory: Reports cough and trouble breathing
Cardiac: Reports no symptoms
ABD/GI: Reports no symptoms; Denies vomiting or diarrhea
: Reports dysuria and frequency
Musculoskeletal: Reports no symptoms
Skin: Reports no symptoms
Neurological: Reports no symptoms
Phy Exam
Physical Exam
Physical Exam:
Physical Exam
General: mild distress, not acutely ill. afebrile. hypoxic
Head: nc/at. eomi
Neck: supple. no meningeal signs.
Heart: s1/s2 regular rate and rhythm
Lungs: mild respiratory distress. diminished breath sounds bilaterally
Abdomen: normal bowel sounds. not tender. rectal exam (JOSE Jorgensen, at bedside): brown stool, heme negative
Neuro: alert and oriented x 3. no focal neurological deficits
Skin: no rash
Psychiatric: well kept. interactive and cooperative
Extremities: no edema. no calf tenderness.
Scores
Heart Failure Risk
Heart Failure Risk Score: Not Applicable
Course
Orders/Labs/Results
Orders:
Orders
06/29/25 19:06
Electrocardiogram (*1) Urgent
Reason for Study: Chest Pain
EKG- Treatment ONCE
06/29/25 19:29
BNP [NT-proBNP] Urgent
COVID-19 Antigen Urgent
Source: Nasal Swab
Complete Blood Count/With Diff Urgent
Comprehensive Metabolic Panel Urgent
Ferritin Urgent
Comment: ADD ON
Folate Urgent
Comment: ADD ON
Iron Urgent
Comment: ADD ON
Total Iron Binding Urgent
Comment: ADD ON
Troponin I Urgent
Vitamin B12 Urgent
Comment: ADD ON
06/29/25 19:47
Urinalysis Reflex To Culture Urgent
Date Specimen was Collected: 06/29/25
Time Specimen was Collected: 19:46
Urine Microscopic Reflex Cult Urgent
Urine Culture Urgent
THERESE Source: U
Specimen Description:
Date Specimen was Collected: 06/29/25
Time Specimen was Collected: 19:46
06/29/25 19:48
Type+Screen Urgent
06/29/25 19:56
CR Chest Portable - 1 View Urgent
Comment:
Reason For Exam: sob/hypoxia
Reason Study Needs to be Portable: Patient Unstable
06/29/25 21:01
IV Insert/Care/Rem.- Treatment PRN
06/29/25 21:02
* Blood Bank Products Routine
Blood Bank Products: *Packed RBC Leuko (PRBC's
Quantity: 2
Transfuse Today: Yes
Reason: Anemia
06/29/25 21:04
Sulfamethox./Trimethoprim Ds [Bactrim Ds 800 mg/160 mg] 1 tablet PO NOW STA
06/29/25 21:42
Add On- LAB Routine
Tests Added?: iron, ferritin, tibc, folate, vit b12
06/29/25 21:56
Admit/Transfer Patient As Directed
Co-Sign Provider:
Level of Care: Inpatient admission
Assign to:: Telemetry
Physician / Group: David
Diagnosis: Anemia
Reason for Telemetry: Arrhythmia
Date to Stop Telemetry: 07/02/25
Time to Stop Telemetry: 11:00
Reason for Hospitalization: blood transfusion
Expected length of stay greater than two midnights?: Yes
ELOS- Estimated Length of Stay in days: 3
I certify the patient meets the requirements for IP care: Yes
PRN Pain Medication Management As Directed
May give lesser potent ordered pain med per pt: Yes
preference::
Protocol:: Medication orders for pain may be administered in a
manner that supports deferring to patient preference
when the pt is:
- Requesting an ordered lesser potent pain medication.
Least to most potent pain medications are defined
as: acetaminophen < NSAID < tramadol < opioids
(morphine, oxycodone, hydromorphone).
- Requesting a lesser dose of the same medication IF
ORDERED.
- Requesting a less intrusive route of administration
if both routes are prescribed by the provider (PO <
IV).
06/29/25 22:02
Code Status As Directed
Resuscitation Status: Do not resuscitate
Based on pt advanced directive or healthcare POA form: Yes
Physician note:: Per [facility] Paperwork
DNR Bracelet Application ONCE
06/29/25 22:04
Ertapenem [Invanz] 1,000 mg 0.9% Sodium Chloride [Nss] 50 ml IV NOW
06/30/25 00:36
Acetaminophen [Tylenol] 650 mg PO Q4HPRN PRN
Ipratropium/Albuterol Sulfate [Duoneb] 3 ml INH R Q6HPRN PRN sob
Lorazepam [Ativan] 0.5 mg PO DAILYPRN PRN anxiety
06/30/25 00:36
Activity As Directed
Activity Level: Out of Bed- Chair
Hemetest Stools As Directed
Comment: Notify Physician of any positive results; May Stop if Negative x 3
I&O [Intake/ Output] As Directed
Frequency: q12h
Obtain Records As Directed
Dates of Information to be Released: Most Recent
Type of Information Requested: Lab Results
If Other, list type of info requested: Urine culture
Obtain Records from: [facility]
Pneumatic Compression Sleeves As Directed
Type: Knee high
Vital Signs As Directed
Frequency: Per unit guidelines
Weight As Directed
Frequency: Daily
DX Deep Vein Thrombosis Video Routine
06/30/25 Breakfast
Sodium, 2 Gram
At Your Request: Non-Participating
Low Sodium: 2000 ondina/ 17 CHO Diabetic
06/30/25 06:30
Basic Metabolic Panel IN AM
Complete Blood Count/No Diff IN AM
06/30/25 08:00
Baclofen [Lioresal] 2.5 mg PO BID
Carvedilol [Coreg] 6.25 mg PO BID
Ezetimibe [Zetia] 10 mg PO DAILY
Furosemide [Lasix] 20 mg PO DAILY
Gabapentin [Neurontin] 100 mg PO BID
Losartan [Cozaar] 100 mg PO DAILY
NIFEdipine EXTENDED RELEASE [Procardia Xl (Extended Release)] 90 mg PO DAILY
Pantoprazole [Protonix] 40 mg PO DAILY
Polyethylene Glycol Powder [Miralax] 17 grams PO DAILY
Rosuvastatin Calcium [Crestor] 10 mg PO DAILY
06/30/25 22:00
Melatonin 10 mg PO HS
07/02/25 11:00
DC Protocol for Telemetry ONCE
Abnormal Lab Results
06/29/25 06/29/25 06/29/25
19:29 19:47 19:48
RBC 2.46 L 10^6/uL
(4.20-5.40)
Hgb 5.3 L* g/dL
(12.0-16.0)
Hct 20.9 L* %
(37.0-47.0)
MCH 21.5 L pg
(27.0-31.0)
MCHC 25.4 L g/dL
(33.0-37.0)
RDW 18.3 H %
(11.5-14.5)
Abs Immat Gran (auto) 0.1 H 10^3/uL
(0-0.05)
Absolute Lymphs (auto) 0.7 L 10^3/uL
(1.2-3.4)
Absolute Monos (auto) 1.1 H 10^3/uL
(0.1-0.6)
Immature Gran % 0.8 H %
(0-0.5)
Lymphocytes % 9.6 L %
(20.5-51.1)
Monocytes % 14.5 H %
(1.7-9.3)
Chloride 97 L mmol/L
(98-107)
Carbon Dioxide 38 H mmol/L
(22-30)
BUN 24 H mg/dl
(7-17)
Creatinine 1.2 H mg/dL
(0.6-1.0)
Iron < 20 L ug/dl
(37-170)
AST 13 L U/L
(14-36)
Total Protein 5.9 L g/dl
(6.3-8.2)
Albumin 3.2 L g/dl
(3.5-5.0)
Leukocyte Esterase Rfl 3+ A
(Negative)
Urine WBC (Reflex) 30-40 A /HPF
(0-5)
Urine Bacteria (Reflex) Many A
(Negative)
Crossmatch IS Only See Detail
06/29/25 19:29
06/29/25 19:29
Vital Signs
Initial and Last Documented VS:
Initial Vital Signs
Temp Pulse Resp BP Pulse Ox
98.4 F 83 16 164/60 78
06/29/25 19:08 06/29/25 19:08 06/29/25 19:08 06/29/25 19:08 06/29/25 19:08
Last Documented Vital Signs
Temp Pulse Resp BP Pulse Ox
98.0 F 81 18 134/49 93
06/30/25 15:38 06/30/25 15:38 06/30/25 15:38 06/30/25 15:38 06/30/25 15:38
MDM/Problems Addressed
MDM/Problems Addressed:
H/H noted. Hypoxia, likely multifactorial, including underlying COPD along with anemia.
Ordered 2 units PRBC
Urinalysis noted, consistent with ongoing UTI, with symptoms. As patient states that she has responded well to Bactrim in the past, will administer 1 tablet of Bactrim in ED now. Urine culture pending.
*Pulse Oximetry
Patient hypoxic: yes
*EKG
Interpreted by ED Provider?: Yes
EKG Intrepretation Date: 06/29/25
Heart Rate: 80
Rate: normal
Rhythm: sinus and PVC's
Dent: normal axis
Interval: first degree heart block
*Critical Care Note
Total Time (30-74mins, 75-104mins- exclusive of procedures): Not Applicable
ED Attending Note
-
Portions of this chart may have been created with voice recognition software.� Occasional wrong word or��sound alike� substitutions may have occurred due to the inherent limitations of voice recognition software.
Discharge Plan
Departure
Patient Disposition: Admit
Date of Disposition: 06/29/25
Time of Disposition: 21:03
Admit to: Telemetry
Presentation/result/management discussed w/ accepting MD/DO: Hospitalist
Discharge Problem:
Symptomatic anemia, COPD (chronic obstructive pulmonary disease), Acute UTI
Interventions
Interventions:
*Risk Screen - Suicide Last Done: 06/29/25 19:24
*General Assessment Last Done: 06/29/25 19:08
*Neglect/Abuse Screening Last Done: 06/29/25 19:08
*ED- Fall Risk Assessment Last Done: 06/29/25 19:24
*ED COVID-19 Vaccine History Last Done: 06/29/25 19:24
*ED Influenza Vaccine History Last Done: 06/29/25 19:24
*Nursing Disposition Last Done: 06/30/25 00:44
ED- Cardiac Assessment Last Done: 06/29/25 19:33
ED- Pulmonary Assessment Last Done: 06/29/25 19:33
Discharge Date and Time
Discharge Date/Time: 06/30/25 00:45
[2025-06-29 19:44] LABS: Hematocrit 20.9 % (37.0-47.0); Hemoglobin 5.3 g/dL (12.0-16.0); Mean Corp Hgb Conc. 25.4 g/dL (33.0-37.0); Mean Corpuscular Volume 85.0 fL (81.0-99.0); Nucleated Red Blood Cells % 0.3 %; Platelet Count 204 10^3/uL (130-400); Red Cell Dist. Width 18.3 % (11.5-14.5)
[2025-06-29 19:54] LABS: Urine Character Clear (Clear)
[2025-06-29 19:54] LABS: COVID-19 Antigen Negative (Negative)
[2025-06-29 20:00] LABS: Urine Red Blood Cell 0-2 /HPF (0-2); Urine White Cell 30-40 /HPF (0-5)
[2025-06-29 20:05] LABS: ALT (SGPT) < 10 U/L (0-35); AST (SGOT) 13 U/L (14-36); Albumin 3.2 g/dl (3.5-5.0); Alkaline Phosphatase 63 U/L (38-126); Blood Urea Nitrogen 24 mg/dl (7-17); Calcium 9.4 mg/dl (8.4-10.2); Carbon Dioxide 38 mmol/L (22-30); Chloride 97 mmol/L (98-107); Estimated Creatinine Clearance 35 ml/min; Glucose 93 mg/dl (70-99); Potassium 4.6 mmol/L (3.5-5.1); Sodium 136 mmol/L (135-145); Total Protein 5.9 g/dl (6.3-8.2); eGFR 43.27
[2025-06-29 20:08] LABS: Anisocytosis 1+; Hypochromasia 2+; Normal RBC Morphology No
[2025-06-29 20:10] LABS: Stomatocytes 1+
[2025-06-29 20:11] LABS: Microcytosis 1+
[2025-06-29 20:13] LABS: Polychromasia Slight
[2025-06-29 20:17] LABS: Troponin I 0.017 ng/ml
--- NOTE | 2025-06-29 21:05 | HPS.HSE ---
Addendum entered and electronically signed by Jeff Hernandez DO 06/29/25 23:32:
Patient seen and examined independently. Agree with findings and plan as set forth by Jonna Morales PA-C.
Patient is an 89y F with PMH significant for O2-dependent COPD, hypertension, DM and CKD who presents to ED complaining of SOB. Patient reports worsening dyspnea over the past few days. She typically is on O2 2lpm but has been requiring 4 lpm
of late. She has had cough - not productive. No chest pain. No noted blood loss, black/ bloody stools, etc.
Patient was started on Macrobid over the weekend for suspected UTI.
She provides varying details regarding current symptoms - at times stating she has persistent dysuria and at times denying any urinary symptoms.
Ass:
Symptomatic Anemia - Unclear Etiology
Acute on Chronic Hypoxemic Respiratory Failure
COPD without Acute Exacerbation
Recent UTI - ? Persistent Symptoms
ASCVD / Prior TIA
Benign Hypertension
DM-II
CKD III
Anemia of CKD
Plan:
Admit for further evaluation and treatment.
Transfusion of 2 units of PRBCs started in the ED.
Check iron studies, indices, etc for etiology of anemia.
Note: patient is clear that she is not interested in extensive or invasive evaluations - this includes no colonoscopy, endoscopy, etc.
Follow for clinical improvement s/p transfusion.
? persistent UTI. Dose of ertapenem x 1 now given priro h/o ESBL.
Follow-up culture data and adjust treatment / discontinue further abx as appropriate.
Continue other usual outpatient medications.
Original Note:
Family Physician
-
Family Physician: Devan Hammer
Chief Complaint
-
Shortness of Breath
History of Present Illness
Patient is an 89 y/o female past medica history of oxygen dependent COPD, TIA, Hypertension, Hyperlipidemia, Diabetes Mellitus, CKD, Anemia of Chronic Disease, and Cognitive Impairment who presents with shortness of breath. Patient reports
increasing shortness of breath over the past several days. She notes she is usually maintained on 2-3L of oxygen via nasal cannula but recently the facility has increased it to 4L. She reports mostly non-productive cough for the past few weeks.
She denies chest pain. Work-up in ED revealed Hgb 5.3, down from 8.6 earlier this year. Patient any episodes of bleeding. She denies any black/bloody stools.
Patient reports she was started on Macrobid over the weekend for possible urinary tract infection with notable dysuria. Patient denies any symptoms of dysuria at present time. She denies fevers.
Medical History
Past Medical History
Past Medical History: Reports Other
Additional Past Medical History:
Chronic Hypoxic Respiratory Failure secondary to COPD
TIA
Essential Hypertension
Hyperlipidemia
Diabetes Mellitus, Type II
CKD Stage III
Anemia of Chronic Disease
Cognitive Impairment
Bilateral Lower Extremity DVTs - Jun 2024
Breast Cancer s/p Lumpectomy and XRT
Past Surgical History: Reports Other
Additional Past Surgical History:
Left Lumpectomy
Colon Resection
Hysterectomy
Right Shoulder Fracture Fracture
Right Partial Hip Replacement for Fracture
Bilateral Ankle ORIF
Social History
Tobacco: Former Smoker
Alcohol: None
Drug: None
Living: Jail
Employment: Retired
Family History
Family History: Not pertinent
Allergies / Home Medications
Allergies reflects when Allergies were last updated in [facility].
Home Medications with original date entered in [employer]
Allergy/Medication List:
Allergies
Allergy/AdvReac Type Severity Reaction Status Date / Time
amlodipine besylate (From Allergy COUGH Verified 10/27/24 15:53
Norvasc)
atorvastatin Allergy per [facility] Verified 06/29/25 19:23
records
colesevelam Allergy per NH Verified 06/29/25 22:06
records
levofloxacin Allergy per NH Verified 06/29/25 22:06
records
morphine Allergy Nausea Verified 10/27/24 15:53
niacin Allergy per NH Verified 06/29/25 22:06
records
Penicillins Allergy Unknown Verified 10/25/24 14:48
pioglitazone HCl (From Actos) Allergy COUGH Verified 10/27/24 15:53
quinacrine Allergy per [facility] Verified 06/29/25 22:06
records
quinapril HCl (From Accupril) Allergy COUGH Verified 10/27/24 15:53
Home Medications
ezetimibe 10 mg tablet 10 mg PO DAILY High Cholesterol 10/19/14
acetaminophen 500 mg tablet (Tylenol Extra Strength) 500 mg PO Q6HPRN PRN mild pain 12/19/23
fluticasone fur. 100 mcg-umeclid 62.5 mcg-vilant 25 mcg inhalat.powder (Trelegy Ellipta) 1 inh inhalation R DAILY Lung/Breathing Issues 12/19/23
fluticasone propionate 50 mcg/actuation nasal spray,suspension 1 spray intranasal BID Allergies 12/19/23
furosemide 20 mg tablet 20 mg PO DAILY Fluid Retention/Swelling 12/19/23
gabapentin 100 mg capsule 100 mg PO BID nerve pain 12/19/23
ipratropium 0.5 mg-albuterol 3 mg (2.5 mg base)/3 mL nebulization soln 3 ml inhalation R Q6HPRN PRN sob 12/19/23
loratadine 10 mg tablet (Claritin) 10 mg PO DAILY Allergies 12/19/23
losartan 100 mg tablet 100 mg PO DAILY Blood Pressure 12/19/23
carvedilol 6.25 mg tablet 6.25 mg PO BID Heart disease/condition #0 tabs 01/12/24
pantoprazole 40 mg tablet,delayed release 40 mg PO DAILY Gastrointestinal issue #0 tabs 01/12/24
carboxymethylcellulose sodium 0.5 % eye drops 1 drp BOTH EYES Q8HPRN PRN eye dryness 07/04/24
nifedipine 90 mg tablet,extended release 24 hr 90 mg PO DAILY HTN 10/27/24
polyethylene glycol 3350 17 gram oral powder packet 17 g PO DAILYPRN PRN constipation 07/04/24
aspirin 81 mg chewable tablet 81 mg PO DAILY Blood clot prevention/tx #1 tab 09/20/24
lorazepam 0.5 mg tablet 0.5 mg PO DAILYPRN PRN anxiety #2 tabs 09/20/24
loperamide 2 mg capsule 2 mg PO Q6HPRN PRN diarrhea/loose stool 10/25/24
melatonin 10 mg tablet 10 mg PO HS insomnia 10/25/24
sodium chloride 0.65 % nasal spray aerosol (Saline Nasal) 1 spray intranasal Q4HPRN PRN dryness 10/25/24
baclofen 5 mg tablet 2.5 mg PO BID 06/29/25
cholecalciferol (vitamin D3) 50 mcg (2,000 unit) tablet 50 mcg PO DAILY 06/29/25
nitrofurantoin monohydrate/macrocrystals 100 mg capsule (Macrobid) 100 mg PO BID 06/29/25
ondansetron 8 mg disintegrating tablet 8 mg PO Q8H 06/29/25
rosuvastatin 10 mg tablet 10 mg PO DAILY 06/29/25
Review of Systems
-
A 12 point ROS was completed and negative except as noted: Yes
Physical Exam
Vital Signs
Vital Signs
Temp Pulse Resp BP Pulse Ox
98.4 F 85 19 139/93 91
06/29/25 19:08 06/29/25 21:00 06/29/25 21:00 06/29/25 21:00 06/29/25 21:02
Physical Exam
General: Comfortable and Conversant
HEENT: Anicteric, Moist mucous membranes and Oxygen (Nasal Cannula)
Respiratory: Clear and Non Labored Respirations
Cardiac: S1/S2 and Regular Rhythm
GI: Soft, Non Tender and Other (Protuberant)
Rectal: Hem Negative (Per ED provider)
Musculoskeletal: No Clubbing, No Cyanosis and No Edema
Skin: Warm and Dry
Neuro: Awake, Alert and Nonfocal/grossly intact
Psych: Calm
Laboratory Results
-
06/29/25:
06/29/25
Laboratory Results
Total Bilirubin 0.3 mg/dl (0.2-1.3) 06/29/25
AST 13 U/L (14-36) L 06/29/25
ALT < 10 U/L (0-35) 06/29/25
Alkaline Phosphatase 63 U/L (38-126) 06/29/25
Troponin I 0.017 ng/ml 06/29/25
Data Reviewed
-
Lab Data: Labs Reviewed by me
Old Records: Reviewed
Impression/Plan
-
Symptomatic Anemia
-Stool heme-negative in ED without reports of black/bloody stool
-Continue to heme-test stool
-Check iron studies, vitamin b12 and folate
-Transfuse 2 units PRBCs
-Recheck Hgb in AM
Recent UTIs
-Patient is reporting improvement in symptoms, however urinalysis remains positive
-Give dose of ertapenem given prior history of ESBL
-Await urine culture
-Attempt to obtain urine culture from [facility]
Hx TIA
-Hold aspirin due to profound anemia
Chronic Hypoxic Respiratory Failure
-Continue supplemental oxygen
COPD, no acute exacerbation
-Continue Trelegy
Essential Hypertension
-Continue carvedilol and losartan
Hyperlipidemia
-Continue Crestor and Zetia
Diabetes Mellitus, Type II
-Monitor sugars and continue coverage insulin
CKD Stage III
-Creatinine at baseline
DVT proph: SCDs
Code Status: DNR
[2025-06-29 22:19] LABS: Iron < 20 ug/dl (37-170)
[2025-06-29 22:22] LABS: Total Iron Binding Capacity 354 ug/dl (265-497)
[2025-06-29 23:54] LABS: Ferritin 12.0 ng/ml (11.1-264.0)
[2025-06-30] VITALS (13 sets, daily range): BP systolic 112–147; BP diastolic 39–67; BMI 35.4
[2025-06-30] MEDS: BENADRYL 25 MG PO (00:24)
[2025-06-30 00:25] LABS: Folate 9.9 ng/ml (2.76-20); Vitamin B12 759 pg/ml (239-931)
[2025-06-30 00:46] LABS: Glucose - Point of Care 106 mg/dl (70-99)
[2025-06-30] MEDS: ATIVAN 0.5 MG PO (01:29)
[2025-06-30] MEDS: TYLENOL 650 MG PO ×3 (01:29→21:53)
[2025-06-30] MEDS: INVANZ 60 MG IV (01:34)
[2025-06-30 07:32] LABS: Hematocrit 27.0 % (37.0-47.0); Hemoglobin 7.6 g/dL (12.0-16.0); Mean Corp Hgb Conc. 28.1 g/dL (33.0-37.0); Mean Corpuscular Volume 81.3 fL (81.0-99.0); Platelet Count 201 10^3/uL (130-400); Red Cell Dist. Width 18.1 % (11.5-14.5)
[2025-06-30 07:33] LABS: Glucose - Point of Care 90 mg/dl (70-99)
[2025-06-30 07:43] LABS: Blood Urea Nitrogen 20 mg/dl (7-17); Calcium 9.4 mg/dl (8.4-10.2); Carbon Dioxide 36 mmol/L (22-30); Chloride 99 mmol/L (98-107); Estimated Creatinine Clearance 34 ml/min; Glucose 80 mg/dl (70-99); Potassium 4.1 mmol/L (3.5-5.1); Sodium 137 mmol/L (135-145); eGFR 43.27
[2025-06-30] MEDS: SYMBICORT 80/4.5 MCG INHALER 2 PUFF INH ×2 (08:08→19:41)
[2025-06-30] MEDS: SPIRIVA RESPIMAT 2.5 MCG 2 PUFF INH (08:08)
[2025-06-30] MEDS: LASIX 20 MG PO (08:54)
[2025-06-30] MEDS: LIORESAL 2.5 MG PO ×2 (08:54→19:51)
[2025-06-30] MEDS: COZAAR 100 MG PO (08:54)
[2025-06-30] MEDS: PROCARDIA XL (EXTENDED RELEASE) 90 MG PO (08:54)
[2025-06-30] MEDS: MIRALAX 17 GRAMS PO (08:54)
[2025-06-30] MEDS: ZETIA 10 MG PO (08:54)
[2025-06-30] MEDS: COREG 6.25 MG PO ×2 (08:54→19:50)
[2025-06-30] MEDS: NEURONTIN 100 MG PO ×2 (08:54→19:50)
[2025-06-30] MEDS: PROTONIX 40 MG PO (08:55)
[2025-06-30] MEDS: CRESTOR 10 MG PO (08:55)
[2025-06-30] MEDS: ZOFRAN 8 MG PO (10:14)
--- NOTE | 2025-06-30 10:48 | CM ---
Met with patient at bedside
Patient resides at [facility]; Her son and daughter in law live in [place].
Base Loader verified with the facility that BED is on HOLD for 15 days.
PLOF: unable to ambulate; needs assistance with personal care and ADLs; caregivers use a alicia lift to transfer from bed to Wheelchair
DME: Continuous Oxygen via nasal cannula
Will need ambulance transport
Plan: Return to [facility] when medically stable
[2025-06-30 12:33] LABS: Glucose - Point of Care 115 mg/dl (70-99)
--- NOTE | 2025-06-30 12:40 | W.PN.HOSP.TC ---
Today's Communication/Plan
-
Assessment / Plan
Assessment / Plan
NAD
Scleral Anicteric
MMM
No JVD
CTABL
RRR, S1/S2
Soft, NT, ND, BS+
Warm, Dry
AAOx3
Calm
Symptomatic anemia without evidence of active bleeding
Unclear as to etiology, there is a component of iron deficiency anemia, however with the CKD cannot exclude myeloma
-This should be worked up by her PCP
Hemoglobin remained stable after blood transfusion
Will need repeat CBC
May require outpatient hematology/oncology follow-up for additional workup
At this time does not want any type of minimally invasive/invasive procedures such as colonoscopy upper endoscopy or surgical interventions
UTI
Urine culture
Rocephin started
S/p 1 dose of Bactrim in the ED
Hx TIA
Hold aspirin due to profound anemia
Chronic Hypoxic Respiratory Failure
Continue supplemental oxygen
COPD, no acute exacerbation
Continue Trelegy
Essential Hypertension
Continue carvedilol and losartan
Hyperlipidemia
Continue Crestor and Zetia
Diabetes Mellitus, Type II
Monitor sugars and continue coverage insulin
CKD Stage III
Creatinine at baseline
Anticipated Discharge: 24 - 48 hours
Subjective/Interval History
-
Date of Service: June 30, 2025
Seen and examined. No new complaints. No acute overnight events.
States shortness of breath improving
Continues to have burning with urination
Objective Data
-
Labs:
Laboratory Results
06/30/25
06:30
WBC 7.4
Hgb 7.6 L D
Hct 27.0 L
Plt Count 201
Sodium 137
Potassium 4.1
Chloride 99
Carbon Dioxide 36 H
BUN 20 H
Creatinine 1.2 H
Glucose 80
Calcium 9.4
Vital Signs:
Vital Signs
Temp Pulse Resp BP Pulse Ox
97.7 F 64 18 120/48 92
06/30/25 11:11 06/30/25 11:11 06/30/25 11:11 06/30/25 11:11 06/30/25 11:11
I&O
06/29/25 06/30/25 07/01/25
06:59 06:59 06:59
Intake Total 500 / 500
Output Total 350 / 350
Balance 500 / 500 -350 / -350
[2025-06-30] MEDS: DICLOFENAC 1% TOPICAL GEL 100 GRAM TOPICAL ×3 (14:07→21:55)
[2025-06-30] MEDS: ROCEPHIN 1000 MG IV (14:12)
[2025-06-30] MEDS: STERILE WATER FOR INJECTION 10 ML IV (14:12)
[2025-06-30] MEDS: FERRLECIT 110 MG IV (14:48)
[2025-06-30] MEDS: MELATONIN 10 MG PO (21:53)
[2025-07-01] MEDS: ATIVAN 0.5 MG PO (01:46)
[2025-07-01 03:11] VITALS: BP 113/50
[2025-07-01 06:00] VITALS: BMI 34.7
[2025-07-01] MEDS: SYMBICORT 80/4.5 MCG INHALER 2 PUFF INH ×2 (07:13→20:26)
[2025-07-01] MEDS: SPIRIVA RESPIMAT 2.5 MCG 2 PUFF INH (07:13)
[2025-07-01 07:19] VITALS: BP 121/48
[2025-07-01] MEDS: LASIX 20 MG PO (08:39)
[2025-07-01] MEDS: COREG 6.25 MG PO ×2 (08:39→19:29)
[2025-07-01] MEDS: NEURONTIN 100 MG PO ×2 (08:39→19:30)
[2025-07-01] MEDS: PROCARDIA XL (EXTENDED RELEASE) 90 MG PO (08:39)
[2025-07-01] MEDS: CRESTOR 10 MG PO (08:40)
[2025-07-01] MEDS: PROTONIX 40 MG PO (08:40)
[2025-07-01] MEDS: ZETIA 10 MG PO (08:40)
[2025-07-01] MEDS: COZAAR 100 MG PO (08:40)
[2025-07-01] MEDS: LIORESAL 2.5 MG PO ×2 (08:40→19:28)
[2025-07-01] MEDS: DICLOFENAC 1% TOPICAL GEL 100 GRAM TOPICAL ×4 (08:41→21:15)
[2025-07-01] MEDS: MIRALAX 17 GRAMS PO (08:42)
[2025-07-01 09:38] LABS: Hematocrit 26.4 % (37.0-47.0); Hemoglobin 7.4 g/dL (12.0-16.0); Mean Corp Hgb Conc. 28.0 g/dL (33.0-37.0); Mean Corpuscular Volume 79.3 fL (81.0-99.0); Red Cell Dist. Width 18.4 % (11.5-14.5)
[2025-07-01 09:54] LABS: Blood Urea Nitrogen 19 mg/dl (7-17); Calcium 9.5 mg/dl (8.4-10.2); Carbon Dioxide 38 mmol/L (22-30); Chloride 101 mmol/L (98-107); Estimated Creatinine Clearance 34 ml/min; Glucose 105 mg/dl (70-99); Potassium 4.7 mmol/L (3.5-5.1); Sodium 139 mmol/L (135-145); eGFR 43.27
[2025-07-01 10:52] VITALS: BMI 34.7
[2025-07-01 11:05] VITALS: BP 105/72
--- NOTE | 2025-07-01 11:47 | PN.CDI ---
CDI
- -
CDI:
Physician Documentation Request
Admit Date: 06/29/25 22:27
Dear Doctor,
Patient admitted anemia.
Clinical panel wound care nursing documentation
06/30/25
03:29
Pressure injury stage [Present on admission Left Buttock] Stage 2
Pressure injury stage [Present on admission Right Buttock] Stage 2
Surrounding Skin - [Present on admission Left Buttock] Local erythema
Surrounding Skin - [Present on admission Right Buttock] Local erythema
Treatment provided [Present on admission Left Buttock] Adhesive foam
Barrier
ointment around
Treatment provided [Present on admission Right Buttock] Adhesive foam
Barrier
ointment around
Physician documentation of the type and location of wounds is required for compliant documentation. Based on the above clinical findings and your assessment, please provide the following in your progress note:
1. Location of the ulcer/wound, including laterality.
2. Type (etiology) of ulcer/wound:
- Diabetic ulcer
- Arterial (ischemic) ulcer
- Traumatic wound
- Venous stasis ulcer
- Pressure (decubitus) ulcer
- Non-healing surgical wound
- Other
- Unable to determine
3. For a non-pressure ulcer, please indicate the depth/severity:
- Limited to the breakdown of skin
- With fat layer exposed
- With necrosis of muscle
- With necrosis of bone
- Other
- Unable to determine
4. If a pressure ulcer, please also include the stage* of the ulcer:
- Stage 1 - Skin intact, non-blanchable redness
- Stage 2 - Partial thickness loss of dermis, includes intact or open blister
- Stage 3 - Full thickness tissue not including bone, tendon or muscle
- Stage 4 - Full thickness tissue loss, including exposed bone, tendon or muscle
- Unstageable - Full thickness loss in which the base of the ulcer is covered by slough (yellow, johnson, crouch, green or brown) and/or eschar (johnson, brown or black) in the wound bed.
- Unable to determine
Use of terms such as suspected, likely, concern for, or probable (associated with a specific diagnosis that is being evaluated, monitored, or treated as if it exists) are acceptable and can be coded in the inpatient setting, when documented at the
time of discharge.
Thank you,
Kia Yancey RN, BSN
CDI Specialist
Available via [place] text
Please use your independent medical judgment in providing your response.
*Source: National Pressure Ulcer Advisory Panel (NPUAP)
--- NOTE | 2025-07-01 13:20 | W.PN.HOSP.TC ---
Addendum entered and electronically signed by Jaime Bhakta MD 07/02/25 13:46:
Pressure injury stage [Present on admission Left Buttock] Stage 2
Pressure injury stage [Present on admission Right Buttock] Stage 2
Original Note:
Today's Communication/Plan
-
Assessment / Plan
Assessment / Plan
NAD
Scleral Anicteric
MMM
No JVD
CTABL
RRR, S1/S2
Soft, NT, ND, BS+
Warm, Dry
AAOx3
Calm
Symptomatic anemia without evidence of active bleeding
Unclear as to etiology, there is a component of iron deficiency anemia, however with the CKD cannot exclude myeloma
-This should be worked up by her PCP
Hemoglobin remained stable after blood transfusion
Will need repeat CBC
May require outpatient hematology/oncology follow-up for additional workup
At this time does not want any type of minimally invasive/invasive procedures such as colonoscopy upper endoscopy or surgical interventions
UTI
Urine culture, gnr
Pending speciation and sensitivities
Rocephin started
S/p 1 dose of Bactrim in the ED
Hx TIA
Hold aspirin due to profound anemia
Chronic Hypoxic Respiratory Failure
Continue supplemental oxygen
COPD, no acute exacerbation
Continue Trelegy
Essential Hypertension
Continue carvedilol and losartan
Hyperlipidemia
Continue Crestor and Zetia
Diabetes Mellitus, Type II
Monitor sugars and continue coverage insulin
CKD Stage III
Creatinine at baseline
Anticipated Discharge: 24 - 48 hours
Subjective/Interval History
-
Date of Service: July 01, 2025
Seen and examined. No new complaints. No acute overnight events.
Objective Data
-
Labs:
Laboratory Results
07/01/25
09:16
WBC 7.4
Hgb 7.4 L
Hct 26.4 L
Plt Count
Sodium 139
Potassium 4.7
Chloride 101
Carbon Dioxide 38 H
BUN 19 H
Creatinine 1.2 H
Glucose 105 H
Calcium 9.5
Vital Signs:
Vital Signs
Temp Pulse Resp BP Pulse Ox
98.3 F 67 18 105/72 92
07/01/25 11:05 07/01/25 11:05 07/01/25 11:05 07/01/25 11:05 07/01/25 11:05
I&O
06/30/25 07/01/25 07/02/25
06:59 06:59 06:59
Intake Total 500 / 500 480 / 480
Output Total 650 / 650
Balance 500 / 500 -170 / -170
--- NOTE | 2025-07-01 13:34 | CM ---
CM following re: discharge planning.
Reviewed pt's chart.
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
D/C plan: return back to [facility] for a LTC.
CM will follow with discharge plan updates as hospitalization progresses.
[2025-07-01] MEDS: FERRLECIT 110 MG IV (13:53)
[2025-07-01] MEDS: STERILE WATER FOR INJECTION 10 ML IV (13:53)
[2025-07-01] MEDS: ROCEPHIN 1000 MG IV (13:55)
[2025-07-01 15:18] VITALS: BP 117/61
[2025-07-01 19:03] VITALS: BP 135/58
[2025-07-01] MEDS: MELATONIN 10 MG PO (21:11)
[2025-07-01] MEDS: TYLENOL 650 MG PO (21:12)
[2025-07-01 23:18] VITALS: BP 102/43
[2025-07-02] VITALS (7 sets, daily range): BP systolic 101–132; BP diastolic 35–56; BMI 36.6
[2025-07-02] MEDS: ATIVAN 0.5 MG PO (00:27)
[2025-07-02 07:33] LABS: Hematocrit 26.3 % (37.0-47.0); Hemoglobin 7.0 g/dL (12.0-16.0); Mean Corp Hgb Conc. 26.6 g/dL (33.0-37.0); Mean Corpuscular Volume 83.0 fL (81.0-99.0); Platelet Count 193 10^3/uL (130-400); Red Cell Dist. Width 18.3 % (11.5-14.5)
[2025-07-02] MEDS: PROCARDIA XL (EXTENDED RELEASE) 90 MG PO (07:52)
[2025-07-02] MEDS: ZETIA 10 MG PO (07:52)
[2025-07-02] MEDS: COZAAR 100 MG PO (07:52)
[2025-07-02] MEDS: LASIX 20 MG PO (07:52)
[2025-07-02] MEDS: NEURONTIN 100 MG PO (07:52)
[2025-07-02] MEDS: LIORESAL 2.5 MG PO (07:52)
[2025-07-02] MEDS: COREG 6.25 MG PO (07:52)
[2025-07-02] MEDS: CRESTOR 10 MG PO (07:53)
[2025-07-02] MEDS: PROTONIX 40 MG PO (07:53)
[2025-07-02] MEDS: MIRALAX 17 GRAMS PO (07:53)
[2025-07-02] MEDS: DICLOFENAC 1% TOPICAL GEL 100 GRAM TOPICAL ×2 (07:56→12:17)
[2025-07-02 08:09] LABS: Blood Urea Nitrogen 21 mg/dl (7-17); Calcium 9.3 mg/dl (8.4-10.2); Carbon Dioxide 38 mmol/L (22-30); Chloride 101 mmol/L (98-107); Estimated Creatinine Clearance 32 ml/min; Glucose 77 mg/dl (70-99); Potassium 4.2 mmol/L (3.5-5.1); Sodium 141 mmol/L (135-145); eGFR 39.31
[2025-07-02] MEDS: SPIRIVA RESPIMAT 2.5 MCG 2 PUFF INH (08:10)
[2025-07-02] MEDS: SYMBICORT 80/4.5 MCG INHALER 2 PUFF INH (08:11)
[2025-07-02] MEDS: HYDROCORTISONE 1% CREAM 1 APPLIC TOPICAL (12:16)
--- NOTE | 2025-07-02 13:40 | W.DCSUMMARY ---
Discharge Summary
Discharge Data
Date of Admission: 06/29/25
Date of Discharge: 07/02/25
-
Pending Results: No
Hospital Course
89 y/o female past medica history of oxygen dependent COPD, TIA, Hypertension, Hyperlipidemia, Diabetes Mellitus, CKD, Anemia of Chronic Disease, and Cognitive Impairment who presents with shortness of breath. Patient reports increasing shortness
of breath over the past several days.
Presented with complaints of shortness of breath that was suspected to be related to low hemoglobin of 5.5. 2 units PRBC provided with improvement resolution of shortness of breath however did have complaints of burning with urination. Urine
culture positive for ESBL Klebsiella. Was started on IV antibiotics and transition to oral doxycycline to complete 14-day course.
Hemoglobin on the day of discharge was 7.0. Provided 1 additional unit of PRBC. Urine culture and sensitivities returned. Klebsiella ESBL. Reviewed sensitivities demonstrated sensitive to doxycycline and Bactrim. Discharged facility on 14-day
course of doxycycline 100 mg twice a day
Seen and examined on the day of discharge which 07/02/25. No new complaints. No acute overnight events.
NAD
Scleral Anicteric
MMM
CTABL
RRR, S1/S2
Soft, NT, ND, BS+
Warm, Dry
AAOx3
More than 30 minutes spent in discharge including
Final examination of the patient
Summarizing hospital stay
Instructions for continuing care to all relevant caregivers
Preparation of discharge records, prescriptions, and referral forms
Total time spent (in minutes): 33mins
Discharge Plan
-
Patient Disposition: Senior Care/SNF
Discharge Diagnosis/Procedures: Symptomatic anemia
Klebsiella UTI
Condition: Good
Diet: As tolerated
Activity: As tolerated
Activity Restrictions/Additional Instructions:
Presented with complaints of shortness of breath that was suspected to be related to low hemoglobin of 5.5. 2 units PRBC provided with improvement resolution of shortness of breath however did have complaints of burning with urination. Urine
culture positive for ESBL Klebsiella. Was started on IV antibiotics and transition to oral doxycycline to complete 14-day course.
Referrals:
Devan Hammer MD [Family Provider, Internal Medicine]
Prescriptions:
New
doxycycline hyclate 100 mg Capsule
100 mg PO Q12 14 Days Qty: 28 0RF
ferrous sulfate 324 mg (65 mg iron) tablet,delayed release (DR/EC)
324 mg PO Q OTHER DAY Qty: 30 0RF
Continued
ezetimibe 10 MG tablet
10 mg PO DAILY
ipratropium-albuterol 0.5 mg-3 mg(2.5 mg base)/3 mL Solution For Nebulization
3 ml INHALATION R Q6HPRN PRN (Reason: sob)
acetaminophen [Tylenol Extra Strength] 500 mg Tablet
500 mg PO Q6HPRN PRN (Reason: mild pain)
losartan 100 mg Tablet
100 mg PO DAILY
fluticasone propionate 50 mcg/actuation [place],Suspension
1 spray INTRANASAL BID
loratadine [Claritin] 10 mg Tablet
10 mg PO DAILY
Trelegy Ellipta 100-62.5-25 mcg Blister With Device
1 inh INHALATION R DAILY
furosemide 20 MG tablet
20 mg PO DAILY
gabapentin 100 mg Capsule
100 mg PO BID
carvedilol 6.25 mg Tablet
6.25 mg PO BID Qty: 0 0RF
pantoprazole 40 mg Tablet,Delayed Release (Dr/Ec)
40 mg PO DAILY Qty: 0 0RF
polyethylene glycol 3350 17 gram Powder In Packet
17 g PO DAILYPRN PRN (Reason: constipation)
carboxymethylcellulose sodium 0.5 % Drops
1 drp BOTH EYES Q8HPRN PRN (Reason: eye dryness)
nifedipine 90 mg Tablet Extended Release 24hr
90 mg PO DAILY
lorazepam 0.5 mg Tablet
0.5 mg PO DAILYPRN PRN (Reason: anxiety) Qty: 2 0RF
aspirin 81 mg Tablet,Chewable
81 mg PO DAILY Qty: 1 0RF
loperamide 2 mg Capsule
2 mg PO Q6HPRN MDD 16mg PRN (Reason: diarrhea/loose stool)
Saline Nasal 0.65 % Aerosol,[place]
1 spray INTRANASAL Q4HPRN PRN (Reason: dryness)
melatonin 10 mg Tablet
10 mg PO HS
ondansetron 8 mg Tablet,Disintegrating
8 mg PO Q8H
rosuvastatin 10 mg Tablet
10 mg PO DAILY
nitrofurantoin monohyd/m-cryst [Macrobid] 100 mg Capsule
100 mg PO BID
cholecalciferol (vitamin D3) 50 mcg (2,000 unit) Tablet
50 mcg PO DAILY
baclofen 5 mg Tablet
2.5 mg PO BID
Discharge Orders:
Discharge Patient (As Directed); Ordered 07/02/25
Ordered By: Jaime Bhakta
Discharge Date and Time
Print Language: [place]
[2025-07-02] MEDS: STERILE WATER FOR INJECTION IV (13:45)
[2025-07-02] MEDS: FERRLECIT 110 MG IV (13:46)
--- NOTE | 2025-07-02 13:48 | CM ---
CM following re: discharge planning.
Reviewed pt's chart, met with pt and spoke to pt's son Mike over the phone to update on discharge plan progress.
Discharge order noted. Both pt and her son are aware, expressed their agreement with discharge.
IMM reviewed, placed on chart, pt has a copy.
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 A referral to [facility] made, spoke to outdoor studies director Lena, pt is accepted for admission today.
UC to arranged ambulance transport. PMNC completed and left with UC.
[facility] nursing report: [phone]
Discharge instructions fax: [phone]
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
--- NOTE | 2025-07-02 15:44 | PTCARENOTE ---
Patient transfused 1 unit PRBC through R AC IV, unit verified with second RN, YURIYS throughout transfusion, patient tolerated procedure.
--- NOTE | 2025-07-02 16:56 | PTCARENOTE ---
Addendum entered by Meghan Pelaez RN 07/02/25 18:02:
No documented BM this admission, facility made aware. Belongings at bedside placed in belonging bag.
Original Note:
Patient to be discharged back to [facility] via ambulance transfer at approximately 1900. IV and tele pack removed, report given to Armando at facility by this RN.
[2025-07-02] MEDS: DICLOFENAC 1% TOPICAL GEL TOPICAL (17:17)
[2025-07-02] MEDS: SYMBICORT 80/4.5 MCG INHALER INH (18:19)
== END 2025-07-02 18:26 | DRG 812 ==
LOC: 2 NORTH 22:27
PROVIDERS: Physician Assistant Medical; ADMITTING PHYSICIAN Hospitalist; ATTENDING PHYSICIAN Hospitalist; EMERGENCY PHYSICIAN Emergency Medicine; FAMILY PHYSICIAN Internal Medicine
PROC: 30233N1 Transfusion of Nonautologous Red Blood Cells into Peripheral Vein, Percutaneous Approach (ICD-10-PCS; 2025-06-29)
DX: D50.9 Iron deficiency anemia, unspecified (principal); N39.0 Urinary tract infection, site not specified; Z16.12 Extended spectrum beta lactamase (ESBL) resistance; J96.11 Chronic respiratory failure with hypoxia; N18.30 Chronic kidney disease, stage 3 unspecified; D63.1 Anemia in chronic kidney disease; J44.9 Chronic obstructive pulmonary disease, unspecified; I25.10 Atherosclerotic heart disease of native coronary artery without angina pectoris; I12.9 Hypertensive chronic kidney disease with stage 1 through stage 4 chronic kidney disease, or unspecified chronic kidney disease; L89.322 Pressure ulcer of left buttock, stage 2; R30.9 Painful micturition, unspecified; L89.312 Pressure ulcer of right buttock, stage 2; B96.1 Klebsiella pneumoniae [K. pneumoniae] as the cause of diseases classified elsewhere; E11.22 Type 2 diabetes mellitus with diabetic chronic kidney disease; E78.5 Hyperlipidemia, unspecified; Z66 Do not resuscitate; Z79.899 Other long term (current) drug therapy; Z87.891 Personal history of nicotine dependence; Z11.52 Encounter for screening for COVID-19; Z86.73 Personal history of transient ischemic attack (TIA), and cerebral infarction without residual deficits
CPT/HCPCS: 71045; 80048; 80053; 81003; 81015; 82607; 82728; 82746; 82962; 83540; 83550; 83880; 84484; 85025; 85027; 86850; 86900; 86901; 86920; 87070; 87077; 87086; 87147; 87186; 87811; 93005; 94640; 99285; J1335; J2916; P9016